=== PATIENT | female | born 2000 | race Caucasian/White ===

== ENCOUNTER 2019-11-17 12:13 | Emergency (ER) | payer OTHER, SELFPAY ==
[2019-11-17 12:31] VITALS: BP 118/80; PULSE 76; RESP 16; TEMP 37; O2SAT 100
--- NOTE | 2019-11-17 12:59 | ED.FEMALEGU ---
HPI - Female Genitourinary General Chief complaint: Urogenital-Female Stated complaint: Pos UTI Time Seen by Provider: 11/17/19 13:00 Source: patient and RN notes reviewed Mode of arrival: ambulatory Limitations: no limitations History of Present Illness HPI Narrative: 19 year old female presents with concern for UTI. She reports history of frequent UTIs, commonly gets them after her menstrual period which she had earlier this month. Reports 1/2-week history of dysuria, frequency, urgency and now is having bilateral flank pain. She denies fever. Reports she took Azo today. MD elicited complaint: UTI Related Data Home Medications Medication Instructions Recorded Confirmed lisdexamfetamine [Vyvanse] mg 11/17/19 Allergies Allergy/AdvReac Type Severity Reaction Status Date / Time sertraline Allergy Unknown hives Verified 03/26/19 16:42 Review of Systems Review of Systems: Narrative: CONSTITUTIONAL: Denies malaise, chills, sweats, or fever. CARDIOVASCULAR: Denies chest pain, palpitations, or edema. RESPIRATORY: Denies cough or dyspnea. GASTROINTESTINAL: Denies abdominal pain, nausea, vomiting, diarrhea GENITOURINARY: Reports dysuria, frequency, urgency, flank pain. Denies hematuria. SKIN: Denies rash or itching. MUSCULOSKELETAL: Denies myalgia. NEUROLOGIC: Denies headache. All systems reviewed & are unremarkable except as noted in HPI and below PMFSH Comments At time of signature, agree with nursing past medical, surgical, social and family history. There is no relevant family history pertinent to the presenting complaint Exam Narrative: Exam Narrative: GENERAL: Well-appearing, well-nourished, and in no acute distress. HEAD: Normocephalic. EYES: PERRLA, conjunctivae clear. NECK: Supple. No lymphadenopathy CHEST: Clear to auscultation. No respiratory distress. HEART: Regular rate and rhythm. No murmur heard. Normal peripheral pulses. ABDOMEN: Soft, mild suprapubic tenderness, otherwise nontender upon palpation, nondistended, normal active bowel sounds, no palpable or pulsatile masses, no guarding. Mild left CVA tenderness SKIN: Warm, dry, no rash. NEURO: Alert and oriented x3. PSYCH: Normal mood and affect Course Course Emergency Course: Patient is aware of diagnosis, understands and agrees to treatment plan. Anticipatory guidance given. Patient agrees to follow-up as directed and is aware of reasons to seek care at the emergency department. Portions of this record may have been created with voice recognition software Vital Signs Vital signs: Vital Signs Temperature 98.6 F 11/17/19 12:31 Pulse Rate 76 11/17/19 12:31 Respiratory Rate 16 11/17/19 12:31 Blood Pressure 118/80 11/17/19 12:31 Pulse Oximetry 100 11/17/19 12:31 Temperature 98.6 F 11/17/19 12:31 Pulse Rate 76 11/17/19 12:31 Respiratory Rate 16 11/17/19 12:31 Blood Pressure 118/80 11/17/19 12:31 Pulse Oximetry 100 11/17/19 12:31 Reviewed. MDM - Female Genitourinary MDM Narrative Medical decision making narrative: Exam findings show no acute concerns or changes; patient is non-toxic appearing and is in no distress. Patient is appropriate for outpatient treatment and follow-up. Differential Diagnosis Differential diagnosis: Likely urinary tract infection, bacterial vaginosis, vaginitis and cystitis Lab Data Labs: Urine Glucose 1+ Reference Range: Negative Urine Bilirubin 2+ Reference Range: Negative Urine Ketone 1+ Reference Range: Negative Urine Specific [place] 1.005 Reference Range:1.001-1.035 Urine Blood Negative Reference Range: Negative * * Urine pH 5.0 Reference Range: 5.0-9.0 Urine Protein 2+ Reference Range: Negative Urine Urobilinogen 8.0 Reference Range: 0.2-
== END 2019-11-17 13:13 | disposition home or self-care (01) ==
PROVIDERS: Emergency Provider Nurse Practitioner; PCP Student in an Organized Health Care Education/Training Program
DX: R30.0 Dysuria (principal); R35.0 Frequency of micturition; R39.15 Urgency of urination; R10.9 Unspecified abdominal pain
CPT/HCPCS: 81003; 87077; 87086; 87088; 87186; 99213; G0463

== ENCOUNTER 2022-04-03 12:55 | Outpatient (CLI) | payer OTHER, SELFPAY ==
--- NOTE | ~2022-04-03 | US_ITS ---
EXAMINATION: US pelvic complete DATE: 04/03/2022 13:28 INDICATION: Right lower quadrant pain TECHNIQUE: Multiple transabdominal and endovaginal sonographic images of the pelvis were obtained. COMPARISON: None. FINDINGS: The uterus measures 7.8 x 3.7 x 5.5 cm. The endometrial complex measures 4 mm. The right ov kalia measures 3.2 x 2.0 x 3.1 cm. The left ovary measures 3.1 x 1.9 x 3.3 cm. There is normal vascular flow in the ovaries. There is no free fluid in the pelvis. IMPRESSION: 1. No sonographic correlate for the patient's symptoms. Reviewed, dictated and finalized at location A.
== END 2022-04-03 12:56 ==
LOC: MICIMG 12:58
PROVIDERS: PCP Advanced Practice Midwife; Visit Provider Advanced Practice Midwife
DX: R10.31 Right lower quadrant pain (principal); N93.8 Other specified abnormal uterine and vaginal bleeding
CPT/HCPCS: 76856

== ENCOUNTER 2024-09-20 16:33 | Inpatient (IN) | payer OTHER, SELFPAY ==
[2024-09-20 17:12] VITALS: BMI 29.3
[2024-09-20] MEDS: DINOPROSTONE 10 MG VAG INSERT VAGINAL (17:16)
--- NOTE | 2024-09-20 17:18 | LDADM ---
This patient, Corinna Thacker, was admitted to Labor/Delivery/Recovery 108 on 09/20/24 at 16:33. Plans for labor, pain management and were discussed with patient. Patient/family oriented to hospital policies and general routines including ID bracelet, bed and alarms, visiting hours, pain management, procedures, bathroom and other care routines, personal items, smoking policy, room service/diet and guest tray routines, infant security routines, and visiting hours. Patient/Family are encouraged to report perceived risks to care and to ask questions if they do not understand what they are told or what they should do. See OBIX for further documentation.
[2024-09-20 17:20] LABS: Basophils Percent Auto 0.2 % (0.2-1.2); Eosinophils Absolute Auto 0.1 K/mm3 (0-0.3); Eosinophils Percent Auto 0.7 % (0-4.4); Hematocrit 28.6 % (37.0-47.0); Hemoglobin 8.8 g/dL (12.0-15.0); Immature Granulocyte Absolute 0.18 K/mm3 (0.00-0.031); Immature Granulocyte Percent A 1.4 % (0-0.5); Lymphocytes Percent Auto 16.7 % (18.3-44.2); Mean Corpuscular HGB Conc 30.8 g/dl (32-36); Mean Corpuscular Hemoglobin 23.1 pg (26-34); Mean Corpuscular Volume 75.1 fl (80-100); Mean Platelet Volume 9.5 fl (7.4-10.4); Monocytes Absolute Auto 0.9 K/mm3 (0.1-0.6); Monocytes Percent Auto 6.5 % (2.6-8.5); Neutrophils Absolute Auto 9.9 K/mm3 (1.3-6.7); Neutrophils Percent Auto 74.5 % (45.5-73.1); Nucleated Red Blood Cells Perc 0.2 % (0.0-0.2); Platelet Count Result 290 k/mm3 (150-375); Red Blood Count 3.81 M/mm3 (4.2-5.4); Red Cell Distribution Width 17.5 % (11.5-14.5); White Blood Count 13.2 K/mm3 (4.5-10.0)
[2024-09-20 17:31] VITALS: BP 98/76; PULSE 91
[2024-09-20 18:00] VITALS: TEMP 36.6
[2024-09-20 18:05] VITALS: BP 93/60; PULSE 97
[2024-09-20 18:09] LABS: HIV 1/2 Ab P24 Ag Result Negative (Negative)
[2024-09-20 18:22] LABS: Rapid Plasma Reagin Non-Reactive (NonReactive)
[2024-09-20 18:30] VITALS: BP 113/76; PULSE 97
[2024-09-20 19:00] VITALS: BP 96/69; PULSE 90
[2024-09-20 23:33] VITALS: BP 109/75; PULSE 105
[2024-09-21] VITALS (163 sets, daily range): BP systolic 87–126; BP diastolic 47–86; PULSE 70–126; RESP 18; TEMP 37.1–37.4; O2SAT 92–100
--- NOTE | 2024-09-21 01:00 | P.PNAN_ITS ---
Anes - Eval Pre Procedure Procedure: Labor Pain Management Date/Time: 09/21/24 01:00 Surgeon: Viry Siddiqui Preop Diagnosis: Pain during labor Pre Op Diagnosis: IOL Patient Data Age: 24 Gender: F Height: 1.7 m Weight: 85 kg Last Vital Signs Temp 98 F 09/20/24 18:00 Pulse 105 H 09/20/24 23:33 BP 109/75 09/20/24 23:33 O2 Del Method Room Air 09/20/24 18:11 Allergies Allergy/AdvReac Type Severity Reaction Status Date / Time sertraline Allergy Unknown hives Verified 09/08/24 14:27 Home Medications Medication Instructions Recorded Confirmed Type vits no.126-ferrous fum 1 tablet PO DAILY 09/08/24 09/08/24 History 28 mg iron-folic acid 800 mcg tablet (Classic ) Laboratory Tests 09/20/24 16:44 WBC 13.2 H K/mm3 (4.5-10.0) RBC 3.81 L M/mm3 (4.2-5.4) Hgb 8.8 L g/dL (12.0-15.0) Hct 28.6 L % (37.0-47.0) MCV 75.1 L fl (80-100) MCH 23.1 L pg (26-34) MCHC 30.8 L g/dl (32-36) RDW 17.5 H % (11.5-14.5) Plt Count 290 k/mm3 (150-375) MPV 9.5 fl (7.4-10.4) Immature Gran % (Auto) 1.4 H % (0-0.5) Neut % (Auto) 74.5 H % (45.5-73.1) Lymph % (Auto) 16.7 L % (18.3-44.2) [place] % (Auto) 6.5 % (2.6-8.5) Eos % (Auto) 0.7 % (0-4.4) Baso % (Auto) 0.2 % (0.2-1.2) Lymph # (Auto) 2.20 K/mm3 (0.9-3.2) [place] # (Auto) 0.9 H K/mm3 (0.1-0.6) Eos # (Auto) 0.1 K/mm3 (0-0.3) Baso # (Auto) 0.0 K/mm3 (0.0-0.1) Abs Immat Gran (auto) 0.18 H K/mm3 (0.00-0.031) Absolute Neuts (auto) 9.9 H K/mm3 (1.3-6.7) Absolute Nucleated RBC 0.020 H K/mm3 (0.0-0.012) Nucleated RBC % 0.2 % (0.0-0.2) RPR Non-reactive (NonReactive) HIV 1&2 Ab/P24 Ag 4thGn Negative (Negative) Blood Type A Positive Antibody Screen Negative Patient hx anesthesia problems: none Family hx anesthesia problems: none Results Review: All pre-operative results and documents have been reviewed as part of the pre- operative evaluation. [facility] Past Medical History Medical History Former smoker vape Marijuana use Family History Family History Grandparent Diabetes mellitus Pancreatic cancer Cervical cancer Social History Social History Smoking status: Former smoker Tobacco type: e-cigarettes/vaping Alcohol intake: current Substance use: former Substance use type: marijuana Do You Feel Safe in your Home?: Yes Lack of Transportation: No Lack of Food: Never True Current Housing: I Have Housing Concerned About Future Housing: No Difficulty Paying Gas/Electric Bills: No Difficulty Paying for Meds: No Currently Unemployed: No Education: High School Diploma/GED Difficulty w/ Childcare or Family Care: No Spiritual care concerns: No Exam Day of Procedure 09/21/24 01:00
[2024-09-21] MEDS: LACTATED RINGERS 1,000 ML 125 ML IV CONT ×3 (06:18→13:06)
[2024-09-21] MEDS: OXYTOCIN 30 UNITS/NS 500 ML 30 UNITS/500 ML BAG 6 UNITS IV CONT (06:19)
--- NOTE | 2024-09-21 06:25 | PM.IMHP ---
H&P: HPI History of Present Illness Date/Time: 09/21/24 06:25 Chief Complaint: term Narrative: 24-year-old female admitted for induction of labor 4 para 0030. Her last menstrual period was 11/25/2023, EDC is 09/14/2024, confirmed by early ultrasound presents at 41 weeks for induction of labor. She is negative for group B strep PMFSH Past Medical History Medical History Former smoker vape Marijuana use Family History Family History Grandparent Diabetes mellitus Pancreatic cancer Cervical cancer Social History Social History Smoking status: Former smoker Tobacco type: e-cigarettes/vaping Alcohol intake: current Substance use: former Substance use type: marijuana Do You Feel Safe in your Home?: Yes Lack of Transportation: No Lack of Food: Never True Current Housing: I Have Housing Concerned About Future Housing: No Difficulty Paying Gas/Electric Bills: No Difficulty Paying for Meds: No Currently Unemployed: No Education: High School Diploma/GED Difficulty w/ Childcare or Family Care: No Spiritual care concerns: No Comments At time of signature, agree with nursing past medical, surgical, social and family history. There is no relevant family history pertinent to the presenting complaint Meds Home Medications and Allergies Home Medications Medication Instructions Recorded Confirmed Type vits no.126-ferrous fum 1 tablet PO DAILY 09/08/24 09/08/24 History 28 mg iron-folic acid 800 mcg tablet (Classic ) Allergies Allergy/AdvReac Type Severity Reaction Status Date / Time sertraline Allergy Unknown hives Verified 09/08/24 14:27 Vital Signs Vital Signs - 24 hr 09/20/24 17:31 09/20/24 18:05 09/20/24 18:00 Temperature 98 F Pulse Rate 91 97 Blood Pressure 98/76 L 93/60 L Oxygen Delivery 09/20/24 18:30 09/20/24 19:00 09/20/24 23:33 Temperature Pulse Rate 97 90 105 H Blood Pressure 113/76 96/69 L 109/75 Oxygen Delivery 09/21/24 04:08 09/20/24 17:12 09/20/24 18:11 Temperature Pulse Rate 95 Blood Pressure 100/47 L Oxygen Delivery Room Air Room Air Exam Const: General: cooperative, healthy appearing, comfortable and well groomed Nutritional Appearance: average body habitus and well nourished Orientation/consciousness: oriented to person, oriented to place and oriented to time HENMT: Head: normal to inspection Resp: Effort & Inspection: normal respiratory effort Cardio: Rate: regular rate Rhythm: regular rhythm Heart sounds: S1 normal heart sound present and S2 normal heart sound present GI: Inspection: normal to inspection ( gravid soft uterus) : External Female Exam: normal external appearance Speculum Exam - Vagina: normal appearance of the vagina Speculum Exam - Cervix: normal appearance of the cervix ( cervix 2/75/2. AROM clear. FHTs reassuring) H&P: Results Labs Labs: Short CBC 09/20/24 Range/Units 16:44 WBC 13.2 H (4.5-10.0) K/mm3 Hgb 8.8 L (12.0-15.0) g/dL Hct 28.6 L (37.0-47.0) % Plt Count 290 (150-375) k/mm3 Assessment and Plan Assessment and plan (1) : Code(s): Z34.90 - Encounter for supervision of normal , unspecified, unspecified trimester Status: Acute (2) Anemia: Code(s): D64.9 - Anemia, unspecified Status: Acute Assessment and Plan: medical induction of labor. Spontaneous vaginal delivery expected. She is an epidural candidate.
[2024-09-21] MEDS: ONDANSETRON INJ 4 MG/2 ML VIAL IV PUSH (12:13)
--- NOTE | 2024-09-21 12:14 | PM.OBPNLAB ---
Pain Control Date/time seen: 09/21/24 12:14 Pain control: tolerating well and epidural Pelvic Exam Dilation (cm): 10 Effacement (%): 100 station: -1 Amniotic membrane status: Leaking
--- NOTE | 2024-09-21 16:08 | P.PCNOB_ITS ---
OB - Vaginal Delivery Note Procedure Delivery date: 09/21/24 Events: Elective Induction of Labor Induction method: AROM Delivery augmentation: Pitocin Delivery monitor: External FHT and External Uterine Episiotomy description: None Laceration Description: Perineal - 1st Degree Delivery repair: vicryl Specimen: No Quantitative Blood Loss (ml): 62 Anesthesia type: Epidural Disposition: PACU Narrative: Patient was admitted for induction of labor the evening of 09 20 24 she progressed unremarkable 1st stage of labor had artificial rupture membranes performed early epidural anesthesia was placed she got to complete pushed delivered head spontaneously in the RAJESH position. Anterior posterior shoulder delivered spontaneously. Cord clamped to cut infant passed of the table given Apgars of 8 [id number] 9 [id number]. Cord blood was drawn. Placenta delivered intact spontaneously 20 of Pitocin placed IV to help firm the uterus after speculum sidewalls 1st degree perineal laceration was noted and closed with figu re-of-eight 0 Vicryl blood loss 62cc. All sponge, needle counts, were intact. There were no complications mom and baby doing fine at the time dictation [place] Baby Date of : 09/21/24 Time of : 15:55 Gestational Age by Date: 39 gender: Female presentation: vertex position: Right Occiput Anterior Placenta delivery description: Spontaneous Cord Vessel Description: 3 Vessels score one minute: 8 score five minutes: 9
--- NOTE | 2024-09-21 16:10 | PM.DS ---
DS: Admitting Diagnosis Discharge Date 09/23/2024 Admitting Diagnosis term DS: Discharge Diagnosis Discharge Diagnosis (1) : Code(s): Z34.90 - Encounter for supervision of normal , unspecified, unspecified trimester Status: Acute (2) Anemia: Code(s): D64.9 - Anemia, unspecified Status: Acute DS: Summary Hospital Course Reason for hospitalization: patient was admitted for induction evening 09/20/2024 delivered at 3:55 p.m. on 09/21/2024 Hospital Course: patient's hospital course unremarkable. She remained afebrile. She was up, voiding without difficulty, eating regular diet, ambulating generally without Complains. Patient did receive 2units of blood secondary to her chronic anemia. Time Spent with Patient Time attestation: Total time spent providing and/or coordinating discharge services: Exam Const: General: cooperative, healthy appearing and comfortable Nutritional Appearance: average body habitus Orientation/consciousness: oriented to person, oriented to place and oriented to time HENMT: Head: normal to inspection Resp: Effort & Inspection: normal respiratory effort Cardio: Rate: regular rate Rhythm: regular rhythm Heart sounds: S1 normal heart sound present and S2 normal heart sound present GI: Inspection: normal to inspection ( fundus firm below umbilicus) DS: Data Data Completed and Pending Labs on day of discharge: Labs from last 24 hours 09/20/24 16:44 WBC 13.2 H RBC 3.81 L Hgb 8.8 L Hct 28.6 L MCV 75.1 L MCH 23.1 L MCHC 30.8 L RDW 17.5 H Plt Count 290 MPV 9.5 Immature Gran % (Auto) 1.4 H Neut % (Auto) 74.5 H Lymph % (Auto) 16.7 L [place] % (Auto) 6.5 Eos % (Auto) 0.7 Baso % (Auto) 0.2 Lymph # (Auto) 2.20 [place] # (Auto) 0.9 H Eos # (Auto) 0.1 Baso # (Auto) 0.0 Abs Immat Gran (auto) 0.18 H Absolute Neuts (auto) 9.9 H Absolute Nucleated RBC 0.020 H Nucleated RBC % 0.2 RPR Non-reactive HIV 1&2 Ab/P24 Ag 4thGn Negative Blood Type A Positive Antibody Screen Negative Discharge Plan Discharge Attending physician on discharge: Nakul Estrada Discharging Clinician: Nakul Estrada Patient Disposition: Home, Self-Care Activity: may shower and pelvic rest Diet: heart healthy Wound Care Instructions: follow printed instructions Patient Instructions: Antibiotic Form Patient Language: Spanish Stand Alone Forms: General Discharge Information Follow-up/Referrals: Nakul Estrada MD [Physician] - Discharge Medications: Continued Classic 28 mg iron- 800 mcg Tablet 1 tablet PO DAILY Date of admission: 09/20/24 16:33 Primary Care Provider: Davis,Arden Admitting Provider: Nakul Estrada Attending physician on admission: Nakul Estrada Condition: Stable
[2024-09-21] MEDS: OXYTOCIN 30 UNITS/NS 500 ML 30 UNITS/500 ML BAG 125 UNITS IV CONT (16:34)
[2024-09-21] MEDS: IBUPROFEN 600 MG TABLET PO (17:55)
[2024-09-21] MEDS: WITCH HAZEL 40 PADS 1 PAD TOPICAL (18:50)
[2024-09-21] MEDS: BENZOCAINE 20% AER SPR (*SP) 56 GM CAN 1 SPRAY TOPICAL (18:50)
--- NOTE | 2024-09-21 19:38 | OBPPTRN ---
Patient transferred to post room #282 via wheelchair. Support person- Prudencio present. Oriented to unit, room, information board, rooming in, admission packet and security measures. Patient verbalizes understanding.
[2024-09-22] VITALS (12 sets, daily range): BP systolic 107–121; BP diastolic 60–84; PULSE 88–110; RESP 16–18; TEMP 36.3–37.1; O2SAT 97–100
[2024-09-22] MEDS: IBUPROFEN 600 MG TABLET PO ×3 (01:45→19:55)
--- NOTE | 2024-09-22 07:01 | PM.OBPNVD ---
OB - PN: Subj Subjective Date/time seen: 09/22/24 07:01 Patient comments: no complaints, pain well controlled and tolerating diet [place] baby status: doing well and nursing well [place] feeding status: exclusively breast feeding OB - PN: Obj Data Labs 09/20/24 16:44 OB - PN A/P Assessment and Plan (1) Anemia: Code(s): D64.9 - Anemia, unspecified Status: Acute Plan transfuse 2 units Time Spent With Patient Time: Total time spent is greater than 50% in coordination of care (as documented) at patient's floor/unit and/or counseling patient: Review of Systems Review of Systems: All systems reviewed & are unremarkable except as noted in HPI and below Exam Const: General: cooperative, healthy appearing and comfortable Nutritional Appearance: average body habitus Orientation/consciousness: oriented to person, oriented to place and oriented to time Resp: Effort & Inspection: normal respiratory effort Cardio: Rate: regular rate Rhythm: regular rhythm Heart sounds: S1 normal heart sound present and S2 normal heart sound present GI: Inspection: normal to inspection
[2024-09-22] MEDS: SODIUM CHLORIDE 0.9% IV 250 ML 30 ML IV CONT (07:48)
--- NOTE | 2024-09-22 07:50 | PC.NURSE ---
Met with patient to assess and discuss needs related to feeding. Mother states it is her intention to [exclusively breastfeed]. Encouraged mother to breastfeed 8-12 times in 24 hours (approximately every 2-3 hours), watching for early feeding cues. If infant is sleepy, unwrap and place baby skin to skin. Discussed signs that infant is effectively , i.e. sufficient voids and stools, jaundice within normal limits, <10% weight loss from . Mother educated on milk production, supply and demand, and expectations for in the immediate period. Encouraged feeding on demand and feeding durations of 15 minutes or greater. [facility] form signed and placed on patient chart to be faxed at discharge. Mother states she has a breast pump at home. Mother instructed to call for assistance if infant will not feed every 3 hours, if there is discomfort with , or if mother has any other questions or concerns. resources provided including the Mom and Baby Guide, admission folder and name/number on communication board. Mother verbalized understanding. Updated patient?s primary RN with education provided.? [id number]- Primary RN had called for assistance with , but upon entering the room, mom already had baby latched and she was feeding consistently. The latch appeared to be shallow but mom declined pain and baby was able to pull more breast into her mouth as she suckled. Encouraged mom to let us know if the latch becomes painful or if she has any request for assistance. Primary RN notified.
[2024-09-22] MEDS: MULTIVIT/MIN/PREN/FOL AC/IRON TABLET 1 TAB PO (08:25)
[2024-09-22] MEDS: DOCUSATE SODIUM 100 MG CAPSULE PO ×2 (08:25→17:13)
[2024-09-22] MEDS: POLYSACCHARIDE IRON COMPLEX 150 MG CAPSULE PO ×2 (08:25→17:13)
[2024-09-22 08:54] LABS: Hematocrit 20.5 % (37.0-47.0); Hemoglobin 6.4 g/dL (12.0-15.0)
[2024-09-22 09:10] LABS: Basophils Percent Auto 0.1 % (0.2-1.2); Eosinophils Absolute Auto 0.1 K/mm3 (0-0.3); Eosinophils Percent Auto 0.6 % (0-4.4); Immature Granulocyte Absolute 0.16 K/mm3 (0.00-0.031); Immature Granulocyte Percent A 1.1 % (0-0.5); Lymphocytes Absolute Auto 2.31 K/mm3 (0.9-3.2); Lymphocytes Percent Auto 15.5 % (18.3-44.2); Mean Corpuscular HGB Conc 29.1 g/dl (32-36); Mean Corpuscular Hemoglobin 22.7 pg (26-34); Mean Platelet Volume 10.4 fl (7.4-10.4); Monocytes Absolute Auto 1.2 K/mm3 (0.1-0.6); Monocytes Percent Auto 7.9 % (2.6-8.5); Neutrophils Absolute Auto 11.1 K/mm3 (1.3-6.7); Neutrophils Percent Auto 74.8 % (45.5-73.1); Nucleated Red Blood Cells Perc 0.2 % (0.0-0.2); Platelet Count Result 212 k/mm3 (150-375); Red Blood Count 2.73 M/mm3 (4.2-5.4); Red Cell Distribution Width 18.1 % (11.5-14.5); White Blood Count 14.9 K/mm3 (4.5-10.0)
[2024-09-22 09:58] LABS: Platelet Estimate Adequate (Adequate)
[2024-09-22 09:59] LABS: Anisocytosis 2+; Schistocytes None Seen
--- NOTE | 2024-09-22 14:16 | WPDANLDPN2 ---
Anes-Prog Note L&D Date/Time: 09/22/24 14:16 Comfortable throughout: labor and delivery Neuraxial method: epidural Epidural/Spinal procedure site: clean & non-tender Neuro status: Neuro function grossly intact. Cardiovascular status: normal Respiratory status: normal Airway patency: baseline Mental status: baseline Post-Op hydration status: normal Vital Signs: Last Vital Signs Temp 97.7 F 09/22/24 13:11 Pulse 93 09/22/24 13:11 Resp 16 09/22/24 13:11 BP 107/68 09/22/24 13:11 Pulse Ox 98 09/22/24 13:11 O2 Del Method Room Air 09/20/24 18:11 Pain score (VAS): 0/10 I/O: Intake & Output 09/21/24 09/22/24 09/22/24 23:59 07:59 15:59 Intake Total 500 240 326 Output Total 112 Balance 388 240 326 Post-procedural complaints: none Patient feedback: Patient satisfied with anesthetic care.
[2024-09-22 18:33] LABS: Hematocrit 25.8 % (37.0-47.0)
[2024-09-23] MEDS: IBUPROFEN 600 MG TABLET PO (07:38)
[2024-09-23] MEDS: MULTIVIT/MIN/PREN/FOL AC/IRON TABLET 1 TAB PO (07:39)
[2024-09-23] MEDS: INFLUENZA TRIVALENT VACCINE 45 MCG/0.5 ML SYRINGE IM (07:39)
[2024-09-23] MEDS: POLYSACCHARIDE IRON COMPLEX 150 MG CAPSULE PO (07:39)
[2024-09-23] MEDS: DOCUSATE SODIUM 100 MG CAPSULE PO (07:39)
[2024-09-23 08:50] VITALS: BP 119/59; PULSE 85; RESP 16; TEMP 36.6; O2SAT 99
--- NOTE | 2024-09-23 09:36 | PC.NURSE ---
Breast pump provided due to missed feedings at the breast and extended time between feedings. Instructions given on cleaning, care, usage, that there should be no pain, pumping schedule for milk production, collection, and storage of human milk. Patient was assessed for correct placement, flange size (Nipple size bilaterally - 24mm) using size 28mm flange, to pump for comfort and nipple stretching/stimulation for adequate milk production every 3 hours (8 times in 24 hours) 1-2 times at night. Mother verbalizes she is able to independently latch infant with appropriate positioning and alignment. She denies any nipple discomfort and is responsively . Infant latched to the right breast in laid back position and was nursing great. Mother denies pain or discomfort. Mother declines any additional assistance or education at this time. Mother is encouraged to call for assistance if her infant doesn?t latch, pain with latching, questions or concerns. Mother voiced understanding of information shared along with the mom/baby guide for an additional resource. Reported to the Primary RN.
--- NOTE | 2024-09-23 10:08 | PC.NURSE ---
Patient viewed the discharge video Mother & Baby Care, The First Two Weeks . Patient was given the opportunity and encouraged to ask questions. Patient verbalized understanding of information shared and has been given the mother/baby guide for home reference.
[2024-09-24 07:58] VITALS: BP 113/68; PULSE 88; RESP 16; TEMP 36.7; O2SAT 100
== END 2024-09-23 14:20 | disposition home or self-care (01) | DRG 807 ==
LOC: ANHLDR 09-21 16:12 → ANHOB2 09-21 19:49
PROVIDERS: Obstetrics & Gynecology; Admitting Provider Obstetrics & Gynecology; PCP Student in an Organized Health Care Education/Training Program; Visit Provider Obstetrics & Gynecology
DX: O99.02 Anemia complicating childbirth (principal); Z37.0 Single live birth; Z3A.41 41 weeks gestation of pregnancy; D64.9 Anemia, unspecified; O70.0 First degree perineal laceration during delivery; Z23 Encounter for immunization
CPT/HCPCS: 36415; 36430; 85014; 85018; 85025; 86592; 86703; 86850; 86900; 86901; 86923; 90471; 90656; A9270; G0008; G0432; J2405; J2590; J2795; J7050; J7120; P9016

== ENCOUNTER 2024-09-26 11:26 | Emergency (ER) | payer OTHER, SELFPAY ==
--- NOTE | ~2024-09-26 | US_ITS ---
EXAMINATION: US venous doppler LE RT DATE: 09/26/2024 12:50 INDICATION: right lower limb swelling TECHNIQUE: Grayscale ultrasound images without and with compression and Doppler ultrasound images of the right lower extremity veins were obtained. COMPARISON: None. FINDINGS: The visualized portions of right common femoral vein, profunda (deep) femoral vein, femoral vein, pop liteal vein, peroneal trunk, posterior tibial veins, peroneal veins, gastrocnemius vein and greater s aphenous vein outflow are patent. IMPRESSION: 1. No deep venous thrombosis in the right lower limb. Reviewed, dictated and finalized at location [facility] [employer]
[2024-09-26 11:28] VITALS: BP 130/88; PULSE 75; RESP 16; TEMP 36.2; O2SAT 100
[2024-09-26 11:41] VITALS: BP 111/81; PULSE 82; RESP 16; TEMP 36.8; O2SAT 99
--- NOTE | 2024-09-26 12:28 | ED_ITS ---
HPI - Recheck/Abnormal Lab/Rx General Chief Complaint: Recheck/Abnormal Lab/Rx Stated Complaint: Right Lower Leg/Foot Swelling Time Seen by Provider: 09/26/24 11:56 History of Present Illness HPI narrative: 24-year-old female presenting with right leg swelling. States that she gave about a week ago and today her right leg became swollen. States that her left leg is a little bit swollen but the right 1 was twice the size of the left 1. Has some paresthesias and tingling but no numbness or weakness. Denies pain or redness. Related Data Home Medications ?Medication ?Instructions ?Recorded ?Confirmed ?Last Taken ?Type vits no.126-ferrous fum 1 tablet PO DAILY 09/08/24 09/08/24 09/20/24 08:00 History 28 mg iron-folic acid 800 mcg tablet (Classic ) Allergies Allergy/AdvReac Type Severity Reaction Status Date / Time sertraline Allergy Unknown hives Verified 09/08/24 14:27 Review of Systems Review of Systems: All systems reviewed & are unremarkable except as noted in HPI and below PMFSH Past Medical History Medical History Former smoker vape Marijuana use Family History Family History Grandparent Diabetes mellitus Pancreatic cancer Cervical cancer Social History Social History Smoking status: Former smoker Tobacco type: e-cigarettes/vaping Alcohol intake: current Substance use: former Substance use type: marijuana Do You Feel Safe in your Home?: Yes Lack of Transportation: No Lack of Food: Never True Current Housing: I Have Housing Concerned About Future Housing: No Difficulty Paying Gas/Electric Bills: No Difficulty Paying for Meds: No Currently Unemployed: No Education: High School Diploma/GED Difficulty w/ Childcare or Family Care: No Spiritual care concerns: No Exam Narrative: GENERAL: Well-appearing, well-nourished, and in no acute distress. HEAD: Normocephalic, atraumatic. EYES: PERRLA and EOMI. ENT: Grossly unremarkable NECK: Supple. CHEST: No respiratory distress. HEART: Regular rate and rhythm EXTREMITIES: Normal range of motion. bilateral LE edema, R>L; no erythema, neurovascularly intact SKIN: Warm, dry, no rash. NEURO: No focal deficits. Alert and oriented x3. PSYCH: Normal mood and affect. Course Vital Signs Vital signs: Vital Signs Temperature 97.1 F L 09/26/24 11:28 Pulse Rate 75 09/26/24 11:28 Respiratory Rate 16 09/26/24 11:28 Blood Pressure 130/88 09/26/24 11:28 Pulse Oximetry 100 09/26/24 11:28 Temperature 98.3 F 09/26/24 11:41 Pulse Rate 82 09/26/24 11:41 Respiratory Rate 16 09/26/24 11:41 Blood Pressure 111/81 09/26/24 11:41 Pulse Oximetry 99 09/26/24 11:41 MDM - Recheck/Abnormal Lab/Rx MDM Narrative Medical decision making narrative: 24-year-old female presenting with right leg swelling. Vitals are within normal limits. Not tachycardic or hypertensive. Ultrasound shows no blood clot in the right leg. Suspect her leg swelling is related to the recent and delivery. She does have some swelling on the left as well. Feel she is safe for outpatient management. Discussed appropriate supportive care and follow-up. Appropriate return precautions given. She is agreeable this plan. Discharged in stable condition. Imaging Data Radiologist's impression: ITS Impressions Venous Doppler Study 09/26/24 12:54 IMPRESSION: 1. No deep venous thrombosis in the right lower limb. Critical Care Time Critical Care Time Critical Care Time: No Discharge Plan Discharge Clinical Impression: Leg swelling Patient Disposition: Home, Self-Care Condition: Stable Instructions: Antibiotic Form, Leg Edema (ED) Additional Instructions: The ultrasound shows no blood clot in your leg. Please elevate your legs as much as possible and follow-up with your OB. If your symptoms worsen or other concerning symptoms arise, please return to the ER. Patient Language: Bangladeshi Prescriptions: No Action Classic 28 mg iron- 800 mcg Tablet 1 tablet PO DAILY Follow-up/Referrals: Nakul Estrada MD [Physician] - Davis,DO Arden [Primary Care Provider] -
--- OUTSIDE RECORDS SUMMARY | 2024-09-30 09:11 | XMS_ITS | Clinical Summary ---
Author Organization [facility] Address [address] [place] [address] Care Team Providers Care Wiring Technician Name Role Phone Unavailable Primary Care Provider Unavailabl e Source Comments [facility],non-owned Affiliates and Associated Physician Practices is amultiple site organization consisting of ambulatory clinics and hospital sitesin [place], [place], [place] and [place]. This disclosure is being madepursuant to the Care Everywhere program and may not contain all information available regarding this patient. Last updated 18.[facility] Allergies Active Allergy Reactions Criticality Noted Date Comments Sertraline Urticaria Medium 11/13/2018 Medications * Be aware that medications may not be up to date on this document. Alwaysverify current medications with the patient. 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): IMO Update 01/12/2017 Social History Tobacco Use Types Packs/Day Years Used Date Smoking Tobacco: Never Smokeless Tobacco: Never Alcohol Use Standard Drinks/Week Comments No 0 (1 standard drink = 0.6 oz pur e alcohol) Sex and Gender Information Value Date Recorded Sex Assigned at Not on file Gender Identity Not on file Sexual Orientation Not on file Last Filed Vital Signs Vital Sign Reading Time Taken Comments Blood Pressure 114/68 07/12/2019 11:22 AM CDT Pulse 74 07/12/2019 11:22 AM CDT Temperature 36.8 ??C (98.3 ??F) 07/12/2019 11:22 AM C DT Respiratory Rate 16 07/12/2019 11:22 AM CDT Oxygen Saturation 98% 07/12/2019 11:22 AM CDT Inhaled Oxygen Concentration - - Weight 61.2 kg (135 lb) 07/12/2019 11:22 AM CDT Height 170.2 cm (5' 7 ) 07/12/2019 11:22 AM CDT Body Mass Index 21.14 07/12/2019 11:22 AM CDT Plan of Treatment Health Maintenance Due Date Last Done Comments PAP SMEAR 1998 HIV SCREENING 2013 HPV VACCINE (1 - 3-dose series) 2013 HEPATITIS C SCREENING 01/27/2016 DTAP/TDAP/TD VACCINES (1 - Tdap) 2017 HEPATITIS B VACCINE (1 of 3 - 19+ 3-dose series) 2017 DEPRESSION SCREENING 10/14/2023 COVID-19 VACCINE (1 - 2023-2 5 season) 2024 INFLUENZA VACCINE (#1) 2024 ZOSTER VACCINE (1 of 2) 02/01/2048 HIB VACCINE Aged Out No longer eligi ble based on patient's age to complete this topic MENINGOCOCCAL VACCINE Aged Out No dileep cadence eligible based on patient's age to complete this topic PNEUMOCOCCAL VACCINE Aged Out No long er eligible based on patient's age to complete this topic
--- OUTSIDE RECORDS SUMMARY | 2024-09-30 09:11 | XMS_ITS | Encounter Summary ---
Author Organization [facility] Address [facility] [place] [address] Care Team Providers Care Program Medical Director Name Role Phone Jian Benitez MD Primary Care Provider [phone] Reason for Visit * Reason Onset Date Comments Follow-up 05/03/2019 Encounter Details Date Type Department Care Team (Late st Contact Info) Description 05/03/2019 Telephone [facility] AT [address] [phone] Provider, [facility] Follow-up Social History Tobacco Use Types Packs/Day Years Used Date Smoking Tobacco: Never Smokeless Tobacco: Never Alcohol Use Standard Drinks/Week Comments No 0 (1 standard drink = 0.6 oz pur e alcohol) Sex and Gender Information Value Date Recorded Sex Assigned at Not on file Gender Identity Not on file Sexual Orientation Not on file documented as of this encounter Miscellaneous Notes * Telephone Encounter - Steff Alcantar - 05/03/2019 10:37 AM CDT Courtesy follow-up phone call made to patient. Message left advising patient to call service [facility] [phone] if they have any questions or concerns. Steff Alcantar 05/03/2019 10:40 AM documented in this encounter Plan of Treatment Not on file documented as of this encounter Visit Diagnoses Not on filedocumented in this encounter Care Teams Program Medical Director Relationship Specialty Start Date End Date Jian Benitez MD [address] [place] [address] PCP - General Pediatrics 08/03/14 03/26/24 documented as of this encounter
--- OUTSIDE RECORDS SUMMARY | 2024-09-30 09:11 | XMS_ITS | Encounter Summary ---
Author Organization [facility] Address [address] [place] [address] [place] [address] Care Team Providers Care Grant Administrator Name Role Phone Jian Benitez MD Primary Care Provider Reason for Visit * Reason Onset Date Comments Follow-up 07/14/2019 Encounter Details Date Type Department Care Team (Late st Contact Info) Description 07/14/2019 Telephone [facility] AT [address] [phone] Christine Griggs, [facility] [address] [place] [address] Follow-up Social History Tobacco Use Types Packs/Day Years Used Date Smoking Tobacco: Never Smokeless Tobacco: Never Alcohol Use Standard Drinks/Week Comments No 0 (1 standard drink = 0.6 oz pur e alcohol) Sex and Gender Information Value Date Recorded Sex Assigned at Not on file Gender Identity Not on file Sexual Orientation Not on file documented as of this encounter Plan of Treatment Not on file documented as of this encounter Visit Diagnoses Not on filedocumented in this encounter Care Teams Grant Administrator Relationship Specialty Start Date End Date Jian Benitez MD [address] [place] [address] PCP - General Pediatrics 08/03/14 03/26/24 documented as of this encounter
--- OUTSIDE RECORDS SUMMARY | 2024-09-30 09:11 | XMS_ITS | Patient Health Summary ---
Author Organization [facility] Address [address] [place] [address] Care Team Providers Care Hole Digger Operator Name Role Phone Unavailable Primary Care Provider Unavailabl e Note from [facility],non-owned Affiliates and Associated Physician Practices is amultiple site organization consisting of ambulatory clinics and hospital sitesin [place], [place], [place] and [place]. This disclosure is being madepursuant to the Care Everywhere program and may not contain all information available regarding this patient. Last updated 18.[facility] Allergies * Sertraline(Urticaria) -Medium Criticality Medications * Be aware that medications may not be up to date on this document. Alwaysverify current medications with the patient. 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 Social History Tobacco Use Types Packs/Day Years [...] Mass Index 21.14 07/12/2019 11:22 AM CDT Procedures * INFLUENZA A+B - POINT OF CARE (AMB)(Performed 07/12/2019) Performed for Nasopharyngitis * STREP A SCREEN - POINT OF CARE (AMB) STL(Performed 07/12/2019) Performed for Nasopharyngitis * CULTURE RESPIRATORY UPPER(Performed 11/13/2018) Performed for Acute suppurative otitis media of left ear without spontaneous rupture of tympanic membrane, recurrence not specified * MONONUCLEOSIS SCREEN - POINT OF CARE (AMB) STL(Performed 11/13/2018) Performed for Acute suppurative otitis media of left ear without spontaneous rupture of tympanic membrane, recurrence not specified * INFLUENZA A+B - POINT OF CARE (AMB)(Performed 11/13/2018) Performed for Acute suppurative otitis media of left ear without spontaneous rupture of tympanic membrane, recurrence not specified * STREP A SCREEN - POINT OF CARE (AMB) STL(Performed 11/13/2018) Performed for Acute suppurative otitis media of left ear without spontaneous rupture of tympanic membrane, recurrence not specified * CARDIAC EKG ORDER(Performed 12/26/2015) * CARDIAC RHYTHM STRIP ORDER(Performed 12/26/2015) * ECHO CONSULT - PEDIATRIC(Performed 12/15/2015) Performed for Bradycardia * EKG 15-LEAD(Performed 12/15/2015) Performed for Bradycardia * MRI LOWER EXT ANY JOINT NON CONTRAST RIGHT(Performed 09/24/2014) Performed for Osteochondritis dessicans * COMPREHENSIVE METABOLIC PANEL(Performed 12/29/2010) * MONONUCLEOSIS SCREEN(Performed 12/29/2010) * CBC W AUTO DIFFERENTIAL(Performed 12/29/2010) * XR SCOLIOSIS 1VW(Performed 05/22/2010) Performed for Scoliosis (and Kyphoscoliosis), Idiopathic Results * INFLUENZA A+B - POINT OF CARE (AMB) (07/12/2019 11:54 AM CDT) Only the most recent of2 resultswithin the time period is included. Influenza A Antigen Rapid Negative Negative Influenza B Antigen Rapid Negative Negative Influenza Internal Control present NEGATIVE - POSITIVE Influenza Lot Number [id number] Influenza Expiration Date 08 25 2020 Other NASOPHARYNGEAL SWAB / Unknown 07/12/2019 11:54 AM CDT Christine Griggs BOOK OR SCRIPT EDITOR-CR[facility] SPECIALIST [facility] - POINT OF CARE ORDERABLES * STREP A SCREEN - POINT OF CARE (AMB) STL (07/12/2019) Only the most recent of2 resultswithin the time period is included. Strep A Rapid POCT Negative Negative Strep A Internal Control Present Lot # [id number] Expiration Date 10/13/2020 Throat ENTIRE THROAT (SURFACE REGION OF NECK) / Unknown 07/12/2019 Christine Griggs BOOK OR SCRIPT EDITOR-CR[facility] SPECIALIST LAB - POINT OF CARE ORDERABLES * CULTURE RESPIRATORY UPPER (11/13/2018 8:06 PM CIVIL DRAFTING TECHNICIAN) Upper Respiratory Culture Final report [facility] INSURANCE BILL Result 1 [facility] INSURANCE BILL Comment:Routine respiratory brooke Microbiology ENTIRE THROAT (SURFACE REGION OF NECK) / Unknown 11/13/2018 8:06 PM CIVIL DRAFTING TECHNICIAN 11/14/2018 Narrative Resulting Agency Comment [facility] [address] ??[facility] [id number] Xuan Bill BOOK OR SCRIPT EDITOR-CROP SPECIALIST LAB - MICROB IOLOGY ORDERABLES [facility] INSURANCE BILL [address] [place] [address] * MONONUCLEOSIS SCREEN - POINT OF CARE (AMB) STL (11/13/2018 8:05 PM CIVIL DRAFTING TECHNICIAN) Mononucleosis Screen POCT neg NEGATIVE [place] Test Internal Control positive [place] Test Lot# [id number] [place] Test Exp Date 04/12/2020 Blood BLOOD SPECIMEN / Unknown 11/13/2018 8:05 PM CIVIL DRAFTING TECHNICIAN Xuan Bill BOOK OR SCRIPT EDITOR-CR[facility] SPECIALIST LAB - POINT OF CARE ORDERABLES * CARDIAC EKG ORDER (12/26/2015 8:14 PM CDT) Narrative 12/26/2015 8:14 PM CDT Ordered by an unspecified provider. Scanned Document CARDIAC SERVICES ORD ERABLES * CARDIAC RHYTHM STRIP ORDER (12/26/2015 7:15 PM CDT) Narrative 12/26/2015 7:15 PM CDT Ordered by an unspecified provider. Scanned Document CARDIAC SERVICES ORD ERABLES * ECHO CONSULT - PEDIATRIC (12/15/2015 10:24 AM CIVIL DRAFTING TECHNICIAN) 12/15/2015 10:2 4 AM CIVIL DRAFTING TECHNICIAN Narrative Procedure Note Reading, No - 12/15/[address] [place] [id number] Fax Congenital Transthoracic Report Pat.Name: MARYOLU THACKER Sue Schumacher.ID: [id number] .Date: 12/15/2015 Exam Time: 10:24:00 AM Study Type:Congenital TTE Height: 171cm Weight: 62kg BSA: 1.73 m2 Age: 4 2000,15Y Sex: FEMALE BP: 104/80 Sonogrphr: Montrell Forte RDCS Pat. Stat.:Outpatient ICD - 9: 786.50 CPT - 4: 57536 Reason for Study:Chest pain History / Clinical:Chest pain Procedures:2D Non-congenital, Doppler Complete, Color Flow Visit ID: [id number] SUMMARY: Impression: 1. Normal coronary arteries. 2. Normal biventricular size and systolic function. 3. Occasional PVCs seen during the study. Findings: Anatomic Relationships: Abdominal situs solitus. There is levocardia. Atrial situs solitus. The AV alignment is concordant. The ventricular looping is D-looped. The VA connection is concordant. The arterial relationships are normal. Systemic Veins: Normal right SVC. Normal IVC. Pulmonary Veins: Pulmonary veins drain normally to LA. Right Atrium: The right atrial size is normal. Left Atrium: The left atrial size is normal. Atrial Septum: Intact atrial septum. Left to right atrial shunt, none. Tricuspid Valve: The tricuspid valve is structurally normal. There is no stenosis. There is physiologic regurgitation present. Mitral Valve: The mitral valve is structurally normal. There is no stenosis. There is no regurgitation present. Right Ventricle: The cavity size is normal. The wall thickness is normal. The systolic function is normal. RV Outflow Tract: The outflow tract is normal. Left Ventricle: The cavity size is normal. The wall thickness is normal. The systolic function is normal. LV Outflow Tract: The outflow tract is normal. Ventricular Septum: The septal motion is normal. There is no defect with no shunting. Pulmonary Valve: The pulmonic valve is structurally normal. There is no stenosis. There is physiologic regurgitation present. Aortic Valve: The aortic valve is structurally normal. There is no stenosis. There is no regurgitation present. Pulmonary Artery: The MPA is normal. The LPA is normal. The RPA is normal. Aorta: The aortic root is normal. The aortic arch is patent. The arch sidedness is left aortic arch. PDA: No PDA with no shunting. Coronary Arteries: Normal coronary artery origins, normal colorflow. Pericardium: No pericardial effusion. Signed 12/15/2015 05:10 PM Alex Rendon MD Alex Rendon MD ECHO ORDERABLES [facility] [address] [place] [address] * EKG 15-LEAD (12/15/2015 9:52 AM CIVIL DRAFTING TECHNICIAN) Ventricular Rate 73 BPM CG MUSE Atrial Rate 73 BPM CG MUSE P-R Interval 138 ms CG MUSE QRS Duration ms 70 ms CG MUSE Q-T Interval ms 412 ms CG MUSE QTC Calculation (Bezet) 453 ms CG MUSE Calculated P [place] 48 degrees CG MUSE Calculated R [place] 35 degrees CG MUSE Calculated T [place] 26 degrees CG MUSE Interpretation EKG Normal sinus rhythm with sinus arrhythmia No previous ECGs available Confirmed by MD Rendon Wilson ([id number]) on 12/15/2015 10:00:40 AM CG MUSE 12/15/2015 9:52 AM CIVIL DRAFTING TECHNICIAN 12/15/2015 10:00 AM CIVIL DRAFTING TECHNICIAN Alex Rendon MD ECG ORDERABLES CG MUSE * MRI LOWER EXT ANY JOINT NON CONTRAST RIGHT (09/24/2014 10:08 AM CIVIL DRAFTING TECHNICIAN) Anatomical Region Laterality Modality Lower Extremity Magnetic Resonan ce 09/24/2014 3:25 PM CIVIL DRAFTING TECHNICIAN Impressions 09/24/2014 3:57 PM CIVIL DRAFTING TECHNICIAN 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 Narrative 09/24/2014 3:57 PM CIVIL DRAFTING TECHNICIAN Exam: MRI ANKLE WITHOUT CONTRAST. Date: 09/24/2014 9:06 AM History: 14-year-old female who sustained a right ankle injury 2 months ago playing soccer. Comparison: None. Findings: The examination is interpreted with without radiographic correlation. There is an osteochondral lesion at the medial, central to posterior aspect of the talar dome measuring 13 x 5 x 7 mm (series 3 image 15, series 6 image 18, series 7 image 59). Based on the T1 images, the subchondral cortex is mildly irregular with small areas of discontinuity and mild fragmentation. ??On the STIR sequence, there is bone marrow edema surrounding the fragment. No complete fluid cleft is seen beneath the fragment to indicate complete detachment. ?? These findings are consistent with a stage 2a lesion (by the Hepple classification). A few small cysts are present within the calcaneus at the angle of Giss[place]. ??Otherwise, marrow signal intensity is normal. There is no ankle effusion. The subtalar joint is normal. The midfoot joints are grossly normal. The anterior talofibular ligament and posterior talofibular ligament are intact. There is mild increased signal within the deep fibers of the deltoid ligament consistent with a mild sprain. The Achilles tendon is normal. The posterior medial flexor tendons, anterior extensor tendons, and peroneal tendons are normal. The visualized portion of the plantar fascia is normal in thickness and signal. Muscle bulk is normal. There is no diffuse marrow space abnormality. Procedure Note Arsh Castillo MD - 09/24/2014 Exam: MRI ANKLE WITHOUT CONTRAST. Date: 09/24/2014 9:06 AM History: 14-year-old female who sustained a right ankle injury 2 months ago playing soccer. Comparison: None. Findings: The examination is interpreted with without radiographic correlation. There is an osteochondral lesion at the medial, central to posterior aspect of the talar dome measuring 13 x 5 x 7 mm (series 3 image 15, series 6 image 18, series 7 image 59). Based on the T1 images, the subchondral cortex is mildly irregular with small areas of discontinuity and mild fragmentation. On the STIR sequence, there is bone marrow edema surrounding the fragment. No complete fluid cleft is seen beneath the fragment to indicate complete detachment. These findings are consistent with a stage 2a lesion (by the Hepple classification). A few small cysts are present within the calcaneus at the angle of [place]. Otherwise, marrow signal intensity is normal. There is no ankle effusion. The subtalar joint is normal. The midfoot joints are grossly normal. The anterior talofibular ligament and posterior talofibular ligament are intact. There is mild increased signal within the deep fibers of the deltoid ligament consistent with a mild sprain. The Achilles tendon is normal. The posterior medial flexor tendons, anterior extensor tendons, and peroneal tendons are normal. The visualized portion of the plantar fascia is normal in thickness and signal. Muscle bulk is normal. There is no diffuse marrow space abnormality. 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 Annabel Rico MD MR ORDERABLES * MONONUCLEOSIS SCREEN (12/29/2010 1:00 PM CDT) Mononucleosis Screen Negative Negative [facility] BLOOD SPECIMEN / Unknown 12/29/2010 1:00 PM CDT 12/29/2010 1:19 PM CDT Uriah Chapman DO LAB - CHEMISTRY DUSTIN BOO [facility] [address] [place] [address] * CBC W AUTO DIFFERENTIAL (12/29/2010 1:00 PM CDT) WBC 7.81 4.5 - 14.5 K/cumm [facility] RBC 4.56 4.00 - 5.20 mill/cumm [facility] Hemoglobin 13.5 11.5 - 15.5 gm/dl [facility] Hematocrit 39.6 35.0 - 45.0 % [facility] MCV 86.8 77.0 - 95.0 cu microns [facility] MCH 29.6 25.0 - 33.0 uug [facility] MCHC 34.1 31.0 - 37.0 % [facility] RDW 12.5 % [facility] MPV 9.8 fl [facility] Platelet Count 295 100 - 400 K/cumm [facility] Granulocytes % 61.4 24 - 66 % [facility] Lymphocytes % 24.3 22 - 61 % [facility] Monocytes % 6.8 3 - 15 % [facility] Eosinophils % 7.0 0 - 10 % [facility] Basophils % 0.5 0 - 1 % [facility] Comment Manual Diff Automated Diff Performed [facility] BLOOD SPECIMEN / Unknown 12/29/2010 1:00 PM CDT 12/29/2010 1:19 PM CDT Uriah Chapman DO LAB - HEMATOLOGY ORD ERABLES Performing Organization Address City/State/[facility] Co de Phone Number [facility] [address] [place] [address] * (ABNORMAL) COMPREHENSIVE METABOLIC PANEL (12/29/2010 1:00 PM CDT) Pathologist [facility] Sodium 140 137 - 145 mmol/L [facility] Potassium 4.1 3.5 - 5.1 mmol/L [facility] Chloride 104 98 - 107 mmol/L [facility] CO2 28.0(H) 18 - 27 mmol/L [facility] Glucose 84 70 - 106 mg/dl [facility] BUN 11.1 7 - 18 mg/dl [facility] Calcium 9.1 8.8 - 10.6 mg/dl [facility] Bilirubin Total 0.6 0.6 - 1.4 mg/dl [facility] Protein Total 6.7 6.3 - 8.6 gm/dl [facility] Albumin 4.2 3.7 - 5.6 gm/dl [facility] ALT 12 10 - 30 Units/L [facility] AST 22 10 - 30 Units/L [facility] Alkaline Phosphatase 101(L) 105 - 420 Units/L [facility] Creatinine 0.56 0.31 - 0.88 mg/dl [facility] BLOOD SPECIMEN / Unknown 12/29/2010 1:00 PM CDT 12/29/2010 1:19 PM CDT Uriah Chapman DO LAB - CHEMISTRY DUSTIN BOO Performing Organization Address City/State/[facility] Co de Phone Number [facility] [address] [place] [address] * XR SCOLIOSIS ERECT (05/22/2010 3:28 PM CDT) Anatomical Region Laterality Modality Spine Radiographic Dianne ging 05/23/2010 8:22 AM CDT Impressions 05/23/2010 10:28 AM CDT Mild T7-L4 right curvature Fred Leon MD Narrative 05/23/2010 10:28 AM CDT EXAMINATION: Scoliosis series FINDINGS: A mild T7-L4 right curvature is identified which measures less than 10 degrees. There is reversal of the cervical lordosis. 12 thoracic ribs are identified. Procedure Note Ra Wills - 05/23/2010 EXAMINATION: Scoliosis series FINDINGS: A mild T7-L4 right curvature is identified which measures less than 10 degrees. There is reversal of the cervical lordosis. 12 thoracic ribs are identified. IMPRESSION Mild T7-L4 right curvature Fred Leon MD Darius Mercer MD DIAGNOSTIC IMAGING O RDERABLES
--- OUTSIDE RECORDS SUMMARY | 2024-09-30 09:11 | XMS_ITS | Referral Summary ---
Author Organization [facility] Address [address] [place] [address] Care Team Providers Care Pie Crimping Machine Operator Name Role Phone Unavailable Primary Care Provider Unavailabl e Source Comments [id number],non-owned Affiliates and Associated Physician Practices is amultiple site organization consisting of ambulatory clinics and hospital sitesin [place], [place], [place] and [place]. This disclosure is being madepursuant to the Care Everywhere program and may not contain all information available regarding this patient. Last updated 18.[facility] Allergies Active Allergy Reactions Criticality Noted Date [...] 07/12/2019 11:22 AM CDT Plan of Treatment Not on file
--- OUTSIDE RECORDS SUMMARY | 2024-09-30 09:11 | XMS_ITS | Encounter Summary ---
Author Organization [facility] Address [address] [place] [address] [place] [address] Care Team Providers Care Meteorology Teacher Name Role Phone Jian Benitez MD Primary Care Provider [phone] Reason for Visit * Reason Comments Congestion Sore Throat Nausea Headache Fatigue Cough Encounter Details Date Type Department Care Team (Late st Contact Info) Description 07/12/2019 11:20 AM CDT Office Visit [facility] AT [address] [address] Provider, [place] [facility] Nasopharyngitis (Primary Dx) Social History Tobacco Use Types Packs/Day Years Used Date Smoking Tobacco: Never Smokeless Tobacco: Never Alcohol Use Standard Drinks/Week Comments No 0 (1 standard drink = 0.6 oz pur e alcohol) Sex and Gender Information Value Date Recorded Sex Assigned at Not on file Gender Identity Not on file Sexual Orientation Not on file documented as of this encounter Last Filed Vital Signs Vital Sign Reading [...] Mass Index 21.14 07/12/2019 11:22 AM CDT documented in this encounter Patient Instructions * Patient Instructions* Wendie Griggsdi Gianfranco, APPELLATE CONFEREE-COMPUTER CUSTOMER SUPPORT SPECIALIST - 07/12/2019 11:46 AM CDT Images from the original note were not included. Patient Education Upper Respiratory Infection WHAT YOU NEED TO KNOW: What is an upper respiratory infection? An upper respiratory infection is also called a common cold. It can affect your nose, throat, ears, and sinuses. What causes a cold? The common cold is caused by a virus. There are many different cold viruses, and each is contagious. This means the virus can be easily spread to another person when the sick person coughs or sneezes. The virus can also be spread if you touch something that a person with a cold has touched. You are more likely to get a cold in the winter. Your risk of getting a cold may be increased if you smoke cigarettes or have allergies, such as hay fever. What are the signs and symptoms of a cold? Cold symptoms are usually worst for the first 3 to 5 days. You may have any of the following: ?? Runny or stuffy nose ?? Sneezing and coughing ?? Sore throat or hoarseness ?? Red, watery, and sore eyes ?? Fatigue ?? Chills and fever ?? Headache, body aches, or sore muscles How is a cold treated? There is no cure for the common cold. Colds are caused by viruses and do notget better with antibiotics. Most people get better in 7 to 14 days. You may continue to cough for 2 to 3 weeks. The following may help decrease your symptoms: ?? Decongestants help reduce nasal congestion and help you breathe more easily. If you take decongestant pills, they may make you feel restless or cause problems with your sleep. Do not use decongestant sprays for more than a few days. ?? Cough suppressants help reduce coughing. Ask your healthcare provider which type of cough medicine is best for you. ?? NSAIDs , such as ibuprofen, help decrease swelling, pain, and fever. NSAIDs can cause stomach bleeding or kidney problems in certain people. If you take blood thinner medicine, always ask your healthcare provider if NSAIDs are safe for you. Always read the medicine label and follow directions. ?? Acetaminophen decreases pain and fever. It is available without a doctor's order. Ask how much to take and how often to take it. Follow directions. Read the labels of all other medicines you are using to see if they also contain acetaminophen, or ask your doctor or pharmacist. Acetaminophen can cause liver damage if not taken correctly. Do not use more than 4 grams (4,000 milligrams) total of acetaminophen in one day. How can I manage my cold? ?? Rest as much as possible. Slowly start to do more each day. ?? Drink more liquids as directed. Liquids will help thin and loosen mucus so you can cough it up. Liquids will also help prevent dehydration. Liquids that help prevent dehydration include water, fruit juice, and broth. Do not drink liquids that contain caffeine. Caffeine can increase your risk fordehydration. Ask your healthcare provider how much liquid to drink each day. ?? Soothe a sore throat. Gargle with warm salt water. This helps your sore throat feel better. Makesalt water by dissolving ?? teaspoon salt in 1 cup warm water. You may also suck on hard candy or throat lozenges. You may use a sore throat spray. ?? Use a humidifier or vaporizer. Use a cool mist humidifier or a vaporizer to increase air moisture in your home. This may make it easier for you to breathe and help decrease your cough. ?? Use saline nasal drops as directed. These help relieve congestion. ?? Apply petroleum-based jelly around the outside of your nostrils. This can decrease irritation from blowing your nose. ?? Do not smoke. Nicotine and other chemicals in cigarettes and cigars can make your symptoms worse. They can also cause infections such as bronchitis or pneumonia. Ask your healthcare provider for information if you currently smoke and need help to quit. E-cigarettes or smokeless tobacco still contain nicotine. Talk to your healthcare provider before you use these products. What can I do to prevent the spread of the common cold? ?? Try to stay away from other people during the first 2 to 3 days of your cold when it is more easily spread. ?? Do not share food or drinks. ?? Do not share hand towels with household members. ?? Wash your hands often, especially after you blow your nose. Turn away from other people and cover your mouth and nose with a tissue when you sneeze or cough. When should I seek immediate care? ?? You have chest pain or trouble breathing. When should I contact my healthcare provider? ?? You have a fever over 102??F (39??C). ?? Your sore throat gets worse or you see white or yellow spots in your throat. ?? Your symptoms get worse after 3 to 5 days or your cold is not better in 14 days. ?? You have a rash anywhere on your skin. ?? You have large, tender lumps in your neck. ?? You have thick, green, or yellow drainage from your nose. ?? You cough up thick yellow, green, or bloody mucus. ?? You are vomiting for more than 24 hours and cannot keep fluids down. ?? You have a bad earache. ?? You have questions or concerns about your condition or care. CARE AGREEMENT: You have the right to help plan your care. Learn about your health condition and how it may be treated. Discuss treatment options with your healthcare providers to decide what care you want to receive. You always have the right to refuse treatment. The above information is an sld educational aide only. It is not intended as medical advice for individual conditions or treatments. Talk to your doctor, nurse or pharmacist before following any medical regimen to see if it is safe and effective for you. ?? Copyright [employer] 2019 Information is for End User's use only and may not be sold, redistributed or otherwise used for commercial purposes. All illustrations and images included in CareNotes?? are the copyrighted property of [employer]. or [employer] Patient Education Acute Cough WHAT YOU NEED TO KNOW: What is an acute cough? An acute cough can last up to 3 weeks. Common causes of an acute cough include a cold, allergies, or a lung infection. How is the cause of an acute cough diagnosed? Your healthcare provider will examine you and listen to your lungs. Tell your healthcare provider if you cough up any mucus, or have a fever or shortnessof breath. Also tell your provider what makes the cough better or worse. Depending on your symptoms, you may need a chest x-ray. A sample of mucus may be collected and tested for infection. How is an acute cough treated? An acute cough usually goes away on its own. Ask your healthcare provider about medicines you can take to decrease your cough. You may need medicine to stop the cough, decrease swelling in your airways, or help open your airways. Medicine may also be given to help youcough up mucus. If you have an infection caused by bacteria, you may need antibiotics. What can I do to manage my cough? ?? Do not smoke and stay away from others who smoke. Nicotine and other chemicals in cigarettes andcigars can cause lung damage and make your cough worse. Ask your healthcare provider for information if you currently smoke and need help to quit. E-cigarettes or smokeless tobacco still contain nicotine. Talk to your healthcare provider before you use these products. ?? Drink extra liquids as directed. Liquids will help thin and loosen mucus so you can cough it up.Liquids will also help prevent dehydration. Examples of good liquids to drink include water, fruit juice, and broth. Do not drink liquids that contain caffeine. Caffeine can increase your risk for dehydration. Ask your healthcare provider how much liquid to drink each day. ?? Rest as directed. Do not do activities that make your cough worse, such as exercise. ?? Use a humidifier or vaporizer. Use a cool mist humidifier or a vaporizer to increase air moisture in your home. This may make it easier for you to breathe and help decrease your cough. ?? Eat 2 to 5 mL of honey 2 times each day. Honey can help thin mucus and decrease your cough. ?? Use cough drops or lozenges. These can help decrease throat irritation and your cough. When should I seek immediate care? ?? You have trouble breathing or feel short of breath. ?? You cough up blood, or you see blood in your mucus. ?? You faint or feel weak or dizzy. ?? You have chest pain when you cough or take a deep breath. ?? You have new wheezing. When should I contact my healthcare provider? ?? You have a fever. ?? Your cough lasts longer than 4 weeks. ?? Your symptoms do not improve with treatment. ?? You have questions or concerns about your condition or care. CARE AGREEMENT: You have the right to help plan your care. Learn about your health condition and how it may be treated. Discuss treatment options with your healthcare providers to decide what care you want to receive. You always have the right to refuse treatment. The above information is an sld educational aide only. It is not intended as medical advice for individual conditions or treatments. Talk to your doctor, nurse or pharmacist before following any medical regimen to see if it is safe and effective for you. ?? Copyright [employer] 2019 Information is for End User's use only and may not be sold, redistributed or otherwise used for commercial purposes. All illustrations and images included in CareNotes?? are the copyrighted property of [employer]. or [employer] documented in this encounter Progress Notes * Christine Griggs APRN-CNP - 07/12/2019 11:31 AM CDT Subjective: Corinna Thacker is a 19 year old female who presents for evaluation: Chief Complaint Patient presents with ??? Congestion ??? Sore Throat ??? Nausea ??? Headache ??? Fatigue ??? Cough Primary Care Physician is Jian Benitez MD. Symptoms include started with allergy symptoms with sinus pressure. Also has sore throat, cough, sweats and chills and body aches. Highest temp is 102F on 07/08 and then 101F on 07/09. No fever since. Onset of symptoms was 2 weeks ago with allergy symptoms and then sore throat and body aches startedabout 5 days ago gradually worsening since that time. T max 102F, no known sick contacts She is drinking plenty of fluids. Evaluation to date: none. Treatment to date: ibuprofen with no relief Allergies Allergen Reactions ??? Zoloft [Sertraline] Urticaria Outpatient Medications Marked as Taking for the 07/12/19 encounter (Office Visit) with Provider, [place] [facility] Medication Sig ??? benzonatate (TESSALON) 200 MG capsule Take 1 capsule by mouth 3 times daily as needed for Cough Past Medical History: Diagnosis Date ??? ADHD ??? Anxiety ??? Asthma sports induced ??? Heart murmur transient, found on echo, normal EKG in 2016 Patient Active Problem List: Osteochondritis dissecans Past Surgical History: Procedure Laterality Date ??? Tonsillectomy and Adenoidectomy Social History Socioeconomic History ??? Marital status: Single Spouse name: Not on file ??? Number of children: Not on file ??? Years of education: Not on file ??? Highest education level: Not on file Occupational History ??? Not on file Social Needs ??? Financial resource strain: Not on file ??? Food insecurity: Worry: Not on file Inability: Not on file ??? Transportation needs: Medical: Not on file Non-medical: Not on file Tobacco Use ??? Smoking status: Never Smoker ??? Smokeless tobacco: Never Used Substance and Sexual Activity ??? Alcohol use: No ??? Drug use: No ??? Sexual activity: Not on file Lifestyle ??? Physical activity: Days per week: Not on file Minutes per session: Not on file ??? Stress: Not on file Relationships ??? Social connections: Talks on phone: Not on file Gets together: Not on file Attends jew service: Not on file Active member of club or organization: Not on file Attends meetings of clubs or organizations: Not on file Relationship status: Not on file ??? Intimate partner violence: Fear of current or ex partner: Not on file Emotionally abused: Not on file Physically abused: Not on file Forced sexual activity: Not on file Other Topics Concern ??? Not on file Social History Narrative ??? Not on file Medications reviewed. Review of Systems Pertinent items are noted in HPI Constitutional: Positive for fevers, chills, sweats Eyes: Negative Ears, nose, mouth, and throat: Positive for sire throat, sinus pressure, runny nose Respiratory: Positive for acute cough Cardiovascular: Positive for heart murmur that comes and goes. Gastrointestinal: Negative Musculoskeletal:Positive for body aches Neurological: Negative Objective: BP 114/68 (BP SITE: LEFT ARM, BP POSITION: SITTING, BP CUFF SIZE: 11) Pulse 74 Temp 98.3 ??F (36.8 ??C) (Oral) Resp 16 Ht 1.702 m (5' 7 ) Wt 61.2 kg (135 lb) SpO2 98% BMI 21.14 kg/m2 Skin: Physical Exam Exam General appearance: alert, cooperative, no distress, oriented to person, place, and time, wellappearing Head: normocephalic, without trauma Eyes: sclera and conjunctiva clear, EOMI and PERRLA, lids normal Ears: canals clear, tympanic membranes normal, hearing intact to voice Nose: nares open; no septal deviation is noted, nasal mucosa not inflamed, no maxillary tenderness,clear rhinorrhea Throat: no mucous membrane abnormalities, lips, mucosa, and tongue normal; teeth and gums normal, tonsils absent, no, exudates present, uvula midline Neck: range of motion is intact, no adenopathy Nodes: no cervical adenopathy Lungs: breath sounds normal and symmetric; no rales or wheezes Heart: regular rhythm, normal S1 and S2, without murmurs, gallops or rubs Neurologic: mental status normal; alert and oriented X 3 Recent Results (from the past 24 hour(s)) STREP A SCREEN - POINT OF CARE (AMB) STL Collection Time: 07/12/19 12:00 AM Result Value Ref Range Strep A Rapid POCT Negative Negative Strep A Internal Control Present Lot # [id number] Expiration Date 10/13/2020 INFLUENZA A+B - POINT OF CARE (AMB) Collection Time: 07/12/19 11:54 AM Result Value Ref Range Influenza A Antigen Rapid Negative Negative Influenza B Antigen Rapid Negative Negative Influenza Internal Control present NEGATIVE - POSITIVE Influenza Lot Number [id number] Influenza Expiration Date 08 25 2020 Assessment: . Encounter Diagnoses Name Primary? Nasopharyngitis Yes Plan: You have been diagnosed with a viral infection. -Viral infections do not improve with antibiotics. -Viral symptoms can linger from 7-14 days -The color of discharge does not always reflect the need for an antibiotic, even during a viral illness it is normal for drainage to change from yellow to green at times. -Please refer to the CDC Get Smart (cdc.gov/getsmart) campaign for more details. There are many OTC medications and supportive care measures you can try to treat your symptoms until your symptoms resolve. -Tylenol or Ibuprofen for aches, pains. Take per package directions -Antihistamines like Claritin or Benadryl as needed for drainage. Take per package directions -Delsym as needed for coughing. Follow package directions -Frequent cough drops and lozenges -Increase fluids, especially decaffeinated ones -Sleep with head of bed raised to promote drainage -Avoid spreading the virus by remaining at home and away from others until you are fever-free (temperature below 100) for 24 hours. Good handwashing and covering your mouth when coughing are also important. If you are not improving or worsening in the next 5-7 days you must RETURN to the clinic, go to your PCP, or Urgent Care/ER to be SEEN and reevaluated. No further prescriptions or refills will be given by phone without another evaluation. If you develop a high fever 103+, neck stiffness, trouble breathing, chest pain, or other life threatening symptoms GO TO THE ER IMMEDIATELY. Orders Placed This Encounter ??? STREP A SCREEN - POINT OF CARE (AMB) STL ??? INFLUENZA A+B - POINT OF CARE (AMB) ??? benzonatate (TESSALON) 200 MG capsule Sig: Take 1 capsule by mouth 3 times daily as needed for Cough Dispense: 30 capsule Refill: 0 Continue to follow up with Jian Benitez MD as directed. After Visit Summary reviewed with patient. The patient indicates understanding of these issues and agrees with the plan. Patient discharged to Home .GILBERTO Rivera 07/12/2019 11:55 AM documented in this encounter Plan of Treatment Not on file documented as of this encounter Procedures Procedure Name Priority Date/Time Associated Diagnosis Comments INFLUENZA A+B - POINT OF CARE (AMB) Routine 07/12/2019 11:54 AM CDT Nasopharyngitis STREP A SCREEN - POINT OF CARE (AMB) STL Routine 07/12/2019 Nasopharyngitis documented in this encounter Results * INFLUENZA A+B - POINT OF CARE (AMB) (07/12/2019 11:54 AM CDT) Influenza A Antigen Rapid Negative Negative Influenza B Antigen Rapid Negative Negative Influenza Internal Control present NEGATIVE - POSITIVE Influenza Lot Number [id number] Influenza Expiration Date 08 25 2020 Other NASOPHARYNGEAL SWAB / Unknown 07/12/2019 11:54 AM CDT [facility] - POINT OF CARE ORDERABLES * STREP A SCREEN - POINT OF CARE (AMB) STL (07/12/2019) Strep A Rapid POCT Negative Negative Strep A Internal Control Present Lot # [id number] Expiration Date 10/13/2020 Throat ENTIRE THROAT (SURFACE REGION OF NECK) / Unknown 07/12/2019 Christine Griggs APPELLATE CONFEREE-COMPUTER CUSTOMER SUPPORT SPECIALIST LAB - POINT OF CARE ORDERABLES documented in this encounter Visit Diagnoses Diagnosis Nasopharyngitis- Primary Acute nasopharyngitis (common cold) documented in this encounter Care Teams Meteorology Teacher Relationship Specialty Start Date End Date Jian Benitez MD [address] [place] [address] PCP - General Pediatrics 08/03/14 03/26/24 documented as of this encounter
--- OUTSIDE RECORDS SUMMARY | 2024-09-30 09:11 | XMS_ITS | Encounter Summary ---
Author Organization [facility] Address [address] [place] [address] [place] [address] Care Team Providers Care Merchandising Director Name Role Phone Jian Benitez MD Primary Care Provider [phone] Reason for Visit * Reason Comments Eye Problem Drainage Nose Sinusitis Encounter Details Date Type Department Care Team (Late st Contact Info) Description 05/01/2019 3:00 PM CDT Office Visit [facility] AT [address] [phone] Provider, [facility] Exp [place] Acute maxillary sinusitis, recurrence not specified (Primary Dx) Social History Tobacco Use Types [...] Sign Reading Time Taken Comments Blood Pressure 110/60 05/01/2019 3:12 PM CDT Pulse 92 05/01/2019 3:12 PM CDT Temperature 37.1 ??C (98.7 ??F) 05/01/2019 3:12 PM CD T Respiratory Rate - - Oxygen Saturation 98% 05/01/2019 3:12 PM CDT Inhaled Oxygen Concentration - - Weight 63.5 kg (140 lb) 05/01/2019 3:12 PM CDT Height 172.7 cm (5' 8 ) 05/01/2019 3:12 PM CDT Body Mass Index 21.29 05/01/2019 3:12 PM CDT documented in this encounter Patient Instructions * Patient Instructions* Nabil Bautista APRN-CNP - 05/01/2019 3:19 PM CDT -Take and finish your prescriptions as directed. -If not already using, please start nasal saline wash, either Neti Pot or Sinus Rinse DAILY or a saline nasal spray 3-4 times a day. -Use guaifenesin expectorants (Maximum Strength Mucinex, Robitussin, store brand) to loosen secretions. -For cough you can use dextromethorphan (Delsym syrup, Robitussin cough capsules or store brand). Dextromethorphan is considered safe for and breast feeding women. -Increase fluid intake: drink 2 liters (2 quarts) of non-caffeinated, non- alcoholic beverages daily, drinking alcohol causes nasal and sinus membranes to swell -Steam inhalation and warm compresses to face often help relieve pressure -Avoid allergens and excessively dry heat -Sleep with head of bed elevated to encourage drainage. -Use of a humidifier if environment is heated by dry forced - air system -Avoid smoking, second-hand smoke and air pollutants. -You may try decongestants such as Sudafed (purchase at pharmacy) or Sudafed PE for congestion relief. Decongestants can keep you awake at night. Do not use decongestants if you have high blood pressure or if you are Pseudoephedrine (Sudafed) and Phenylephrine (Sudafed PE) are generally con sidered safe for breast feeding mothers. -If you are not improving or worsening, or develop facial swelling,in the next 3-5 days you must RETURN to the clinic, go to your PCP, or Urgent Care/ER to be SEEN and reevaluated. No further prescriptions or refills will be given by phone without another evaluation. documented in this encounter Progress Notes * Nabil Bautista APRN-CNP - 05/01/2019 3:22 PM CDT Subjective: Corinna Thacker is a 19 year old female who presents for evaluation: Chief Complaint Patient presents with ??? Eye Problem ??? Drainage Nose ??? Sinusitis Primary Care Physician is Jian Benitez MD. Symptoms include congestion and drainage, headache and eye puffiness in the morning. Onset of symptoms was 2 weeks ago, gradually worsening since that time. congestion, sinus pressure, non productive cough, achiness. She is drinking plenty of fluids. Evaluation to date: none. Treatment to date: none Allergies Allergen Reactions ??? Zoloft [Sertraline] Urticaria Outpatient Prescriptions Marked as Taking for the 05/01/19 encounter (Office Visit) with Provider, [place] Medication Sig ??? amoxicillin-clavulanate (AUGMENTIN) 875-125 MG tablet Take 1 tablet by mouth 2 times daily withmorning and evening meal for 10 days ??? lisdexamfetamine (VYVANSE) 50 MG capsule Take 50 mg by mouth Past Medical History: Diagnosis Date ??? Anxiety Patient Active Problem List: Osteochondritis dissecans Past Surgical History: Procedure Laterality Date ??? Tonsillectomy and Adenoidectomy Social History Social History ??? Marital status: Single Spouse name: N/A ??? Number of children: N/A ??? Years of education: N/A Occupational History ??? Not on file. Social History Main Topics ??? Smoking status: Never Smoker ??? Smokeless tobacco: Never Used ??? Alcohol use No ??? Drug use: No ??? Sexual activity: Not on file Other Topics Concern ??? Not on file Social History Narrative Medications reviewed. Review of Systems Constitutional: Negative for fatigue, fevers, chills. Eyes: Negative, some minor eye puffiness in the morning Ears, nose, mouth, and throat: Positive for earaches bilaterally, sinus trouble, congestion, Negative for vertigo, persistent sore throat Respiratory: Positive for acute cough, Negative for shortness of breath, dyspnea on exertion, pleuritic chest pain, asthma, wheezing Cardiovascular: Negative Neurological: Positive for headaches Objective: BP 110/60 Pulse 92 Temp 98.7 ??F (37.1 ??C) (Oral) Ht 1.727 m (5' 8 ) Wt 63.5 kg (140 lb) SpO2 98% BMI 21.29 kg/m2 Skin: Physical Exam Exam General appearance: alert, cooperative, no distress Eyes: sclera and conjunctiva clear, EOMI and PERRLA, lids normal Ears: canals clear, tympanic membranes normal, hearing intact to voice Nose: nares open; no septal deviation is noted, mucosa erythematous and swollen, purulent rhinorrhea, maxillary tenderness bilaterally, frontal tenderness bilaterally Throat: no mucous membrane abnormalities Neck: range of motion is intact, no masses, thyroid not enlarged, no adenopathy Lungs: breath sounds normal and symmetric; no rales or wheezes Heart: regular rhythm, normal S1 and S2, without murmurs, gallops or rubs Neurologic: mental status normal; alert and oriented X 3; cranial nerves II - XII are grossly intact No results found for this or any previous visit (from the past 24 hour(s)). Assessment: . Encounter Diagnoses Name Primary? Acute maxillary sinusitis, recurrence not specified Yes Plan: Discussed the dx and tx of sinusitis. -Take and finish your prescriptions as directed. -If not already using, please start nasal saline wash, either Neti Pot or Sinus Rinse DAILY or a saline nasal spray 3-4 times a day. -Use guaifenesin expectorants (Maximum Strength Mucinex, Robitussin, store brand) to loosen secretions. -For cough you can use dextromethorphan (Delsym syrup, Robitussin cough capsules or store brand). Dextromethorphan is considered safe for and breast feeding women. -Increase fluid intake: drink 2 liters (2 quarts) of non-caffeinated, non- alcoholic beverages daily, drinking alcohol causes nasal and sinus membranes to swell -Steam inhalation and warm compresses to face often help relieve pressure -Avoid allergens and excessively dry heat -Sleep with head of bed elevated to encourage drainage. -Use of a humidifier if environment is heated by dry forced - air system -Avoid smoking, second-hand smoke and air pollutants. -You may try decongestants such as Sudafed (purchase at pharmacy) or Sudafed PE for congestion relief. Decongestants can keep you awake at night. Do not use decongestants if you have high blood pressure or if you are Pseudoephedrine (Sudafed) and Phenylephrine (Sudafed PE) are generally con sidered safe for breast feeding mothers. -If you are not improving or worsening, or develop facial swelling,in the next 3-5 days you must RETURN to the clinic, go to your PCP, or Urgent Care/ER to be SEEN and reevaluated. No further prescriptions or refills will be given by phone without another evaluation. Orders Placed This Encounter ??? amoxicillin-clavulanate (AUGMENTIN) 875-125 MG tablet Sig: Take 1 tablet by mouth 2 times daily with morning and evening meal for 10 days Dispense: 20 tablet Refill: 0 Continue to follow up with Jian Benitez MD as directed. After Visit Summary reviewed with patient. The patient indicates understanding of these issues and agrees with the plan. Patient discharged to Home .GILBERTO Del Cid 05/01/2019 3:22 PM documented in this encounter Plan of Treatment Not on file documented as of this encounter Visit Diagnoses Diagnosis Acute maxillary sinusitis, recurrence not specified- Primary documented in this encounter Care Teams Merchandising Director Relationship Specialty Start Date End Date Jian Benitez [place] [place] [id number] PCP - General Pediatrics 08/03/14 03/26/24 documented as of this encounter
--- OUTSIDE RECORDS SUMMARY | 2024-09-30 09:12 | XMS_ITS | Encounter Summary ---
Author Organization [facility] Address [address] [place] [address] Care Team Providers Care Certified Hand Therapist Name Role Phone Jian Benitez MD Primary Care Provider [phone] Reason for Referral * Radiology Services - Closed Specialty Diagnoses / Procedures Referred By Carrie t Referred To Contact Diagnoses Osteochondritis dessicans Procedures MRI LOWER EXT ANY JOINT NON CONTRAST RIGHT Annabel Rico MD [address] [place] [address] Referral ID Status Reason Start Date Expiration Date Visits Re quested Visits Authorized [id number] Closed 08/24/2014 02/20/2015 1 1 ITURE STAINER Reason for Visit * Reason Comments Pain Ankle right ankle Encounter Details Date Type Department Care Team (Latest Contact Info) Description 08/24/2014 1:29 PM FURNITURE STAINER - 08/24/2014 11:59 PM FURNITURE STAINER Hospital Encounter [facility] - Orthopedics [address] [facility] [place], [place] [id number] Annabel Rico MD Discharge Disposition: Home or Self Care Social History Tobacco Use Types Packs/Day Years Used Date Smoking Tobacco: Never Assessed Sex and Gender Information Value Date Recorded Sex Assigned at Not on file Gender Identity Not on file Sexual Orientation Not on file documented as of this encounter Discharge Instructions * Patient Instructions* Chantel Abdalla - 08/24/2014 2:08 PM FURNITURE STAINER Encounter Diagnoses Name Primary? Osteochondritis dessicans Yes Return appointment: Sports Medicine at [facility] after MRI Call [phone], option 1, for return if your child has new symptoms or problems, or if you have concerns. Call [phone] for questions. Physicians orders: MRI right ankle Medications prescribed: none Activity Restrictions: No sports and restricted physical education class of upper body activities and lifting until further notice School/Work Excuse: Patient had an appointment 08/24/2014 ITURE STAINER documented in this encounter Medications at Time of Discharge Medication Sig Dispensed Refills Start Date End Date ibuprofen (MOTRIN) 200 MG tablet Take 200 mg by mouth every 6 hours as needed. 05/01/2019 multivitamin daily (THERAGRAN) tablet Take 1 Tab by mouth daily with food. 09/24/2014 documented as of this encounter Progress Notes * Annabel Rico MD - 09/01/2014 8:49 AM CST PEDIATRIC ORTHOPAEDIC CLINIC NOTE NAME: Corinna Thacker DATE OF SERVICE: 08/24/2014 DATE: 2000 PCP: Jian Benitez Chief Complaint Patient presents with ??? Pain Ankle right ankle HISTORY: Corinna Thacker is a 14 y.o. 6 m.o. female who presents 3 to 4 week(s) status post a right ankle injury. Patient was kicked in the ankle by another palyer while playing soccer. She was seen at an OSH where x-rays were done. They were told that there was something abnormal on the films.The patient rates her pain as a 1 out of 10. The patient denies new onset of numbness in her lower extremities. PAST MEDICAL HISTORY: none PAST SURGICAL HISTORY: T&A MEDICATIONS: Current outpatient prescriptions:multivitamin daily (THERAGRAN) tablet, Take 1 Tab by mouth daily with food., Disp: , Rfl: , ; ibuprofen (MOTRIN) 200 MG tablet, Take 200 mg by mouth every 6 hours as needed., Disp: , Rfl: , ALLERGIES: Allergies as of 08/24/2014 ??? (No Known Allergies) IMMUNIZATIONS: Immunization status: stated as current, but no records available. SOCIAL HISTORY: Patient lives with her parents. she does attend school. FAMILY HISTORY: Negative for any genetic conditions affecting children. REVIEW OF SYSTEMS: History obtained from mother. A 10 point ROS was obtained and all others were negative except what is listed above. PHYSICAL EXAMINATION: There were no vitals taken for this visit. General appearance: alert, cooperative, no distress. She has good head control. No rashes or abnormal dyspigmentation Extremities: The uninjured left lower extremity was examined and demonstrated normal skin, normal range of motion and alignment of all joint, normal motor, sensory and vascular examination, and was without pain. It was used for comparison when examining the injured right lower extremity. General appearance: no acute distress The examination was performed out of splint/cast Skin: normal Swelling: none Tenderness: moderate, located medial aspect talus. Deformity: No, located at ankle ROM: normal Strength: normal Gait: normal Neurological Exam: normal Vascular Exam: normal RADIOGRAPHS: AP, lateral, and mortise X-rays of the right ankle were assessed today. -Radiographic Assessment: They show an OCD lesion along the medial aspect of the taalr dome ASSESSMENT: 1. 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 I advised them that if she were skeletally immature that the lesion would have a good chance of healing with non-operative treatment. However, since she is skeletally mature she may requiresurgery depending on the integrity of the articular cartilage. Follow up after the MRI with Sports Medicine. No sports or physical education class except for upper extremity conditioning until further notice. They will call in the interim with questions or concerns. ITURE STAINER * Chantel Abdalla - 08/24/2014 1:33 PM CST Pt here for right ankle injury. Pt was playing soccer and was kicked in the ankle by another player. Pt was seen at OSH and had xrays done. There was something abnormal on the xray that they were referred here for. This happened about 3-4 weeks ago. ITURE STAINER documented in this encounter Plan of Treatment Not on file documented as of this encounter Results * MRI LOWER EXT ANY JOINT NON CONTRAST RIGHT (09/24/2014 10:08 AM FURNITURE STAINER) Anatomical Region Laterality Modality Lower Extremity Magnetic Resonan ce 09/24/2014 3:25 PM FURNITURE STAINER Impressions 09/24/2014 3:57 PM FURNITURE STAINER 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 Narrative 09/24/2014 3:57 PM FURNITURE STAINER Exam: MRI ANKLE WITHOUT CONTRAST. Date: 09/24/2014 [...] Hepple classification). Annabel Rico MD MR ORDERABLES documented in this encounter Visit Diagnoses Diagnosis Osteochondritis dessicans- Primary Osteochondritis dissecans OCD of lateral talus, right Injury, other and unspecified, knee, leg, ankle, and foot- Primary Osteochondritis dessicans Osteochondritis dissecans documented in this encounter Care Teams Certified Hand Therapist Relationship Specialty Start Date End Date Jian Benitez MD [address] [place] [phone] PCP - General Pediatrics 08/03/14 03/26/24 documented as of this encounter
--- OUTSIDE RECORDS SUMMARY | 2024-09-30 09:12 | XMS_ITS | Encounter Summary ---
Author Organization [facility] Address [address] [facility] [place] [address] Care Team Providers Care Certified Medical Coding Specialist Name Role Phone Bee Sher MD Primary Care Provider [phone] Reason for Visit * Reason Comments Pain Abdominal Encounter Details Date Type Department Care Team (Late st Contact Info) Description 05/09/2014 10:45 PM CDT - 05/10/2014 1:52 PM CDT Emergency ER at [address] [address] Discharge Disposition: ED Dismiss - Never Arrived Social History Tobacco Use Types Packs/Day Years Used Date Smoking Tobacco: Never Assessed Sex and Gender Information Value Date Recorded Sex Assigned at Not on file Gender Identity Not on file Sexual Orientation Not on file documented as of this encounter Medications at Time of Discharge Medication Sig Dispensed Refills Start Date End Date AMOXICILLIN PO Take 10.5 mL by mouth 2 times daily. 12/29/2010 08/24/2014 ibuprofen (MOTRIN) 200 MG tablet Take 200 mg by mouth every 6 hours as needed. 05/01/2019 multivitamin daily (THERAGRAN) tablet Take 1 Tab by mouth daily with food. 09/24/2014 documented as of this encounter Plan of Treatment Not on file documented as of this encounter Visit Diagnoses Not on filedocumented in this encounter Care Teams Certified Medical Coding Specialist Relationship Specialty Start Date End Date Bee Sher [place] [phone] PCP - General 12/29/10 08/02/14 documented as of this encounter
--- OUTSIDE RECORDS SUMMARY | 2024-09-30 09:12 | XMS_ITS | Encounter Summary ---
Author Organization [facility] Address [address] [place] [address] Care Team Providers Care Firesetter Name Role Phone Jian Benitez MD Primary Care Provider [phone] Reason for Visit * Reason Onset Date Comments Stress Test 01/03/2016 Encounter Details Date Type Department Care Team (Late st Contact Info) Description 01/03/2016 Telephone [facility] [place] [id number] [place] [address] Karla Gay RN Stress Test Social History Tobacco Use Types Packs/Day Years Used Date Smoking Tobacco: Never Alcohol Use Standard Drinks/Week Comments Not Asked 0 (1 standard drink = 0.6 oz pur e alcohol) Sex and Gender Information Value Date Recorded Sex Assigned at Not on file Gender Identity Not on file Sexual Orientation Not on file documented as of this encounter Miscellaneous Notes * Telephone Encounter - Karla Gay RN - 01/03/2016 9:23 AM CDT Mom called regarding stress test scheduled today. Sick and concerned may have strep infection. Scheduled to go to PMD. Informed to call back next week to reschedule. Due to symptoms strep can also bemono should wait until illness cleared to do stress testing. Mom agrees to call later to arrange. documented in this encounter Plan of Treatment Not on file documented as of this encounter Visit Diagnoses Not on filedocumented in this encounter Care Teams Firesetter Relationship Specialty Start Date End Date Rana, Jian Z, MD [address] [place] [place] [phone] PCP - General Pediatrics 08/03/14 03/26/24 documented as of this encounter
--- OUTSIDE RECORDS SUMMARY | 2024-09-30 09:12 | XMS_ITS | Encounter Summary ---
Author Organization [facility] Address [address] [place] [address] [place] [address] Care Team Providers Care Percher Name Role Phone Jian Benitez MD Primary Care Provider [phone] Reason for Visit * Reason Comments Fatigue Sore Throat Cough GENERALIZED BODY ACHES Pain Neck Headache Encounter Details Date Type Department Care Team (Late st Contact Info) Description 11/13/2018 7:00 PM FOOD WRITER Office Visit [facility] [address] [address] Provider, [facility] Acute suppurative otitis media of left ear without spontaneous rupture of tympanic membrane, recurrence not specified (Primary Dx); Viral syndrome Social History Tobacco Use Types Packs/Day Years [...] Sign Reading Time Taken Comments Blood Pressure 100/60 11/13/2018 7:33 PM FOOD WRITER Pulse 61 11/13/2018 7:33 PM FOOD WRITER Temperature 36.9 ??C (98.5 ??F) 11/13/2018 7:33 PM CS T Respiratory Rate 16 11/13/2018 7:33 PM FOOD WRITER Oxygen Saturation - - Inhaled Oxygen Concentration - - Weight 63.5 kg (140 lb) 11/13/2018 7:33 PM FOOD WRITER Height 172.7 cm (5' 8 ) 11/13/2018 7:33 PM FOOD WRITER Body Mass Index 21.29 11/13/2018 7:33 PM FOOD WRITER documented in this encounter Patient Instructions * Patient Instructions* Xuan iBll, CHARGE COORDINATOR-CABIN EQUIPMENT SUPERVISOR - 11/13/2018 8:04 PM FOOD WRITER Images from the original note were not included. Ear Infection CONFERENCE CENTER COORDINATOR: An ear infection is also called otitis media. An ear infection may be caused by blocked or swollen eustachian tubes. Eustachian tubes connect the middle ear to the back of the nose and throat. They drain fluid from the middle ear. With an ear infection, fluid builds up and is infected by germs. Thegerms grow easily in fluid trapped behind the eardrum. Common symptoms include the following: ?? Ear pain ?? Fever or a headache ?? Trouble hearing ?? Ringing or buzzing in your ear ?? Plugged ear or an ear that feels full ?? Dizziness ?? Nausea or vomiting Call 911 or have someone call 911 for the following: ?? You have a seizure. Seek immediate care for the following symptoms: ?? You have a fever and a stiff neck. Contact your healthcare provider if: ?? Your ear pain gets worse or does not go away, even after treatment. ?? The outside of your ear is red or swollen. ?? You are vomiting or have diarrhea. ?? You have fluid coming from your ear. ?? You have questions or concerns about your condition or care. Medicines: You may need any of the following: ?? Acetaminophen decreases pain and fever. It [...] milligrams) total of acetaminophen in one day. ?? NSAIDs , such as ibuprofen, help decrease swelling, pain, and fever. This medicine is available with or without a doctor's order. NSAIDs can cause stomach bleeding or kidney problems in certain people. If you take blood thinner medicine, always ask your healthcare provider if NSAIDs are safe foryou. Always read the medicine label and follow directions. ?? Ear drops help treat your ear pain. ?? Antibiotics help treat a bacterial infection that caused your ear infection. ?? Take your medicine as directed. Contact your healthcare provider if you think your medicine is not helping or if you have side effects. Tell him or her if you are allergic to any medicine. Keep a list of the medicines, vitamins, and herbs you take. Include the amounts, and when and why you take them. Bring the list or the pill bottles to follow-up visits. Carry your medicine list with you in case of an emergency. Manage your symptoms: ?? Apply heat on your ear for 15 to 20 minutes, 3 to 4 times a day or as directed. Heat helps decrease pain. ?? Apply ice on your ear for 15 to 20 minutes, 3 to 4 times a day for 2 days or as directed. Use anice pack, or put crushed ice in a plastic bag. Cover it with a towel before you apply it to your ear. Ice decreases swelling and pain. Prevent an ear infection: ?? Wash your hands often. Use soap and water. Wash your hands after you use the bathroom, change a child's diapers, or sneeze. Wash your hands before you prepare or eat food. ?? Stay away from people who are ill. Some germs are easily and quickly spread through contact. Follow up with your healthcare provider as directed: Write down your questions so you remember to ask them during your visits. ?? Copyright [employer] 2018 Information is for End User's use only and may not be sold, redistributed or otherwise used for commercial purposes. All illustrations and images included in CareNotes?? are the copyrighted property of [employer] or [employer] The above information is an mental retardation aide only. It is not intended as medical advice for individual conditions or treatments. Talk to your doctor, nurse or pharmacist before following any medical regimen to see if it is safe and effective for you. Mononucleosis CONFERENCE CENTER COORDINATOR: Mononucleosis (mono) is an infection caused by a virus. [place] is spread through saliva. Common symptoms include the following: ?? Extreme tiredness or weakness ?? Fever ?? Headache and muscle aches ?? Sore throat or swollen tonsils ?? Tender, swollen lymph nodes on the sides and back of your neck ?? Night sweats ?? Loss of appetite Call 911 for any of the following: ?? You have shortness of breath. ?? You are confused or have a seizure. Seek care immediately if: ?? You have severe pain in your abdomen or shoulder. ?? You have trouble swallowing because of the pain. ?? You urinate very little or not at all. ?? Your arms or legs are weak. Contact your healthcare provider if: ?? Your symptoms get worse, even after treatment. ?? You have questions or concerns about your condition or care. Medicines: ?? Acetaminophen decreases pain and fever. It is available without a doctor's order. Ask how much to take and how often to take it. Follow directions. Acetaminophen can cause liver damage if not taken correctly. ?? NSAIDs , such as ibuprofen, help decrease swelling, pain, and fever. This medicine is available with or without a doctor's order. NSAIDs can cause stomach bleeding or kidney problems in certain people. If you take blood thinner medicine, always ask your healthcare provider if NSAIDs are safe foryou. Always read the medicine label and follow directions. ?? Steroids help decrease inflammation. ?? Antibiotics may be needed if you also have a bacterial infection. ?? Take your medicine as directed. Contact your healthcare provider if you think your medicine is not helping or if you have side effects. Tell him of her if you are allergic to any medicine. Keep a list of the medicines, vitamins, and herbs you take. Include the amounts, and when and why you take them. Bring the list or the pill bottles to follow-up visits. Carry your medicine list with you in case of an emergency. Self-care: ?? Rest as needed. Slowly start to do more each day as you feel better. ?? Drink liquids as directed. Liquids will help prevent dehydration. Ask how much liquid to drink each day and which liquids are best for you. ?? Do not play sports or exercise for 3 to 4 weeks or as directed. When you return for your follow-up visit, your healthcare provider will tell you if you are able to return to full activity. Prevent the spread of mono: Do not share food or drinks. Do not kiss anyone. The virus may be in your saliva for several months after you feel better. Wash your hands often. Use soap and water. Wash your hands after you use the bathroom, change a child's diapers, or sneeze. Wash your hands before you prepare or eat food. Follow up with your healthcare provider in 3 to 4 weeks: Write down your questions so you remember to ask them during your visits. ?? Copyright [employer] 2018 Information is for End User's use only and may not be sold, redistributed or otherwise used for commercial purposes. All illustrations and images included in CareNotes?? are the copyrighted property of [employer] or [employer] The above information is an mental retardation aide only. It is not intended as medical advice for individual conditions or treatments. Talk to your doctor, nurse or pharmacist before following any medical regimen to see if it is safe and effective for you. WRITER documented in this encounter Progress Notes * Xuan Bill APRN-CNP - 11/13/2018 7:37 PM CST Subjective: Corinna Thacker is a 18 y.o. female who presents to the clinic for Chief Complaint Patient presents with ??? Fatigue ??? Sore Throat ??? Cough ??? GENERALIZED BODY ACHES ??? Pain Neck ??? Headache . Her Primary Care Physician is Jian Benitez MD. She reports sore throat (rates pain 7/10) and fatigue which started 10 days ago and have gradually worsened. Pt also reports nasal congestion, slightnasal drainage, mild, intermittent headache, and slight cough which have improved. Pt has not checked her temperature but reports chills and body aches for the past few days. Pt also c/o bilateral ear pain (rates pain 4/10) and tenderness to anterior neck mainly with turning head. Pt states she hasbeen so tired she has been laying down at work. Denies difficulty urinating, diarrhea, abdominal pain. or nausea. Reports one episode of vomiting several days ago which she thinks was unrelated. She is drinking plenty of fluids.. She has been taking oscillococcinum with no relief and took Ibuprofen today. Pt did receive a flu shot this season. Past Medical History: Diagnosis Date ??? Anxiety No family history on file. Current Outpatient Prescriptions Medication Sig Dispense Refill ??? azithromycin (ZITHROMAX) 250 mg tablet Take by mouth as directed for 5 days 2 tablets day 1, then 1 tablet daily for 4 days 1 kit 0 ??? Escitalopram Oxalate (LEXAPRO PO) ??? ibuprofen (MOTRIN) 200 MG tablet Take 200 mg by mouth every 6 hours as needed. ? ? lidocaine visc 2%-diphenhydramine 2.5mg/ml-alum&mg hydroxide 400/400 oral susp 1:1:1 suspension Take 15 mL by mouth every 6 hours as needed Swish and Gargle Q 4-6 hours as needed for sore throat 120 mL 0 No current facility-administered medications for this visit. Allergies Allergen Reactions ??? Zoloft [Sertraline] Urticaria Social History Social History ??? Marital status: [...] ??? Not on file Social History Narrative Review of Systems Pertinent items are noted in HPI Constitutional: Positive for fatigue, chills, body aches Eyes: Negative Ears, nose, mouth, and throat: Positive for sore throat, slight nasal congestion/drainage, bilateral ear pain Respiratory: Positive for acute cough (improving) Cardiovascular: Negative Gastrointestinal: Positive for vomiting x 1 earlier this wee Skin: Negative Musculoskeletal:Positive for anterior neck pain, mainly when turning head Neurological: Positive for mild, intermittent headache Objective: BP 100/60 (BP SITE: LEFT ARM, BP POSITION: SITTING, BP CUFF SIZE: 11) Pulse 61 Temp 98.5 ??F (36.9 ??C) (Oral) Resp 16 Ht 1.727 m (5' 8 ) Wt 63.5 kg (140 lb) BMI 21.29 kg/m2 Exam General appearance: alert, cooperative, no distress, oriented to person, place, and time, ill-appearing, with chills noted Head: normocephalic, without trauma Eyes: sclera and conjunctiva clear, EOMI and PERRLA, lids normal Ears: canals clear, right tympanic membrane with clear fluid noted behind TM, left TM with slight erythema and cloudy fluid noted behind TM, hearing intact to voice Nose: nares open; no septal deviation is noted, nasal mucosa not inflamed, no maxillary or frontal tenderness Throat: no mucous membrane abnormalities, moderate oropharyngeal erythema, post nasal drainage noted, tonsils surgically absent, no exudates, uvula midline Neck: full range of motion is intact, no masses, no anterior or posterior cervical adenopathy Lungs: breath sounds normal and symmetric; no rales or wheezes Heart: regular rhythm, normal S1 and S2, without murmurs, gallops or rubs Skin: no rashes or other abnormalities are noted Neurologic: mental status normal; alert and oriented X 3 Assessment: Encounter Diagnoses Name Primary? Acute suppurative otitis media of left ear without spontaneous rupture of tympanic membrane, recurrence not specified Yes ??? Viral syndrome Plan: Discussed dx and tx of URIs Suggested symptomatic OTC remedies. Antibiotics per orders for left AOM. Advised to start checking temperature. RTC prn. Throat culture sent. Advised will call with results. You may take OTC Tylenol or Ibuprofen per package instructions. Warm salt water gargles. Drink plenty of fluids. Warm fluids may be soothing for your throat. Follow-up for any persistent or worsening symptoms. Go to ED for any drooling or significant swelling of throat. Discussed that patient has symptoms of mono although monospot was negative. Advised further tested could be done through blood work. PCP appointment scheduled with Dr. Cage next Friday 11/17 to establish care and follow up on symptoms. Pt advised to follow up with PCP if symptoms have not completely resolved. Go to , ED if symptoms not improving over the next 2-3 days or sooner for any new or worsening including severe headache, high persistent fever, or difficulty breathing. Orders Placed This Encounter ??? CULTURE RESPIRATORY UPPER ??? STREP A SCREEN - POINT OF CARE (AMB) STL ??? INFLUENZA A+B - POINT OF CARE (AMB) ??? MONONUCLEOSIS SCREEN - POINT OF CARE (AMB) STL ??? azithromycin (ZITHROMAX) 250 mg tablet Sig: Take by mouth as directed for 5 days 2 tablets day 1, then 1 tablet daily for 4 days Dispense: 1 kit Refill: 0 ? ? lidocaine visc 2%-diphenhydramine 2.5mg/ml-alum&mg hydroxide 400/400 oral susp 1:1:1 suspension Sig: Take 15 mL by mouth every 6 hours as needed Swish and Gargle Q 4-6 hours as needed for sore throat Dispense: 120 mL Refill: 0 Recent Results (from the past 24 hour(s)) STREP A SCREEN - POINT OF CARE (AMB) STL Collection Time: 11/13/18 8:05 PM Result Value Ref Range Strep A Rapid POCT Negative Negative Strep A Internal Control Present Lot # [id number] Expiration Date 02/11/2020 INFLUENZA A+B - POINT OF CARE (AMB) Collection Time: 11/13/18 8:05 PM Result Value Ref Range Influenza A Antigen Rapid Negative Negative Influenza B Antigen Rapid Negative Negative Influenza Internal Control positive NEGATIVE - POSITIVE Influenza Lot Number [id number] Influenza Expiration Date 06/27/2020 MONONUCLEOSIS SCREEN - POINT OF CARE (AMB) STL Collection Time: 11/13/18 8:05 PM Result Value Ref Range Mononucleosis Screen POCT neg NEGATIVE [place] Test Internal Control positive [place] Test Lot# [id number] [place] Test Exp Date 04/12/2020 WRITER documented in this encounter Plan of Treatment Not on file documented as of this encounter Procedures Procedure Name Priority Date/Time Associated Diagnosis Comments CULTURE RESPIRATORY UPPER Routine 11/13/2018 8:06 PM FOOD WRITER Acute suppurative otitis media of left ear without spontaneous rupture of tympanic membrane, recurrence not specified STREP A SCREEN - POINT OF CARE (AMB) STL Routine 11/13/2018 8:05 PM FOOD WRITER Acute suppurative otitis media of left ear without spontaneous rupture of tympanic membrane, recurrence not specified MONONUCLEOSIS SCREEN - POINT OF CARE (AMB) STL Routine 11/13/2018 8:05 PM FOOD WRITER Acute suppurative otitis media of left ear without spontaneous rupture of tympanic membrane, recurrence not specified INFLUENZA A+B - POINT OF CARE (AMB) Routine 11/13/2018 8:05 PM FOOD WRITER Acute suppurative otitis media of left ear without spontaneous rupture of tympanic membrane, recurrence not specified documented in this encounter Results * CULTURE RESPIRATORY UPPER (11/13/2018 8:06 PM FOOD WRITER) Upper Respiratory Culture Final report [facility] INSURANCE BILL Result 1 [facility] INSURANCE BILL Comment:Routine respiratory brooke Microbiology ENTIRE THROAT (SURFACE REGION OF NECK) / Unknown 11/13/2018 8:06 PM FOOD WRITER 11/14/2018 Narrative Resulting Agency Comment [facility] [place] [address] ??[place] [id number] Xuan Trevino Fly CHARGE COORDINATOR-CABIN EQUIPMENT SUPERVISOR LAB - MICROB IOLOGY ORDERABLES [facility] INSURANCE BILL [address] [place] [address] * MONONUCLEOSIS SCREEN - POINT OF CARE (AMB) STL (11/13/2018 8:05 PM FOOD WRITER) Mononucleosis Screen POCT neg NEGATIVE [place] Test Internal Control positive [place] Test Lot# [id number] [place] Test Exp Date 04/12/2020 Blood BLOOD SPECIMEN / Unknown 11/13/2018 8:05 PM FOOD WRITER Xuan Trevino Fly CHARGE COORDINATOR-CABIN EQUIPMENT SUPERVISOR LAB - POINT OF CARE ORDERABLES * INFLUENZA A+B - POINT OF CARE (AMB) (11/13/2018 8:05 PM FOOD WRITER) Influenza A Antigen Rapid Negative Negative Influenza B Antigen Rapid Negative Negative Influenza Internal Control positive NEGATIVE - POSITIVE Influenza Lot Number [id number] Influenza Expiration Date 06/27/2020 Other NASOPHARYNGEAL SWAB / Unknown 11/13/2018 8:05 PM FOOD WRITER Xaun Trevino Fly CHARGE COORDINATOR-CABIN EQUIPMENT SUPERVISOR LAB - POINT OF CARE ORDERABLES * STREP A SCREEN - POINT OF CARE (AMB) STL (11/13/2018 8:05 PM FOOD WRITER) Strep A Rapid POCT Negative Negative Strep A Internal Control Present Lot # [id number] Expiration Date 02/11/2020 Throat ENTIRE THROAT (SURFACE REGION OF NECK) / Unknown 11/13/2018 8:05 PM FOOD WRITER Xuan Belinda Fly CHARGE COORDINATOR-CABIN EQUIPMENT SUPERVISOR LAB - POINT OF CARE ORDERABLES documented in this encounter Visit Diagnoses Diagnosis Acute suppurative otitis media of left ear without spontaneous rupture of tympanic membrane, recurrence not specified- Primary Viral syndrome Unspecified viral infection, in conditions classified elsewhere and of unspecified site documented in this encounter Care Teams Percher Relationship Specialty Start Date End Date Jian Benitez MD [address] [place] [id number] PCP - General Pediatrics 08/03/14 03/26/24 documented as of this encounter
--- OUTSIDE RECORDS SUMMARY | 2024-09-30 09:12 | XMS_ITS | Encounter Summary ---
Author Organization [facility] Address [address] [place] [address] Care Team Providers Care Manager Recruiting Name Role Phone Jian Benitez MD Primary Care Provider Reason for Visit * Reason Onset Date Comments Scheduling 02/10/2016 Encounter Details Date Type Department Care Team (Late st Contact Info) Description 02/10/2016 Telephone [facility] [place] [id number] [place] [address] Annabel George RN Scheduling Social History Tobacco Use Types Packs/Day Years Used Date Smoking Tobacco: Never Alcohol Use Standard Drinks/Week Comments Not Asked 0 (1 standard drink = 0.6 oz pur e alcohol) Sex and Gender Information Value Date Recorded Sex Assigned at Not on file Gender Identity Not on file Sexual Orientation Not on file documented as of this encounter Miscellaneous Notes * Telephone Encounter - Annabel George RN - 02/10/2016 3:08 PM CDT Have attempted twice (01/13/16 and 01/27/16) to call family to reschedule stress test with Dr. Rendon without success. Message left on answering machine to call this office for reschedule test. documented in this encounter Plan of Treatment Not on file documented as of this encounter Visit Diagnoses Not on filedocumented in this encounter Care Teams Manager Recruiting Relationship Specialty Start Date End Date Jian Benitez MD [address] [phone] PCP - General Pediatrics 08/03/14 03/26/24 documented as of this encounter
--- OUTSIDE RECORDS SUMMARY | 2024-09-30 09:12 | XMS_ITS | Encounter Summary ---
Author Organization [facility] Address [address] [place] [address] [place] [address] Care Team Providers Care Criminal Justice Teacher Name Role Phone Jian Benitez MD Primary Care Provider [phone] Reason for Visit * Reason Onset Date Comments Follow-up 11/14/2018 Encounter Details Date Type Department Care Team (Late st Contact Info) Description 11/14/2018 Telephone [facility] [employer] [facility] [address] [place] [address] Xuan Bill, MULTI NEEDLE MACHINE OPERATOR-RECRUITMENT INTERN [address] [place] [address] Follow-up Social History Tobacco Use Types Packs/Day [...] on filedocumented in this encounter Care Teams Criminal Justice Teacher Relationship Specialty Start Date End Date Jian Benitez MD [address] [place] [address] PCP - General Pediatrics 08/03/14 03/26/24 documented as of this encounter
--- OUTSIDE RECORDS SUMMARY | 2024-09-30 09:12 | XMS_ITS | Encounter Summary ---
Author Organization [facility] Address [address] [place] [address] Care Team Providers Care Java Developer Name Role Phone Jian Benitez MD Primary Care Provider [phone] Reason for Visit * Reason Comments Injury Ankle right ankle pain Encounter Details Date Type Department Care Team (Late st Contact Info) Description 09/24/2014 12:49 PM HOSPITAL NURSE - 09/24/2014 11:59 PM HOSPITAL NURSE Hospital Encounter [facility] Pediatrics - Orthopedics [address] [place] [place] [address] Patel Graf MD [address] [facility] [place] [address] Discharge Disposition: Home or Self Care Social History Tobacco Use Types Packs/Day Years Used Date Smoking Tobacco: Never Assessed Sex and Gender Information Value Date Recorded Sex Assigned at Not on file Gender Identity Not on file Sexual Orientation Not on file documented as of this encounter Discharge Instructions * Patient Instructions* Patel Graf MD - 09/24/2014 1:51 PM HOSPITAL NURSE Images from the original note were not included. [facility] Department of Orthopaedic Surgery Adult and Pediatric Sports Medicine Orthopaedic Sports Medicine Clinic Discharge Form MD Corinna Hardin 09/24/2014 Thank you for coming in to see us today for your right ankle pain. This is a school excuse note for today. We recommend that you try the following to help you heal and feel better: icing 20 minutes at a time, 3 to 5 times daily, physical therapy exercises, anti-inflammatory medications and bracing Follow up in 2 months. Please call our clinic to make an appointment if your symptoms are not improving, or if something about your condition significantly changes. [facility] office contact information: [facility] [address] [place] [address]. [address] [facility] 2nd Floor, [address] [facility] [address], [place] [address] [facility] ([facility]) or [address] [place] [address] [facility] [address] [place] [address] [address], [place] [address] Please contact Edinson Funez (clinical nurse specialist) at or email: [email or web address] if you have any further questions or concerns. ITAL NURSE documented in this encounter Medications at Time of Discharge Medication Sig Dispensed Refills Start Date End Date ibuprofen (MOTRIN) 200 MG tablet Take 200 mg by mouth every 6 hours as needed. 05/01/2019 documented as of this encounter Progress Notes * Patel Graf MD - 09/24/2014 2:00 PM CST Images from the original note were not included. Patel Graf MD ORTHOPAEDIC SPORTS MEDICINE [address] [place] [id number] Dept: [phone] Jian Benitez ; Today we had the pleasure of seeing Corinna Thacker in [facility] Pediatric Orthopaedic Sports Medicine Clinic at [facility] for evaluation of her right ankle injury. Corinna Thacker is a 14 y.o. female who was kicked in the right ankle during a soccer game about 2 months ago. She was seen at [facility] where XRays were performed and eventually referredto Dr. Rico who then recommended an MRI and referred her to Sports Clinic. She has diffuse ankle pain that is worse when she has been active. She has stayed out of PE class but has been working withher physical fitness trainer on stretching exercises. The symptoms are activity-related and improved with rest. No fevers, chills, numbness, paresthesias or gross motor weakness. They have tried icing 20 minutes at atime, 3 to 5 times daily and anti- inflammatory medications for their symptoms. SANE Score (0-100): 65 Medications Current Outpatient Prescriptions on File Prior to Encounter Medication Sig Dispense Refill ??? ibuprofen (MOTRIN) 200 MG tablet Take 200 mg by mouth every 6 hours as needed. No current facility-administered medications on file prior to encounter. Allergies as of 09/24/2014 ??? (No Known Allergies) No past medical history on file. No past surgical history on file. 15 Point review of systems was otherwise negative as reviewed today. Social History Occupational History ??? Not on file. Social History Main Topics ??? Smoking status: Not on file ??? Smokeless tobacco: Not on file ??? Alcohol Use: Not on file ??? Drug Use: Not on file ??? Sexual Activity: Not on file Family History No family history on file. Physical Exam: The patient is awake, alert, oriented and they are pleasant to speak with. Gait is normal. Evaluation of the uninjured left ankle noted no skin lesions, neurovascularly intact. There was no tenderness/swelling/deformity. Ligamentously stable. Full range of motion. The right ankle is neurovascularly intact with no active skin lesions. There is swelling. There is tenderness along the Achilles Tendon, Deltoid Ligament and Posterior talofibular ligament. There is 0 degrees of extention and 20 degrees of flexion range of motion. Anterior drawer is negative. Talartilt is positive. There is not pain at the proximal syndesmosis with palpation. The longitudinal arch is normal. The calcaneus does invert on heel rise. Imaging: Right ankle MRI images reviewed by me are positive for a chronic osteochondral lesion with fragmentation located on the posteriomedial half of the talar dome. She had XRays that were performed at [facility] which were unavailable for review today. Impression: Right ankle sprain, posteriomedial OCD lesion, gastroc equinus Plan: We recommended that they try the following to treat their injury: icing 20 minutes at a time, 3 to 5 times daily, physical therapy exercises, anti- inflammatory medications and bracing. We will see her back in approximately 2 months for a repeat clinical evaluation. If she is not improving, we may discuss arthroscopy and microfracture of her OCD lesion. Please do not hesitate to contact me with questions regarding her or any other patient in the future. Our clinical nurse, Edinson Daniaoksana, can be reached at and by email at [email or web address]. My personal email is [email or web address]. Sincerely, Patel Graf MD ITAL NURSE documented in this encounter Plan of Treatment Not on file documented as of this encounter Visit Diagnoses Diagnosis Pain in joint, ankle and foot, right- Primary documented in this encounter Care Teams Java Developer Relationship Specialty Start Date End Date Jian Benitez MD [address] [place] [id number] PCP - General Pediatrics 08/03/14 03/26/24 documented as of this encounter
--- OUTSIDE RECORDS SUMMARY | 2024-09-30 09:12 | XMS_ITS | Encounter Summary ---
Author Organization [facility] Address [facility] [facility] [place] [address] Care Team Providers Care Medicare Insurance Specialist Name Role Phone Jian Benitez MD Primary Care Provider [phone] Reason for Referral * Radiology Services - Closed Specialty Diagnoses / Procedures Referred By Carrie robb Referred To Contact Diagnoses Osteochondritis dessicans Procedures MRI LOWER EXT ANY JOINT NON CONTRAST RIGHT Annabel Rico MD [address] [place] [address] Referral ID Status Reason Start Date Expiration Date Visits Re quested Visits Authorized [id number] Closed 08/24/2014 02/20/2015 1 1 ER PIT WORKER Reason for Visit * Radiology Services - Closed Specialty Diagnoses / Procedures Referred By Carrie robb Referred To Contact Diagnoses Osteochondritis dessicans Procedures MRI LOWER EXT ANY JOINT NON CONTRAST RIGHT Annabel Rico MD [address] [place] [address] Referral ID Status Reason Start Date Expiration Date Visits Re quested Visits Authorized [id number] Closed 08/24/2014 02/20/2015 1 1 Encounter Details Date Type Department Care Team (Latest Contact Info) Description 09/24/2014 9:00 AM CINDER PIT WORKER - 09/24/2014 12:48 PM CINDER PIT WORKER Hospital Encounter [facility] - [address] [address] Annabel Rico MD Discharge Disposition: Home or [...] needed. 05/01/2019 documented as of this encounter Plan of Treatment Not on file documented as of this encounter Procedures Procedure Name Priority Date/Time Associated Diagnosis Comments MRI LOWER EXT ANY JOINT NON CONTRAST RIGHT Routine 09/24/2014 10:08 AM CINDER PIT WORKER Osteochondritis dessicans documented in this encounter Results * MRI LOWER EXT ANY JOINT NON CONTRAST RIGHT (09/24/2014 10:08 AM CINDER PIT WORKER) Anatomical Region Laterality Modality Lower Extremity Magnetic Resonan ce 09/24/2014 3:25 PM CINDER PIT WORKER Impressions 09/24/2014 3:57 PM CINDER PIT WORKER 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 Narrative 09/24/2014 3:57 PM CINDER PIT WORKER Exam: MRI ANKLE WITHOUT CONTRAST. Date: 09/24/2014 [...] documented in this encounter Visit Diagnoses Diagnosis Injury, other and unspecified, knee, leg, ankle, and foot- Primary Osteochondritis dessicans Osteochondritis dissecans documented in this encounter Care Teams Medicare Insurance Specialist Relationship Specialty Start Date End Date Jian Benitez MD [address] [place] [address] [place] [address] PCP - General Pediatrics 10/21/14 6/13/24 documented as of this encounter
--- OUTSIDE RECORDS SUMMARY | 2024-09-30 09:12 | XMS_ITS | Encounter Summary ---
Author Organization [facility] Address [address] [facility] [place] [address] Care Team Providers Care Director Internal Audit Name Role Phone Jian Benitez MD Primary Care Provider [phone] Reason for Visit * Reason Comments Bradycardia irregular hr, recent chest pressure with running Encounter Details Date Type Department Care Team (Latest Contact Info) Description 12/15/2015 8:30 AM PRINCIPAL CYBER ENGINEER - 12/15/2015 11:59 PM PRINCIPAL CYBER ENGINEER Hospital Encounter [facility] Pediatrics - Cardiology [address] [place] [address] Alex Rendon MD [address] [place] [phone] Discharge Disposition: Home or Self Care Social [...] Sign Reading Time Taken Comments Blood Pressure 104/80 12/15/2015 9:06 AM PRINCIPAL CYBER ENGINEER Pulse 92 12/15/2015 9:06 AM PRINCIPAL CYBER ENGINEER Temperature - - Respiratory Rate 16 12/15/2015 9:06 AM PRINCIPAL CYBER ENGINEER Oxygen Saturation - - Inhaled Oxygen Concentration - - Weight 62 kg (136 lb 11 oz) 12/15/2015 9:[address] Height 170.5 cm (5' 7.13 ) 12/15/2015 9:06 AM CS T Body Mass Index 21.33 12/15/2015 9:06 AM PRINCIPAL CYBER ENGINEER Body Mass Index Percentile 51.42% 12/15/2015 9:0 6 AM PRINCIPAL CYBER ENGINEER Growth Chart: [facility] (Girls, 2- 20 Years) documented in this encounter Discharge Instructions * Patient Instructions* Annabel George RN - 12/15/2015 11:25 AM PRINCIPAL CYBER ENGINEER Follow up pending Stress test results. Nurse will call to schedule stress test. CIPAL CYBER ENGINEER documented in this encounter Medications at Time of Discharge Medication Sig Dispensed Refills Start Date End Date ibuprofen (MOTRIN) 200 MG tablet Take 200 mg by mouth every 6 hours as needed. 05/01/2019 documented as of this encounter Progress Notes * Annabel George RN - 12/16/2015 4:03 PM CST Stress test scheduled for January 02 at 1:30pm. Instructions given to mom for Marylou to have a light lunch prior to test, and to wear clothes comfortable for running on a treadmill and tennis shoes. Mom seemed to understand. Order in EPIC and scheduled with cardiology office staff. CIPAL CYBER ENGINEER documented in this encounter Consult Notes * Alex Rendon MD - 04/02/2016 3:24 PM CDT Images from the original note were not included. Pediatric Cardiology Clinic Note Date of Consultation:12/15/2015 Physician or Service requesting consult: Jian Benitez MD Dear Dr. Benitez, I had the pleasure of evaluating Marylou at the [facility] for bradycardia and chest pain As you know, Marylou is a 16 y.o. female who was noted to have an extra heart beat for a sports physical. An EKG was performed which showed premature ventricular contractions. Referral to cardiologywas then made. She has been complaining of chest pain when she runs. The chest pain is central in location, feels like pressure, is 7/10 in severity, and lasts for minutes. This has been going on for one month, andhas been occuring 5/7 days of the week. Sometimes she feels dizzy. She feels that this is differentthan her exercise- induced asthma which is more abdominal in location. Marylou has demonstrated normal growth and development and good activity level. She has not had fatigue, respiratory symptoms, palpitations, or fainting. Review of systems: All other review of systems were checked and were negative. Current Meds: Current Outpatient Prescriptions Medication Sig Dispense Refill ??? ibuprofen (MOTRIN) 200 MG tablet Take 200 mg by mouth every 6 hours as needed. No current facility-administered medications for this encounter. Allergies: No Known Allergies Maternal History Term with no complications during or delivery. Birthweight: 6 lbs 10 oz Past Medical History: Exercise-induced asthma Past Surgical History: Tonsils and adenoids removed on January 2012. Past Hospitalizations: None Family History: There is no family history of congenital heart disease or sudden unexplained , or pacemaker requirement. Social History: Patient lives with biological parents in [place], [place]. She is in the 12th grade. Physical Exam: BP 104/80 mmHg Pulse 92 Resp 16 Wt 62 kg (136 lb 11 oz) BMI 21.33 kg/m2 FiO2: General: Comfortable in no acute distress Heent: Normocephalic. Moist and pink mucous membranes. Neck: Flat neck veins. Cardiovascular: Pulses: 2+ radial and femoral pulses with no radial/femoral delay. Capillary refill less than 2 seconds. Precordium: normoactive. Heart sounds: Regular rate and rhythm with normal S1 and S2. No systolic or diastolic murmurs, rubs, gallops, clicks appreciated. Respiratory: Unlabored breathing with no retractions noted. Clear to auscultation bilaterally. Abdomen: Soft, nontender, nondistended with no hepatomegaly. Extremities: No clubbing, cyanosis, or edema noted. Neuro: No gross anomalies noted. Skin: Clear. DIAGNOSTIC TESTS EKG with rhythm strip 12/15/2015: Normal sinus rhythm with sinus arrhythmia. One PVC was noted [id number] seconds of acquisition. Echo 12/15/2015: ??1. Normal coronary arteries. ??2. Normal biventricular size and systolic function. ?3. Occasional PVCs seen during the study. IMPRESSION 1. Occasional premature atrial contractions. 2. Exertional chest pain. 3. Exercise-induced asthma Marylou is A pleasant 15-year-old girl who is noted to have occasional premature ventricular contractions on EKG rhythm strip. She has somewhat concerning chest pain during exertion which he describes as a tightness which has been associated with lightheadedness at least once. Her echocardiogram is unremarkable. Although it is possible that this may be secondary to exercise- induced asthma,I would like to evaluate this further with an exercise test. This would also allow us to evaluate how her PVCs respond to exercise. I would recommend that she minimize exercise until she undergoes further evaluation including participation in track. She should have a Holter monitor performed as well. PLAN 1. Resume routine pediatric care. 2. Holter monitor. 3. Exercise test. 2. Further followup in pediatric cardiology clinic will be dependent on results of testing. Thank you for allowing me to participate in Marylou's care. Please feel free to contact me if you have any questions or concerns. Alex Rendon MD Clinical Furniture Arranger Division of Pediatric Cardiology Department of Pediatrics [facility] 04/02/2016 Her EKG rhythm strip was reviewed. She is having premature atrial contractions, not premature ventricular contractions. Some of the beats were wide complex which were aberrantly conducted, but clearly were not premature ventricular contractions. I reassured the family that premature atrial contractions (PACs) can be detected as palpitations, but would not cause any adverse clinical sequelae. As such, EKG stress test would not be of benefit. Her Holter monitor shows occasional PACs (157) with no PVCs. Heart rate ranged from 46 to 187 bpm. I spoke with her mom, and she is feeling better. I would like to see Marylou back in three months,sooner if concerns arise to reassess her symptoms. -Alex Rendon MD * Alex Rendon MD - 12/15/2015 11:15 AM CST Images from the original note were not included. Pediatric Cardiology Clinic Note Date of Consultation:12/15/2015 Physician or Service requesting consult: Jian Benitez MD Dear Dr. Benitez, I had the pleasure of evaluating Marylou at the [facility] for bradycardia and chest pain As you know, Marylou is a 15 y.o. female who was noted to have an extra heart beat for a sports physical. An EKG was performed which showed premature ventricular contractions. Referral to cardiologywas then made. She has been complaining of chest pain when she runs. The chest pain is central in location, feels like pressure, is 7/10 in severity, and lasts for minutes. This has been going on for one month, andhas been occuring 5/7 days of the week. Sometimes she feels dizzy. She feels that this is differentthan her exercise- induced asthma which is more abdominal in location. Marylou has demonstrated normal growth and development and good activity level. She has not had fatigue, respiratory symptoms, palpitations, or fainting. Review of systems: All other review of systems were checked and were negative. Current Meds: Current Outpatient Prescriptions Medication Sig Dispense Refill ??? ibuprofen (MOTRIN) 200 MG tablet Take 200 mg by mouth every 6 hours as needed. No current facility-administered medications for this encounter. Allergies: No Known Allergies Maternal History Term with no complications during or delivery. Birthweight: 6 lbs 10 oz Past Medical History: Exercise-induced asthma Past Surgical History: Tonsils and adenoids removed on January 2012. Past Hospitalizations: None Family History: There is no family history of congenital heart disease or sudden unexplained , or pacemaker requirement. Social History: Patient lives with biological parents in [place], [place]. She is in the 12th grade. Physical Exam: BP 104/80 mmHg Pulse 92 Resp 16 Wt 62 kg (136 lb 11 oz) BMI 21.33 kg/m2 FiO2: General: Comfortable in no acute distress Heent: Normocephalic. Moist and pink mucous membranes. Neck: Flat neck veins. Cardiovascular: Pulses: 2+ radial and femoral pulses with no radial/femoral delay. Capillary refill less than 2 seconds. Precordium: normoactive. Heart sounds: Regular rate and rhythm with normal S1 and S2. No systolic or diastolic murmurs, rubs, gallops, clicks appreciated. Respiratory: Unlabored breathing with no retractions noted. Clear to auscultation bilaterally. Abdomen: Soft, nontender, nondistended with no hepatomegaly. Extremities: No clubbing, cyanosis, or edema noted. Neuro: No gross anomalies noted. Skin: Clear. DIAGNOSTIC TESTS EKG with rhythm strip 12/15/2015: Normal sinus rhythm with sinus arrhythmia. One PVC was noted seconds of acquisition. Echo 12/15/2015: ??1. Normal coronary arteries. ??2. Normal biventricular size and systolic function. ?3. Occasional PVCs seen during the study. IMPRESSION 1. Occasional premature ventricular contractions 2. Exertional chest pain. 3. Exercise-induced asthma Marylou is A pleasant 15-year-old girl who is noted to have occasional premature ventricular contractions on EKG rhythm strip. She has somewhat concerning chest pain during exertion which he describes as a tightness which has been associated with lightheadedness at least once. Her echocardiogram is unremarkable. Although it is possible that this may be secondary to exercise- induced asthma,I would like to evaluate this further with an exercise test. This would also allow us to evaluate how her PVCs respond to exercise. I would recommend that she minimize exercise until she undergoes further evaluation including participation in track. She should have a Holter monitor performed as well. PLAN 1. Resume routine pediatric care. 2. Holter monitor. 3. Exercise test. 2. Further [facility] will be dependent on results of testing. Thank you for allowing me to participate in Marylou's care. Please feel free to contact me if you have any questions or concerns. Alex Rendon MD Clinical Furniture Arranger Division of Pediatric Cardiology Department of Pediatrics [facility] CIPAL CYBER ENGINEER documented in this encounter Plan of Treatment Not on file documented as of this encounter Procedures Procedure Name Priority Date/Time Associated Diagnosis Comments CARDIAC EKG ORDER 12/26/2015 8:1 4 PM CDT CARDIAC RHYTHM STRIP ORDER 12/26/2015 7:15 PM CDT ECHO CONSULT - PEDIATRIC Routine 12/15/2015 10:24 AM PRINCIPAL CYBER ENGINEER Bradycardia EKG 15-LEAD Routine 12/15/2015 9:52 AM PRINCIPAL CYBER ENGINEER Bradycardia documented in this encounter Results * CARDIAC EKG ORDER (12/26/2015 8:14 PM CDT) Narrative 12/26/2015 8:14 PM CDT Ordered by an unspecified provider. Scanned Document CARDIAC SERVICES ORD ERABLES * CARDIAC RHYTHM STRIP ORDER (12/26/2015 7:15 PM CDT) Narrative 12/26/2015 7:15 PM CDT Ordered by an unspecified provider. Scanned Document CARDIAC SERVICES ORD ERABLES * ECHO CONSULT - PEDIATRIC (12/15/2015 10:24 AM PRINCIPAL CYBER ENGINEER) 12/15/2015 10:2 4 AM PRINCIPAL CYBER ENGINEER Narrative Procedure Note Reading, No - 12/15/2015 [place] [address] Fax Congenital Transthoracic Report Pat.Name: MARYLOU THACKER Sue Pat.ID: [id number] .Date: 12/15/2015 Exam Time: 10:24:00 AM Study Type:Congenital TTE Height: 171cm Weight: 62kg BSA: 1.73 m2 Age: 4 2000,15Y Sex: FEMALE BP: 104/80 Sonogrphr: Montrell Forte RDCS Pat. Stat.:Outpatient ICD - 9: 786.50 CPT - 4: 56574 Reason for Study:Chest pain History / Clinical:Chest pain Procedures:2D Non-congenital, Doppler Complete, Color Flow Visit ID: [id number] SUMMARY: Impression: 1. Normal coronary arteries. 2. [...] Rendon MD Alex Rendon MD ECHO ORDERABLES [facility] CARDIAC SERVICES [facility] [place] [address] * EKG 15-LEAD (12/15/2015 9:52 AM PRINCIPAL CYBER ENGINEER) Ventricular Rate 73 BPM CG MUSE Atrial Rate 73 BPM CG MUSE P-R Interval 138 ms CG MUSE QRS Duration ms 70 ms CG MUSE Q-T Interval ms 412 ms CG MUSE QTC Calculation (Bezet) 453 ms CG MUSE Calculated P [place] 48 degrees CG MUSE Calculated R [place] 35 degrees CG MUSE Calculated T [place] 26 degrees CG MUSE Interpretation EKG Normal sinus rhythm with sinus arrhythmia No previous ECGs available Confirmed by MD Justice, Alex ([id number]) on 12/15/2015 10:00:40 AM CG MUSE 12/15/2015 9:52 AM PRINCIPAL CYBER ENGINEER 12/15/2015 10:00 AM PRINCIPAL CYBER ENGINEER Alex Rendon MD ECG ORDERABLES CG MUSE documented in this encounter Visit Diagnoses Diagnosis Bradycardia- Primary Other specified cardiac dysrhythmias documented in this encounter Care Teams Director Internal Audit Relationship Specialty Start Date End Date Jian Benitez MD [address] [place] [address] PCP - General Pediatrics 08/03/14 03/26/24 documented as of this encounter
--- OUTSIDE RECORDS SUMMARY | 2024-09-30 09:13 | XMS_ITS | Encounter Summary ---
Author Organization [facility] Address [facility] [place] [address] Care Team Providers Care Corporate Secretary Name Role Phone Jian Benitez MD Primary Care Provider [phone] Reason for Visit * Reason Comments Scoliosis Encounter Details Date Type Department Care Team (Latest Contact Info) Description 05/22/2010 3:00 PM CDT - 05/22/2010 3:17 PM CDT Hospital Encounter [facility] Pediatrics - Orthopedics [address] [place] [id number] Darius Mercer MD [address] [place] [address] [address] [place] [address] Discharge Disposition: Home or Self Care Social History Tobacco Use Types Packs/Day Years Used Date Smoking Tobacco: Never Assessed Sex and Gender Information Value Date Recorded Sex Assigned at Not on file Gender Identity Not on file Sexual Orientation Not on file documented as of this encounter Last Filed Vital Signs Vital Sign Reading Time Taken Comments Blood Pressure - - Pulse - - Temperature - - Respiratory Rate - - Oxygen Saturation - - Inhaled Oxygen Concentration - - Weight 57.4 kg (126 lb 9.6 oz) 05/22/2010 3:11 P M CDT Height 166 cm (5' 5.35 ) 05/22/2010 3:11 PM CDT Body Mass Index 20.84 05/22/2010 3:11 PM CDT Body Mass Index Percentile 78.16% 05/22/2010 3:1 1 PM CDT Growth Chart: CDC (Girls, 2- 20 Years) documented in this encounter Discharge Instructions * Patient Instructions* Emigdio Lenz MD - 05/22/2010 4:12 PM CDT ORTHOPAEDIC CLINIC DISCHARGE INSTRUCTIONS SHEET Follow Up: On PRN basis, please call if would like to schedule an appointment School excuse: 05/22/2010 Tylenol (over the counter medication) may be used per instructions. If you have any questions or concerns in the interim, or if you need to schedule surgery for your child, you may contact our orthopedic office at . If you need to make a clinic appointment, please call . documented in this encounter Progress Notes * Darius Mercer MD - 05/22/2010 10:10 PM CDT HISTORY: Corinna Thacker is a 10 y.o. female who presents for evaluation of possible scoliosis.She is accompanied today by her mother who reports she is being followed by Dr. Rico and was referred to Dr. Mercer for further evaluation. Pt complains of some localized lower back pain that is worse with activity. Denies any numbness, tingling in the lower extremities and has no other subjective complaints. MEDS: No current outpatient prescriptions on file. ALLERGIES: Not on File IMMUNIZATIONS: Up to date ROS: Pertinent positives listed in HPI PHYSICAL EXAM: Corinna Thackeris a well developed, well nourished female in no acute distress who is alert and cooperative with my examination. She does have good head and trunk control. She doesambulate without difficulty. Upper/lower extremity exam shows no abnormalities, normal ROM, DNVI. Good spine alignment, no evidence of scoliosis. IMAGING:PA/LAT scoliosis films show thoracic and lumbar curves of less than 10 degrees. A/P:10yo female who was sent to this clinic for evaluation of scoliosis. There is no evidence of scoliosis. Pt is instructed to f/u with Dr. Rico on a prn basis from this point. No other intervention is needed from this clinic at this point. I have personally seen and evaluated the above patient with the resident. I have discussed the results of the physical exam and all studies with the patient and family. I developed the above plan of care and discussed it with the patient. I have revised the above note and agree with the resident's assessment and plan of care. * Sulema Rico, RN - 05/22/2010 3:12 PM CDT Initial scoliosis visit to Dr. Mercer's clinic . Referred by Dr. Rico. documented in this encounter Miscellaneous Notes * Miscellaneous Scans - Document, Scanned - 06/15/2010 7:12 PM CDT * Miscellaneous Scans - Document, Scanned - 06/15/2010 7:10 PM CDT * Miscellaneous Scans - Document, Scanned - 05/24/2010 6:53 AM CDT documented in this encounter Plan of Treatment Not on file documented as of this encounter Visit Diagnoses Not on filedocumented in this encounter Care Teams Corporate Secretary Relationship Specialty Start Date End Date Jian Benitez MD [address] [place] [phone] PCP - General 05/22/10 12/28/10 documented as of this encounter
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
--- OUTSIDE RECORDS SUMMARY | 2024-09-30 09:13 | XMS_ITS | Encounter Summary ---
Author Organization [facility] Address [address] [place] [address] Care Team Providers Care [employer] Name Role Phone Jian Benitez MD Primary Care Provider [phone] Encounter Details Date Type Department Care Team (Latest Contact Info) Description 05/22/2010 3:18 PM CDT - 05/22/2010 11:59 PM CDT Hospital Encounter [facility] Pediatrics - Radiology [address] [place] [phone] Discharge Disposition: Home or Self Care Social [...] Procedure Name Priority Date/Time Associated Diagnosis Comments XR SCOLIOSIS 1VW Routine 05/22/2010 3:28 PM CDT Scoliosis (and Kyphoscoliosis), Idiopathic documented in this encounter Results * XR SCOLIOSIS ERECT (05/22/2010 3:28 PM [...] Mild T7-L4 right curvature Fred Leon MD Authorizing Provider Result Lester Mercer MD DIAGNOSTIC IMAGING O RDERABLES documented in this encounter Visit Diagnoses Diagnosis Scoliosis (and kyphoscoliosis), idiopathic documented in this encounter Care Teams [employer] Relationship Specialty Start Date End Date Jian Benitez MD [address] [place] [phone] PCP - General 05/22/10 12/28/10 documented as of this encounter
--- OUTSIDE RECORDS SUMMARY | 2024-09-30 09:13 | XMS_ITS | Encounter Summary ---
Author Organization [facility] Address [facility] [facility]. [place], [place] [address] [place] [phone] Care Team Providers Care Gas Station Cashier Name Role Phone Dennise Goodson DO Primary Care Provider + Reason for Visit * Reason Onset Date Comments Refill Request 02/04/2024 Encounter Details Date Type Department Care Team (Late st Contact Info) Description 02/04/2024 MyChart Message Enc [facility] Family & Internal Medicine [facility] [address] [place] [address] Dennise Goodson DO [address] [place], [place] [phone] Vyvanse Question Social History Tobacco Use Types Packs/Day Years Used Date Smoking Tobacco: Never Passive Smoke Exposure: Never Smokeless Tobacco: Never Alcohol Use Standard Drinks/Week Comments Yes 1.7 [...] on file documented as of this encounter Progress Notes * Dennise Goodson DO - 02/07/2024 3:50 PM CDTAddended by: DENNISE GOODSON on: 02/07/2024 03:50 PM Modules accepted: Orders * Dennise Goodson DO - 02/07/2024 3:50 PM CDT Sent out 20 mg. * Jammie Sinclair RN - 02/07/2024 10:21 AM CDT Patient notified and verbalized understanding. Patient OB agreed she should wait until she is in her second trimester. Patient reported she is 2 weeks away from that. Patient said that her pharmacy takes awhile to fill that medication and she would like if the PCP would send out now so the RX is ready when she can take it. She is also wanting to know if she can take 20 instead of 50 MG while she is ? Opportunity given for all questions to be answered, no further needs voiced at this time. LL-02/07/24 * Jammie Sinclair RN - 02/05/2024 2:00 PM CDT Attempted to call the patient, was unable to reach them at this time. Left a message requesting a call back. LL-02/05/24 * Dennise Goodson DO - 02/04/2024 3:37 PM CDT My recommendation would be to try a drug holiday, at least through the first trimester to reduce risk. If pt still wishes to continue the medication, I'd like us to reach out to pt's OB to ensure they are okay with continuing the use of Vyvanse. * Hayley Vigil MA - 02/04/2024 3:26 PM CDT Refill request received from Patient Advise on medication dosage change. Last visit with DENNISE GOODSON in FAMILY PRACTICE was on: 03/05/[address] [facility] No future appointments. [id number] [address] [address] [facility] [id number] [address] Current Outpatient Medications: amoxicillin (AMOXIL) 500 MG tablet, ONE TABLET THREE TIMES A DAY UNTIL GONE, Disp: , Rfl: cyclobenzaprine (FLEXERIL) 5 MG tablet, Take 1-2 tablets (5-10 mg total) by mouth 3 (three) times daily as needed for Muscle Spasms. (Patient not taking: Reported on 12/13/2023), Disp: 30 tablet, Rfl: 0 VYVANSE 50 MG capsule, Take 1 capsule (50 mg total) by mouth every morning., Disp: 30 capsule, Rfl:0 * Hayley Vigil MA - 02/04/2024 3:26 PM CDTFrom: Corinna Thacker To: Dr. Dennise Goodson Sent: 02/04/2024 8:07 AM CDT Subject: Eric Question Poonam, I am needing to refill my prescription. However, I would like to request to lower my dosage to 20 mg if possible. With being , I have spoke with my OB and got the okay to have them refilled. Would just feel more comfortable on a lower dose. Please advise. Thanks J documented in this encounter Plan of Treatment Not on file documented as of this encounter Visit Diagnoses Diagnosis ADHD (attention deficit hyperactivity disorder), combined type- Primary Attention deficit disorder with hyperactivity documented in this encounter Additional Health Concerns Assessment Noted Time PHQ-9 Depression Total Score: 10 021 1:10 PM BLISTER PACKAGING MACHINE OPERATOR documented as of this encounter Care Teams Gas Station Cashier Relationship Specialty Start Date End Date Dennise Goodson DO [address] [place] [id number] PCP - General FAMILY PRACTICE 01/12/19 documented as of this encounter
--- OUTSIDE RECORDS SUMMARY | 2024-09-30 09:13 | XMS_ITS | Encounter Summary ---
Author Organization [facility] Address [address] [place] [address] Care Team Providers Care Commissioner Of Internal Revenue Name Role Phone Bee Sher MD Primary Care Provider [phone] Reason for Visit * Reason Comments Vision Disturbance Pt with c/o abd pain , back ache, blurred vision, nasal congestion, and dizziness. Dx with strep throat on Saturday. Back in to pmd today b/c of weakness, dizziness/lightheadedness. Pt describes vision as blurry/wiggly for approx 1 minute at a time and then it goes back to normal. Headache Encounter Details Date Type Department Care Team (Late st Contact Info) Description 12/29/2010 11:57 AM CDT - 12/29/2010 2:58 PM CDT Emergency ER at [address] [address] Shine Valero MD [address] [place] [address] [phone] Viral syndrome Discharge Disposition: Home or Self Care Social History Tobacco Use Types Packs/Day Years Used Date Smoking Tobacco: Never Assessed Sex and Gender Information Value Date Recorded Sex Assigned at Not on file Gender Identity Not on file Sexual Orientation Not on file documented as of this encounter Last Filed Vital Signs Vital Sign Reading Time Taken Comments Blood Pressure 90/52 12/29/2010 2:12 PM CDT Pulse 62 12/29/2010 2:12 PM CDT Temperature 36.7 ??C (98 ??F) 12/29/2010 2:12 PM CDT Respiratory Rate 16 12/29/2010 2:12 PM CDT Oxygen Saturation - - Inhaled Oxygen Concentration - - Weight 58.3 kg (128 lb 8.5 oz) 12/29/2010 12:03 PM CDT Height - - Body Mass Index - - documented in this encounter Discharge Instructions * Discharge Instructions* Uriah Chapman DO - 12/29/2010 2:51 PM CDT Viral Illness Your exam indicates you have a viral illness. SYMPTOMS ?? Fever. ?? Muscle aches. ?? Headache. ?? Fatigue. ?? Stomach upsets. ?? Sore throat. ?? Dry cough. Antibiotic drugs are not effective in viral illnesses. They are only given when there is a secondary bacterial infection. TREATMENT ?? Bed rest. ?? Increasing oral fluid intake of clear, non-caffeinated drinks like bandar hattie, fruit juices, water, or sports (electrolyte) drinks, and ?? Medicine to relieve specific symptoms such as cough, pain, or diarrhea. Only take [id number] or prescription medicines for pain, discomfort, or fever as directed by your caregiver. Please call your caregiver if you are not better after 2-3 days of symptom treatment. CALL OR RETURN HERE RIGHT AWAY IF YOUR ILLNESS GETS MORE SEVERE, OR YOU DEVELOP ANY OTHER NEW SYMPTOMS, SUCH ?? A fever above 103?? F (39.4?? C). ?? Vomiting for more than a day. ?? Severe headache or other pain. ?? Stiff neck. ?? Trouble breathing. ?? Visual problems. ?? Blackouts or fainting. Document Released: 11/07/2005 Document Re-Released: 03/18/2009 ExitCare?? Patient Information ??2009 [employer]. * Discharge Instructions* Document, Scanned - 01/05/2011 5:47 PM CDT documented in this encounter Medications at Time of Discharge Medication Sig Dispensed Refills Start Date End Date AMOXICILLIN PO Take 10.5 mL by mouth 2 times daily. 12/29/2010 08/24/2014 ibuprofen (MOTRIN) 200 MG tablet Take 200 mg by mouth every 6 hours as needed. 05/01/2019 multivitamin daily (THERAGRAN) tablet Take 1 Tab by mouth daily with food. 09/24/2014 documented as of this encounter ED Notes * Francisco Page RN - 12/29/2010 2:57 PM CDT Pt alert, nad, stated feeling better, saline lock d/c intact, site clear. D/c home with mother, inst given, mother and pt stated understanding, all questions answered * Francisco Page RN - 12/29/2010 2:19 PM CDT Box lunch to pt, Dr Chapman with pt * Francisco Page RN - 12/29/2010 12:[address] Valero with pt at this time * Shine Valero MD - 12/29/2010 12:35 PM CDT 12/29/2010 12:35 PM Corinna Thacker [id number] [facility] EMERGENCY DEPT History Chief Complaint Patient presents with ??? Vision Disturbance Pt with c/o abd pain, back ache, blurred vision, nasal congestion, and dizziness. Dx with strep throat on Saturday. Back in to pmd today b/c of weakness, dizziness/lightheadedness. Pt describes visionas blurry/wiggly for approx 1 minute at a time and then it goes back to normal. ??? Headache HPI Comments: Dx with strep ST 4 days ago - abx started Now with abd pain, back pain, GUTIÉRREZ, eye pain, neck pain No fever, V/D, dysuria, rash No past medical history on file. No past surgical history on file. History Social History ??? Marital Status: Single Spouse Name: N/A Number of Children: N/A ??? Years of Education: N/A Occupational History ??? Not on file. Social History Main Topics ??? Smoking status: Not on file ??? Smokeless tobacco: Not on file ??? Alcohol Use: Not on file ??? Drug Use: Not on file ??? Sexually Active: Not on file Other Topics Concern ??? Not on file Social History Narrative ??? No narrative on file Medications Current outpatient prescriptions Medication Sig Dispense Refill ??? AMOXICILLIN PO Take 10.5 mL by mouth 2 times daily. ??? ibuprofen (MOTRIN) 200 MG tablet Take 200 mg by mouth every 6 hours as needed. ??? multivitamin daily (THERAGRAN) tablet Take 1 Tab by mouth daily with food. Review of Systems BP 112/66 Pulse 68 Temp 97.5 ??F Resp 16 Wt 58.3 kg (128 lb 8.5 oz) Physical Exam Nursing note and vitals reviewed. Constitutional: She appears well-developed and well-nourished. She is active. No distress. Alert, interactive, nontoxic child HENT: Mouth/Throat: Mucous membranes are moist. Eyes: Pupils are equal, round, and reactive to light. Sharp disc Neck: No rigidity or adenopathy. Occipital discomfort with flexion Cardiovascular: Normal rate and regular rhythm. Pulses are palpable. Pulmonary/Chest: Effort normal. Abdominal: Soft. There is no hepatosplenomegaly. Neurological: She is alert. Neg Kernig and Bredzinski Skin: Skin is warm and dry. No rash noted. Procedures Procedures EKG Interpretation Lab/SPO2 Interpretation Medical Decision Making I have reviewed the: Nursing Notes and Vitals. I have personally seen and examined this patient. I have fully participated in the care of this patient. I have reviewed all pertinent clinical information, including history, physical exam and plan.I have reviewed the nurses notes. I have reviewed available labs and radiographic studies. No evidence of SBI, meningitis. Eval c/w viral illness. OK for discharge with supportive care inst. Progress Notes ED Plan/Course Clinical Impression Encounter Diagnosis Name Primary? Viral syndrome * Uriah Chapman DO - 12/29/2010 12:34 PM CDT 12/29/2010 12:34 PM Corinna Thacker [id number] [facility] EMERGENCY DEPT History Chief Complaint Patient presents with ??? Vision Disturbance Pt with c/o abd pain, back ache, blurred vision, nasal congestion, and dizziness. Dx with strep throat on Saturday. Back in to pmd today b/c of weakness, dizziness/lightheadedness. Pt describes visionas blurry/wiggly for approx 1 minute at a time and then it goes back to normal. ??? Headache HPI Comments: Pt here with mom. Congestion and ST started 5 days ago. Pt dx'd with strep by PCP andstarted Amox 3 days ago. Pt taking. Now states diffuse muscle aches, upper abd pain, backache, cough, SOB, frontal GUTIÉRREZ (since this am), neck pain, lightheaded and dizzy with standing, blurry vision (intermittent, last 1 minute), generalized weakness and tiredness. Denies any fevers, dysuria, vomiting, diarrhea, rash. General The history is provided by the patient and parent. Associated symptoms include abdominal pain, headaches and shortness of breath. Pertinent negatives include no chest pain. No past medical history on file. No past surgical history on file. History Social History ??? Marital Status: Single Spouse Name: N/A Number of Children: N/A ??? Years of Education: N/A Occupational History ??? Not on file. Social History Main Topics ??? Smoking status: Not on file ??? Smokeless tobacco: Not on file ??? Alcohol Use: Not on file ??? Drug Use: Not on file ??? Sexually Active: Not on file Other Topics Concern ??? Not on file Social History Narrative ??? No narrative on file Medications Current outpatient prescriptions Medication Sig Dispense Refill ??? AMOXICILLIN PO Take 10.5 mL by mouth 2 times daily. ??? ibuprofen (MOTRIN) 200 MG tablet Take 200 mg by mouth every 6 hours as needed. ??? multivitamin daily (THERAGRAN) tablet Take 1 Tab by mouth daily with food. Review of Systems Constitutional: Negative for fever. HENT: Positive for congestion, sore throat and neck pain. Eyes: Positive for photophobia and visual disturbance. Respiratory: Positive for cough and shortness of breath. Cardiovascular: Negative for chest pain. Gastrointestinal: Positive for abdominal pain. Negative for vomiting and diarrhea. Genitourinary: Negative for dysuria. Musculoskeletal: Positive for back pain. Skin: Negative for rash. Neurological: Positive for dizziness, weakness, light-headedness and headaches. Negative for numbness. BP 112/66 Pulse 68 Temp 97.5 ??F Resp 16 Wt 58.3 kg (128 lb 8.5 oz) Physical Exam Constitutional: She appears well-developed and well-nourished. No distress. HENT: Right Ear: Tympanic membrane normal. Left Ear: Tympanic membrane normal. Nose: No nasal discharge. Mouth/Throat: Mucous membranes are moist. Oropharynx is clear. Pharynx is normal. Eyes: Conjunctivae are normal. Pupils are equal, round, and reactive to light. Right eye exhibits no discharge. Left eye exhibits no discharge. Neck: Neck supple. No rigidity or adenopathy. Cardiovascular: Regular rhythm, S1 normal and S2 normal. No murmur heard. Pulmonary/Chest: Effort normal and breath sounds normal. There is normal air entry. No respiratory distress. She has no wheezes. She has no rhonchi. She has no rales. Abdominal: Soft. Bowel sounds are normal. She exhibits no distension and no mass. There is no hepatosplenomegaly. Tenderness is present. She has no rebound and no guarding. TTP RUQ and LUQ and periumbilical Musculoskeletal: Normal range of motion. Neurological: She is alert. She has normal reflexes. No cranial nerve deficit. Coordination normal. Gait steady, muscle strength with poor effort d/t pain, symmetric. Finger/nose and heel/gama normal. EOMI, visual chavira intact, no nystagmus. Skin: Skin is warm and dry. No rash noted. Procedures Procedures EKG Interpretation Lab/SPO2 Interpretation Medical Decision Making Progress Notes Pt states she is feeling a little better after IVF. CBC, liver enz normal, mono neg. Pt hungry, giving box lunch. Visual acuity normal. ED Plan/Course Pt is well-appearing, afebrile, able to extend neck fully, Kernig/Brud neg. PCP called and discussed plan. Will d/c to home. Return if sx worsen. Viral syndrome Clinical Impression No diagnosis found. * Pavithra Guy RN - 12/29/2010 12:09 PM CDT Pt awake and alert. Ambulates without difficulty. LSCTA bilat. abd soft/flat, BS+. C/o mid epigastric abd pain. Brisk cap refill. MMM. Lips dry. PERRLA 4-3. C/o photophobia. Vision slightly blurry atthis time. Slight decrease in ROM in neck. C/o bilat posterior neck pain, R>L. NAD> documented in this encounter Miscellaneous Notes * Miscellaneous Scans - Document, Scanned - 02/15/2011 9:47 AM CDT * Miscellaneous Scans - Document, Scanned - 02/15/2011 9:16 AM CDT documented in this encounter Plan of Treatment Not on file documented as of this encounter Procedures Procedure Name Priority Date/Time Associated Diagnosis Comments MONONUCLEOSIS SCREEN STAT 12/29/2010 1:00 PM CDT CBC W AUTO DIFFERENTIAL STAT 12/29/2010 1:00 PM CDT COMPREHENSIVE METABOLIC PANEL STAT 12/29/2010 1:00 PM CDT documented in this encounter Results * (ABNORMAL) COMPREHENSIVE METABOLIC PANEL (12/29/2010 1:00 PM CDT) Sodium 140 137 - 145 mmol/L [facility] Potassium 4.1 3.5 - 5.1 mmol/L [facility] Chloride 104 98 - 107 mmol/L [facility] CO2 28.0(H) 18 - 27 mmol/L [facility] Glucose 84 70 - 106 mg/dl [facility] BUN 11.1 7 - 18 mg/dl [facility] Calcium 9.1 8.8 - 10.6 mg/dl [facility] Bilirubin Total 0.6 0.6 - 1.4 mg/dl [facility] Protein Total 6.7 6.3 - 8.6 gm/dl [facility] Albumin 4.2 3.7 - 5.6 gm/dl [facility] ALT 12 10 - 30 Units/L [facility] AST 22 10 - 30 Units/L [facility] Alkaline Phosphatase 101(L) 105 - 420 Units/L [facility] Creatinine 0.56 0.31 - 0.88 mg/dl [facility] BLOOD SPECIMEN / Unknown 12/29/2010 1:00 PM CDT 12/29/2010 1:19 PM CDT Uriah Chapman DO LAB - CHEMISTRY DUSTIN BOO Performing Organization Address City/[facility] Co de Phone Number [facility] [address] [place] [id number] * MONONUCLEOSIS SCREEN (12/29/2010 1:00 PM CDT) Pathologist [facility] Mononucleosis Screen Negative Negative [facility] BLOOD SPECIMEN / Unknown 12/29/2010 1:00 PM CDT 12/29/2010 1:19 PM CDT Uriah Chapman DO LAB - CHEMISTRY DUSTIN BOO Performing Organization Address [facility] de Phone Number [facility] [address] [place] [phone] * CBC W AUTO DIFFERENTIAL (12/29/2010 1:00 PM CDT) [facility] WBC 7.81 4.5 - 14.5 K/cumm [facility] RBC 4.56 4.00 - 5.20 mill/cumm [facility] Hemoglobin 13.5 11.5 - 15.5 gm/dl [facility] Hematocrit 39.6 35.0 - 45.0 % [facility] MCV 86.8 77.0 - 95.0 cu microns [facility] MCH 29.6 25.0 - 33.0 uug [facility] MCHC 34.1 31.0 - 37.0 % [facility] RDW 12.5 % [facility] MPV 9.8 fl [facility] Platelet Count 295 100 - 400 K/cumm [facility] Granulocytes % 61.4 24 - 66 % [facility] Lymphocytes % 24.3 22 - 61 % [facility] Monocytes % 6.8 3 - 15 % [facility] Eosinophils % 7.0 0 - 10 % [facility] Basophils % 0.5 0 - 1 % [facility] Comment Manual Diff Automated Diff Performed [facility] BLOOD SPECIMEN / Unknown 12/29/2010 1:00 PM CDT 12/29/2010 1:19 PM CDT Uriah Chapman DO LAB - HEMATOLOGY ORD ERABLES [facility] Adamaris[address] Jairo Cavazos [facility] [place] [address] documented in this encounter Visit Diagnoses Diagnosis Viral syndrome Unspecified viral infection, in conditions classified elsewhere and of unspecified site documented in this encounter Administered Medications Inactive Administered Medications - up to 3 most recent administrations Medication Order MAR Action Action Date Dose Rate Site 0.9% NaCl infusion at 1,000 mL/hr, Intravenous, ONCE, 1 dose, On Sat12/29/10 at 1300 $ Given 12/29/2010 1:08 PM CDT 1,000 mL 1000 mL/hr acetaminophen (TYLENOL) tablet 650 mg 650 mg, Oral, ONCE, 1 dose, On Sat12/29/10 at 1400, Maximum allowable Acetaminophen amount = 4 Grams / 24 hours. $ Given 12/29/2010 2:01 PM CDT 650 mg acetaminophen (TYLENOL) tablet ADS Med 1 dose, Starting on Sat12/29/10 at 1402, Until Sat12/29/10 at 1401, FRANCISCO PAGE: Cabinet Override documented in this encounter Active and Recently Administered Medications Times are shown in CDT. Scheduled Medication Order 12/27/2010 12/28/2010 12/29/2010 0.9% NaCl infusion (COMPLETED) at 1,000 mL/hr, Intravenous, ONCE, 1 dose, On Sat12/29/10 at 1300 1308 ($ Given - Prov ider: Francisco Page RN) acetaminophen (TYLENOL) tablet 650 mg (COMPLETED) 650 mg, Oral, ONCE, 1 dose, On Sat12/29/10 at 1400, Maximum allowable Acetaminophen amount = 4 Grams / 24 hours. 1401 ($ Given - Prov ider: Francisco Page RN) documented in this encounter Care Teams Commissioner Of Internal Revenue Relationship Specialty Start Date End Date Bee Sher MD [address] [place] [phone] PCP - General 12/29/10 08/02/14 documented as of this encounter
--- OUTSIDE RECORDS SUMMARY | 2024-09-30 09:13 | XMS_ITS | Encounter Summary ---
Author Organization [facility] Address [facility] [facility] [place] [address] [place] [address] Care Team Providers Care Rn Flight Name Role Phone Arden Cannon Primary Care Provider + Encounter Details Date Type Department Care Team (Latest Contact Info) Description 09/21/2024 Scan HEALTH INFO SRVCS Scanned, Doc Med Group Social History Tobacco Use Types Packs/Day Years [...] Diagnoses Not on filedocumented in this encounter Additional Health Concerns Assessment Noted Time PHQ-9 Depression Total Score: 10 021 1:10 PM [employer] documented as of this encounter Care Teams Rn Flight Relationship Specialty Start Date End Date Arden Cannon DO [address] [place] [id number] PCP - General FAMILY PRACTICE 01/12/19 documented as of this encounter
--- OUTSIDE RECORDS SUMMARY | 2024-09-30 09:14 | XMS_ITS | Encounter Summary ---
Author Organization [facility] Address [facility]. [place], [place] [address] [place] [address] Care Team Providers Care Hearing Instrument Specialist Name Role Phone Arden Cannon DO Primary Care Provider + Reason for Referral * Consultation (Routine) - Closed Specialty Diagnoses / Procedures Referred By Carrie robb Referred To Contact CARDIOLOGY / Cardiology Diagnoses Palpitations Arden Cannon DO [address] [place] [address] Phone: tel: fax: [facility] [address] [address] Phone: tel: fax: Referral ID Status Reason Start Date Expiration Date V isits Requested Visits Authorized [id number] Closed Specialty Services 01/18/2022 02/19/2023 100 100 Reason for Visit * Reason Comments Attention Deficit Hyperactivity Disorder follow up Encounter Details Date Type Department Care Team (Latest Contact Info) Description 01/18/2022 11:20 AM CDT Office Visit [facility] Family & Internal Medicine [address] [phone] Arden Cannon DO [address] [place] [phone] Attention Deficit Hyperactivity Disorder (follow up ) Social History Tobacco Use Types Packs/Day Years Used Date Smoking Tobacco: Never Smokeless Tobacco: Never Alcohol Use Standard Drinks/Week Comments Yes 1.7 (1 standard drink = 0.6 oz p ure alcohol) occ AUDIT-C Answer Date Recorded Frequency of Alcohol Consumption Never 08/14/2018 Average Number of Drinks Not on file 018 Frequency of Binge Drinking Not on file 10/2017 PHQ-2 Answer Date Recorded PHQ-2 Score - If the patient scores above 3, please move on to questions 3-9 1 11/07/2020 Comments No Sex and Gender Information Value Date Recorded Sex Assigned at Not on file Legal Sex Female 2:50 AM CDT Gender Identity Not on file Sexual Orientation Not on file COVID-19 Exposure Response Date Recorded In the last 10 days, have yo u been in contact with someone who was confirmed or suspected to have Coronavirus/COVID-19? No / Unsure 01/18/2022 11:27 AM CDT documented as of this encounter Last Filed Vital Signs Vital Sign Reading Time Taken Comments Blood Pressure 125/77 01/18/2022 11:33 AM CDT Pulse 70 01/18/2022 11:33 AM CDT Temperature 37 ??C (98.6 ??F) 01/18/2022 11:33 AM CDT Respiratory Rate 16 01/18/2022 11:33 AM CDT Oxygen Saturation 100% 01/18/2022 11:33 AM CDT Inhaled Oxygen Concentration - - Weight 56.5 kg (124 lb 9.6 oz) 01/18/2022 11:33 AM CDT Height 170.2 cm (5' 7 ) 01/18/2022 11:33 AM CDT Body Mass Index 19.52 01/18/2022 11:33 AM CDT documented in this encounter Progress Notes * Arden Cannon DO - 01/18/2022 11:20 AM CDT Images from the original note were not included. GENERAL OFFICE VISIT Encounter Date: 01/18/2022 Chief Complaint: 21-year-old female presents for Attention Deficit Hyperactivity Disorder (follow up ) HPI: Pt is here for follow-up on his ADHD medications. Pt has a diagnosis of ADHD, Combined Type. Concurrent psychiatric conditions include none. Pt is currently on Vyvanse. Pt's symptoms are well controlled. Current ADHD symptoms include none. Pt notes the following side effects: may have had a palpitation that occurs intermittently. However, she had it yesterday without taking the medication. She may have had some unusual activity when she was younger. Pt is still needing to obtain labs ordered at last OV. Pt also will need a UDS/CSA. Pt has noted missed menstrual cycle for the past 2 months. Pt notes her face will have redness as well as Raynaud's in her hands and feet. She will obtain already ordered rheumatological labs. Review of Systems Constitutional: Negative for fever. Respiratory: Negative for shortness of breath. Cardiovascular: Positive for palpitations. Negative for chest pain. Genitourinary: See HPI Skin: See HPI Psychiatric/Behavioral: See HPI Patient Active Problem List Diagnosis ??? Osteochondritis dissecans ??? Seasonal allergies ??? ADHD (attention deficit hyperactivity disorder), combined type ??? Generalized anxiety disorder Past Medical History: Diagnosis Date ??? ADHD (attention deficit hyperactivity disorder) ??? Anxiety ??? Depression Past Surgical History: Procedure Laterality Date ??? ADENOIDECTOMY ??? TONSILLECTOMY Family History Problem Relation Name Age of Onset ??? Asthma Maternal Grandmother ??? Cancer Maternal Grandmother Cervical ??? Asthma Maternal Grandfather ??? Asthma Paternal Grandmother ??? Cancer Paternal Grandmother Pancres ??? Asthma Paternal Grandfather ??? Diabetes Paternal Grandfather ??? Hypertension Paternal Grandfather Social History Socioeconomic History ??? Marital status: Single Spouse name: Not on file ??? Number of children: Not on file ??? Years of education: Not on file ??? Highest education level: Not on file Occupational History ??? Not on file Tobacco Use ??? Smoking status: Never Smoker ??? Smokeless tobacco: Never Used Vaping Use ??? Vaping Use: Former Substance and Sexual Activity ??? Alcohol use: Yes Alcohol/week: 1.7 standard drinks Types: 1 Glasses of wine per week Comment: occ ??? Drug use: Yes Types: Marijuana ??? Sexual activity: Yes Partners: Male control/protection: Condom Other Topics Concern ??? Not on file Social History Narrative ??? Not on file Social Determinants of Health Financial Resource Strain: Not on file Food Insecurity: Not on file Transportation Needs: Not on file Physical Activity: Not on file Stress: Not on file Social Connections: Not on file Intimate Partner Violence: Not on file Immunization History Administered Date(s) Administered ??? Dtap 1998, 1998, 1998, 05/09/1999, 06/15/2003 ??? Fluzone 6 Months+ Quad (0.5 mL Prefilled Syringe) 09/19/2020 ??? HPV4 (Gardasil) 06/20/2011, 08/20/2011, 07/22/2012 ??? Hepatitis A (Generic) 07/22/2012, 07/22/2013 ??? Hepatitis B 02/15/1999 ??? Hepatitis B Pediatric 1998, 1998 ??? Hib (PedvaxHIB)3 Dose 1998, 1998, 1998, 05/09/1999 ??? Influenza 08/09/2009, 08/17/2010 ??? Influenza Adult (Generic) 07/22/2013 ??? MCV40 (Menveo) 07/22/2012 ??? MMR 05/09/1999, 06/01/2003 ??? Menactra 07/08/2015 ??? Polio IPV (Ipol) 1998, 1998, 05/09/1999, 06/15/2003 ??? Tdap (Generic) 06/17/2009 ??? Tdap (Historical Only-select from magnify glass) 09/19/2020 ??? Varicella Vaccine 02/15/1999, 06/17/2009 Current Outpatient Medications Medication Sig Dispense Refill ??? lisdexamfetamine 50 MG capsule Take 1 capsule (50 mg total) by mouth every morning. No further refills until seen in office. 30 capsule 0 No current facility-administered medications for this visit. Current Outpatient Medications on File Prior to Visit Medication Sig ??? lisdexamfetamine 50 MG capsule Take 1 capsule (50 mg total) by mouth every morning. No further refills until seen in office. No current facility-administered medications on file prior to visit. Allergies Allergen Reactions ??? Sertraline Hives Objective: Filed Vitals: 01/18/22 1133 BP: 125/77 Pulse: 70 Resp: 16 Temp: 98.6 ??F (37 ??C) TempSrc: Skin SpO2: 100% Weight: 56.5 kg (124 lb 9.6 oz) Height: 5' 7 (1.702 m) Physical Exam Vitals and nursing note reviewed. HENT: Head: Normocephalic and atraumatic. Right Ear: External ear normal. Left Ear: External ear normal. Nose: Nose normal. Eyes: General: No scleral icterus. Conjunctiva/sclera: Conjunctivae normal. Pulmonary: Effort: Pulmonary effort is normal. Skin: General: Skin is dry. Findings: No rash. Neurological: Mental Status: She is alert and oriented to person, place, and time. Psychiatric: Mood and Affect: Mood and affect normal. Office Visit on 01/18/2022 Component Date Value Ref Range Status ??? URINE HCG TEST 01/18/2022 NEGATIVE NEGATIVE Final ??? Internal Control: 01/18/2022 VALID VALID Final Assessment & Plan: Corinna was seen today for attention deficit hyperactivity disorder. Diagnoses and all orders for this visit: ADHD (attention deficit hyperactivity disorder), combined type Palpitations - Ambulatory referral to Cardiology, Adult ([facility]) Drug therapy - DRUG MONITORING, PANEL 7, WITH CONFIRMATION, (U) - TEST URINE Encounter for monitoring oral hormonal therapy for heavy menses Menses, irregular - TEST URINE Discussion/Summary: Continue medicine as prescribed. Obtain labs as ordered previously. Will obtain UDS/CSA. Will referto cardiology to ensure these are benign. Pt will need to f/u with gynecology for menstrual irregularity. test is negative today. Will have pt f/u in 3 months. Pt v/u. Arden Cannon DO * Arden Cannon DO - 01/18/2022 11:20 AM CDT See encounter from 01/18/22. documented in this encounter Plan of Treatment Scheduled Referrals Name Type Priority Associated Diagnoses Orde r Schedule Ambulatory referral to Cardiology, Adult ([facility]) Referral Routine Palpitations Ordered: 01/18/2022 documented as of this encounter Procedures Procedure Name Priority Date/Time Associated Diagnosis Comments DRUG MONITORING, PANEL 7, WITH CONFIRMATION, (U) Routine 01/18/2022 11:42 AM CDT Drug therapy TEST URINE Routine 01/18/2022 Drug therapy Menses, irregular documented in this encounter Results * (ABNORMAL) DRUG MONITORING, PANEL 7, WITH CONFIRMATION, (U) (01/18/2022 11:42 AM CDT) ALCOHOL METABOLITES (U) NEGATIVE <500 ng/mL [facility] AMPHETAMINES PM NEGATIVE <500 ng/mL [facility] BARBITURATES PM (U) NEGATIVE <300 ng/mL [facility] BENZODIAZEPINES PM (U) NEGATIVE <100 ng/mL [facility] COCAINE METABOLITE PM (U) NEGATIVE <150 ng/mL [facility] MORPHINE (U) NEGATIVE <10 ng/mL [facility] MARIJUANA METABOLITE PM (U) POSITIVE(A) <20 ng/mL [facility] MARIJUANA METABOLITE PM CONF (U) 97(H) <5 ng/mL [facility] MARIJUANA COMMENTS [facility] Comment:See Marijuana Notes, LDT Notes METHADONE PM (U) NEGATIVE <100 ng/mL [facility] OPIATES PM (U) NEGATIVE <100 ng/mL [facility] OXYCODONE PM (U) NEGATIVE <100 ng/mL [facility] CREATININE RANDOM URINE 18.1(L) > or = 20.0 mg/dL [facility] SPECIFIC GRAVITY PM (U) 1.008 > or = 1.003 [facility] pH PM (U) 7.0 4.5 - 9.0 [facility] OXIDANT NEGATIVE <200 mcg/mL [facility] Note [facility] Comment: This drug testing is for medical treatment only. Analysis was performed as non-forensic testing and these results should be used only by healthcare providers to render diagnosis or treatment, or to monitor progress of medical conditions. Marijuana Notes: Marijuana Metabolite detected is consistent with exposure to Marijuana (THC) and/or hemp derived products. ?? Some jurisdictions do not include hemp within the definition of Marijuana. LDT Notes: Confirmation tests were developed and their analytical performance characteristics have been determined by [email or web address]. It has not been cleared or approved by the FDA. This assay has been validated pursuant to the CLIA regulations and is used for clinical purposes. Healthcare Providers needing Interpretation assistance, please contact us at [phone] ( ) M-F, 8am to 10pm EST 01/18/2022 11:4 2 AM CDT 01/22/2022 10:38 PM CDT Arden Cannon DO LABORATORY Final Re sult [email or web address] [address] [place] [address] [facility] [address] [place] [address] * TEST URINE (01/18/2022) URINE HCG TEST NEGATIVE NEGATIVE [facility] Internal Control: VALID VALID [facility] URINE SPECIMEN FROM URETHRA / Unknown 01/18/2022 Arden Cannon DO URINE ORDERABLES Final R esult Performing Organization Address City/[facility]/ZIP Co de Phone Number [facility] [address] [place] [address], [place] documented in this encounter Visit Diagnoses Diagnosis ADHD (attention deficit hyperactivity disorder), combined type- Primary Attention deficit disorder with hyperactivity Palpitations Drug therapy Encounter for long-term (current) use of other medications Encounter for monitoring oral hormonal therapy for heavy menses Encounter for therapeutic drug monitoring Menses, irregular Irregular menstrual cycle documented in this encounter Additional Health Concerns Assessment Noted Time PHQ-9 Depression Total Score: 10 021 1:10 PM SCIENCE EDITOR documented as of this encounter Care Teams Hearing Instrument Specialist Relationship Specialty Start Date End Date Arden Cannon DO [address] [place] [address] PCP - General FAMILY PRACTICE 01/12/19 documented as of this encounter
--- OUTSIDE RECORDS SUMMARY | 2024-09-30 09:14 | XMS_ITS | Encounter Summary ---
Author Organization [facility] Address [facility]6 [place] [address] [place] [address] Care Team Providers Care Finding Fastener Name Role Phone Arden Cannon DO Primary Care Provider + Encounter Details Date Type Department Care Team (Latest Contact Info) Description 07/19/2023 Travel Social History Tobacco Use Types Packs/Day Years [...] Depression Total Score: 10 021 1:10 PM COMMERCIAL REAL ESTATE PARALEGAL documented as of this encounter Care Teams Finding Fastener Relationship Specialty Start Date End Date Arden Cannon DO [address] [place] [phone] PCP - General FAMILY PRACTICE 01/12/19 documented as of this encounter
--- OUTSIDE RECORDS SUMMARY | 2024-09-30 09:14 | XMS_ITS | Encounter Summary ---
Author Organization [facility] Address [facility]6 [facility] [place] [address] [place] [address] Care Team Providers Care Vehicle Calibration Engineer Name Role Phone Arden Cannon DO Primary Care Provider + Reason for Visit * Reason Comments Ultrasound (SCAN) Encounter Details Date Type Department Care Team (Late Contact Info) Description 03/22/2023 Scan HEALTH INFO [facility] Scanned, Doc Med Group Ultrasound (SCAN) Social History Tobacco Use Types Packs/Day Years [...] suspected to have Coronavirus/COVID-19? No / Unsure 03/05/2023 10:27 AM CDT documented as of this encounter Plan of Treatment Not on file documented as of this encounter Procedures Procedure Name Priority Date/Time Associated Diagnosis Comments ULTRASOUND GENERIC (SCAN ORDER) 03/22/2023 documented in this encounter Results * ULTRASOUND GENERIC (03/22/2023) Anatomical Region Laterality Modality Other 03/22/2023 us Doc [facility] Scanned SCANNING Final Resu lt documented in this encounter Visit Diagnoses Not on filedocumented in this encounter Additional Health Concerns Assessment Noted Time PHQ-9 Depression Total Score: 10 021 1:10 PM SOURCE INSPECTOR documented as of this encounter Care Teams Vehicle Calibration Engineer Relationship Specialty Start Date End Date Aredn Cannon DO [address] [place] [phone] PCP - General FAMILY PRACTICE 01/12/19 documented as of this encounter
--- OUTSIDE RECORDS SUMMARY | 2024-09-30 09:14 | XMS_ITS | Encounter Summary ---
Author Organization [facility] Address [facility] [place] [address] [place] [address] Care Team Providers Care Upper Leather Cutter Name Role Phone Dennise Goodson DO Primary Care Provider + Reason for Visit * Reason Onset Date Comments Refill Request 07/11/2023 Encounter Details Date Type Department Care Team (Late st Contact Info) Description 07/11/2023 Telephone [facility] Family & Internal Medicine [facility] [address] [place] [phone] Dennise Goodson DO [address] [place], [place] [phone] Refill Request Social History Tobacco Use Types Packs/Day Years [...] as of this encounter Progress Notes * Gayle Avila MA - 07/11/2023 9:06 AM CDT Duplicate request, patient needs appt * Magdalena Wang - 07/11/2023 8:09 AM CDT Images from the original note were not included. Refill request: Corinna Thacker a patient of Dennise Goodson DO requests a refill of lisdexamfetamine (VYVANSE) 50 MG capsule The patient would like this sent to the following pharmacy: [facility]/pharmacy #[id number] [place] [phone] The next office visit: Next visit with DENNISE GOODSON in FAMILY PRACTICE is on: No match found The last office visit: Last visit with DENNISE GOODSON in FAMILY PRACTICE was on: 03/05/2023 in [facility] Additional Information: documented in this encounter Plan of Treatment Not on file documented as of this encounter Visit Diagnoses Not on filedocumented in this encounter Additional Health Concerns Assessment Noted Time PHQ-9 Depression Total Score: 10 021 1:10 PM OCEAN RESCUE LIEUTENANT documented as of this encounter Care Teams Upper Leather Cutter Relationship Specialty Start Date End Date Dennise Goodson DO [address] [place] [address] PCP - General FAMILY PRACTICE 01/12/19 documented as of this encounter
--- OUTSIDE RECORDS SUMMARY | 2024-09-30 09:14 | XMS_ITS | Encounter Summary ---
Author Organization [facility] Address [facility]6 [place] [address] [place] [address] Care Team Providers Care Fsr Name Role Phone Arden Cannon DO Primary Care Provider + Reason for Visit * Reason Onset Date Comments Record Request 12/25/2022 Encounter Details Date Type Department Care Team (Late st Contact Info) Description 12/25/2022 Telephone [facility] Family & Internal Medicine [address] [phone] Arden Cannon DO [address] [place] [address] [phone] Record Request Social History Tobacco Use Types Packs/Day [...] suspected to have Coronavirus/COVID-19? No / Unsure 12/06/2022 9:59 AM DRILLER MACHINE documented as of this encounter Progress Notes * Cece Benson MA - 12/25/2022 4:14 PM CDT I have called [facility] for lab results They were unable to find pt in their system documented in this encounter Plan of Treatment Not on file documented as of this encounter Visit Diagnoses Not on filedocumented in this encounter Additional Health Concerns Assessment Noted Time PHQ-9 Depression Total Score: 10 021 1:10 PM DRILLER MACHINE documented as of this encounter Care Teams Fsr Relationship Specialty Start Date End Date Arden Cannon DO [address] [place] [address] PCP - General FAMILY PRACTICE 01/12/19 documented as of this encounter
--- OUTSIDE RECORDS SUMMARY | 2024-09-30 09:14 | XMS_ITS | Encounter Summary ---
Author Organization [facility] Address [facility]6 [facility] [place] [address] [place] [address] Care Team Providers Care Regional Facilities Manager Name Role Phone Dennise Goodson DO Primary Care Provider + Reason for Visit * Reason Onset Date Comments Medication Request 06/07/2023 Encounter Details Date Type Department Care Team (Late st Contact Info) Description 06/07/2023 Telephone [facility] Family & Internal Medicine [address] [phone] Dennise Goodson DO [address] [place] [address] [phone] Medication Request Social History Tobacco Use Types Packs/Day [...] as of this encounter Progress Notes * Hayley Vigil MA - 07/16/2023 7:08 AM CDT Patient is scheduled for VV on 07/19/2023 * Gayle Avila MA - 07/11/2023 9:05 AM CDT Left detailed message asking patient to call to schedule appt. 07/10/23 * Jammie Sinclair RN - 06/26/2023 10:21 AM CDT Attempted to call the patient, was unable to reach them at this time. Not able to leave a message because the voicemail box is full. Will attempt again at a later time. LL-06/26/23 * Cecilia Payne - 06/07/2023 7:43 AM CDT Refill request received from Patient Medication: lisdexamfetamine (VYVANSE) 50 MG capsule Pharmacy: [address] Last visit with DENNISE GOODSON in FAMILY PRACTICE was on: 03/05/2023 in [facility] No future appointments. documented in this encounter Plan of Treatment Not on file documented as of this encounter Visit Diagnoses Not on filedocumented in this encounter Additional Health Concerns Assessment Noted Time PHQ-9 Depression Total Score: 10 021 1:10 PM COMMERCIAL TIRE SERVICE TECHNICIAN documented as of this encounter Care Teams Regional Facilities Manager Relationship Specialty Start Date End Date Dennise Goodson DO [address] [place] [phone] PCP - General FAMILY PRACTICE 01/12/19 documented as of this encounter
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
--- OUTSIDE RECORDS SUMMARY | 2024-09-30 09:14 | XMS_ITS | Encounter Summary ---
Author Organization [facility] Address [facility] [place] [address] [place] [address] Care Team Providers Care Obstetrical Anesthesiologist Name Role Phone Dennise Goodson DO Primary Care Provider + Reason for Visit * Reason Onset Date Comments Refill Request 09/27/2022 Encounter Details Date Type Department Care Team (Late st Contact Info) Description 09/27/2022 Telephone [facility] Family & Internal Medicine [address] [phone] Dennise Goodson DO [address] [place], [place] [phone] Refill Request Social History Tobacco Use Types [...] Progress Notes * Dennise Goodson DO - 09/27/2022 1:08 PM CST Needs in person OV in October sometime, November at the latest. SPOOLER * Gayle Avila MA - 09/27/2022 8:49 AM CST Refill request received from Pharmacy Last visit with DENNISE GOODSON in FAMILY PRACTICE was on: 01/18/2022 in [facility] No future appointments. [facility]/pharmacy #[address] [place] [phone] Current Outpatient Medications: ??? azithromycin (ZITHROMAX) 250 MG tablet, Take 2 tablets by mouth on day one then 1 daily for four days., Disp: 6 tablet, Rfl: 0 ??? cefdinir (OMNICEF) 300 MG Cap capsule, Take 1 capsule (300 mg total) by mouth 2 (two) times daily., Disp: 20 capsule, Rfl: 0 ??? lisdexamfetamine (VYVANSE) 50 MG capsule, Take 1 capsule (50 mg total) by mouth every morning.,Disp: 30 capsule, Rfl: 0 ??? ondansetron (ZOFRAN-ODT) 4 MG disintegrating tablet, Take 1 tablet (4 mg total) by mouth every 8 (eight) hours as needed for Nausea., Disp: 20 tablet, Rfl: 0 ??? 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
--- OUTSIDE RECORDS SUMMARY | 2024-09-30 09:14 | XMS_ITS | Encounter Summary ---
Author Organization [facility] Address [facility] [facility] [place] [address] [place] [address] Care Team Providers Care Overhead Crane Technician Name Role Phone Dennise Goodson DO Primary Care Provider + Reason for Visit * Reason Onset Date Comments Refill Request 04/20/2022 Encounter Details Date Type Department Care Team (Late st Contact Info) Description 04/20/2022 Telephone [facility] Family & Internal Medicine [address] [phone] Dennise Goodson DO [address] [place], [place] [phone] Refill Request Social History Tobacco Use Types [...] Progress Notes * Gayle Avila MA - 04/20/2022 8:32 AM CDT Refill request received from Pharmacy Last visit with DENNISE GOODSON in FAMILY PRACTICE was on: 01/18/2022 in [facility] Future Appointments Date Time Provider Department Center 05/04/2022 8:40 AM Dennise Goodson DO [facility][id number] - [place], [place] - [address] [facility] [address] [facility] [address] [place] [address] Current Outpatient Medications: ??? 

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
--- OUTSIDE RECORDS SUMMARY | 2024-09-30 09:14 | XMS_ITS | Encounter Summary ---
Author Organization [facility] Address [facility] [facility] 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
--- OUTSIDE RECORDS SUMMARY | 2024-09-30 09:14 | XMS_ITS | Encounter Summary ---
Author Organization [facility] Address [facility] [facility] [address] [place] [address] Care Team Providers Care Associate Broker Name Role Phone Arden Cannon DO Primary Care Provider + Encounter Details Date Type Department Care Team (Latest Contact Info) Description 12/06/2022 - 12/06/2022 11:59 PM TEACHER CITIZENSHIP Hospital Encounter [facility] [address] [facility] [place] [address] Arden Cannon DO [address] [place] [address] Discharge Disposition: Home or Self Care (Routine [...] Coronavirus/COVID-19? No / Unsure 12/06/2022 9:59 AM TEACHER CITIZENSHIP documented as of this encounter Medications at Time of Discharge amoxicillin-clavulan ate (AUGMENTIN) 875-125 MG tabletIndications:Ph aryngitis, unspecified etiology Take 1 tablet (875 mg total) by mouth 2 (two) times daily for 10 days. 20 tablet 12/06/2022 3 lisdexamfetamine (VYVANSE) 50 MG capsuleIndications:A DHD (attention deficit hyperactivity disorder), combined type Take 1 capsule (50 mg total) by mouth every morning. 30 capsule 12/06/2022 3 ondansetron (ZOFRAN-ODT) 4 MG disintegrating tabletIndications:Ac shanta non-recurrent sinusitis, unspecified location Take 1 tablet (4 mg total) by mouth every 8 (eight) hours as needed for Nausea. 20 tablet 05/21/2022 3 documented as of this encounter Plan of Treatment Not on file documented as of this encounter Visit Diagnoses Not on filedocumented in this encounter Additional Health Concerns Infection Onset Date Last Indicated Resolved Time COVID-19 Rule Out 12/06/2022 12/06/2022 12/06/2022 10:47 AM TE[employer]ER CIT[employer]EN[employer] Assessment Noted Time PHQ-9 Depression Total Score: 10 021 1:10 PM TEACHER CITIZENSHIP documented as of this encounter Care Teams Associate Broker Relationship Specialty Start Date End Date Arden Cannon DO [address] [place] [id number] PCP - General FAMILY PRACTICE 01/12/19 documented as of this encounter
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
--- OUTSIDE RECORDS SUMMARY | 2024-09-30 09:14 | XMS_ITS | Encounter Summary ---
Author Organization [facility] Address [address] [facility] [place] [address] [place] [address] Care Team Providers Care Light Rail Signal Technician Name Role Phone Arden Cannon DO Primary Care Provider + Reason for Visit * Reason Comments Attention Deficit Hyperactivity Disorder Encounter Details Date Type Department Care Team (Latest Contact Info) Description 07/19/2023 12:00 PM CDT Telemedicine [facility] Medical Group Family & Internal Medicine - [address] [phone] Arden Cannon DO [address] [place] [id number] Attention Deficit Hyperactivity Disorder Social History Tobacco Use Types Packs/Day Years [...] of this encounter Progress Notes * Arden Stanton Brandonblasmary, - 07/19/2023 12:00 PM CDT GENERAL OFFICE VISIT Encounter Date: 07/19/2023 I introduced and identified myself, received verbal consent from the patient to proceed with this video visit and made the patient aware that the same confidentiality and vp information technology practices apply. The patient joined the video visit from Vehicle. I completed the virtual visit from Office. The following clinical staff helped with this visit MA: Hayley Vigil . Total Time Spent in Minutes: 8.75 Chief Complaint: 23-year-old female presents for Attention Deficit Hyperactivity Disorder HPI: Pt is here for follow-up on his ADHD medications. Pt has a diagnosis of ADHD, Combined Type. Concurrent psychiatric conditions include none. Pt is currently on Vyvanse. Pt's symptoms are well controlled. Current ADHD symptoms include none. Pt notes the following side effects: nothing significantly. Pt will be seeing us next month for a lesion on her back. There is no drainage or erythema. Review of Systems Psychiatric/Behavioral: See HPI Patient Active Problem List [...] on file Tobacco Use Smoking status: Never Passive exposure: [...] Influenza 08/09/2009, 08/17/2010 Influenza Adult (Generic) 07/22/2013 MENINGOCOCCAL A C [id number]&W-135 oligosaccharide (MENVEO) 07/22/2012 MMR 05/09/1999, 06/01/2003 Menactra 07/08/2015 Polio IPV (Ipol) 1998, 1998, 05/09/1999, 06/15/2003 Tdap (Generic) 06/17/2009 Tdap (Historical Only-select from magnify glass) 09/19/2020 Varicella Vaccine 02/15/1999, 06/17/2009 Current Outpatient Medications Medication Sig Dispense Refill lisdexamfetamine (VYVANSE) 50 MG capsule Take 1 capsule (50 mg total) by mouth every morning. 30 capsule 0 tranexamic acid (LYSTEDA) 650 MG tablet Take 2 tablets (1,300 mg total) by mouth 3 (three) times daily as needed. cyclobenzaprine (FLEXERIL) 5 MG tablet Take 1-2 tablets (5-10 mg total) by mouth 3 (three) times daily as needed for Muscle Spasms. 30 tablet 0 No current facility-administered medications for this visit. Current Outpatient Medications on File Prior to Visit Medication Sig tranexamic acid (LYSTEDA) 650 MG tablet Take 2 tablets (1,300 mg total) by mouth 3 (three) times daily as needed. cyclobenzaprine (FLEXERIL) 5 MG tablet Take 1-2 tablets (5-10 mg total) by mouth 3 (three) times daily as needed for Muscle Spasms. No current facility-administered medications on file prior to visit. Review of patient's allergies indicates: Allergen Reactions Sertraline Hives Objective: As this is a virtual visit, no formal vitals are able to be obtained. No home vitals or testing device readings are relevant to this visit. Physical Exam Vitals and nursing note reviewed. [...] Mood and Affect: Mood and affect normal. Assessment & Plan: Corinna was seen today for attention deficit hyperactivity disorder. Diagnoses and all orders for this visit: ADHD (attention deficit hyperactivity disorder), combined type - lisdexamfetamine (VYVANSE) 50 MG capsule; Take 1 capsule (50 mg total) by mouth every morning. Back skin lesion Discussion/Summary: Will continue Vyvanse; stable. No red flag symptoms regarding lesion on back; will see in 1 month. Pt v/u. 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
--- OUTSIDE RECORDS SUMMARY | 2024-09-30 09:14 | XMS_ITS | Encounter Summary ---
Author Organization [facility] Address [facility] [place] [address] [place] [address] Care Team Providers Care Family Law Attorney Name Role Phone Dennise Goodson DO Primary Care Provider + Reason for Visit * Reason Onset Date Comments Refill Request 04/02/2023 Encounter Details Date Type Department Care Team (Late st Contact Info) Description 04/02/2023 Telephone [facility] Medical Group Family & Internal Medicine [facility] [address] [place] [phone] Dennise Goodson DO [address] [place], [place] [phone] Refill Request Social History Tobacco Use Types [...] AM CDT documented as of this encounter Progress Notes * Hayley Vigil MA - 04/03/2023 3:27 PM CDT Refill request received from Pharmacy Last visit with DENNISE GOODSON in FAMILY PRACTICE was on: 03/05/2023 in [facility] No future appointments. [facility]/pharmacy #[id number] [place], [place] - [address] [place] [id number] Current Outpatient Medications: cyclobenzaprine (FLEXERIL) 5 MG tablet, Take 1-2 tablets (5-10 mg total) by mouth 3 (three) times daily as needed for Muscle Spasms., Disp: 30 tablet, Rfl: 0 lisdexamfetamine (VYVANSE) 50 MG capsule, Take 1 capsule (50 mg total) by mouth every morning., Disp: 30 capsule, Rfl: 0 naproxen (NAPROSYN) 500 MG tablet, Take 1 tablet (500 mg total) by mouth 2 (two) times daily as needed., Disp: 60 tablet, Rfl: 0 ondansetron (ZOFRAN-ODT) 4 MG disintegrating tablet, Take 1 tablet (4 mg total) by mouth every 8 (eight) hours as needed for Nausea., Disp: 20 tablet, Rfl: 0 * Elinor Page - 04/02/2023 8:20 AM CDT Refill request for Vyvanse [facility] documented in this encounter Plan of Treatment Not on file documented as of this encounter Visit Diagnoses Diagnosis ADHD (attention deficit hyperactivity disorder), combined type Attention deficit disorder with hyperactivity documented in this encounter Additional Health Concerns Assessment Noted Time PHQ-9 Depression Total Score: 10 021 1:10 PM ADMIRALTY LAWYER documented as of this encounter Care Teams Family Law Attorney Relationship Specialty Start Date End Date Dennise Goodson DO [address] [place] [phone] PCP - General FAMILY PRACTICE 01/12/19 documented as of this encounter
--- OUTSIDE RECORDS SUMMARY | 2024-09-30 09:14 | XMS_ITS | Encounter Summary ---
Author Organization [facility] Address [facility] [place] [address] [place] [address] Care Team Providers Care Employment Representative Name Role Phone Arden Cannon DO Primary Care Provider + Reason for Visit * Reason Onset Date Comments Refill Request 08/26/2023 Encounter Details Date Type Department Care Team (Late st Contact Info) Description 08/26/2023 Telephone [facility] Medical Group Family & Internal Medicine [facility] [address] [place] [phone] Arden Cannon DO [address] [place], [place] [phone] Refill Request Social History Tobacco Use Types [...] Progress Notes * Gayle Avila MA - 08/26/2023 8:01 AM CST Patient needs vyvanse rx sent to [facility] in [place] . Pended for approval RAL MANAGER FOOD documented in this encounter Plan of Treatment Not on file documented as of this encounter Visit Diagnoses Diagnosis ADHD (attention deficit hyperactivity disorder), combined type Attention deficit disorder with hyperactivity documented in this encounter Additional Health Concerns Assessment Noted Time PHQ-9 Depression Total Score: 10 021 1:10 PM GENERAL MANAGER FOOD documented as of this encounter Care Teams Employment Representative Relationship Specialty Start Date End Date Arden Cannon DO [address] [place] [phone] PCP - General FAMILY PRACTICE 01/12/19 documented as of this encounter
--- OUTSIDE RECORDS SUMMARY | 2024-09-30 09:14 | XMS_ITS | Encounter Summary ---
Author Organization [facility] Address [facility] [address] [place] [address] Care Team Providers Care Clinical Systems Educator Name Role Phone Dennise Goodson DO Primary Care Provider + Reason for Visit * Reason Onset Date Comments Refill Request 06/29/2022 Encounter Details Date Type Department Care Team (Late st Contact Info) Description 06/29/2022 Telephone [facility] Medical Group Family & Internal Medicine [address] [phone] Dennise Goodson DO [address] [place], [place] [phone] Refill Request Social History Tobacco Use Types [...] Progress Notes * Gayle Avila MA - 06/29/2022 10:36 AM CDT Refill request received from Pharmacy Last visit with DENNISE GOODSON in FAMILY PRACTICE was on: 01/18/[address] [facility] No future appointments. [facility]/pharmacy #[id number] - [place], [place] - [address] [facility] [address] [place] [id number] Current Outpatient Medications: ??? azithromycin (ZITHROMAX) 250 [...] three days, Disp: 18 tablet, Rfl: 0 documented in this encounter Plan of Treatment Not on file documented as of this encounter Visit Diagnoses Diagnosis ADHD (attention deficit hyperactivity disorder), combined type Attention deficit disorder with hyperactivity documented in this encounter Additional Health Concerns Assessment Noted Time PHQ-9 Depression Total Score: 10 021 1:10 PM TIRE BAGGER documented as of this encounter Care Teams Clinical Systems Educator Relationship Specialty Start Date End Date Dennise Goodson DO [address] [place] [id number] PCP - General FAMILY PRACTICE 01/12/19 documented as of this encounter
--- OUTSIDE RECORDS SUMMARY | 2024-09-30 09:14 | XMS_ITS | Encounter Summary ---
Author Organization [facility] Address [facility] [place] [address] [place] [address] Care Team Providers Care Paver Installer Name Role Phone Arden Cannon Primary Care Provider + Encounter Details Date Type Department Care Team (Latest Contact Info) Description 06/10/2023 Scan HEALTH INFO SRVCS Scanned, Doc Med [...] Depression Total Score: 10 021 1:10 PM MANUFACTURING MANAGEMENT ASSOCIATE documented as of this encounter Care Teams Paver Installer Relationship Specialty Start Date End Date Arden Cannon DO [address] [place] [address] PCP - General FAMILY PRACTICE 01/12/19 documented as of this encounter
--- OUTSIDE RECORDS SUMMARY | 2024-09-30 09:14 | XMS_ITS | Encounter Summary ---
Author Organization [facility] Address [facility] [place] [address] [place] [address] Care Team Providers Care Finish Production Manager Name Role Phone Arden Cannon Primary Care Provider + Encounter Details Date Type Department Care Team (Latest Contact Info) Description 03/23/2023 Scan HEALTH INFO SRVCS Scanned, Doc Med [...] Depression Total Score: 10 021 1:10 PM DRIVER SALES documented as of this encounter Care Teams Finish Production Manager Relationship Specialty Start Date End Date Arden Cannon DO [address] [place] [phone] PCP - General FAMILY PRACTICE 01/12/19 documented as of this encounter
--- OUTSIDE RECORDS SUMMARY | 2024-09-30 09:14 | XMS_ITS | Encounter Summary ---
Author Organization [facility] Address [facility]6 [facility] [place] [address] [place] [address] Care Team Providers Care Criminal Investigator Name Role Phone Arden Cannon DO Primary Care Provider + Reason for Visit * Reason Onset Date Comments Lab Order 12/13/2023 Encounter Details Date Type Department Care Team (Late st Contact Info) Description 12/13/[address] [facility] Medical Group Family & Internal Medicine [address] [phone] Arden Cannon DO [address] [place] [address] [phone] Lab Order Social History Tobacco Use Types Packs/Day Years [...] as of this encounter Progress Notes * Bee Mon MA - 12/13/2023 2:55 PM CST Pt requesting lab orders-repeat what was ordered in 2020, as this office never received the results. Okayed per Elvira. All labs (routine + rheumatological labs) reordered for [facility], per pt preference. Pt advised to follow-up if more than a week has gone by after getting drawn and she has not yet heard from this office regarding results. Pt understands she needs to schedule an annual px with Dr. Cannon soon, preferably soon after having these labs drawn so results can be addressed with PCP. ERY MENDER documented in this encounter Plan of Treatment Scheduled Orders Name Type Priority Associated Diagnoses Orde r Schedule C-REACTIVE PROTEIN Lab Routine Joint pain Unexplained weight loss Fatigue Rash of unknown etiology Expected: 12/13/2023, Expires: 12/12/2024 SED RATE, ERYTHROCYTE (ESR) Lab Routine Joint pain Unexplained weight loss Fatigue Rash of unknown etiology Expected: 12/13/2023, Expires: 12/12/2024 RHEUMATOID FACTOR, QUANT Lab Routine Joint pain Unexplained weight loss Fatigue Rash of unknown etiology Expected: 12/13/2023, Expires: 12/12/2024 CYCLIC CITRULLINATED PEPTIDE (CCP)ANTIBODY(IGG) Lab Routine Joint pain Unexplained weight loss Fatigue Rash of unknown etiology Expected: 12/13/2023, Expires: 12/12/2024 ROBBIE IFA SCREEN WI RFX TO TITER/CASCADE ([facility] ONLY) Lab Routine Joint pain Unexplained weight loss Fatigue Rash of unknown etiology Expected: 12/13/2023, Expires: 12/12/2024 TSH W/REFLEX Lab Routine Joint pain Unexplained weight loss Fatigue Rash of unknown etiology Expected: 12/13/2023, Expires: 12/12/2024 COMPREHENSIVE METABOLIC PANEL Lab Routine Joint pain Unexplained weight loss Fatigue Rash of unknown etiology Expected: 12/13/2023, Expires: 12/12/2024 LIPID PANEL Lab Routine Joint pain Unexplained weight loss Fatigue Rash of unknown etiology Expected: 12/13/2023, Expires: 12/12/2024 CBC W/DIFF AUTOMATED Lab Routine Joint pain Unexplained weight loss Fatigue Rash of unknown etiology Expected: 12/13/2023, Expires: 12/12/2024 documented as of this encounter Visit Diagnoses Diagnosis Joint pain- Primary Pain in joint, site unspecified Unexplained weight loss Loss of weight Fatigue Other malaise and fatigue Rash of unknown etiology documented in this encounter Additional Health Concerns Assessment Noted Time PHQ-9 Depression Total Score: 10 021 1:10 PM HOSIERY MENDER documented as of this encounter Care Teams Criminal Investigator Relationship Specialty Start Date End Date Arden Cannon DO [address] [place] [phone] PCP - General FAMILY PRACTICE 01/12/19 documented as of this encounter
--- OUTSIDE RECORDS SUMMARY | 2024-09-30 09:14 | XMS_ITS | Encounter Summary ---
Author Organization [facility] Address [facility] [place] [address] [place] [address] Care Team Providers Care Utility Tender Carding Name Role Phone Dennise Goodson DO Primary Care Provider + Reason for Visit * Reason Onset Date Comments Refill Request 08/21/2023 Encounter Details Date Type Department Care Team (Late st Contact Info) Description 08/21/2023 Telephone [facility] Medical Group Family & Internal Medicine [facility] [address] [place] [phone] Dennise Goodson DO [address] [place], [place] [phone] Refill Request Social History Tobacco Use Types [...] Progress Notes * Gayle Avila MA - 08/21/2023 8:50 AM CST Refill request received from Pharmacy Last visit with DENNISE GOODSON in FAMILY PRACTICE was on: 03/05/2023 in [facility] No future appointments. Will call back to r/s , had to cancel appt due to work obligation [facility] [address] [facility] [place] Current Outpatient Medications: cyclobenzaprine (FLEXERIL) 5 MG tablet, Take 1-2 tablets (5-10 mg total) by mouth 3 (three) times daily as needed for Muscle Spasms., Disp: 30 tablet, Rfl: 0 lisdexamfetamine (VYVANSE) 50 MG capsule, Take 1 capsule (50 mg total) by mouth every morning., Disp: 30 capsule, Rfl: 0 tranexamic acid (LYSTEDA) 650 MG tablet, Take 2 tablets (1,300 mg total) by mouth 3 (three) times daily as needed., Disp: , Rfl: RTISING SALES MANAGER documented in this encounter Plan of Treatment Not on file documented as of this encounter Visit Diagnoses Diagnosis ADHD (attention deficit hyperactivity disorder), combined type Attention deficit disorder with hyperactivity documented in this encounter Additional Health Concerns Assessment Noted Time PHQ-9 Depression Total Score: 10 021 1:10 PM ADVERTISING SALES MANAGER documented as of this encounter Care Teams Utility Tender Carding Relationship Specialty Start Date End Date Dennise Goodson DO [address] [place] [address] PCP - General FAMILY PRACTICE 01/12/19 documented as of this encounter
--- OUTSIDE RECORDS SUMMARY | 2024-09-30 09:14 | XMS_ITS | Encounter Summary ---
Author Organization [facility] Address [facility], [id number] [facility] [place] [address] [place] [address] Care Team Providers Care Transfer Controller Name Role Phone Arden Cannon Primary Care Provider + Encounter Details Date Type Department Care Team (Latest Contact Info) Description 03/05/2023 Travel Social History Tobacco Use Types Packs/Day [...] Depression Total Score: 10 021 1:10 PM ALL SOURCE INTELLIGENCE TECHNICIAN documented as of this encounter Care Teams Transfer Controller Relationship Specialty Start Date End Date Arden Cannon DO [address] [place] [address] PCP - General FAMILY PRACTICE 01/12/19 documented as of this encounter
--- OUTSIDE RECORDS SUMMARY | 2024-09-30 09:14 | XMS_ITS | Encounter Summary ---
Author Organization [facility] Address Count includes the [facility] [place] [address] [place] [address] Care Team Providers Care Roll Form Operator Name Role Phone Aredn Cannon Primary Care Provider + Encounter Details Date Type Department Care Team (Latest Contact Info) Description 12/06/2022 Travel Social History Tobacco Use Types Packs/Day [...] Coronavirus/COVID-19? No / Unsure 12/06/2022 9:59 AM REFERENCE AND INSTRUCTION LIBRARIAN documented as of this encounter Plan of Treatment Not on file documented as of this encounter Visit Diagnoses Not on filedocumented in this encounter Additional Health Concerns Infection Onset Date Last Indicated Resolved Time COVID-19 Rule Out 12/06/2022 12/06/2022 12/06/2022 10:47 AM REFERENCE AND INSTRUCTION LIBRARIAN Assessment Noted Time PHQ-9 Depression Total Score: 10 021 1:10 PM REFERENCE AND INSTRUCTION LIBRARIAN documented as of this encounter Care Teams Roll Form Operator Relationship Specialty Start Date End Date Arden Cannon DO [address] [place] [id number] PCP - General FAMILY PRACTICE 01/12/19 documented as of this encounter
--- OUTSIDE RECORDS SUMMARY | 2024-09-30 09:14 | XMS_ITS | Encounter Summary ---
Author Organization [facility] Address [facility] [place] [address] [place] [address] Care Team Providers Care Office Machine Embossograph Operator Name Role Phone Arden Cannon DO Primary Care Provider + Reason for Visit * Reason Onset Date Comments Refill Request 11/02/2022 Encounter Details Date Type Department Care Team (Late st Contact Info) Description 11/02/2022 Telephone [facility] Medical Group Family & Internal Medicine [facility] [address] [place] [phone] Arden Cannon DO [address] [place], [place] [phone] Refill Request Social History Tobacco Use Types [...] as of this encounter Progress Notes * Jammie Sinclair RN - 11/02/2022 9:47 AM CST JEN- 05/21/22, Next OV is 11/29/22. Okay to fill? LL-11/02/22 RESTORATION SERVICE SUPERVISOR * Elinor Page - 11/02/2022 8:42 AM CST Refill request for [facility] [place] She scheduled an appt for 11/29. RESTORATION SERVICE SUPERVISOR documented in this encounter Plan of Treatment Not on file documented as of this encounter Visit Diagnoses Diagnosis ADHD (attention deficit hyperactivity disorder), combined type Attention deficit disorder with hyperactivity documented in this encounter Additional Health Concerns Assessment Noted Time PHQ-9 Depression Total Score: 10 021 1:10 PM HOME RESTORATION SERVICE SUPERVISOR documented as of this encounter Care Teams Office Machine Embossograph Operator Relationship Specialty Start Date End Date Arden Cannon DO [address] [place] [phone] PCP - General FAMILY PRACTICE 01/12/19 documented as of this encounter
--- OUTSIDE RECORDS SUMMARY | 2024-09-30 09:14 | XMS_ITS | Encounter Summary ---
Author Organization [facility] Address [facility] [place] [address] [place] [address] Care Team Providers Care Shirt Operator Name Role Phone Arden Cannon DO Primary Care Provider + Reason for Visit * Reason Comments Attention Deficit Hyperactivity Disorder Patient presents for follow up. URI Sx for 2 weeks. No f ever, postnasal drip, sore throat, bilateral ear pain, productive cough (green) Encounter Details Date Type Department Care Team (Latest Contact Info) Description 12/06/2022 10:00 AM ONCOLOGY NURSE NAVIGATOR Office Visit [facility] Family & Internal Medicine - [place] [address] [place] [address] Arden Cannon DO [address] [place] [address] Attention Deficit Hyperactivity Disorder (Patient presents for follow up. ); URI (Sx for 2 weeks. No fever, postnasal drip, sore throat, bilateral ear pain, productive cough (green) ) Social History Tobacco Use Types Packs/Day [...] Coronavirus/COVID-19? No / Unsure 12/06/2022 9:59 AM ONCOLOGY NURSE NAVIGATOR documented as of this encounter Last Filed Vital Signs Vital Sign Reading Time Taken Comments Blood Pressure 100/64 12/06/2022 10:15 AM ONCOLOGY NURSE NAVIGATOR Pulse 91 12/06/2022 10:15 AM ONCOLOGY NURSE NAVIGATOR Temperature 37 ??C (98.6 ??F) 12/06/2022 10:15 AM ONCOLOGY NURSE NAVIGATOR Respiratory Rate 16 12/06/2022 10:15 AM ONCOLOGY NURSE NAVIGATOR Oxygen Saturation 98% 12/06/2022 10:15 AM ONCOLOGY NURSE NAVIGATOR Inhaled Oxygen Concentration - - Weight 53.6 kg (118 lb 3.2 oz) 12/06/2022 10:15 AM ONCOLOGY NURSE NAVIGATOR Height 170.2 cm (5' 7 ) 12/06/2022 10:15 AM ONCOLOGY NURSE NAVIGATOR Body Mass Index 18.51 12/06/2022 10:15 AM ONCOLOGY NURSE NAVIGATOR documented in this encounter Progress Notes * Arden Cannon, - 12/06/2022 10:00 AM CST Images from the original note were not included. GENERAL OFFICE VISIT Encounter Date: 12/06/2022 Chief Complaint: 22-year-old female presents for Attention Deficit Hyperactivity Disorder (Patient presents for follow up. ) and URI (Sx for 2 weeks. No fever, postnasal drip, sore throat, bilateral ear pain, productive cough (green) ) HPI: Patient states symptoms have been present for 14 days. Symptoms include productive cough, postnasaldrip, sore throat, and bilateral ear pain. Pertinent negatives include Fevers, SOB and Myalgias. Patient has no sick contacts. OTC medications tried include Mucinex. Pt is here for follow-up on his ADHD medications. Pt has a diagnosis of ADHD, Combined Type. Concurrent psychiatric conditions include none. Pt is currently on Vyvanse. Pt's symptoms are well controlled. Current ADHD symptoms include none. Pt notes the following side effects: nothing significantly.She has not taken it for about the past week as she was sick. Pt has had a miscarriage since our last OV. She is stable today and has followed with IMPROVEMENT DIRECTOR for this. Review of Systems Constitutional: Negative for fever. HENT: See HPI Respiratory: See HPI Musculoskeletal: Negative for myalgias. Patient Active Problem List Diagnosis ??? Osteochondritis [...] file Tobacco Use ??? Smoking status: Never ??? Smokeless tobacco: Never Vaping Use ??? Vaping Use: Some days ??? Substances: Nicotine Substance and Sexual Activity ??? Alcohol use: [...] Outpatient Medications Medication Sig Dispense Refill ??? amoxicillin-clavulanate (AUGMENTIN) 875-125 MG tablet Take 1 tablet (875 mg total) by mouth 2 (two) times daily for 10 days. 20 tablet 0 ??? lisdexamfetamine (VYVANSE) 50 MG capsule Take 1 capsule (50 mg total) by mouth every morning. 30 capsule 0 ??? ondansetron (ZOFRAN-ODT) 4 MG disintegrating tablet Take 1 tablet (4 mg total) by mouth every 8(eight) hours as needed for Nausea. 20 tablet 0 No current facility-administered medications for this visit. Current Outpatient Medications on File Prior to Visit Medication Sig ??? ondansetron (ZOFRAN-ODT) 4 MG disintegrating tablet Take 1 tablet (4 mg total) by mouth every 8(eight) hours as needed for Nausea. No current facility-administered medications on file prior to visit. Allergies Allergen Reactions ??? Sertraline Hives Objective: Filed Vitals: 12/06/22 1015 BP: 100/64 Pulse: 91 Resp: 16 Temp: 98.6 ??F (37 ??C) TempSrc: Skin SpO2: 98% Weight: 53.6 kg (118 lb 3.2 oz) Height: 5' 7 (1.702 m) Physical Exam Vitals and nursing note reviewed. HENT: Head: Normocephalic and atraumatic. Right Ear: Tympanic membrane, ear canal and external ear normal. Left Ear: Tympanic membrane, ear canal and external ear normal. Nose: Nose normal. Mouth/Throat: Pharynx: No oropharyngeal exudate. Eyes: General: No scleral icterus. Conjunctiva/sclera: Conjunctivae normal. Cardiovascular: Rate and Rhythm: Normal rate and regular rhythm. Heart sounds: Normal heart sounds. No murmur heard. No friction rub. No gallop. Pulmonary: Effort: Pulmonary effort is normal. No respiratory distress. Breath sounds: Normal breath sounds. No wheezing or rales. Abdominal: Palpations: Abdomen is soft. Tenderness: There is no abdominal tenderness. Musculoskeletal: Cervical back: Neck supple. Lymphadenopathy: Cervical: No cervical adenopathy. Skin: General: Skin is warm and dry. Findings: No rash. Neurological: Mental Status: She is alert and oriented to person, place, and time. Psychiatric: Mood and Affect: Affect normal. Office Visit on 12/06/2022 Component Date Value Ref Range Status ??? CORONAVIRUS ANTIGEN IA 12/06/2022 NEGATIVE NEGATIVE Final ??? INFLUENZA A 12/06/2022 NEGATIVE NEGATIVE Final ??? INFLUENZA B 12/06/2022 NEGATIVE NEGATIVE Final ??? Internal Control: 12/06/2022 VALID VALID Final ??? RAPID STREP TEST 12/06/2022 NEGATIVE NEGATIVE Final ??? Internal Control: 12/06/2022 VALID VALID Final Assessment & Plan: Corinna was seen today for attention deficit hyperactivity disorder and uri. Diagnoses and all orders for this visit: ADHD (attention deficit hyperactivity disorder), combined type - lisdexamfetamine (VYVANSE) 50 MG capsule; Take 1 capsule (50 mg total) by mouth every morning. Pharyngitis, unspecified etiology - amoxicillin-clavulanate (AUGMENTIN) 875-125 MG tablet; Take 1 tablet (875 mg total) by mouth 2 (two) times daily for 10 days. Encounter for long-term (current) use of medications - MG/PCCL UDS W CONF; Future - MG/PCCL UDS W CONF Sore throat - CORONAVIRUS (COVID-19) INFLUENZA A & B ANTIGEN IA PANEL - CORONAVIRUS (COVID 19) PCR; Future - CULTURE STREP A (MG/SJS/SMD Only); Future - RAPID STREP A Acute cough - CORONAVIRUS (COVID-19) INFLUENZA A & B ANTIGEN IA PANEL - CORONAVIRUS (COVID 19) PCR; Future - CULTURE STREP A (MG/SJS/SMD Only); Future - RAPID STREP A Discussion/Summary: Continue Vyvanse as prescribed; stable. Will obtain UDS/CSA today. Will send out Augmentin for above acute issues. F/u if not improving. F/u in 3 months or sooner if needed. Pt v/u. Arden Cannon DO LOGY NURSE NAVIGATOR documented in this encounter Plan of Treatment Not on file documented as of this encounter Procedures Procedure Name Priority Date/Time Associated Diagnosis Comments CULTURE STREP A Routine 12/06/2022 10:44 AM ONCOLOGY NURSE NAVIGATOR Sore throat Acute cough CORONAVIRUS (COVID 19) PCR Routine 12/06/2022 10:44 AM ONCOLOGY NURSE NAVIGATOR Sore throat Acute cough MG/PCCL UDS W CONF Routine 12/06/2022 10 :09 AM ONCOLOGY NURSE NAVIGATOR Encounter for long-term (current) use of medications CORONAVIRUS (COVID-19) INFLUENZA A & B ANTIGEN IA PANEL Routine 12/06/2022 Sore throat Acute cough RAPID STREP A Routine 12/06/2022 Sore throat Acute cough documented in this encounter Results * CULTURE STREP A (MG/SJS/SMD Only) (12/06/2022 10:44 AM ONCOLOGY NURSE NAVIGATOR) THROAT CULTURE STREP A ONLY Negative for Group A Streptococci Negative for Group A Streptococci 12/07/2022 5:17 PM ONCOLOGY NURSE NAVIGATOR -SWAPNA SIDHU STRUCTURE OF ANTERIOR PORTION OF NECK / Unknown 12/06/2022 10:44 AM ONCOLOGY NURSE NAVIGATOR Arden Cannon DO MICROBIOLOGY - GENERAL O RDERABLES Final Result [facility] [address] [facility] [place] [address], * CORONAVIRUS (COVID 19) PCR (12/06/2022 10:44 AM ONCOLOGY NURSE NAVIGATOR) SPEC DESCRIPTION NASAL 12/06/19 10:44 AM [facility] CORONAVIRUS SARS COV 2 PCR (RESP) NEGATIVE NEGATIVE 12/07/2022 2:18 PM [facility] Comment: THE SARS-CoV-2 TEST HAS BEEN AUTHORIZED BY THE FDA UNDER AN EUA FOR USE BY AUTHORIZED LABORATORIES. PERFORMED BY NUCLEIC ACID AMPLIFICATION PCR FIRST TEST NO 12/06/2022 10:44 AM [facility] EMPLOYED IN HEALTHCARE NO 12/06/2022 10:44 AM [facility] SYMPTOMATIC DEFINED BY CDC YES 12/06/2022 10:44 AM [facility] DATE OF SYMPTOM ONSET [id number] 12/06/2022 10:44 AM [facility] HOSPITALIZATION STATUS NO 12/06/2022 10:44 AM [facility] PATIENT IN ICU NO 12/06/2022 10:44 AM [facility] RESIDENT OF [facility] NO 12/06/2022 10:44 AM [facility] NOT 12/06/2022 10:44 AM ONCOLOGY NURSE NAVIGATOR [facility] NASOPHARYNGEAL SWAB / Unknown 12/06/2022 10:44 AM ONCOLOGY NURSE NAVIGATOR Arden Cannon DO MICROBIOLOGY - GENERAL O RDERABLES Final Result [facility] [address] [place] [address], * (ABNORMAL) MG/PCCL UDS W CONF (12/06/2022 10:09 AM ONCOLOGY NURSE NAVIGATOR) RESULT SUMMARY [facility] Comment: ?Prescribed ?Prescribed ?Not Prescribed ?Consistent ?Inconsistent ?Inconsistent ?Vyvanse(TM) ? Marijuana Metabolite PRESCRIBED DRUG 1 (U) Vyvanse(TM) [facility] FENTANYL SCREEN (U) NEGATIVE <0.5 ng/mL [facility] [place] MORPHINE (U) NEGATIVE <10 ng/mL [facility] [place] DESMETHYLTRAMADOL (U) NEGATIVE <100 ng/mL [facility] [place] TRAMADOL (U) NEGATIVE <100 ng/mL [facility] [place] TRAMADOL COMMENTS [facility] [place] Comment:See LDT Notes AMPHETAMINES PM POSITIVE(A) <500 ng/mL [facility] [place] AMPHETAMINES PM CONFIRMATION (U) 2,663(H) <250 ng/mL [facility] [place] AMPHETAMINES PM MEDMATCH CONF (U) CONSISTENT [facility] [place] METHAMPHETAMINE PM (U) NEGATIVE <250 ng/mL [facility] [place] AMPHETAMINES COMMENT [facility] [place] Comment:See Amphetamines Not es, LDT Notes BARBITURATES PM (U) NEGATIVE <300 ng/mL [facility] [place] BENZODIAZEPINES PM (U) NEGATIVE <100 ng/mL [facility] [place] COCAINE METABOLITE PM (U) NEGATIVE <150 ng/mL [facility] [place] MARIJUANA METABOLITE PM (U) POSITIVE(A) <20 ng/mL [facility] [place] MARIJUANA METABOLITE PM CONF (U) 385(H) <5 ng/mL [facility] [place] MARIJUANA METAB PM MM CONF (U) INCONSISTENT( A) [facility] [place] MARIJUANA COMMENTS Q [facility] [place] Comment:See Marijuana Notes, LDT Notes METHADONE PM (U) NEGATIVE <100 ng/mL [facility] [place] OPIATES PM (U) NEGATIVE <100 ng/mL [facility] [place] OXYCODONE PM (U) NEGATIVE <100 ng/mL [facility] [place] CREATININE RANDOM URINE 118.0 > or = 20.0 mg/dL [facility] Neotropix [place] pH PM (U) 6.2 4.5 - 9.0 [facility] [place] OXIDANT NEGATIVE <200 mcg/mL [facility] [place] Note [facility] Comment: This drug testing is for medical treatment only. Analysis was performed as non-forensic testing and these results should be used only by healthcare providers to render diagnosis or treatment, or to monitor progress of medical conditions. Amphetamines Notes: Amphetamine detected is consistent with the use of the drug Amphetamine. Amphetamine can be a prescribed drug and is also a metabolite of methamphetamine. Marijuana Notes: Marijuana Metabolite detected is consistent with exposure to Marijuana (THC) and/or hemp derived products. ?? Some jurisdictions do not include hemp within the definition of Marijuana. LDT Notes: Confirmation tests were developed and their analytical performance characteristics have been determined by [employer]. It has not been cleared or approved by the FDA. This assay has been validated pursuant to the CLIA regulations and is used for clinical purposes. medMATCH(R) enables providers to identify if drug use is consistent or inconsistent with a corresponding prescribed medication(s) list. Healthcare Providers needing Interpretation assistance, please contact us at [phone] ( ) M-F, 8am to 10pm EST URINE SPECIMEN / Unknown 12/06/2022 10:09 AM ONCOLOGY NURSE NAVIGATOR 12/07/2022 3:54 AM ONCOLOGY NURSE NAVIGATOR Narrative Resulting Agency Comment Performing Organization Information: ?Site ID: [id number] ?Name: [facility] ?Address: [address] [place] [address] ?Director: Serafin Hays ?Site ID: [id number] ?Name: [facility] ?Address: [address] [facility] [place] [address] ?Director: Radha Raya MD us Arden Cannon DO URINE ORDERABLES Final R esult [facility] [address] [address] [place] [place] [address], [facility] [place] [address] [place] [address] * RAPID STREP A (12/06/2022) RAPID STREP TEST NEGATIVE NEGATIVE [facility] Internal Control: VALID VALID [facility] STRUCTURE OF ANTERIOR PORTION OF NECK / Unknown 12/06/2022 us Arden Cannon DO MICROBIOLOGY - GENERAL O RDERABLES Final Result Performing Organization Address City/[facility]/ZIP Co de Phone Number [facility] [address] [place] [address], * CORONAVIRUS (COVID-19) INFLUENZA A & B ANTIGEN IA PANEL (12/06/2022) CORONAVIRUS ANTIGEN IA NEGATIVE NEGATIVE [facility] INFLUENZA A NEGATIVE NEGATIVE [facility] INFLUENZA B NEGATIVE NEGATIVE [facility] Internal Control: VALID VALID [facility] NASAL STRUCTURE / Unknown 12/06/2022 us Arden Cannon DO MICROBIOLOGY - GENERAL O RDERABLES Final Result -[facility] [address] [place] [address], documented in this encounter Visit Diagnoses Diagnosis ADHD (attention deficit hyperactivity disorder), combined type- Primary Attention deficit disorder with hyperactivity Pharyngitis, unspecified etiology Encounter for long-term (current) use of medications Encounter for long-term (current) use of other medications Sore throat Acute pharyngitis Acute cough documented in this encounter Additional Health Concerns Infection Onset Date Last Indicated Resolved Time COVID-19 Rule Out 12/06/2022 12/06/2022 12/06/2022 10:47 AM ONCOLOGY NURSE NAVIGATOR Assessment Noted Time PHQ-9 Depression Total Score: 10 021 1:10 PM ONCOLOGY NURSE NAVIGATOR documented as of this encounter Care Teams Shirt Operator Relationship Specialty Start Date End Date Arden Cannon DO [address] [place] [address] PCP - General FAMILY PRACTICE 01/12/19 documented as of this encounter
--- OUTSIDE RECORDS SUMMARY | 2024-09-30 09:14 | XMS_ITS | Encounter Summary ---
Author Organization [facility] Address [facility] [facility] [place] [address] [place] [address] Care Team Providers Care Deposit Refund Clerk Name Role Phone Arden Cannon Romy ROBERTSON Primary Care Provider + Reason for Visit * Reason Comments Attention Deficit Hyperactivity Disorder Encounter Details Date Type Department Care Team (Latest Contact Info) Description 12/13/2023 2:20 PM LOOP SEWER Office Visit [facility] Family & Internal Medicine - [place] [address] [place] [address] Elvira Reynaga APNP [address] [place], [place] [id number] Attention Deficit Hyperactivity Disorder Social History Tobacco [...] Comments Blood Pressure 116/72 12/13/2023 2:37 PM LOOP SEWER Pulse 84 12/13/2023 2:37 PM LOOP SEWER Temperature 37.1 ??C (98.8 ??F) 12/13/2023 2:37 PM CS T Respiratory Rate 16 12/13/2023 2:37 PM LOOP SEWER Oxygen Saturation 99% 12/13/2023 2:37 PM LOOP SEWER Inhaled Oxygen Concentration - - Weight 50.5 kg (111 lb 6.4 oz) 12/13/2023 2:37 P M LOOP SEWER Height 170.2 cm (5' 7 ) 12/13/2023 2:37 PM LOOP SEWER Body Mass Index 17.45 12/13/2023 2:37 PM LOOP SEWER documented in this encounter Progress Notes * SIGIFREDO Rueda - 12/13/2023 2:20 PM CST Images from the original note were not included. [facility] FAMILY AND INTERNAL MEDICINE OFFICE VISIT Reason for Visit: Attention Deficit Hyperactivity Disorder History of Present Illness: Pt is here for follow-up on his ADHD medications. Pt has a diagnosis of ADHD, Combined Type. Concurrent psychiatric conditions include none. Pt is currently on Vyvanse 50 mg. Pt's symptoms are well controlled. Current ADHD symptoms include none. Pt notes the following side effects: nothing significantly. She has had some weight loss over the last 9 months, but weight has been stable for last 6 months. Her dose was lowered from 70 mg over a year ago. She does take the Vyvanse most days of the week, but does take some drug holidays. She notes she has stopped lifting weights and is not a marathon runner. It's been a while since she has had her labs checked and these can be ordered and sent with pt today to have her labs checked. LMP was 12/02/2023. ROS: Review of Systems Constitutional: Negative for chills and fever. Respiratory: Negative for cough and shortness of breath. Cardiovascular: Negative for chest pain and palpitations. Gastrointestinal: Negative for abdominal pain, diarrhea, nausea and vomiting. Neurological: Negative for dizziness and headaches. Medications: Current Outpatient Medications: amoxicillin (AMOXIL) 500 MG tablet, ONE TABLET THREE TIMES A DAY UNTIL GONE, Disp: , Rfl: VYVANSE 50 MG capsule, Take 1 capsule (50 mg total) by mouth every morning., Disp: 30 capsule, Rfl:0 cyclobenzaprine (FLEXERIL) 5 MG tablet, Take 1-2 tablets (5-10 mg total) by mouth 3 (three) times daily as needed for Muscle Spasms. (Patient not taking: Reported on 12/13/2023), Disp: 30 tablet, Rfl: 0 Allergies: Review of patient's allergies indicates: Allergen Reactions Sertraline Hives Medical History: Past Medical History: Diagnosis Date ADHD (attention deficit hyperactivity disorder) Anxiety Depression Surgical History: Past Surgical History: Procedure Laterality Date ADENOIDECTOMY ORAL SURGERY PROCEDURE 12/11/2023 [place] teeth extracted TONSILLECTOMY Social History: Social History Socioeconomic History Marital status: Single Tobacco Use Smoking status: Never Passive exposure: Never Smokeless tobacco: Never Vaping Use Vaping Use: Some days Substances: Nicotine Substance and Sexual Activity Alcohol use: Yes Alcohol/week: 1.7 standard drinks of alcohol Types: 1 Glasses of wine per week Comment: socially Drug use: Yes Types: Marijuana Comment: socially Sexual activity: Yes Partners: Male control/protection: Condom Family History: Family History Problem Relation Name Age of Onset No Known Problems Mother No Known Problems Father Asthma Maternal Grandmother Cancer Maternal Grandmother Cervical Asthma Maternal Grandfather Asthma Paternal Grandmother Cancer Paternal Grandmother Pancres Asthma Paternal Grandfather Diabetes Paternal Grandfather Hypertension Paternal Grandfather PE: Physical Exam Vitals and nursing note reviewed. HENT: Head: Normocephalic and atraumatic. Eyes: General: No scleral icterus. Conjunctiva/sclera: Conjunctivae normal. Neck: Trachea: No tracheal deviation. Cardiovascular: Rate and Rhythm: Normal rate and regular rhythm. Heart sounds: Normal heart sounds. Pulmonary: Effort: Pulmonary effort is normal. No respiratory distress. Breath sounds: Normal breath sounds. No stridor. No wheezing. Musculoskeletal: General: No deformity. Normal range of motion. Cervical back: Normal range of motion and neck supple. Skin: General: Skin is warm and dry. Findings: No erythema. Neurological: Mental Status: She is alert and oriented to person, place, and time. Gait: Gait is intact. Psychiatric: Mood and Affect: Mood and affect normal. Filed Vitals: 12/13/23 1437 BP: 116/72 Pulse: 84 Resp: 16 Temp: 98.8 ??F (37.1 ??C) TempSrc: Skin SpO2: 99% Weight: 50.5 kg (111 lb 6.4 oz) Height: 1.702 m (5' 7 ) Labs: Labs Reviewed Diagnoses/Impression: 1. ADHD (attention deficit hyperactivity disorder), combined type VYVANSE 50 MG capsule Recommendations and Plan: 1. ADHD (attention deficit hyperactivity disorder), combined type - VYVANSE 50 MG capsule; Take 1 capsule (50 mg total) by mouth every morning. Dispense: 30 capsule;Refill: 0 Condition stable. Will continue meds as ordered. Routine labs sent with pt today and encouraged her to follow up for routine physical and labs. Orders Placed This Encounter amoxicillin (AMOXIL) 500 MG tablet VYVANSE 50 MG capsule Cannot display discharge medications since this is not an admission. PCP: SIGIFREDO Rueda 12/13/2023 SEWER documented in this encounter Plan of Treatment Not on file documented as of this encounter Visit Diagnoses Diagnosis ADHD (attention deficit hyperactivity disorder), combined type Attention deficit disorder with hyperactivity documented in this encounter Additional Health Concerns Assessment Noted Time PHQ-9 Depression Total Score: 10 021 1:10 PM LOOP SEWER documented as of this encounter Care Teams Deposit Refund Clerk Relationship Specialty Start Date End Date Arden Cannon DO [address] [place] [id number] PCP - General FAMILY PRACTICE 01/12/19 documented as of this encounter
--- OUTSIDE RECORDS SUMMARY | 2024-09-30 09:14 | XMS_ITS | Encounter Summary ---
Author Organization [facility] Address [facility] [place] [address] [place] [address] Care Team Providers Care Supervisor Advertising Dispatch Clerks Name Role Phone Arden Cannon Primary Care Provider + Encounter Details Date Type Department Care Team (Latest Contact Info) Description 05/21/2022 Travel Social History Tobacco Use Types Packs/Day [...] was confirmed or suspected to have Coronavirus/COVID-19? Unable to assess 05/21/2022 7:31 AM CDT documented as of this encounter Plan of Treatment Not on file documented as of this encounter Visit Diagnoses Not on filedocumented in this encounter Additional Health Concerns Assessment Noted Time PHQ-9 Depression Total Score: 10 021 1:10 PM STUDENT DEVELOPMENT COORDINATOR documented as of this encounter Care Teams Supervisor Advertising Dispatch Clerks Relationship Specialty Start Date End Date Arden Cannon DO [address] [place] [id number] PCP - General FAMILY PRACTICE 01/12/19 documented as of this encounter
--- OUTSIDE RECORDS SUMMARY | 2024-09-30 09:14 | XMS_ITS | Encounter Summary ---
Author Organization [facility] Address [facility] [place] [address] [place] [address] Care Team Providers Care Rock Crusher Operator Name Role Phone Arden Cannon DO Primary Care Provider + Encounter Details Date Type Department Care Team (Latest Contact Info) Description 04/15/2023 Travel Social History Tobacco Use Types Packs/Day [...] Depression Total Score: 10 021 1:10 PM LEATHER HEEL BREASTER documented as of this encounter Care Teams Rock Crusher Operator Relationship Specialty Start Date End Date Arden Cannon DO [address] [place] [id number] PCP - General FAMILY PRACTICE 01/12/19 documented as of this encounter
--- OUTSIDE RECORDS SUMMARY | 2024-09-30 09:14 | XMS_ITS | Encounter Summary ---
Author Organization [facility] Address [facility] [place] [address] [place] [address] Care Team Providers Care Quality Compliance Coordinator Name Role Phone Arden Cannon DO Primary Care Provider + Reason for Visit * Reason Onset Date Comments Record Request 12/06/2022 Encounter Details Date Type Department Care Team (Late st Contact Info) Description 12/06/2022 Telephone [facility] Medical Group Family & Internal Medicine [address] [phone] Arden Cannon DO [address] [place] [address] [phone] Record Request Social History Tobacco Use Types [...] Coronavirus/COVID-19? No / Unsure 12/06/2022 9:59 AM MAINTENANCE OPERATOR documented as of this encounter Progress Notes * Cece Benson MA - 12/06/2022 2:24 PM CST I have called [employer] for lab results. I have been informed there are no records available and the archive records were checked TENANCE OPERATOR documented in this encounter Plan of Treatment Not on file documented as of this encounter Visit Diagnoses Not on filedocumented in this encounter Additional Health Concerns Infection Onset Date Last Indicated Resolved Time COVID-19 Rule Out 12/06/2022 12/06/2022 12/06/2022 10:47 AM MAINTENANCE OPERATOR Assessment Noted Time PHQ-9 Depression Total Score: 10 021 1:10 PM MAINTENANCE OPERATOR documented as of this encounter Care Teams Quality Compliance Coordinator Relationship Specialty Start Date End Date Arden Cannon DO [address] [place] [phone] PCP - General FAMILY PRACTICE 01/12/19 documented as of this encounter
--- OUTSIDE RECORDS SUMMARY | 2024-09-30 09:14 | XMS_ITS | Encounter Summary ---
Author Organization [facility] Address [facility]6 [facility] [place] [address] [place] [address] Care Team Providers Care Resident Care Assistant Name Role Phone Arden Cannon DO Primary Care Provider + Reason for Visit * Reason Onset Date Comments Refill Request 08/01/2022 Encounter Details Date Type Department Care Team (Late st Contact Info) Description 08/01/[address] [facility] Family & Internal Medicine [facility] [address] [place] [phone] Arden Cannon DO [address] [place], [place] [phone] Refill Request Social History Tobacco Use Types [...] as of this encounter Progress Notes * Natalia Wilkinson MA - 08/01/2022 3:52 PM CDT Last visit 05/21/22 * Tosha Garduno - 08/01/2022 12:40 PM CDT Patient is wanting to make sure that her Vyvanse is sent to [facility] in [facility]. 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
--- OUTSIDE RECORDS SUMMARY | 2024-09-30 09:14 | XMS_ITS | Encounter Summary ---
Author Organization [facility] Address [address] [place] [place] [address] [place] [address] Care Team Providers Care Bevel Gear Generator Operator Name Role Phone Arden Cannon DO Primary Care Provider + Reason for Visit * Reason Comments Cough Symptoms started 2 w eeks ago. Patient states she has taken multiple covid tests which were all negative. Sore Throat Sinus Pain Sinus pressure, johana estion, runny nose Encounter Details Date Type Department Care Team (Late st Contact Info) Description 05/21/2022 12:00 PM CDT Telemedicine [facility] Family & Internal Medicine - [place] [address] [place] [phone] Arden Cannon DO [address] [place] [address] Cough (Symptoms started 2 weeks ago. Patient states she has taken multiple covid tests which were all negative. ); Sore Throat; Sinus Pain (Sinus pressure, congestion, runny nose) Social History Tobacco Use Types Packs/Day Years [...] of this encounter Progress Notes * Arden Cannon, DO - 05/21/2022 12:00 PM CDT Images from the original note were not included. GENERAL OFFICE VISIT Encounter Date: 05/21/2022 I introduced and identified myself, received verbal consent from the patient to proceed with this video visit and made the patient aware that the same confidentiality and information security manager practices apply. The patient joined the video visit from Home. I completed the virtual visit from Office. The following clinical staff helped with this visit MA: Karey Orozco. Total Time Spent in Minutes: 11 Chief Complaint: 22-year-old female presents for Cough (Symptoms started 2 weeks ago. Patient states she has taken multiple covid tests which were all negative. ), Sore Throat, and Sinus Pain (Sinus pressure, congestion, runny nose) HPI: Patient states symptoms have been present for 13 days. Symptoms include sore throat, sinus pressure, congestion, runny nose, nausea and vomiting (mostly mucus), headache, myalgias, wheezing with deepbreath, chills, and cough. Pertinent negatives include Fevers. Had hives initially, but these improved. Patient has no sick contacts. OTC medications tried include Excederin & Sudafed. Pt has done five COVID tests that have all been negative. Review of Systems Constitutional: Positive for chills. Negative for fever. HENT: See HPI Respiratory: Positive for cough. Gastrointestinal: See HPI Neurological: Positive for headaches. Patient Active Problem List Diagnosis ??? Osteochondritis [...] (Generic) 06/17/2009 ??? Tdap (Historical Only-select from [employer]ob[employer] glass) 09/19/2020 ??? Varicella Vaccine 02/15/1999, 06/17/2009 Current Outpatient Medications Medication Sig Dispense Refill ??? azithromycin (ZITHROMAX) 250 MG tablet Take 2 tablets by mouth on day one then 1 daily for fourdays. 6 tablet 0 ??? cefdinir (OMNICEF) 300 MG Cap capsule Take 1 capsule (300 mg total) by mouth 2 (two) times daily. 20 capsule 0 ??? lisdexamfetamine 50 MG capsule Take 1 capsule (50 mg total) by mouth every morning. 30 capsule 0 ??? ondansetron (ZOFRAN-ODT) 4 MG disintegrating tablet Take 1 tablet (4 mg total) by mouth every 8(eight) hours as needed for Nausea. 20 tablet 0 ??? predniSONE (DELTASONE) 20 MG tablet Take 3 tablets for three days, then take 2 tablets for three days, then take 1 tablet for three days 18 tablet 0 No current facility-administered medications for this visit. Current Outpatient Medications on File Prior to Visit Medication Sig ??? lisdexamfetamine 50 MG capsule Take 1 capsule (50 mg total) by mouth every morning. No current facility-administered medications on file prior to visit. Allergies Allergen Reactions ??? Sertraline Hives Objective: As this is a [...] & Plan: Corinna was seen today for cough, sore throat and sinus pain. Diagnoses and all orders for this visit: Acute non-recurrent sinusitis, unspecified location - cefdinir (OMNICEF) 300 MG Cap capsule; Take 1 capsule (300 mg total) by mouth 2 (two) times daily. - azithromycin (ZITHROMAX) 250 MG tablet; Take 2 tablets by mouth on day one then 1 daily for four days. - predniSONE (DELTASONE) 20 MG tablet; Take 3 tablets for three days, then take 2 tablets for threedays, then take 1 tablet for three days - ondansetron (ZOFRAN-ODT) 4 MG disintegrating tablet; Take 1 tablet (4 mg total) by mouth every 8 (eight) hours as needed for Nausea. Discussion/Summary: Will treat as per above. Discussed side effects. If not improving, pt will let us know. Consider CXR if not improving. Pt v/u. 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
--- OUTSIDE RECORDS SUMMARY | 2024-09-30 09:14 | XMS_ITS | Encounter Summary ---
Author Organization [facility] Address [facility] [facility] [place] [address] [place] [address] Care Team Providers Care Marble Polisher Hand Name Role Phone Arden Cannon DO Primary Care Provider + Reason for Visit * Reason Onset Date Comments Results 03/08/2023 Encounter Details Date Type Department Care Team (Late st Contact Info) Description 03/08/2023 Telephone [facility] Medical Group Family & Internal Medicine - [address] [phone] Arden Cannon DO [address] [place] [address] [phone] Results Social History Tobacco Use Types Packs/Day Years [...] as of this encounter Progress Notes * Elinor Page - 03/12/2023 11:26 AM CDT Corinna returned your call, I informed her of negative results. * Hayley Vigil MA - 03/08/2023 11:06 AM CDT LMOM for pt to return call * Hayley Vigil MA - 03/08/2023 11:05 AM CDT ----- Message from Arden Cannon DO sent at 03/06/2023 5:37 PM CDT ----- No fracture on XR's; repeat as needed. documented in this encounter Plan of Treatment Not on file documented as of this encounter Visit Diagnoses Not on filedocumented in this encounter Additional Health Concerns Assessment Noted Time PHQ-9 Depression Total Score: 10 021 1:10 PM VALET PARKING ATTENDANT documented as of this encounter Care Teams Marble Polisher Hand Relationship Specialty Start Date End Date Arden Cannon DO [address] [place] [address] PCP - General FAMILY PRACTICE 01/12/19 documented as of this encounter
--- OUTSIDE RECORDS SUMMARY | 2024-09-30 09:14 | XMS_ITS | Encounter Summary ---
Author Organization [facility] Address [facility] [facility] 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
--- OUTSIDE RECORDS SUMMARY | 2024-09-30 09:14 | XMS_ITS | Encounter Summary ---
Author Organization [facility] Address [facility] [place] [address] [place] [address] Care Team Providers Care Cone Chocolate Dipper Name Role Phone Arden Cannon DO Primary Care Provider + Reason for Visit * Reason Onset Date Comments Information 01/27/2024 Encounter Details Date Type Department Care Team (Late st Contact Info) Description 01/27/2024 Telephone [facility] Medical Group Family & Internal Medicine - [address] [phone] Arden Cannon DO [address] [place] [address] [phone] Information Social History Tobacco Use Types Packs/Day Years [...] Progress Notes * Arden Cannon DO - 01/27/2024 2:05 PM CDT Letter printed. * Daniella Pina MA - 01/27/2024 1:22 PM CDT Pt has been in pain and crying for 3+ days. She is scheduled to have a root canal with crown. She states they will only be using a local numbing medication. She just found out she is and believes she is under 6 weeks. She has not established care with an OB yet. She states once she turns 24 in a few months her insurance will change and that's what she's waiting for to establish care. Please fax letter to [facility] fax * Arden Cannon DO - 01/27/2024 12:49 PM CDT What kind of surgery? How far along is the ? Does pt have an OB? What kind of anesthesia, if any, is needed? * Cecilia Payne - 01/27/2024 11:05 AM CDT PT is needing emergency dental work but recently found out she is . Pt uses [facility]: [phone] Pt needing clearance for dental surgery due to being . Pt has apt 7Am 01/28/24 Ptstates can picker packer anything she needs. 

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
--- OUTSIDE RECORDS SUMMARY | 2024-09-30 09:14 | XMS_ITS | Encounter Summary ---
Author Organization [facility] Address [facility] [place] [address] [place] [address] Care Team Providers Care Retail Sales Manager Name Role Phone Arden Goodson DO Primary Care Provider + Reason for Visit * Reason Onset Date Comments Medication Request 09/23/2023 Encounter Details Date Type Department Care Team (Late st Contact Info) Description 09/23/2023 Telephone [facility] Medical Group Family & Internal Medicine [address] [phone] Arden Goodson DO [address] [place] [address] [phone] Medication Request Social History Tobacco Use Types [...] of this encounter Progress Notes * Arden Goodson DO - 09/23/2023 12:39 PM CST Sent MARILYN. ORATE WELLNESS COORDINATOR * Cecilia Payne - 09/23/2023 8:29 AM CST Refill request received from Patient Medication: lisdexamfetamine (VYVANSE) 50 MG capsule Pt states Pharmacy only receives 1 shipment of medication a month was wondering if she could go back to name brand. Pharmacy: [address] Last visit with ARDEN GOODSON in FAMILY PRACTICE was on: 03/05/2023 in [facility] No future appointments. ORATE WELLNESS COORDINATOR documented in this encounter Plan of Treatment Not on file documented as of this encounter Visit Diagnoses Diagnosis ADHD (attention deficit hyperactivity disorder), combined type Attention deficit disorder with hyperactivity documented in this encounter Additional Health Concerns Assessment Noted Time PHQ-9 Depression Total Score: 10 021 1:10 PM CORPORATE WELLNESS COORDINATOR documented as of this encounter Care Teams Retail Sales Manager Relationship Specialty Start Date End Date Arden Goodson DO [address] [place] [address] PCP - General FAMILY PRACTICE 01/12/19 documented as of this encounter
--- OUTSIDE RECORDS SUMMARY | 2024-09-30 09:15 | XMS_ITS | Encounter Summary ---
Author Organization [facility] Address [facility] [facility] [place] [address] [place] [address] Care Team Providers Care Corporate Licensed Broker Name Role Phone Dennise Goodson DO Primary Care Provider + Reason for Visit * Reason Onset Date Comments Refill Request 09/30/2019 Encounter Details Date Type Department Care Team (Late st Contact Info) Description 09/30/2019 Telephone [facility] Medical Group Family & Internal Medicine [address] [phone] Dennise Goodson DO [address] [place] [address] [phone] Refill Request Social History Tobacco Use Types Packs/Day Years Used Date Smoking Tobacco: Never Smokeless Tobacco: Never Alcohol Use Standard Drinks/Week Comments No 0 (1 standard drink = 0.6 oz pur e alcohol) AUDIT-C Answer Date Recorded Frequency of Alcohol Consumption Never 08/14/2018 Average Number of Drinks Not on file 018 Frequency of Binge Drinking Not on file 10/2017 PHQ-2 Answer Date Recorded PHQ-2 Score 1 01/12/2019 Comments No Sex and Gender Information Value Date Recorded Sex Assigned at Not on file Legal Sex Female 2:50 AM CDT Gender Identity Not on file Sexual Orientation Not on file documented as of this encounter Progress Notes * Gayle Avila MA - 09/30/2019 10:26 AM CST Refill request received from Patient Last visit with DENNISE GOODSON in FAMILY PRACTICE was on: 09/16/2019 in [facility] No future appointments. [facility]/pharmacy #[id number] [place], [place] - [address] [facility] [address] [facility] [id number] No current outpatient medications on file. TECHNICIAN documented in this encounter Plan of Treatment Not on file documented as of this encounter Visit Diagnoses Diagnosis ADHD (attention deficit hyperactivity disorder), combined type- Primary Attention deficit disorder with hyperactivity documented in this encounter Care Teams Corporate Licensed Broker Relationship Specialty Start Date End Date Dennise Goodson DO [address] [place] [address] PCP - General FAMILY PRACTICE 01/12/19 documented as of this encounter
--- OUTSIDE RECORDS SUMMARY | 2024-09-30 09:15 | XMS_ITS | Encounter Summary ---
Author Organization [facility] Address [facility] [place] [address] [place] [address] Care Team Providers Care Spray Gunner Name Role Phone Arden Cannon Primary Care Provider + Encounter Details Date Type Department Care Team (Latest Contact Info) Description 11/07/2020 Travel Social History Tobacco Use Types Packs/Day [...] Exposure Response Date Recorded In the last month, have you been in contact with someone who was confirmed or suspected to have Coronavirus / COVID-19? No / Unsure 11/07/2020 12:59 PM FURNITURE SPRAYER documented as of this encounter Plan of Treatment Not on file documented as of this encounter Visit Diagnoses Not on filedocumented in this encounter Additional Health Concerns Assessment Noted Time PHQ-9 Depression Total Score: 10 021 1:10 PM FURNITURE SPRAYER documented as of this encounter Care Teams Spray Gunner Relationship Specialty Start Date End Date Arden Cannon DO [address] [place] [phone] PCP - General FAMILY PRACTICE 01/12/19 documented as of this encounter
--- OUTSIDE RECORDS SUMMARY | 2024-09-30 09:15 | XMS_ITS | Encounter Summary ---
Author Organization [facility] Address [facility] [place] [address] [place] [address] Care Team Providers Care Customer Sales Consultant Name Role Phone Arden Cannon DO Primary Care Provider + Reason for Visit * Reason Comments Anxiety follow up . Encounter Details Date Type Department Care Team (Late st Contact Info) Description 09/19/2020 8:40 AM SUSTAINABILITY EXECUTIVE DIRECTOR Office Visit [facility] Family & Internal Medicine - [address] [phone] Arden Cannon DO [address] [place] [phone] Anxiety (follow up . ) Social History Tobacco Use Types Packs/Day [...] PHQ-2 Answer Date Recorded PHQ-2 Score 1 06/03/2020 Comments No Sex and Gender Information Value Date Recorded Sex Assigned at Not on file Legal Sex Female 2:50 AM CDT Gender Identity Not on file Sexual Orientation Not on file COVID-19 Exposure Response Date Recorded In the last month, have you been in contact with someone who was confirmed or suspected to have Coronavirus / COVID-19? No / Unsure 09/19/2020 8:44 AM SUSTAINABILITY EXECUTIVE DIRECTOR documented as of this encounter Last Filed Vital Signs Vital Sign Reading Time Taken Comments Blood Pressure 98/60 09/19/2020 8:52 AM SUSTAINABILITY EXECUTIVE DIRECTOR Pulse 80 09/19/2020 8:52 AM SUSTAINABILITY EXECUTIVE DIRECTOR Temperature 36.6 ??C (97.9 ??F) 09/19/2020 8:52 AM CS T Respiratory Rate 16 09/19/2020 8:52 AM SUSTAINABILITY EXECUTIVE DIRECTOR Oxygen Saturation 98% 09/19/2020 8:52 AM SUSTAINABILITY EXECUTIVE DIRECTOR Inhaled Oxygen Concentration - - Weight 64.8 kg (142 lb 14.4 oz) 09/19/2020 8:52 AM SUSTAINABILITY EXECUTIVE DIRECTOR Height 170.2 cm (5' 7 ) 09/19/2020 8:52 AM SUSTAINABILITY EXECUTIVE DIRECTOR Body Mass Index 22.38 09/19/2020 8:52 AM SUSTAINABILITY EXECUTIVE DIRECTOR documented in this encounter Progress Notes * Arden Cannon, - 09/19/2020 8:40 AM CST Images from the original note were not included. GENERAL OFFICE VISIT Encounter Date: 09/19/2020 Chief Complaint: 20-year-old female presents for Anxiety (follow up . ) HPI: Pt presents for follow-up. At last visit, Pt is here for follow-up on his ADHD and anxiety medications. Pt has a diagnosis of ADHD, CombinedType. Concurrent psychiatric conditions include anxiety, which we started pt on Wellbutrin for. Pt felt more paranoid and antsy on the medication. Pt is currently on Vyvanse. Pt's ADHD symptoms are well controlled. Current ADHD symptoms include none. Pt notes the following side effects: none. No other acute symptoms. Pt has taken Lexapro, Zoloft, now Wellbutrin, and Xanax and had adverse reactions or didn't like the way she felt on these. We stopped pt's Wellbutrin and started pt on Cymbalta. We kept her on Vyvanse. Pt stated she stopped taking it as it made her feel funny. Pt states she would like to try the Wellbutrin despite previous side effects as she has been more active and feeling better in general. Pt is still doing well onVyvanse. Review of Systems Constitutional: Negative for fever. See HPI Respiratory: Negative for shortness of breath. Psychiatric/Behavioral: See HPI Patient Active Problem List Diagnosis ??? Osteochondritis dissecans ??? Seasonal allergies ??? ADHD (attention deficit hyperactivity disorder), combined type Past Medical History: Diagnosis Date ??? ADHD [...] resource strain: Not on file ??? Food insecurity Worry: Not on file Inability: Not on file ??? Transportation needs Medical: Not on file Non-medical: Not on file Tobacco Use ??? Smoking status: Never Smoker ??? Smokeless tobacco: Never Used Substance and Sexual Activity ??? Alcohol use: Yes Alcohol/week: 1.7 standard drinks Types: 1 Glasses of wine per week Frequency: Never Comment: occ ??? Drug use: Yes Types: Marijuana ??? Sexual activity: Yes Partners: Male control/protection: Condom Lifestyle ??? Physical activity Days per week: Not on file Minutes per session: Not on file ??? Stress: Not on file Relationships ??? Social connections Talks on phone: Not on file Gets together: Not on file Attends restoration service: Not on file Active member of club or organization: Not on file Attends meetings of clubs or organizations: Not on file Relationship status: Not on file ??? Intimate partner violence Fear of current or ex partner: Not on file Emotionally abused: Not on file Physically abused: Not on file Forced sexual activity: Not on file Other Topics Concern ??? Not on file Social History Narrative ??? Not on file Immunization History Administered Date(s) Administered ??? Dtap 1998, 1998, 1998, 05/09/1999, 06/15/2003 ??? HPV4 (Gardasil) 06/20/2011, 08/20/2011, 07/22/2012 ??? Hepatitis A (Generic) 07/22/2012, 07/22/2013 ??? Hepatitis B 02/15/1999 ??? Hepatitis B Pediatric 1998, 1998 ??? Hib (PedvaxHIB)3 Dose 1998, 1998, 1998, 05/09/1999 ??? Influenza 08/09/2009, 08/17/2010 ??? Influenza Adult (Generic) 07/22/2013 ??? MCV40 (Menveo) 07/22/2012 ??? MMR 05/09/1999, 06/01/2003 ??? Menactra 07/08/2015 ??? Polio IPV (Ipol) 1998, 1998, 05/09/1999, 06/15/2003 ??? Tdap (Generic) 06/17/2009 ??? Varicella Vaccine 02/15/1999, 06/17/2009 Current Outpatient Medications Medication Sig Dispense Refill ??? buPROPion XL (WELLBUTRIN XL) 150 MG 24 hr tablet Take 1 tablet (150 mg total) by mouth daily. 30 tablet 2 ??? cranberry 500 MG Cap Take 1 capsule by mouth 3 (three) times daily. ??? lisdexamfetamine 50 MG capsule Take 1 capsule (50 mg total) by mouth every morning. 30 capsule 0 No current facility-administered medications for this visit. Current Outpatient Medications on File Prior to Visit Medication Sig ??? cranberry 500 MG Cap Take 1 capsule by mouth 3 (three) times daily. ??? lisdexamfetamine 50 MG capsule Take 1 capsule (50 mg total) by mouth every morning. No current facility-administered medications on file prior to visit. Allergies Allergen Reactions ??? Sertraline Hives Objective: Vitals: 09/19/20 0852 BP: 98/60 Pulse: 80 Resp: 16 Temp: 97.9 ??F (36.6 ??C) SpO2: 98% Physical Exam Constitutional: She is oriented to person, place, and time and well-developed, well-nourished, and in no distress. HENT: Head: Normocephalic and atraumatic. Right Ear: External ear normal. Left Ear: External ear normal. Eyes: Conjunctivae are normal. Cardiovascular: Normal rate and regular rhythm. Exam reveals no gallop and no friction rub. No murmur heard. Pulmonary/Chest: Effort normal and breath sounds normal. Neurological: She is alert and oriented to person, place, and time. Skin: Skin is warm and dry. No rash noted. Psychiatric: Similar to previous Assessment & Plan: Corinna was seen today for anxiety. Diagnoses and all orders for this visit: Generalized anxiety disorder - buPROPion XL (WELLBUTRIN XL) 150 MG 24 hr tablet; Take 1 tablet (150 mg total) by mouth daily. ADHD (attention deficit hyperactivity disorder), combined type Need for immunization against influenza - [30336] FLU VACC QUAD 6 MONTHS+ 0.5 ML (SINGLE DOSE SYRINGE FLUZONE, FLUARIX, FLULAVAL OR SINGLE DOSE VIAL FLUZONE) Need for coqmnplwhs-kqbjvnq-ljntrajwm (Tdap) vaccine - [12844] Adacel (Tdap) Discussion/Summary: Start Wellbutrin and stop Cymbalta; noted to pt that side effect could occur again. She would like to try it though. Consider alternative medication if not improving or side effects recur. Continue Vyvanse as prescribed. Will have patient follow-up in 1.5-3 months for reassessment. Will give immunizations as per above. Patient verbalized understanding. Arden Cannon DO AINABILITY EXECUTIVE DIRECTOR documented in this encounter Plan of Treatment Not on file documented as of this encounter Visit Diagnoses Diagnosis Generalized anxiety disorder- Primary ADHD (attention deficit hyperactivity disorder), combined type Attention deficit disorder with hyperactivity Need for immunization against influenza Need for prophylactic vaccination and inoculation against influenza Need for dtgbkrwrbx-nfwrxix-mairhkssq (Tdap) vaccine Need for prophylactic vaccination with combined qmzdznfnmq-hfgwhkm-xwwwnxriw (DTP) vaccine documented in this encounter Additional Health Concerns Assessment Noted Time PHQ-9 Depression Total Score: 3 06/03/20 20 9:40 AM CDT documented as of this encounter Care Teams Customer Sales Consultant Relationship Specialty Start Date End Date Arden Cannon DO [address] [place] [phone] PCP - General FAMILY PRACTICE 01/12/19 documented as of this encounter
--- OUTSIDE RECORDS SUMMARY | 2024-09-30 09:15 | XMS_ITS | Encounter Summary ---
Author Organization [facility] Address [address] [place] [address] [place] [address] Care Team Providers Care Collection Systems Consultant Name Role Phone Arden Cannon DO Primary Care Provider + Reason for Visit * Reason Comments Attention Deficit Hyperactivity Disorder follow up Encounter Details Date Type Department Care Team (Latest Contact Info) Description 06/03/2020 9:20 AM CDT Office Visit [facility] Family & Internal Medicine - [place] [address] [place] [phone] Arden Cannon DO [facility] [place] [address] Attention Deficit Hyperactivity Disorder (follow up ) [...] have Coronavirus / COVID-19? No / Unsure 06/03/2020 9:25 AM CDT documented as of this encounter Last Filed Vital Signs Vital Sign Reading Time Taken Comments Blood Pressure 112/72 06/03/2020 9:35 AM CDT Pulse 99 06/03/2020 9:35 AM CDT Temperature 36.7 ??C (98 ??F) 06/03/2020 9:35 AM CDT Respiratory Rate 16 06/03/2020 9:35 AM CDT Oxygen Saturation 99% 06/03/2020 9:35 AM CDT Inhaled Oxygen Concentration - - Weight 63.5 kg (139 lb 14.4 oz) 06/03/2020 9:35 AM CDT Height 170.2 cm (5' 7 ) 06/03/2020 9:35 AM CDT Body Mass Index 21.91 06/03/2020 9:35 AM CDT documented in this encounter Progress Notes * Arden Cannon, - 06/03/2020 9:20 AM CDT Images from the original note were not included. GENERAL OFFICE VISIT Encounter Date: 06/03/2020 Chief Complaint: 20-year-old female presents for Attention Deficit Hyperactivity Disorder (follow up ) HPI: Pt is here for follow-up on his ADHD and anxiety medications. Pt has a diagnosis of ADHD, Combined Type. Concurrent psychiatric conditions include anxiety, which we [...] like the way she felt on these. Review of Systems Constitutional: Negative for fever. Respiratory: Negative for shortness of breath. Psychiatric/Behavioral: [...] Partners: Male control/protection: Condom Lifestyle ??? Physical activity: Days per week: Not on file Minutes per session: Not on file ??? Stress: Not on file Relationships ??? Social connections: Talks on phone: Not on file Gets together: Not on file Attends mandaen service: Not on file Active member of [...] Outpatient Medications Medication Sig Dispense Refill ??? cranberry 500 MG Cap Take 1 capsule by mouth 3 (three) times daily. ??? DULoxetine 30 MG capsule Take 1 capsule (30 mg total) by mouth daily. 30 capsule 2 ??? lisdexamfetamine 50 MG capsule Take 1 [...] Allergen Reactions ??? Sertraline Hives Objective: Vitals: 06/03/20 0935 BP: 112/72 Pulse: 99 Resp: 16 Temp: 98 ??F (36.7 ??C) SpO2: 99% Physical Exam Constitutional: She is oriented to [...] for this visit: Generalized anxiety disorder - DULoxetine 30 MG capsule; Take 1 capsule (30 mg total) by mouth daily. ADHD (attention deficit hyperactivity disorder), combined type Encounter for long-term (current) use of other medications - PAIN MANAGEMENT 7 PROFILE Discussion/Summary: Stop Wellbutrin and start Cymbalta. Continue Vyvanse as prescribed. Will have patient follow-up in 1.5 months for reassessment. CSA and UDS obtained today. Patient verbalized understanding. Arden Cannon DO documented in this encounter Plan of Treatment Not on file documented as of this encounter Procedures Procedure Name Priority Date/Time Associated Diagnosis Comments DRUG MONITORING, PANEL 7, WITH CONFIRMATION, (U) Routine 06/03/2020 9:28 AM CDT Encounter for long-term (current) use of other medications documented in this encounter Results * (ABNORMAL) PAIN MANAGEMENT 7 PROFILE (06/03/2020 9:28 AM CDT) CREATININE RANDOM URINE 125.9 > or = 20.0 mg/dL [facility] pH PM (U) 8.1 4.5 - 9.0 [facility] OXIDANT NEGATIVE <200 mcg/mL [facility] AMPHETAMINES PM NEGATIVE <500 ng/mL [facility] AMPHETAMINES PM MEDMATCH (U) CONSISTENT [facility] BARBITURATES PM (U) NEGATIVE <300 ng/mL [facility] BARBITURATES PM MM (U) CONSISTENT [facility] BENZODIAZEPINES PM (U) NEGATIVE <100 ng/mL [facility] BENZODIAZEPINES PM MEDMATCH (U) CONSISTENT [facility] MARIJUANA METABOLITE PM (U) POSITIVE(A) <20 ng/mL [facility] MARIJUANA METABOLITE PM CONF (U) 689(H) <5 ng/mL [facility] Comment:See Note 1 MARIJUANA METAB PM MM CONF (U) INCONSISTENT( A) [facility] COCAINE METABOLITE PM (U) NEGATIVE <150 ng/mL [facility] COCAINE METABOLITE PM MEDMATCH (U) CONSISTENT [facility] METHADONE PM (U) NEGATIVE <100 ng/mL [facility] METHADONE PM MEDMATCH CONSISTENT [facility] OPIATES PM (U) NEGATIVE <100 ng/mL [facility] OPIATES PM MEDMATCH (U) CONSISTENT [facility] OXYCODONE PM (U) NEGATIVE <100 ng/mL [facility] OXYCODONE PM MEDMATCH CONSISTENT [facility] Comment: [facility] Comment:See Note 2 ALCOHOL METABOLITES (U) POSITIVE(A) <500 ng/mL [facility] Comment:See Note 1 ETHYL GLUCURONIDE (U) 3,636(H) <500 ng/mL [facility] Comment:See Note 1 ETHYL GLUCURONIDE MEDMATCH (U) INCONSISTENT( A) [facility] ETHYL SULFATE (U) 608(H) <100 ng/mL [facility] Comment:See Note 1 ETHYL SULFATE MEDMATCH (U) INCONSISTENT( A) [facility] Comment: [facility] Comment:See Note 2 MORPHINE (U) NEGATIVE <10 ng/mL [facility] MORPHINE PM [facility] CONSISTENT [facility] Comment: [facility] Comment: See Note 2 Note 1 This test was developed and its analytical performance characteristics have been determined by [facility]. It has not been cleared or approved by the FDA. This assay has been validated pursuant to the CLIA regulations and is used for clinical purposes. Note 2 This drug testing is for medical treatment only. ?? Analysis was performed as non-forensic testing and these results should be used only by healthcare providers to render diagnosis or treatment, or to monitor progress of medical conditions. medMATCH comments are: - present when drug test results may be the result of ?? metabolism of one or more drugs or when results are ?? inconsistent with prescribed medication(s) listed. - may be blank when drug results are consistent with ?? prescribed medication(s) listed. For assistance with interpreting these drug results, please contact a [facility] Toxicology Specialist: [phone] ( ), M-F, 8am-6pm EST. 06/03/2020 9:28 AM CDT 06/04/2020 3:08 AM CDT Narrative Resulting Agency Comment Performing Organization Information: ?Site ID: ?Name: [facility] ?Address: [address] [place] [id number] ?Director: Serafin Hays M.D. us Arden Cannon DO LABORATORY Final Re sult [facility] [employer] [facility] [address] [place] [address] documented in this encounter Visit Diagnoses Diagnosis Generalized anxiety disorder- Primary ADHD (attention deficit hyperactivity disorder), combined type Attention deficit disorder with hyperactivity Encounter for long-term (current) use of other medications documented in this encounter Additional Health Concerns Assessment Noted Time PHQ-9 Depression Total Score: 3 06/03/20 20 9:40 AM CDT documented as of this encounter Care Teams Collection Systems Consultant Relationship Specialty Start Date End Date Arden Cannon DO [address] [place] [phone] PCP - General FAMILY PRACTICE 01/12/19 documented as of this encounter
--- OUTSIDE RECORDS SUMMARY | 2024-09-30 09:15 | XMS_ITS | Encounter Summary ---
Author Organization [facility] Address [facility] [facility] [place] [address] [place] [address] Care Team Providers Care Utility Repairer Name Role Phone Arden Cannon Primary Care Provider + Encounter Details Date Type Department Care Team (Latest Contact Info) Description 09/19/2020 Travel Social History Tobacco Use Types Packs/Day [...] COVID-19? No / Unsure 09/19/2020 8:44 AM JOB ESTIMATOR documented as of this encounter Plan of Treatment Not on file documented as of this encounter Visit Diagnoses Not on filedocumented in this encounter Additional Health Concerns Infection Onset Date Last Indicated Resolved Time COVID-19 Rule Out 07/21/2020 07/21/2020 09/19/2020 12:35 AM JOB ESTIMATOR Assessment Noted Time PHQ-9 Depression Total Score: 3 06/03/20 20 9:40 AM CDT documented as of this encounter Care Teams Utility Repairer Relationship Specialty Start Date End Date Arden Cannon DO [address] [place] [phone] PCP - General FAMILY PRACTICE 01/12/19 documented as of this encounter
--- OUTSIDE RECORDS SUMMARY | 2024-09-30 09:15 | XMS_ITS | Encounter Summary ---
Author Organization [facility] Address [facility] [place] [address] [place] [address] Care Team Providers Care Motorcycle Racer Name Role Phone Arden Cannon Primary Care Provider + Encounter Details Date Type Department Care Team (Latest Contact Info) Description 06/03/2020 Travel Social History Tobacco Use Types Packs/Day [...] documented as of this encounter Care Teams Motorcycle Racer Relationship Specialty Start Date End Date Arden Cannon DO [address] [place] [phone] PCP - General FAMILY PRACTICE 01/12/19 documented as of this encounter
--- OUTSIDE RECORDS SUMMARY | 2024-09-30 09:15 | XMS_ITS | Encounter Summary ---
Author Organization [facility] Address [facility] [place] [address] [place] [address] Care Team Providers Care Aurist Name Role Phone Arden Cannon DO Primary Care Provider + Reason for Visit * Reason Onset Date Comments Refill Request 12/29/2019 UTI 12/29/2019 Encounter Details Date Type Department Care Team (Late st Contact Info) Description 12/29/2019 Telephone [facility] Family & Internal Medicine [facility] [address] [place] [phone] Arden Cannon DO [address] [place] [address] Refill Request; UTI Social History Tobacco Use Types Packs/Day Years [...] as of this encounter Progress Notes * Alexa Munoz RN - 12/30/2019 10:56 AM CDT LMTC 12/30/19 * Arden Cannon DO - 12/29/2019 9:18 AM CDT Is pt able to come in just for a UA? Will fill script. * Janine Wasserman MA - 12/29/2019 8:56 AM CDT JEN 09/16/20 no upcoming appt Last fill 11/12/19 Patient having UTI sx, frequency, urgency and dysuria. 1 week. documented in this encounter Plan of Treatment Not on file documented as of this encounter Visit Diagnoses Diagnosis ADHD (attention deficit hyperactivity disorder), combined type Attention deficit disorder with hyperactivity documented in this encounter Care Teams Aurist Relationship Specialty Start Date End Date Arden Cannon DO [address] [place] [id number] PCP - General FAMILY PRACTICE 01/12/19 documented as of this encounter
--- OUTSIDE RECORDS SUMMARY | 2024-09-30 09:15 | XMS_ITS | Encounter Summary ---
Author Organization [facility] Address [facility]6 [facility] [address] [place] [address] Care Team Providers Care Retail Analytics Manager Name Role Phone Arden Cannon DO Primary Care Provider + Reason for Visit * Reason Comments Fatigue for a couple of year s after infection or stress Encounter Details Date Type Department Care Team (Late st Contact Info) Description 11/07/2020 1:00 PM ENGINEERING WRITER Office Visit [facility] Family & Internal Medicine - [place] [address] [place] [phone] Arden Cannon DO [address] [place] [address] Fatigue (for a couple of years after infection or stress) Social History Tobacco Use Types Packs/Day Years [...] COVID-19? No / Unsure 11/07/2020 12:59 PM ENGINEERING WRITER documented as of this encounter Last Filed Vital Signs Vital Sign Reading Time Taken Comments Blood Pressure 102/68 11/07/2020 1:09 PM ENGINEERING WRITER Pulse 70 11/07/2020 1:09 PM ENGINEERING WRITER Temperature 36.7 ??C (98 ??F) 11/07/2020 1:09 PM ENGINEERING WRITER Respiratory Rate 16 11/07/2020 1:09 PM ENGINEERING WRITER Oxygen Saturation 98% 11/07/2020 1:09 PM ENGINEERING WRITER Inhaled Oxygen Concentration - - Weight 61.7 kg (136 lb 1.6 oz) 11/07/2020 1:09 P M ENGINEERING WRITER Height 170.2 cm (5' 7 ) 11/07/2020 1:09 PM ENGINEERING WRITER Body Mass Index 21.32 11/07/2020 1:09 PM ENGINEERING WRITER documented in this encounter Progress Notes * Arden Cannon, - 11/07/2020 1:00 PM CST Images from the original note were not included. GENERAL OFFICE VISIT Encounter Date: 11/07/2020 Chief Complaint: 20-year-old female presents for Fatigue (for a couple of years after infection or stress) HPI: Pt states she has a history of fatigue. Pt states she first noticed it when she had kidney infections. She states she will have episodes where her face becomes red, she will feel off, feel her legswouldn't move, her lips started turning yun, and her eyes turned yun. She states she also passed out at one point. She then noted her neck muscles would hurt. She states she will bruise easily. She shows pictures which are similar to a butterfly rash. Pt has hx of supraventricular premature complexes and PACs. Pt presents for follow-up. At last visit, We stopped pt's Wellbutrin and started pt on Cymbalta. We kept her on Vyvanse. Pt stated she stopped taking it as it made her feel funny. Pt states she would like to try the Wellbutrin despite previous side effects as she has been more active and feeling better in general. Pt is still doing well on Vyvanse. Since then, pt has been doing well on her medications with no complaints. Review of Systems Constitutional: Negative for fever. [...] file Gets together: Not on file Attends druze service: Not on file Active member of [...] 1998, 05/09/1999, 06/15/2003 ??? Fluzone 6 Months+ (0.5 mL Prefilled Syringe IIV4) 09/19/2020 ??? HPV4 (Gardasil) 06/20/2011, 08/20/2011, 07/22/2012 [...] File Prior to Visit Medication Sig ??? buPROPion XL (WELLBUTRIN XL) 150 MG 24 hr tablet Take 1 tablet (150 mg total) by mouth daily. ??? cranberry 500 MG Cap Take 1 capsule by mouth 3 (three) times daily. ??? lisdexamfetamine 50 MG capsule Take 1 capsule (50 mg total) by mouth every morning. No current facility-administered medications on file prior to visit. Allergies Allergen Reactions ??? Sertraline Hives Objective: Vitals: 11/07/20 1309 BP: 102/68 Pulse: 70 Resp: 16 Temp: 98 ??F (36.7 ??C) SpO2: 98% Physical Exam Constitutional: She is oriented to person, place, and time and well-developed, well-nourished, and in no distress. Thin HENT: Head: Normocephalic and atraumatic. Right Ear: External ear normal. Left Ear: External ear normal. Eyes: Conjunctivae are normal. Neck: Neck supple. No thyromegaly present. Cardiovascular: Normal rate and regular rhythm. Exam reveals no gallop and no friction rub. No murmur heard. Pulmonary/Chest: Effort normal and breath sounds normal. Abdominal: Soft. There is no abdominal tenderness. Lymphadenopathy: She has no cervical adenopathy. Neurological: She is alert and oriented to person, place, and time. Skin: Skin is warm and dry. No rash noted. Psychiatric: Mood normal. Assessment & Plan: Corinna was seen today for fatigue. Diagnoses and all orders for this visit: Butterfly rash - ROBBIE IFA SCREEN WI RFX TO TITER/CASCADE; Future - CYCLIC CITRULLINATED PEPTIDE (CCP)ANTIBODY(IGG); Future - RHEUMATOID FACTOR, QUANT; Future - SED RATE, ERYTHROCYTE (ESR); Future - C-REACTIVE PROTEIN; Future - ROBBIE IFA SCREEN WI RFX TO TITER/CASCADE - CYCLIC CITRULLINATED PEPTIDE (CCP)ANTIBODY(IGG) - RHEUMATOID FACTOR, QUANT - SED RATE, ERYTHROCYTE (ESR) - C-REACTIVE PROTEIN Syncope, unspecified syncope type Generalized anxiety disorder Screening for lipid disorders - COMPREHENSIVE METABOLIC PANEL; Future - COMPREHENSIVE METABOLIC PANEL Screening for endocrine, metabolic and immunity disorder - CBC W/DIFF AUTOMATED; Future - LIPID PANEL; Future - TSH W/REFLEX; Future - CBC W/DIFF AUTOMATED - LIPID PANEL - TSH W/REFLEX Annual physical exam - CBC W/DIFF AUTOMATED; Future - LIPID PANEL; Future - TSH W/REFLEX; Future - COMPREHENSIVE METABOLIC PANEL; Future - CBC W/DIFF AUTOMATED - LIPID PANEL - TSH W/REFLEX - COMPREHENSIVE METABOLIC PANEL Discussion/Summary: Symptoms are somewhat atypical based on presentation today, but rash the patient noted on picture she had taken is consistent with butterfly rash. Will order lab work as per above, including rheumatological studies. Given described symptoms, consider cardiac work-up if rheumatological evaluation is unremarkable. Can use Tylenol or ibuprofen for muscle pains at this time. Will dictate follow-up based upon results of above testing. Patient verbalized understanding. Arden Cannon DO NEERING WRITER documented in this encounter Plan of Treatment Scheduled Orders Name Type Priority Associated Diagnoses Orde r Schedule CBC W/DIFF AUTOMATED Lab Routine Screening for endocrine, metabolic and immunity disorder Annual physical exam Expected: 11/07/2020, Expires: 11/07/2021 LIPID PANEL Lab Routine Screening for endocrine, metabolic and immunity disorder Annual physical exam Expected: 11/07/2020, Expires: 11/07/2021 TSH W/REFLEX Lab Routine Screening for endocrine, metabolic and immunity disorder Annual physical exam Expected: 11/07/2020, Expires: 11/07/2021 COMPREHENSIVE METABOLIC PANEL Lab Routine Screening for lipid disorders Annual physical exam Expected: 11/07/2020, Expires: 11/07/2021 ROBBIE IFA SCREEN WI RFX TO TITER/CASCADE Lab Routine Butterfly rash Expected: 11/07/2020, Expires: 11/07/2021 CYCLIC CITRULLINATED PEPTIDE (CCP)ANTIBODY(IGG) Lab Routine Butterfly rash Expected: 11/07/2020, Expires: 11/07/2021 RHEUMATOID FACTOR, QUANT Lab Routine Butterfly rash Expected: 11/07/2020, Expires: 11/07/2021 SED RATE, ERYTHROCYTE (ESR) Lab Routine Butterfly rash Expected: 11/07/2020, Expires: 11/07/2021 C-REACTIVE PROTEIN Lab Routine Butterfly rash Expected: 11/07/2020, Expires: 11/07/2021 documented as of this encounter Visit Diagnoses Diagnosis Butterfly rash- Primary Rash and other nonspecific skin eruption Syncope, unspecified syncope type Generalized anxiety disorder Screening for lipid disorders Screening for endocrine, metabolic and immunity disorder Annual physical exam Routine general medical examination at a health care facility documented in this encounter Additional Health Concerns Assessment Noted Time PHQ-9 Depression Total Score: 10 021 1:10 PM ENGINEERING WRITER documented as of this encounter Care Teams Retail Analytics Manager Relationship Specialty Start Date End Date Arden Cannon DO [address] [place] [id number] PCP - General FAMILY PRACTICE 01/12/19 documented as of this encounter
--- OUTSIDE RECORDS SUMMARY | 2024-09-30 09:15 | XMS_ITS | Encounter Summary ---
Author Organization [facility] Address [facility] [place] [address] [place] [address] Care Team Providers Care Soil Sampler Name Role Phone Arden Cannon DO Primary Care Provider + Encounter Details Date Type Department Care Team (Latest Contact Info) Description 11/17/2019 Scan HEALTH INFO SRVCS Scanned, Documents Social History Tobacco Use Types Packs/Day Years [...] on filedocumented in this encounter Care Teams Soil Sampler Relationship Specialty Start Date End Date Arden Cannon DO [address] [place] [id number] PCP - General FAMILY PRACTICE 01/12/19 documented as of this encounter
--- OUTSIDE RECORDS SUMMARY | 2024-09-30 09:15 | XMS_ITS | Encounter Summary ---
Author Organization [facility] Address [facility]6 [facility] [place] [address] [place] [address] Care Team Providers Care Slackman Name Role Phone Arden Cannon Romy ROBERTSON Primary Care Provider + Encounter Details Date Type Department Care Team (Latest Contact Info) Description 01/15/2020 Travel Social History Tobacco Use Types Packs/Day [...] have Coronavirus / COVID-19? No / Unsure 01/15/2020 6:23 PM CDT documented as of this encounter Plan of Treatment Not on file documented as of this encounter Visit Diagnoses Not on filedocumented in this encounter Care Teams Slackman Relationship Specialty Start Date End Date Arden Cannon DO [address] [place] [id number] PCP - General FAMILY PRACTICE 01/12/19 documented as of this encounter
--- OUTSIDE RECORDS SUMMARY | 2024-09-30 09:15 | XMS_ITS | Encounter Summary ---
Author Organization [facility] Address [facility] [place] [address] [place] [address] Care Team Providers Care Pump Assembler Name Role Phone Arden Cannon Primary Care Provider + Encounter Details Date Type Department Care Team (Latest Contact Info) Description 02/24/2020 Travel Social History Tobacco Use Types Packs/Day [...] have Coronavirus / COVID-19? No / Unsure 02/24/2020 12:51 PM CDT documented as of this encounter Plan of Treatment Not on file documented as of this encounter Visit Diagnoses Not on filedocumented in this encounter Care Teams Pump Assembler Relationship Specialty Start Date End Date Arden Cannon DO [address] [place] [phone] PCP - General FAMILY PRACTICE 01/12/19 documented as of this encounter
--- OUTSIDE RECORDS SUMMARY | 2024-09-30 09:15 | XMS_ITS | Encounter Summary ---
Author Organization [facility] Address [address] [facility] [place] [address] [place] [address] Care Team Providers Care Professor Of Family Medicine Name Role Phone Arden Cannon DO Primary Care Provider + Reason for Visit * Reason Comments Attention Deficit Hyperactivity Disorder Anxiety Encounter Details Date Type Department Care Team (Latest Contact Info) Description 02/24/2020 1:00 PM CDT Telemedicine [facility] Medical Group Family & Internal Medicine - [address] [phone] Arden Cannon DO [address] [place] [id number] Attention Deficit Hyperactivity Disorder; Anxiety Social History Tobacco Use Types Packs/Day Years [...] PM CDT documented as of this encounter Progress Notes * Arden P Davis, - 02/24/2020 1:00 PM CDT Images from the original note were not included. GENERAL OFFICE VISIT Encounter Date: 02/24/2020 I introduced and identified myself, received verbal consent from the patient to proceed with this video visit and made the patient aware that the same confidentiality and information technology coordinator practices apply. The patient joined the video visit from Home. I completed the virtual visit from Office. The following clinical staff helped with this visit MA: Janine Wasserman. Total Time Spent in Minutes: 10 Chief Complaint: 20-year-old female presents for Attention Deficit Hyperactivity Disorder and Anxiety HPI: Pt is here for follow-up on his ADHD medications. Pt has a diagnosis of ADHD, Combined Type. Concurrent psychiatric conditions include anxiety, which is worse right now because of COVID pandemic. Pt is currently on Vyvanse. Pt's symptoms are well controlled. Current ADHD symptoms include none. Pt notes the following side effects: none. No other acute symptoms. No history of seizures. Pt has takenLexapro, Zoloft, and Xanax and had adverse reactions or didn't like the way she felt on these. Review of Systems Constitutional: Negative for fever. Respiratory: Negative for cough and shortness of breath. Neurological: Negative for seizures. Psychiatric/Behavioral: See HPI Patient Active Problem List [...] file Gets together: Not on file Attends temple service: Not on file Active member of [...] Social History Narrative ??? Not on file There is no immunization history on file for this patient. Current Outpatient Medications Medication Sig Dispense Refill ??? buPROPion XL 150 MG 24 hr tablet Take 1 [...] are relevant to this visit. Physical Exam Constitutional: She is oriented to person, place, and time and well-developed, well-nourished, and in no distress. HENT: Head: Normocephalic and atraumatic. Right Ear: External ear normal. Left Ear: External ear normal. Eyes: Conjunctivae are normal. No scleral icterus. Pulmonary/Chest: Effort normal. Neurological: She is alert and oriented to person, place, and time. Skin: Skin is warm and dry. No rash noted. Psychiatric: Mood and affect normal. Assessment & Plan: Corinna was seen today for attention deficit hyperactivity disorder and anxiety. Diagnoses and all orders for this visit: ADHD (attention deficit hyperactivity disorder), combined type Generalized anxiety disorder - buPROPion XL 150 MG 24 hr tablet; Take 1 tablet (150 mg total) by mouth daily. Discussion/Summary: Discussed possible treatment modalities for her anxiety. Based upon her past history of medication use and current symptoms, we will start patient on Wellbutrin at this time. Discussed side effect profile. Can continue Vyvanse as previously prescribed. Would like to have her follow-up in 3 months regardless of her improvement, but will need to be seen sooner if she is not improving as expected with Wellbutrin. Patient verbalized understanding. Arden Cannon DO documented in this encounter Plan of Treatment Not on file documented as of this encounter Visit Diagnoses Diagnosis ADHD (attention deficit hyperactivity disorder), combined type- Primary Attention deficit disorder with hyperactivity Generalized anxiety disorder documented in this encounter Care Teams Professor Of Family Medicine Relationship Specialty Start Date End Date Arden Cannon DO [address] [place] [phone] PCP - General FAMILY PRACTICE 01/12/19 documented as of this encounter
--- OUTSIDE RECORDS SUMMARY | 2024-09-30 09:15 | XMS_ITS | Encounter Summary ---
Author Organization [facility] Address [facility]6 [facility] [place] [address] [place] [address] Care Team Providers Care Mri Supervisor Name Role Phone Arden Cannon Romy ROBERTSON Primary Care Provider + Encounter Details Date Type Department Care Team (Late st Contact Info) Description 09/09/2019 Orders Only [facility] Family & Internal Medicine - [address] [phone] Ann Monterroso MA Social History Tobacco Use Types Packs/Day Years [...] on filedocumented in this encounter Care Teams Mri Supervisor Relationship Specialty Start Date End Date Arden Cannon DO [address] [place] [address] PCP - General FAMILY PRACTICE 01/12/19 documented as of this encounter
--- OUTSIDE RECORDS SUMMARY | 2024-09-30 09:15 | XMS_ITS | Encounter Summary ---
Author Organization [facility] Address [facility]6 [facility] [place] [address] [place] [address] Care Team Providers Care Occupational Therapist Rehab Manager Name Role Phone Arden Cannon DO Primary Care Provider + Reason for Visit * Reason Onset Date Comments UTI 07/16/2019 Encounter Details Date Type Department Care Team (Late st Contact Info) Description 07/16/2019 Telephone [facility] Medical Group Family & Internal Medicine - [address] [phone] Arden Cannon DO [address] [place] [address] UTI Social History Tobacco Use Types Packs/Day [...] as of this encounter Progress Notes * Alka Villanueva MA - 07/20/2019 5:03 PM CDTAddended by: ALKA VILLANUEVA on: 07/20/2019 05:03 PM Modules accepted: Orders * Alka Villanueva MA - 07/20/2019 5:02 PM CDT rx sent. Mailbox was full 07/20/19 * Arden Cannon DO - 07/20/2019 4:53 PM CDT Can do Bactrim DS BID for 5 days. Must be seen if not improving. * Gayle Avila MA - 07/20/2019 3:06 PM CDT Patient can not drop u/a off until morning and her symptoms are getting worse. Please advise * Alexa Munoz RN - 07/17/2019 8:47 AM CDT LMTC 07/17/19 * Arden Cannon DO - 07/16/2019 2:37 PM CDT Can she at least drop off a urine sample? * Gayle Avila MA - 07/16/2019 2:11 PM CDT Patient is requesting a medication for UTI, c/o urinary pressure, frequency and burning for 4-5 days . Started azo for discomfort but is working a lot of double shifts and cant come in for appt at this time. Please advise Allergic to zoloft marcela cv Cb#[phone] documented in this encounter Plan of Treatment Not on file documented as of this encounter Visit Diagnoses Diagnosis UTI (urinary tract infection)- Primary Urinary tract infection, site not specified documented in this encounter Care Teams Occupational Therapist Rehab Manager Relationship Specialty Start Date End Date Arden Cannon DO [address] [place] [phone] PCP - General FAMILY PRACTICE 01/12/19 documented as of this encounter
--- OUTSIDE RECORDS SUMMARY | 2024-09-30 09:15 | XMS_ITS | Encounter Summary ---
Author Organization [facility] Address [facility] [place] [address] [place] [address] Care Team Providers Care Asset Protection Assistant Name Role Phone Dennise Goodson DO Primary Care Provider + Reason for Visit * Reason Onset Date Comments Refill Request 02/22/2020 Encounter Details Date Type Department Care Team (Late st Contact Info) Description 02/22/2020 Telephone [facility] Medical Group Family & Internal Medicine - [address] [phone] Dennise Goodson DO [address] [place] [id number] Refill Request Social History Tobacco Use Types [...] as of this encounter Progress Notes * Bernarda Archuleta - 02/23/2020 3:44 PM CDT Patient called in scheduled a virtual visit for tomorrow. * Alexa Munoz RN - 02/23/2020 11:30 AM CDT LMTC 02/23/20 * Dennise Goodson DO - 02/22/2020 10:25 AM CDT Pt is due for visit for ADHD refill visit. This would be a good video visit opportunity; is pt ableto schedule this for this week? * Gayle Avila MA - 02/22/2020 10:22 AM CDT Refill request received from Pharmacy Last visit with DENNISE GOODSON in FAMILY PRACTICE was on: 09/16/2019 in [facility] No future appointments. [facility]/pharmacy [address] [place] [id number] Current Outpatient Medications: ??? lisdexamfetamine 50 MG capsule, Take 1 capsule (50 mg total) by mouth every morning., Disp: 30 capsule, Rfl: 0 documented in this encounter Plan of Treatment Not on file documented as of this encounter Visit Diagnoses Diagnosis ADHD (attention deficit hyperactivity disorder), combined type Attention deficit disorder with hyperactivity documented in this encounter Care Teams Asset Protection Assistant Relationship Specialty Start Date End Date Dennise Goodson DO [address] [place] [phone] PCP - General FAMILY PRACTICE 01/12/19 documented as of this encounter
--- OUTSIDE RECORDS SUMMARY | 2024-09-30 09:15 | XMS_ITS | Encounter Summary ---
Author Organization [facility] Address [facility] [facility] [place] [address] [place] [address] Care Team Providers Care Cold Storage Supervisor Name Role Phone Arden Cannon DO Primary Care Provider + Reason for Visit * Reason Comments Follow Up ADHD Congestion Sore Throat x2 weeks Encounter Details Date Type Department Care Team (Late st Contact Info) Description 09/16/2019 1:00 PM CIRCUIT BREAKER SUPERVISOR Office Visit [facility] Family & Internal Medicine - [place] [address] [place] [phone] Arden Cannon DO [address] [place], [place] [id number] Follow Up (ADHD); Congestion; Sore Throat (x2 weeks ) Social History Tobacco Use Types Packs/Day [...] Sign Reading Time Taken Comments Blood Pressure 122/70 09/16/2019 1:07 PM CIRCUIT BREAKER SUPERVISOR Pulse 103 09/16/2019 1:07 PM CIRCUIT BREAKER SUPERVISOR Temperature 36.6 ??C (97.8 ??F) 09/16/2019 1:07 PM CS T Respiratory Rate 16 09/16/2019 1:07 PM CIRCUIT BREAKER SUPERVISOR Oxygen Saturation 98% 09/16/2019 1:07 PM CIRCUIT BREAKER SUPERVISOR Inhaled Oxygen Concentration - - Weight 56.9 kg (125 lb 6 oz) 09/16/2019 1:07 PM CIRCUIT BREAKER SUPERVISOR Height 170.2 cm (5' 7 ) 09/16/2019 1:07 PM CIRCUIT BREAKER SUPERVISOR Body Mass Index 19.64 09/16/2019 1:07 PM CIRCUIT BREAKER SUPERVISOR documented in this encounter Progress Notes * Arden Cannon, - 09/16/2019 1:00 PM CST Images from the original note were not included. GENERAL OFFICE VISIT Encounter Date: 09/16/2019 Chief Complaint: 19-year-old female presents for Follow Up (ADHD); Congestion; and Sore Throat (x2 weeks ) . Pt is here for follow-up on his ADHD medications. Pt has a diagnosis of ADHD, Combined Type. Concurrent psychiatric conditions include none. Pt is currently on Vyvanse. Pt's symptoms are well controlled. Current ADHD symptoms include none. Pt notes the following side effects: none. Hasn't eaten much as being sick, so weight is down. Patient states symptoms have been present for 14 days. Pt states she will get flush and have bumps. She will get body aches severe. She will then get cold symptoms with drainage. She will then get an infection of some variety. She is having a sore throat & congestion for this episode. Review of Systems Constitutional: Negative for fever and weight loss. Respiratory: See HPI Cardiovascular: Negative for chest pain. Psychiatric/Behavioral: See HPI Patient Active Problem List Diagnosis ??? Osteochondritis dissecans ??? Seasonal allergies ??? ADHD (attention deficit hyperactivity disorder), combined type Past Medical History: Diagnosis Date ??? Anxiety ??? Depression Past Surgical History: [...] and Sexual Activity ??? Alcohol use: No Frequency: Never ??? Drug use: No ??? Sexual activity: Not on file Lifestyle ??? Physical activity: Days per week: Not on file Minutes per session: Not on file ??? Stress: Not on file Relationships ??? Social connections: Talks on phone: Not on file Gets together: Not on file Attends religion service: Not on file Active member of [...] Outpatient Medications Medication Sig Dispense Refill ??? doxycycline hyclate 100 MG capsule Take 1 capsule (100 mg total) by mouth 2 (two) times daily for 10 days. 20 capsule 0 ??? lisdexamfetamine (VYVANSE) 50 MG capsule Take 1 capsule (50 mg total) by mouth every morning for 30 days. 30 capsule 0 No current facility-administered medications for this visit. Current Outpatient Medications on File Prior to Visit Medication Sig ??? lisdexamfetamine (VYVANSE) 50 MG capsule Take 1 capsule (50 mg total) by mouth every morning for 30 days. No current facility-administered medications on file prior to visit. Allergies Allergen Reactions ??? Sertraline Hives Objective: Filed Vitals: 09/16/19 1307 BP: 122/70 Pulse: 103 Resp: 16 Temp: 97.8 ??F (36.6 ??C) SpO2: 98% Weight: 56.9 kg (125 lb 6 oz) Height: 5' 7 (1.702 m) Physical Exam Constitutional: She is oriented to person, place, and time and well-developed, well-nourished, and in no distress. HENT: Head: Normocephalic and atraumatic. Right Ear: Tympanic membrane, external ear and ear canal normal. Left Ear: Tympanic membrane, external ear and ear canal normal. Nose: Nose normal. Mouth/Throat: Oropharynx is clear and moist. No oropharyngeal exudate. Eyes: Conjunctivae are normal. Neck: Neck supple. Cardiovascular: Normal rate, regular rhythm and normal heart sounds. Exam reveals no gallop and no friction rub. No murmur heard. Pulmonary/Chest: Effort normal and breath sounds normal. No respiratory distress. She has no wheezes. She has no rales. Abdominal: Soft. Bowel sounds are normal. There is no tenderness. Musculoskeletal: She exhibits no edema. Lymphadenopathy: She has no cervical adenopathy. Neurological: She is alert and oriented to person, place, and time. Skin: Skin is warm and dry. No rash noted. Psychiatric: Affect normal. Nursing note and vitals reviewed. Assessment & Plan: Corinna was seen today for follow up, congestion and sore throat. Diagnoses and all orders for this visit: Acute non-recurrent maxillary sinusitis - doxycycline hyclate 100 MG capsule; Take 1 capsule (100 mg total) by mouth 2 (two) times daily for 10 days. ADHD (attention deficit hyperactivity disorder), combined type Discussion/Summary: Continue Vyvanse at this time. Will treat sinusitis with doxycycline. F/u in 3 months or sooner if needed. Pt v/u. Arden Cannon DO UIT BREAKER SUPERVISOR documented in this encounter Plan of Treatment Not on file documented as of this encounter Visit Diagnoses Diagnosis Acute non-recurrent maxillary sinusitis- Primary ADHD (attention deficit hyperactivity disorder), combined type Attention deficit disorder with hyperactivity documented in this encounter Care Teams Cold Storage Supervisor Relationship Specialty Start Date End Date Arden Cannon DO [address] [place] [id number] PCP - General FAMILY PRACTICE 01/12/19 documented as of this encounter
--- OUTSIDE RECORDS SUMMARY | 2024-09-30 09:15 | XMS_ITS | Encounter Summary ---
Author Organization [facility] Address [facility] [facility] [place] [address] [place] [address] Care Team Providers Care Culture Room Worker Name Role Phone Arden Cannon DO Primary Care Provider + Reason for Visit * Reason Onset Date Comments Letter 08/08/2020 Encounter Details Date Type Department Care Team (Late st Contact Info) Description 08/08/2020 Telephone [facility] Family & Internal Medicine - [address] [phone] Arden Cannon DO [address] [place] [id number] Letter Social History Tobacco Use Types Packs/Day Years Used Date Smoking Tobacco: Never Smokeless Tobacco: Never Alcohol Use Standard Drinks/Week Comments Yes 1.7 (1 standard drink = 0.6 oz p ure alcohol) occ AUDIT-C Answer Date Recorded Frequency of Alcohol Consumption Never 08/14/2018 Average Number of Drinks Not on file 018 Frequency of Binge Drinking Not on file 1110/2017 PHQ-2 Answer Date Recorded PHQ-2 Score 1 06/03/2020 Comments No Sex and Gender Information Value Date Recorded Sex Assigned at Not on file Legal Sex Female 2:50 AM CDT Gender Identity Not on file Sexual Orientation Not on file documented as of this encounter Progress Notes * Arden Cannon DO - 08/08/2020 3:01 PM CDT Very odd they didn't call her, but if she's doing better at this point she can be cleared to RTW. * Bernarda Archuleta - 08/08/2020 2:41 PM CDT Patient called asking for a return to work letter. She stated that Dwaine never set up a time forher to get tested but she self quarantined for 2 weeks and is feeling better. She does not have symptoms anymore, so she would like to go back to work. 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 documented in this encounter Plan of Treatment Not on file documented as of this encounter Visit Diagnoses Not on filedocumented in this encounter Additional Health Concerns Infection Onset Date Last Indicated Resolved Time COVID-19 Rule Out 07/21/2020 07/21/2020 09/19/2020 12:35 AM CASINO BEVERAGE SERVER Assessment Noted Time PHQ-9 Depression Total Score: 3 06/03/20 20 9:40 AM CDT documented as of this encounter Care Teams Culture Room Worker Relationship Specialty Start Date End Date Arden Cannon DO [address] [place] [phone] PCP - General FAMILY PRACTICE 01/12/19 documented as of this encounter
--- OUTSIDE RECORDS SUMMARY | 2024-09-30 09:15 | XMS_ITS | Encounter Summary ---
Author Organization [facility] Address [facility] [place] [address] [place] [address] Care Team Providers Care District Service Manager Name Role Phone Arden Cannon Primary Care Provider + Encounter Details Date Type Department Care Team (Latest Contact Info) Description 05/25/2021 Travel Social History Tobacco Use Types Packs/Day [...] or suspected to have Coronavirus / COVID-19? Unable to assess 05/25/2021 6:54 AM CDT documented as of this encounter Plan of Treatment Not on file documented as of this encounter Visit Diagnoses Not on filedocumented in this encounter Additional Health Concerns Assessment Noted Time PHQ-9 Depression Total Score: 10 021 1:10 PM MANAGER PAYER documented as of this encounter Care Teams District Service Manager Relationship Specialty Start Date End Date Arden Cannon DO [address] [place] [id number] PCP - General FAMILY PRACTICE 01/12/19 documented as of this encounter
--- OUTSIDE RECORDS SUMMARY | 2024-09-30 09:15 | XMS_ITS | Encounter Summary ---
Author Organization [facility] Address [facility] [place] [address] [place] [address] Care Team Providers Care Personal Trainer Name Role Phone Arden Cannon DO Primary Care Provider + Reason for Visit * Reason Comments Medication Follow up Encounter Details Date Type Department Care Team (Late st Contact Info) Description 05/25/2021 2:00 PM CDT Telemedicine [facility] Family & Internal Medicine - [address] [phone] Arden Cannon DO [address] [place] [phone] Medication (Follow up ) Social History Tobacco Use Types [...] encounter Progress Notes * Arden Cannon, - 05/25/2021 2:00 PM CDT Images from the original note were not included. GENERAL OFFICE VISIT Encounter Date: 05/25/2021 I introduced and identified myself, received verbal consent from the patient to proceed with this video visit and made the patient aware that the same confidentiality and information technology teacher practices apply. The patient joined the video visit from Vehicle. I completed the virtual visit from Office. The following clinical staff helped with this visit MA: Gayle Avila. Total Time Spent in Minutes: 6 Chief Complaint: 21-year-old female presents for Medication (Follow up ) HPI: Pt is here for follow-up on his ADHD medications. Pt has a diagnosis of ADHD, Combined Type. Concurrent psychiatric conditions include none. Pt is currently on Vyvanse. Pt's symptoms are well controlled. Current ADHD symptoms include none. Pt notes the following side effects: none. No other acute symptoms. She is unsure how she will do once she goes back to school, but she is doing well at this time. Pt is still needing to obtain labs ordered at last OV. Review of Systems Constitutional: Negative for fever. [...] Social Determinants of Health Financial Resource Strain: ??? Difficulty of Paying Living Expenses: Food Insecurity: ??? Worried About Running Out of Food in the Last Year: ??? Ran Out of Food in the Last Year: Transportation Needs: ??? Lack of Transportation (Medical): ??? Lack of Transportation (Non-Medical): Physical Activity: ??? Days of Exercise per Week: ??? Minutes of Exercise per Session: Stress: ??? Feeling of Stress : Social Connections: ??? Frequency of Communication with Friends and Family: ??? Frequency of Social Gatherings with Friends and Family: ??? Attends Sikhism Services: ??? Active Member of Clubs or Organizations: ??? Attends Club or Organization Meetings: ??? Marital Status: Intimate Partner Violence: ??? Fear of Current or Ex-Partner: ??? Emotionally Abused: ??? Physically Abused: ??? Sexually Abused: Immunization History Administered Date(s) Administered ??? Dtap [...] Ear: External ear normal. Nose: Nose normal. Mouth/Throat: Oropharynx is clear and moist. Eyes: Conjunctivae are normal. No scleral icterus. Pulmonary/Chest: Effort normal. No audible abnormalities noted today Neurological: She is alert and oriented to person, place, and time. Skin: Skin is dry. No rash noted. Psychiatric: Mood and affect normal. Nursing note and vitals reviewed. Assessment & Plan: Corinna was seen today for medication. Diagnoses and all orders for this visit: ADHD (attention deficit hyperactivity disorder), combined type Butterfly rash - ROBBIE IFA SCREEN WI RFX TO TITER/CASCADE; Future - CYCLIC CITRULLINATED PEPTIDE (CCP)ANTIBODY(IGG); Future - RHEUMATOID FACTOR, QUANT; Future - SED RATE, ERYTHROCYTE (ESR); Future - C-REACTIVE PROTEIN; Future Screening for endocrine, metabolic and immunity disorder - CBC W/DIFF AUTOMATED; Future - COMPREHENSIVE METABOLIC PANEL; Future - TSH W/REFLEX; Future Screening for lipid disorders - LIPID PANEL; Future Annual physical exam - CBC W/DIFF AUTOMATED; Future - COMPREHENSIVE METABOLIC PANEL; Future - TSH W/REFLEX; Future - LIPID PANEL; Future Discussion/Summary: Continue medicine as prescribed. Will change labs to be done here in our office. Will do UDS when labs are drawn. Will have pt f/u likely in 3 months for reassessment. Pt v/u. Arden Cannon DO documented in this encounter Plan of Treatment Scheduled Orders Name Type Priority Associated Diagnoses Orde r Schedule DRUG MONITORING, PANEL 7, WITH CONFIRMATION, (U) Lab Routine ADHD (attention deficit hyperactivity disorder), combined type Drug therapy Ordered: 05/25/2021 documented as of this encounter Visit Diagnoses Diagnosis ADHD (attention deficit hyperactivity disorder), combined type- Primary Attention deficit disorder with hyperactivity Butterfly rash Rash and other nonspecific skin eruption Screening for endocrine, metabolic and immunity disorder Screening for lipid disorders Annual physical exam Routine general medical examination at a health care facility Drug therapy Encounter for long-term (current) use of other medications documented in this encounter Additional Health Concerns Assessment Noted Time PHQ-9 Depression Total Score: 10 021 1:10 PM ICE 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
--- OUTSIDE RECORDS SUMMARY | 2024-09-30 09:15 | XMS_ITS | Encounter Summary ---
Author Organization [facility] Address [address] [facility] [place] [address] [place] [address] Care Team Providers Care Food Clerk Name Role Phone Arden Cannon DO Primary Care Provider + Reason for Referral * (Routine) - Closed Specialty Diagnoses / Procedures Referred By Carrie robb Referred To Contact Procedures LACERATION REPAIR Prasanna Chris PA-C [address] [place] [address] Phone: tel: fax: Referral ID Status Reason Start Date Expiration Date Visits Re quested Visits Authorized [id number] Closed 01/15/2020 02/13/2021 1 1 Reason for Visit * Reason Comments Laceration Encounter Details Date Type Department Care Team (Late st Contact Info) Description 01/15/2020 5:57 PM CDT - 01/15/2020 7:30 PM CDT Emergency [facility] [place] [address] Prasanna Chris PA-C [address] [place] [address] Laceration Discharge Disposition: Home or Self Care (Routine [...] PM CDT documented as of this encounter Last Filed Vital Signs Vital Sign Reading Time Taken Comments Blood Pressure 112/68 01/15/2020 5:47 PM CDT Pulse 89 01/15/2020 5:47 PM CDT Temperature 36.8 ??C (98.3 ??F) 01/15/2020 5:47 PM CD T Respiratory Rate 18 01/15/2020 5:47 PM CDT Oxygen Saturation 100% 01/15/2020 5:47 PM CDT Inhaled Oxygen Concentration - - Weight 59.7 kg (131 lb 9.6 oz) 01/15/2020 5:47 P M CDT Height 170.2 cm (5' 7 ) 01/15/2020 5:47 PM CDT Body Mass Index 20.61 01/15/2020 5:47 PM CDT documented in this encounter Discharge Instructions * Discharge Instructions* Prasanna Chris PA-C - 01/15/2020 7:03 PM CDT Laceration/Wound Repair Discharge Information: 1. All lacerations will heal with a scar 2. All laceration repairs have a risk of infection 3. Wounds take many months to heal fully and they will never return to their full tensile strength. 4. After the dressing has been removed, your wound can get wet now that it is repaired 5. Wounds can be gently cleansed with warm water and soap in the shower, but avoid soaking the wound or swimming generally until after the sutures have been removed When to follow up for suture removal: 7 days Return Precautions: 1. Increasing pain, redness, heat/warmth, swelling, fever, discharge - these are signs of infectionand you should return to the Emergency Department or follow up immediately for recheck 2. Wound checks may be necessary in the next 48 hours, please contact your primary care for arrangements if needed. Please do not hesitate to contact me if you have any additional questions. ([phone]; Prasanna Chris PA-C) Our practice is committed to providing you with the very best in healthcare. We want to hear from you! Please fill out the survey you get from us. Your feedback is anonymous & helps us improve the patient experience for you and others in the community we serve. Follow-up with your primary care provider as directed for recheck. If you are unable to follow-up you may return to the emergency department if you experience persistent or worsening symptoms. If youfail to follow-up you may risk worsening symptoms that could result in organ damage, organ failure,permanent injury/disability and possibly . If you were prescribed pain medication, use cautionwith this as it may induce drowsiness. Do not operate machinery or drive while using pain medications. Take all your medications as directed or as prescribed. [facility] cares very much for your health and safety, and follow up is very important, even if you are feeling well. If you are having difficulty making a follow up appointment or getting access to your follow up appointment, you may return at any time to the emergency department for further assistance and recheck. * Attachments The following attachments cannot be sent through Care Everywhere. * Laceration Repair With Stitches Discharge Instructions (Greenlandic) documented in this encounter Medications at Time of Discharge lisdexamfetamine 50 MG capsuleIndications: ADHD (attention deficit hyperactivity disorder), combined type Take 1 capsule (50 mg total) by mouth every morning. 30 capsule 12/29/2019 0 documented as of this encounter ED Notes * Prasanna Chris PA-C - 01/15/2020 6:58 PM CDTAssociated Order(s): Lac Repair [facility] EMERGENCY DEPT - [place], [place] HISTORICAL INFORMATION Primary Care Doctor: Arden Cannon, DO Patient information was obtained primarily from the patient, nursing notes. History/Exam limitations: None Provider at Bedside Date/Time Event User Comments 01/15/20 063 Provider at Bedside Assessing Patient PRASANNA CHRIS CHIEF COMPLAINT Laceration Chief Complaint Patient presents with ??? Laceration HPI Corinna Thacker is a 19-year-old female, right hand dominant, presents for laceration to left 4thdigit from opening food can. TDAP up to date. Bleeding controlled SPEEDER HAND. Denies sensory chagnes. Current medications: reviewed PAST MEDICAL HISTORY \ Past Medical History: Diagnosis Date ??? Anxiety ??? Depression SURGICAL HISTORY Past Surgical History: Procedure Laterality Date ??? ADENOIDECTOMY ??? TONSILLECTOMY CURRENT MEDICATIONS Current Facility-Administered Medications: ??? rgakeenx-gxqnluutnd-cxcnhlkpj (NEOSPORIN) ointment, , Topical, 4x Daily, Prasanna Chris PA-C Current Outpatient Medications: ??? lisdexamfetamine 50 MG capsule, Take 1 capsule (50 mg total) by mouth every morning., Disp: 30 capsule, Rfl: 0 ALLERGIES Allergies Allergen Reactions ??? Sertraline Hives FAMILY HISTORY Family History Problem Relation Name Age of Onset ??? Asthma Maternal Grandmother ??? Cancer Maternal Grandmother Cervical ??? Asthma Maternal Grandfather ??? Asthma Paternal Grandmother ??? Cancer Paternal Grandmother Pancres ??? Asthma Paternal Grandfather ??? Diabetes Paternal Grandfather ??? Hypertension Paternal Grandfather SOCIAL HISTORY Social History Socioeconomic History ??? Marital status: [...] use: No Frequency: Never ??? Drug use: Yes Types: Marijuana ??? Sexual activity: Not on file Lifestyle ??? Physical activity: Days per week: Not on file Minutes per session: Not on file ??? Stress: Not on file Relationships ??? Social connections: Talks on phone: Not on file Gets together: Not on file Attends jewish service: Not on file Active member of [...] Social History Narrative ??? Not on file REVIEW OF SYSTEMS Constitutional: Denies fever, chills, weight loss or weakness. Skin: +laceration to left 4th digit distal pad See HPI for further details. All systems negative except as marked. Physical Exam Nursing notes reviewed VITAL SIGNS: Filed Vitals: 01/15/20 1747 BP: 112/68 Pulse: 89 Resp: 18 Temp: 98.3 ??F (36.8 ??C) TempSrc: Oral SpO2: 100% Weight: 59.7 kg (131 lb 9.6 oz) Height: 5' 7 (1.702 m) Vital signs interpretation: normal Constitutional: Well developed, No acute distress, Non-toxic appearance. Integument: Warm, Dry, No erythema, No rash. U shped laceration to left 4th distal pad of finger. Cap refill normal HEENT: Normocephalic, Atraumatic, Conjunctiva normal Neck- Normal range of motion, Supple Respiratory: No respiratory distress Cardiovascular: Normal heart rate GI: Bowel sounds normal, Soft, No tenderness Musculoskeletal: Good ROM, no deformities noted,. Full ROM noted. Neurologic: Alert & oriented x 3, No focal deficits noted. Psychiatric: Affect normal, Mood normal. EKG (interpreted by ED provider) No results found for this visit on 01/15/20. LABORATORY Labs Reviewed - No data to display RADIOLOGY XR HAND LT 3V Final Result by User, [id number] (01/15 1836) Examination: Left hand 3 views Exam date/time: 01/15/2020 6:21 PM Reason For Exam: 4th digit lac Comparison: No previous studies. Technique: PA, oblique, and lateral views of the left hand were obtained. Findings: There is soft tissue deformity near the interphalangeal joint of the fourth finger. No underlying acute bony abnormalities. The other osseous structures appear intact. No opaque foreign bodies are seen. In the mid hand no acute findings. Please correlate and follow-up clinically. If the patient remain still symptomatic and further indicated follow-up studies recommended in 7-10 days. =====IMPRESSION:===== Soft tissue swelling near the distal interphalangeal joint of the fourth finger. No acute bony abnormalities. EDURES Lac Repair Date/Time: 01/15/2020 7:03 PM Performed by: Prasanna Chris PA-C Authorized by: Prasanna Chris PA-C Consent: Consent obtained: Verbal Consent given by: Patient Risks discussed: Infection, pain, retained foreign body, poor cosmetic result, need for additional repair, nerve damage, poor wound healing, vascular damage and tendon damage Alternatives discussed: No treatment and delayed treatment Anesthesia (see MAR for exact dosages): Anesthesia method: Nerve block Block needle gauge: 27 G Block anesthetic: Bupivacaine 0.25% w/o epi Block technique: Digital Block injection procedure: Anatomic landmarks identified Block outcome: Anesthesia achieved Laceration details: Location: Finger Finger location: L ring finger Length (cm): 2.5 Depth (mm): 1 Repair type: Repair type: Simple Pre-procedure details: Preparation: Patient was prepped and draped in usual sterile fashion and imaging obtained to evaluate for foreign bodies Exploration: Hemostasis achieved with: Direct pressure Wound exploration: wound explored through full range of motion and entire depth of wound probed andvisualized Wound extent: no areolar tissue violation noted, no fascia violation noted, no foreign bodies/material noted, no muscle damage noted, no nerve damage noted, no tendon damage noted, no underlying fracture noted and no vascular damage noted Contaminated: no Treatment: Area cleansed with: Betadine Amount of cleaning: Extensive Irrigation solution: Tap water Irrigation volume: Large volume Irrigation method: Tap Visualized foreign bodies/material removed: no Skin repair: Repair method: Sutures Suture size: 5-0 Suture material: Nylon Suture technique: Simple interrupted Number of sutures: 7 Approximation: Approximation: Close Post-procedure details: Dressing: Antibiotic ointment and splint for protection Patient tolerance of procedure: Tolerated well, no immediate complications Splint Application Progress Note: Prior to splint application: pulses 3+, capillary refill <2 seconds, sensation fully intact After splint application: pulses 3+, capillary refill <2 seconds, sensation remains fully intact. ROM limited to splint application, all movable joints with full ROM and no area of pressure from splint application. No suspicion for pressure necrosis with continued splint use. FOLLOW UP PLANNED WITH PCP/ORTHOPEDICS/ER IN THE NEXT 48HR. MDM Xray w/o FB. See lac note. I have discussed today's findings with the [...] and has verbalized understanding of these instructions. ED Course SNOMED CT(R) 1. Finger laceration LACERATION OF FINGER New Prescriptions No medications on file Disposition: Discharge Follow up planning: [facility] Emergency Room [address] [facility] [id number] Go in 1 week For suture removal JANICE MARITNEZ PA-C 01/15/201904 Prasanna Chris PA-C 01/15/201904 Cosigned by Enoch Molina MD at 01/16/2020 7:07 AM CDT * Armando Doran RN - 01/15/2020 5:52 PM CDT PT came into the ED with a c/o laceration to her Left ring finger. PT reports she was opening a canand sliced the tip of her finger. Bleeding generally controlled with some continuous oozing. PT thinks she had a tetanus shot approximately 2 years ago. PT vitals stable. documented in this encounter Plan of Treatment Not on file documented as of this encounter Procedures Procedure Name Priority Date/Time Associated Diagnosis Comments LACERATION REPAIR Routine 01/15/2020 6:5 8 PM CDT XR HAND LT 3V STAT 01/15/2020 6:33 PM CDT documented in this encounter Results * Lac Repair (01/15/2020 6:58 PM CDT) Narrative Enoch Molina MD - 01/15/2020 6:58 PM CDT Prasanna Chris PA-C ? 01/15/2020 ??7:05 PM Lac Repair Date/Time: 01/15/2020 7:03 PM Performed by: Prasanna Chris PA-C Authorized by: Prasanna Chris PA-C Consent: ??Consent obtained: ??Verbal ??Consent given by: ??Patient ??Risks discussed: ??Infection, pain, retained foreign body, poor cosmetic result, need for additional repair, nerve damage, poor wound healing, vascular damage and tendon damage ??Alternatives discussed: ??No treatment and delayed treatment Anesthesia (see MAR for exact dosages): ??Anesthesia method: ??Nerve block ??Block needle gauge: ??27 G ??Block anesthetic: ??Bupivacaine 0.25% w/o epi ??Block technique: ??Digital ??Block injection procedure: ??Anatomic landmarks identified ??Block outcome: ??Anesthesia achieved Laceration details: ??Location: ??Finger ??Finger location: ??L ring finger ??Length (cm): ??2.5 ??Depth (mm): ??1 Repair type: ??Repair type: ??Simple Pre-procedure details: ??Preparation: ??Patient was prepped and draped in usual sterile fashion and imaging obtained to evaluate for foreign bodies Exploration: ??Hemostasis achieved with: ??Direct pressure ??Wound exploration: wound explored through full range of motion and entire depth of wound probed and visualized ?Wound extent: no areolar tissue violation noted, no fascia violation noted, no foreign bodies/material noted, no muscle damage noted, no nerve damage noted, no tendon damage noted, no underlying fracture noted and no vascular damage noted ?Contaminated: no ?? Treatment: ??Area cleansed with: ??Betadine ??Amount of cleaning: ??Extensive ??Irrigation solution: ??Tap water ??Irrigation volume: ??Large volume ??Irrigation method: ??Tap ??Visualized foreign bodies/material removed: no ?? Skin repair: ??Repair method: ??Sutures ??Suture size: ??5-0 ??Suture material: ??Nylon ??Suture technique: ??Simple interrupted ??Number of sutures: ??7 Approximation: ??Approximation: ??Close Post-procedure details: ??Dressing: ??Antibiotic ointment and splint for protection ??Patient tolerance of procedure: ??Tolerated well, no immediate complications Prasanna Chris PA-C PROCEDURE/MINOR SURGICAL ORDE EMA Final Result * XR HAND LT 3V (01/15/2020 6:33 PM CDT) Anatomical Region Laterality Modality Hand Radiographic Dianne ging 01/15/2020 6:34 PM CDT Impressions 01/15/2020 6:35 PM CDT =====IMPRESSION:===== Soft tissue swelling near the distal interphalangeal joint of the fourth finger. No acute bony abnormalities. Narrative 01/15/2020 6:35 PM CDT Examination: Left hand 3 views Exam date/time: 01/15/2020 6:21 PM Reason For Exam: ??4th digit lac ? Comparison: No previous studies. Technique: PA, oblique, and lateral views of the left hand were obtained. Findings: There is soft tissue deformity near the interphalangeal joint of the fourth finger. No underlying acute bony abnormalities. The other osseous structures appear intact. No opaque foreign bodies are seen. In the mid hand no acute findings. Please correlate and follow-up clinically. If the patient remain still symptomatic and further indicated follow-up studies recommended in 7-10 days. Procedure Note Amador Prabhakar MD - 01/15/2020 Examination: Left hand 3 views Exam date/time: 01/15/2020 6:21 PM Reason For Exam: 4th digit lac Comparison: No previous studies. Technique: PA, oblique, and lateral views of the left hand wereobtained. Findings: There is soft tissue deformity near the interphalangeal jointof the fourth finger. No underlying acute bony abnormalities. The other osseous structures appear intact. No opaque foreign bodies are seen. Inthe mid hand no acute findings. Please correlate and follow-up clinically. If the patient remain still symptomatic and further indicated follow-up studies recommended in 7-10 days. =====IMPRESSION:===== Soft tissue swelling near the distal interphalangeal joint of thefourth finger. No acute bony abnormalities. Prasanna Chris PA-C GENERAL IMAGING Final Result documented in this encounter Visit Diagnoses Diagnosis Finger laceration- Primary Open wound of finger(s) , without mention of complication documented in this encounter Administered Medications Inactive Administered Medications - up to 3 most recent administrations Medication Order MAR Action Action Date Dose Rate Site BUpivacaine (MARCAINE) 0.25 % injection 1 dose, Starting on Sat01/15/20 at 1805, Until Sat01/15/20 at 1823, Created by cabinet override Given 01/15/2020 6:23 PM CDT kkyzxtws-vuncgqjnnu-mmsyriise (NEOSPORIN) ointment Topical, 4 times daily, First dose on Sat01/15/20 at 2100, Until Discontinued Given 01/15/2020 7:10 PM CDT documented in this encounter Active and Recently Administered Medications Times are shown in CDT. Scheduled Medication Order 01/13/2020 01/14/2020 01/15/2020 azjfxkpz-quexmequhf-kvkerjzwv (NEOSPORIN) ointment Topical, 4 times daily, First dose on Sat01/15/20 at 2100, Until Discontinued 1910 (Given - Provid er: Cristobal Apodaca RN) No Frequency Medication Order 01/13/2020 01/14/2020 01/15/2020 BUpivacaine (MARCAINE) 0.25 % injection (COMPLETED) 1 dose, Starting on Sat01/15/20 at 1805, Until Sat01/15/20 at 1823, Created by cabinet override 1823 (Given - Provid er: Cecilia Massey RN) documented in this encounter Care Teams Food Clerk Relationship Specialty Start Date End Date Arden Cannon DO [address] [place] [address] PCP - General FAMILY PRACTICE 01/12/19 documented as of this encounter
--- OUTSIDE RECORDS SUMMARY | 2024-09-30 09:15 | XMS_ITS | Encounter Summary ---
Author Organization [facility] Address [facility] [facility] [place] [address] [place] [address] Care Team Providers Care Hospital Chaplain Name Role Phone Arden Cannon DO Primary Care Provider + Reason for Visit * Reason Onset Date Comments COVID-19 07/21/2020 Encounter Details Date Type Department Care Team (Late st Contact Info) Description 07/21/2020 Telephone [facility] Medical [facility] Family & Internal Medicine [address] [phone] [place] [address] [place] [address] [id number] COVID-19 Social History Tobacco Use Types Packs/Day Years [...] as of this encounter Progress Notes * Janine Wasserman MA - 07/21/2020 4:58 PM CDTAddended by: JANINE WASSERMAN on: 07/21/2020 04:58 PM Modules accepted: Orders * Janine Wasserman MA - 07/21/2020 4:58 PM CDT Lm 07/21/20. Order done and faxed tn * Arden Cannon DO - 07/21/2020 3:44 PM CDT If pt has a symptom, then yes, go ahead and do the testing. Can go through [facility]. * Janine Wasserman MA - 07/21/2020 1:48 PM CDT Patients actual roommate tested positive today. She was having headaches. Patient has sore throat only, no other symptoms. * Janine Wasserman MA - 07/21/2020 1:43 PM CDT Lm 07/21/20 tn * Arden Cannon DO - 07/21/2020 1:31 PM CDT When was pt exposed to pt's boyfriend, if at all? And when was pt's roommates' boyfriend diagnosed?Did he have any symptoms? * Shruthi Mcmillan - 07/21/2020 1:24 PM CDT Patients roommate's boyfriend who spends a lot of time in their apartment tested positive today. beatrice is wondering if we will order her a test to see if she is positive. documented in this encounter Plan of Treatment Scheduled Orders Name Type Priority Associated Diagnoses Orde r Schedule DWAINE ONLY CORONAVIRUS (COVID 19) Microbiology Routine Sore throat Exposure To Covid-19 Virus Expected: 07/21/2020, Expires: 07/21/2021 documented as of this encounter Visit Diagnoses Diagnosis Sore throat- Primary Acute pharyngitis Exposure to COVID-19 virus documented in this encounter Additional Health Concerns Infection Onset Date Last Indicated Resolved Time COVID-19 Rule Out 07/21/2020 07/21/2020 09/19/2020 12:35 AM TOP CAGER Assessment Noted Time PHQ-9 Depression Total Score: 3 06/03/20 20 9:40 AM CDT documented as of this encounter Care Teams Hospital Chaplain Relationship Specialty Start Date End Date Arden Cannon DO [address] [place] [id number] PCP - General FAMILY PRACTICE 01/12/19 documented as of this encounter
--- OUTSIDE RECORDS SUMMARY | 2024-09-30 09:16 | XMS_ITS | Encounter Summary ---
Author Organization [facility] Address [facility] [facility] [place] [address] [place] [address] Care Team Providers Care Film Inspector Name Role Phone Arden Cannon DO Primary Care Provider + Reason for Visit * Reason Onset Date Comments Lab Results 01/14/2019 Encounter Details Date Type Department Care Team (Late st Contact Info) Description 01/14/2019 Telephone [facility] Medical [facility] Family & Internal Medicine - [address] [phone] Arden Cannon DO [address] [place] [id number] Lab Results Social History Tobacco Use Types Packs/Day [...] Progress Notes * Alexa Munoz RN - 01/14/2019 3:03 PM CDT Spoke to patient and she said she has not smoked recently but does admit to back in November. Told her that she needs to stop and she agreed and said that she has not smoked since that time. * Janine Wasserman MA - 01/14/2019 2:45 PM CDT Lm 01/14/19 tn * Janine Wasserman MA - 01/14/2019 2:44 PM CDT ----- Message from Arden Cannon DO sent at 01/14/2019 2:32 PM CDT ----- Please contact patient only and do not leave a detailed message. Pt was positive for THC, suggesting that she has used marijuana in recent history. While this will not disqualify her for treatment with vyvanse, she needs to not use it anymore and if it comes back positive on a repeat UDS in the future, I reserve the right to stop all controlled substances. documented in this encounter Plan of Treatment Not on file documented as of this encounter Visit Diagnoses Not on filedocumented in this encounter Care Teams Film Inspector Relationship Specialty Start Date End Date Arden Cannon DO [address] [place] [id number] PCP - General FAMILY PRACTICE 01/12/19 documented as of this encounter
--- OUTSIDE RECORDS SUMMARY | 2024-09-30 09:16 | XMS_ITS | Encounter Summary ---
Author Organization [facility] Address [facility] [place] [address] [place] [address] Care Team Providers Care Business Reporter Name Role Phone Arden Cannon DO Primary Care Provider + Reason for Visit * Reason Onset Date Comments Refill Request 03/25/2019 Encounter Details Date Type Department Care Team (Late st Contact Info) Description 03/25/2019 Telephone [facility] Medical Group Family & Internal Medicine [address] [phone] Arden Cannon DO [address] [place] [address] Refill Request Social History Tobacco Use Types [...] Progress Notes * Arden Cannon DO - 03/25/2019 3:11 PM CDT OK to fill, needs to be seen in April. * Gayle Avila MA - 03/25/2019 2:32 PM CDT Ok to refill? documented in this encounter Plan of Treatment Not on file documented as of this encounter Visit Diagnoses Diagnosis ADHD (attention deficit hyperactivity disorder), combined type Attention deficit disorder with hyperactivity documented in this encounter Care Teams Business Reporter Relationship Specialty Start Date End Date Arden Cannon DO [address] [place] [id number] PCP - General FAMILY PRACTICE 01/12/19 documented as of this encounter
--- OUTSIDE RECORDS SUMMARY | 2024-09-30 09:16 | XMS_ITS | Encounter Summary ---
Author Organization [facility] Address [facility] [place] [address] [place] [address] Care Team Providers Care Media Assistant Name Role Phone Arden Cannon Primary Care Provider + Reason for Visit * Reason Comments Consent Doc (SCAN)* [facility] - CONTROLLED SUBSTANCE AGREEMENT (CSA) Report (SCAN) ADULT SELF-REPORT [place] Encounter Details Date Type Department Care Team (Late st Contact Info) Description 01/12/2019 Scan HEALTH INFO SRVCS Scanned, Documents Consent Doc (SCAN)* ([facility] - CONTROLLED SUBSTANCE AGREEMENT (CSA)); Report (SCAN) (ADULT SELF-REPORT SCALE) Social History Tobacco Use Types Packs/Day Years [...] on filedocumented in this encounter Care Teams Media Assistant Relationship Specialty Start Date End Date Arden Cannon DO [address] [place] [phone] PCP - General FAMILY PRACTICE 01/12/19 documented as of this encounter
--- OUTSIDE RECORDS SUMMARY | 2024-09-30 09:16 | XMS_ITS | Encounter Summary ---
Author Organization [facility] Address [facility]6 [facility] [place] [address] [place] [address] Care Team Providers Care Product Applications Engineer Name Role Phone Arden Cannon DO Primary Care Provider + Reason for Visit * Reason Comments Follow Up medication Encounter Details Date Type Department Care Team (Late st Contact Info) Description 02/23/2019 8:20 AM CDT Office Visit [facility] Family & Internal Medicine - [address] [phone] Arden Cannon DO [address] [place] [phone] Follow Up (medication ) Social History Tobacco Use Types Packs/Day [...] Sign Reading Time Taken Comments Blood Pressure 116/64 02/23/2019 8:20 AM CDT Pulse 80 02/23/2019 8:20 AM CDT Temperature 36.8 ??C (98.2 ??F) 02/23/2019 8:20 AM CD T Respiratory Rate 16 02/23/2019 8:20 AM CDT Oxygen Saturation 100% 02/23/2019 8:20 AM CDT Inhaled Oxygen Concentration - - Weight 64 kg (141 lb) 02/23/2019 8:20 AM CDT Height 171.5 cm (5' 7.5 ) 02/23/2019 8:20 AM CDT Body Mass Index 21.76 02/23/2019 8:20 AM CDT documented in this encounter Progress Notes * Arden Cannon, DO - 02/23/2019 8:20 AM CDT Images from the original note were not included. GENERAL OFFICE VISIT Encounter Date: 02/23/2019 Chief Complaint: 19-year-old female presents for Follow Up (medication ) . Pt is here for follow-up on his ADHD medications. Pt has a diagnosis of ADHD, Combined Type. Concurrent psychiatric conditions include none. Pt is currently on Vyvanse. Pt's symptoms are still difficult to control. Current ADHD symptoms include speaking out of turn, sitting still, towards one direction. Pt notes the following side effects: none. No other acute symptoms. Review of Systems Constitutional: Negative for fever and weight loss. Respiratory: Negative for shortness of breath. Cardiovascular: Negative for chest pain. Neurological: Negative for dizziness. Patient Active Problem List Diagnosis ??? Osteochondritis dissecans ??? ADD (attention deficit disorder) ??? Seasonal allergies ??? ADHD (attention deficit [...] file Gets together: Not on file Attends uatsdin service: Not on file Active member of [...] Medications Medication Sig Dispense Refill ??? lisdexamfetamine (VYVANSE) 50 MG capsule Take 1 capsule (50 mg total) by mouth every morning for 30 days. 30 capsule 0 No current facility-administered medications for this visit. No current outpatient medications on file prior to visit. No current facility-administered medications on file prior to visit. Allergies Allergen Reactions ??? Sertraline Hives Objective: Filed Vitals: 02/23/19 0820 BP: 116/64 Pulse: 80 Resp: 16 Temp: 98.2 ??F (36.8 ??C) TempSrc: Oral SpO2: 100% Weight: 64 kg (141 lb) Height: 5' 7.5 (1.715 m) Physical Exam Constitutional: She is well-developed, well-nourished, and in no distress. No distress. HENT: Head: Normocephalic and atraumatic. Right Ear: Tympanic membrane, external ear and ear canal normal. Left Ear: Tympanic membrane, external ear and ear canal normal. Mouth/Throat: No oropharyngeal exudate. Cardiovascular: Normal rate, regular rhythm and normal heart sounds. Exam reveals no gallop and no friction rub. No murmur heard. Pulmonary/Chest: Effort normal and breath sounds normal. No respiratory distress. She has no wheezes. She has no rales. Abdominal: Soft. Musculoskeletal: She exhibits no edema. Neurological: Gait normal. Skin: Skin is warm and dry. No rash noted. Nursing note and vitals reviewed. Assessment & Plan: Corinna was seen today for follow up. Diagnoses and all orders for this visit: ADHD (attention deficit hyperactivity disorder), combined type - lisdexamfetamine (VYVANSE) 50 MG capsule; Take 1 capsule (50 mg total) by mouth every morning for30 days. Discussion/Summary: Will increase vyvanse dose. Consider adding SSRI if still dealing significantly with anxiety. Will be gone in [place] until later March; can give temporary refill if needed. Otherwise, f/u in approximately 1 month. Pt v/u. Arden Cannon DO documented in this encounter Plan of Treatment Not on file documented as of this encounter Visit Diagnoses Diagnosis ADHD (attention deficit hyperactivity disorder), combined type- Primary Attention deficit disorder with hyperactivity documented in this encounter Care Teams Product Applications Engineer Relationship Specialty Start Date End Date Arden Cannon DO [address] [place] [id number] PCP - General FAMILY PRACTICE 01/12/19 documented as of this encounter
--- OUTSIDE RECORDS SUMMARY | 2024-09-30 09:16 | XMS_ITS | Encounter Summary ---
Author Organization [facility] Address [facility] [place] [address] [place] [address] Care Team Providers Care Dtp Operator Name Role Phone Dennise Goodson DO Primary Care Provider + Reason for Visit * Reason Onset Date Comments Refill Request 07/09/2019 Encounter Details Date Type Department Care Team (Late st Contact Info) Description 07/09/2019 Telephone [facility] Family & Internal Medicine [address] [phone] Dennise Goodson DO [address] [place] [phone] Refill Request Social History Tobacco Use Types [...] Progress Notes * Gayle Avila MA - 07/09/2019 11:42 AM CDT The patient is calling for a refill on:Vyvanse last filled 05/27/2019 Last visit with DENNISE GOODSON in FAMILY PRACTICE was on: 04/13/2019 in [facility] No future appointments. [facility]/pharmacy #[id number] [place], [place] [address] [facility] [address] [facility] [id number] No current outpatient medications on file. documented in this encounter Plan of Treatment Not on file documented as of this encounter Visit Diagnoses Diagnosis ADHD (attention deficit hyperactivity disorder), combined type- Primary Attention deficit disorder with hyperactivity documented in this encounter Care Teams Dtp Operator Relationship Specialty Start Date End Date Dennise Goodson DO [address] [place] [phone] PCP - General FAMILY PRACTICE 01/12/19 documented as of this encounter
--- OUTSIDE RECORDS SUMMARY | 2024-09-30 09:16 | XMS_ITS | Encounter Summary ---
Author Organization [facility] Address [facility]6 [facility] [place] [address] [place] [address] Care Team Providers Care Master [employer] Name Role Phone Arden Cannon DO Primary Care Provider + Reason for Visit * Reason Comments Establish Care Difficulty with cons itration Allergies Encounter Details Date Type Department Care Team (Late st Contact Info) Description 01/12/2019 1:20 PM CDT Office Visit [facility] Family & Internal Medicine - [place] [address] [place] [phone] Arden Cannon DO [address] [place] [phone] Establish Care (Difficulty with consitration ); Allergies Social History Tobacco Use Types Packs/Day Years [...] Sign Reading Time Taken Comments Blood Pressure 118/70 01/12/2019 1:04 PM CDT Pulse 75 01/12/2019 1:04 PM CDT Temperature 37.3 ??C (99.2 ??F) 01/12/2019 1:04 PM CD T Respiratory Rate 16 01/12/2019 1:04 PM CDT Oxygen Saturation 98% 01/12/2019 1:04 PM CDT Inhaled Oxygen Concentration - - Weight 64.2 kg (141 lb 8 oz) 01/12/2019 1:04 PM CDT Height 171.5 cm (5' 7.5 ) 01/12/2019 1:04 PM CDT Body Mass Index 21.83 01/12/2019 1:04 PM CDT documented in this encounter Progress Notes * Arden Cannon, - 01/12/2019 1:20 PM CDT Images from the original note were not included. GENERAL OFFICE VISIT Encounter Date: 01/12/2019 Chief Complaint: 18-year-old female presents for Establish Care (Difficulty with consitration ) and Allergies HPI: Pt wants to discuss potential anxiety and allergies. Pt noted that she had a break-up about 6-7 months ago. Pt was brought to ED for concern for overdose, although per patient did not and medical records can corrobate that. She was labeled with anxiety. She does note some anxiety issues, but the xanax she made her feel like everyone was watching her. She noted mood instability with the SSRIs. She notes her mind buzzes and she will go a while without needing meds. She did seem to have issues with this as a kid as well. Her ADHD self-assessment is positive in almost all areas. PHQ-9 is also elevated. No FH of any psychiatric conditions. Notes some shaking of hands as well. Pt wanted to note that she appears to be having some allergic conjunctivitis, with her eyelids being puffy. Symptoms are mild. Review of Systems Constitutional: Negative for fever. HENT: See HPI Eyes: See HPI Respiratory: Negative for shortness of breath. Cardiovascular: Negative for chest pain. Gastrointestinal: Negative for abdominal pain. Genitourinary: Negative for urgency. Skin: Negative for rash. Neurological: See HPI Psychiatric/Behavioral: See HPI Patient Active Problem List Diagnosis ??? Osteochondritis dissecans ??? ADD (attention deficit disorder) ??? Seasonal allergies Past Medical History: Diagnosis Date ??? Anxiety [...] file Gets together: Not on file Attends episcopal service: Not on file Active member of [...] Medication Sig Dispense Refill ??? lisdexamfetamine (VYVANSE) 30 MG capsule Take 1 capsule (30 mg total) by mouth every morning for 30 days. 30 capsule 0 No current facility-administered medications for this visit. No current outpatient medications on file prior to visit. No current facility-administered medications on file prior to visit. Allergies Allergen Reactions ??? Sertraline Hives Objective: Filed Vitals: 01/12/19 1304 BP: 118/70 Pulse: 75 Resp: 16 Temp: 99.2 ??F (37.3 ??C) TempSrc: Oral SpO2: 98% Weight: 64.2 kg (141 lb 8 oz) Height: 5' 7.5 (1.715 m) Physical Exam Constitutional: She is oriented to person, place, and time and well-developed, well-nourished, and in no distress. No distress. HENT: Head: Normocephalic and atraumatic. Right Ear: Tympanic membrane, external ear and ear canal normal. Left Ear: Tympanic membrane, external ear and ear canal normal. Mouth/Throat: No oropharyngeal exudate. Eyes: Conjunctivae are normal. [...] and oriented to person, place, and time. Gait normal. Skin: Skin is warm and dry. No rash noted. Psychiatric: Affect normal. Nursing note and vitals reviewed. Assessment & Plan: Corinna was seen today for establish care and allergies. Diagnoses and all orders for this visit: ADHD (attention deficit hyperactivity disorder), combined type - lisdexamfetamine (VYVANSE) 30 MG capsule; Take 1 capsule (30 mg total) by mouth every morning for30 days. Seasonal allergies Discussion/Summary: We will do trial of Vyvanse for potential ADHD diagnosis. Consider bipolar as well going forward, especially if symptoms are not improving as expected. Discussed side effect profile. Patient is agreeable to this plan. UDS ordered and CSA signed. We will have her follow-up in 1 month. Can treat seasonal allergies with Zyrtec [id number]. Follow-up as needed for this as well. rAden Cannon DO documented in this encounter Plan of Treatment Not on file documented as of this encounter Visit Diagnoses Diagnosis ADHD (attention deficit hyperactivity disorder), combined type- Primary Attention deficit disorder with hyperactivity Seasonal allergies Allergic rhinitis, cause unspecified documented in this encounter Care Teams Master [employer] Relationship Specialty Start Date End Date Arden Cannon DO [address] [place] [id number] PCP - General FAMILY PRACTICE 01/12/19 documented as of this encounter
--- OUTSIDE RECORDS SUMMARY | 2024-09-30 09:16 | XMS_ITS | Encounter Summary ---
Author Organization [facility] Address [facility] [place] [address] [place] [address] Care Team Providers Care Wind Development Director Name Role Phone None, Provider Primary Care Provider Unavaila ble Reason for Visit * Reason Comments Toxidrome ACCIDENTAL Encounter Details Date Type Department Care Team (Late st Contact Info) Description 08/14/2018 2:50 AM CDT - 08/14/2018 4:01 AM CDT Emergency [facility] [place] [address] Wyatt Fonseca MD Toxidrome (ACCIDENTAL) Discharge Disposition: Home or Self Care (Routine [...] of Binge Drinking Not on file 10/2017 Comments No Sex and Gender Information Value Date Recorded Sex Assigned at Not on file Legal Sex Female 2:50 AM CDT Gender Identity Not on file Sexual Orientation Not on file documented as of this encounter Last Filed Vital Signs Vital Sign Reading Time Taken Comments Blood Pressure 116/87 08/14/2018 3:30 AM CDT Pulse 75 08/14/2018 3:30 AM CDT Temperature 37.3 ??C (99.2 ??F) 08/14/2018 2:53 AM CD T Respiratory Rate 16 08/14/2018 3:30 AM CDT Oxygen Saturation 99% 08/14/2018 3:30 AM CDT Inhaled Oxygen Concentration - - Weight 69.5 kg (153 lb 3.5 oz) 08/14/2018 2:53 A M CDT Height 170.2 cm (5' 7 ) 08/14/2018 2:53 AM CDT Body Mass Index 24 08/14/2018 2:53 AM CDT documented in this encounter Discharge Instructions * Discharge Instructions* Wyatt Fonseca MD - 08/14/2018 3:51 AM CDT As discussed your potassium was a little low today. This can be supplemented by your diet as many of the foods that you already eat contain potassium. The foods and juices listed below are high in potassium: Bananas, oranges, cantaloupe, honeydew, apricots, grapefruit Cooked spinach and broccoli Potatoes, sweet potatoes Mushrooms, peas, cucumbers, zucchini, egplant, pumpkin Leafy greens Dewitt, tomato, prune, apicot, grapefruit juice Certain dairy products, such as milk and yogurt, are high in potassium (low-fat or fat-free is best). As discussed you should take Naproxen (also called Aleve) 500 mg every 12 hours for your pain. Do not take more than this amount as it can cause kidney problems or bleeding in your stomach. If you have a history of coronary artery disease you should not take these medications as it can increase your risk for heart attack or stroke. If your pain is not controlled you can also take Acetaminophen (also called Tylenol) 1 gram every 6hours. Do not take more than 4 grams over the course of a day from all medications you take. If youhave a history of liver disease you should not take Acetaminophen as it can worsen your liver function. As previously advised, please follow up with your primary care doctor for further management of your pain. Please go to medlineplus.gov for further information on this medication and its potential side effects. * Attachments The following attachments cannot be sent through Care Everywhere. * HIGH POTASSIUM DIET (THAI) documented in this encounter ED Notes * Lorraine Lozano RN - 08/14/2018 3:10 AM CDT Provider contacting poison control LORRAINE LOZANO RN * Wyatt Fonseca MD - 08/14/2018 3:05 AM CDTAssociated Order(s): EKG Reading Chief Complaint Chief Complaint Patient presents with ??? Toxidrome ACCIDENTAL History of Present Illness The patient is a 18-year-old female who has no past medical history on file. The patient presents today with accidental overdose of acetaminophen and aspirin. Patient says that she is on her period and had a significant amount of cramping today. Took 2 Pamprin (250mg Acetaminophen, 250mg Aspirin, 65mg Caffeine) at approximately 9 in the morning. Patient continued to have a significant amount of cramping pain. Between 5 in the evening and 7 in the evening the patient took approximately 9. Patient began having a significant amount of vomiting between 9 and 10 in the evening. The patient's [facility] dorm noticed that the patient was not feeling well so called 911 shortly prior to the patient's presentation. Says that she continues to have some burning in her stomach and crampy abdominal pain. Endorses some stuffiness and has some ringing in her ears however says that is because sheis crying so much and feels very embarrassed. Says that this was not intentional, says that she wasjust trying to alleviate her cramping pain from her menses. Does not want to hurt her self, no thoughts of suicidal ideation, no thoughts of homicidal ideation, no auditory or visual hallucinations. Medical History ALLERGIES: No Known Allergies MEDICATIONS: Prior to Admission medications Not on File PAST MEDICAL HISTORY: History reviewed. No pertinent past medical history. PAST SURGICAL HISTORY: Past Surgical History: Procedure Laterality Date ??? TONSILLECTOMY FAMILY HISTORY: No family history on file. SOCIAL HISTORY: Social History Tobacco Use ??? Smoking status: Never Smoker ??? Smokeless tobacco: Never Used Substance Use Topics ??? Alcohol use: No Frequency: Never ??? Drug use: No Review of Systems Review of Systems Constitutional: Negative for fever. HENT: Negative for sore throat. Eyes: Negative for pain. Respiratory: Negative for shortness of breath. Cardiovascular: Negative for chest pain. Gastrointestinal: Positive for abdominal pain and vomiting. Genitourinary: Negative for dysuria. Musculoskeletal: Negative for back pain. Neurological: Negative for headaches. Psychiatric/Behavioral: Negative for confusion. Physical Exam Filed Vitals: 08/14/18 0253 08/14/18 0319 BP: 108/78 111/76 Pulse: 75 64 Resp: 20 18 Temp: 99.2 ??F (37.3 ??C) TempSrc: Temporal SpO2: 98% 97% Weight: 69.5 kg (153 lb 3.5 oz) Height: 5' 7 (1.702 m) Physical Exam Constitutional: She is oriented to person, place, and time. She appears well- developed and well-nourished. No distress. HENT: Head: Normocephalic and atraumatic. Eyes: EOM are normal. Neck: Normal range of motion. Neck supple. No tracheal deviation present. Cardiovascular: Normal rate, regular rhythm, normal heart sounds and intact distal pulses. Exam reveals no gallop and no friction rub. No murmur heard. Pulmonary/Chest: Effort normal and breath sounds normal. No stridor. No respiratory distress. She has no wheezes. She has no rales. She exhibits no tenderness. Abdominal: Soft. She exhibits no distension. There is no tenderness. There is no rebound and no guarding. Musculoskeletal: Normal range of motion. She exhibits no edema. Neurological: She is alert and oriented to person, place, and time. Skin: Skin is warm and dry. She is not diaphoretic. Psychiatric: She has a normal mood and affect. Her behavior is normal. Judgment normal. Nursing note and vitals reviewed. Diagnostic Studies / Procedures ELECTROCARDIOGRAMS: Results for orders placed or performed during the hospital encounter of 08/14/18 [address] [facility] Test Date: 2018-08-14 Pat Name: MARYLOU THACKER Department: 41 Room: [address] Gender: Female Recruitment Manager: [facility] : 2000 Requested By: WYATT FONSECA Order Number: [id number] Reading MD: Measurements Intervals [place] Rate: 72 P: 44 CT: 128 QRS: 8 QRSD: 78 T: -1 QT: 390 QTc: 429 Interpretive Statements SINUS RHYTHM WITH OCCASIONAL SUPRAVENTRICULAR PREMATURE COMPLEXES No previous ECG available for comparison LABORATORY STUDIES: Results for orders placed or performed during the hospital encounter of 08/14/18 CBC W/DIFF AUTOMATED Result Value Ref Range WBC 10.5 4.5 - 13.0 x10'3/uL RBC 4.62 4.20 - 5.40 x10'6/uL HGB 13.7 12.0 - 16.0 G/DL HCT 40.7 38.0 - 48.0 % MCV 88.1 80.0 - 94.0 FL MCH 29.7 27.0 - 31.0 PG MCHC 33.7 32.0 - 36.0 G/DL RDW 12.3 11.5 - 14.5 % PLT 367 130 - 400 x10'3/uL MPV 10.0 9.3 - 12.2 FL DIFFERENTIAL TYPE AUTOMATED DIFFERENTIAL NEUTROPHILS 65.5 % LYMPHOCYTES 26.0 % MONOCYTES 7.4 % EOSINOPHILS 0.4 % BASOPHILS 0.3 % IMMATURE GRANS 0.4 (H) 0 % ABS. NEUTROPHILS TOTAL 6.86 1.80 - 8.00 x10'3/uL ABS. LYMPHOCYTES 2.72 1.20 - 5.20 x10'3/uL ABS. MONOCYTES 0.77 0.24 - 0.86 x10'3/uL ABS. EOSINOPHILS 0.04 0.04 - 0.36 x10'3/uL ABS. BASOPHILS 0.03 0.01 - 0.08 x10'3/uL ABS. IMMATURE GRANULOCYTES 0.04 (H) 0.00 - 0.03 x10'3/uL COMPREHENSIVE METABOLIC PANEL Result Value Ref Range GLUCOSE 96 70 - 99 MG/DL BUN 7 7 - 18 MG/DL CREATININE 0.76 0.55 - 1.02 MG/DL SODIUM 141 136 - 145 MMOL/L POTASSIUM 3.4 (L) 3.5 - 5.1 MMOL/L CHLORIDE 109 (H) 100 - 108 MMOL/L CO2 22.5 21 - 32 MMOL/L CALCIUM 8.9 8.5 - 10.1 MG/DL TOTAL BILIRUBIN 0.7 0.2 - 1.2 MG/DL TOTAL PROTEIN 7.4 6.4 - 8.2 G/DL ALBUMIN 4.3 3.4 - 5.0 G/DL AST 16 15 - 37 U/L ALT 19 14 - 55 U/L ALK PHOS 41 (L) 50 - 136 U/L ANION GAP 12.9 8 - 20 MMOL/L BUN CREATININE RATIO 9.3 6 - 26 A/G RATIO 1.4 1.0 - 2.0 RATIO eGFR Non-Afr. Amer. >90 >90 ML/MIN/1.73 M2 eGFR Afr. Amer. >90 >90 ML/MIN/1.73 M2 ACETAMINOPHEN Result Value Ref Range Acetaminophen <2.0 (L) 10.0 - 30.0 MCG/ML SALICYLATE Result Value Ref Range Salicylates 3.5 2.8 - 20.0 MG/DL POCT urine Result Value Ref Range URINE HCG TEST NEGATIVE NEGATIVE INT CTRL PERFORMED EXPECTED? VAILD IMAGING STUDIES No orders to display EKG Reading Date/Time: 08/14/2018 3:10 AM Performed by: Wyatt Fonseca MD Authorized by: Wyatt Fonseca MD Comments: EKG shows normal sinus rhythm at 72 bpm with normal axis and normal intervals no signs ofQTC prolongation or QRS prolongation ED Course / Medical Decision Making The patient is a 18-year-old female who has no past medical history on file. The patient presents today with accidental aspirin and acetaminophen overdose. No concern for intentional overdose, no concern for suicidal ideation. Will obtain aspirin and salicylate levels we will also check a CBC and aCMP. Also obtain an EKG. Per the patient ingestion occurred between 8 and 10 hours prior to presenta tion. Patient consumed approximately 2250 mg of acetaminophen and aspirin. Patient weighs 69.5 kg. This is approximately 32.3 mg/kg, well below the toxic dose per the [place] poison center. Will check of the patient's levels and if they are not on the nomogram and patient does not require any further treatment will discharge home and will follow up with primary care provider. Patient's levels were undetectable for acetaminophen and within therapeutic range for the aspirin. Patient was advised to follow labeling on her medications. Patient's potassium was mildly low so wasgiven potassium supplementation here and was discharged home with instructions to follow-up with primary care provider if she continued nausea and vomiting. Clinical Impression Accidental ingestion of substance (Primary) Hypokalemia Disposition: Discharge Wyatt Fonseca MD 08/14/18 0352 * Lorraine Lozano RN - 08/14/2018 2:53 AM CDT PT TO ER FROM [facility] VIA EMS WITH BUFFER CHROME ACCIDENTAL OVERDOSE FROM PAMPRIN. PT IS ON HER PERIOD, THIS MORNING PT TOOK 2 PILLS AROUND [phone] YESTERDAY MORNING AND THEN LATER PT'S CRAMPS WERE SEVERE AND PT TOOK A WHOLE BUNCH UNSURE WHAT TIME (POTENTIALLY BETWEEN 1700 -1900. EMS REPORTS BOTTLE WAS NEW AND WOULD HAVE HAD 24 IN IT, 13 REMAINING IN BOTTLE. PT REPORTS SHE DID THROW UP AT ONE POINT BUT DID NOT LOOK THROUGH VOMIT SO UNSURE IF PT VOMITED ANY PILLS. PT DENIES SI LORRAINE LOZANO RN * Steff Joya RN - 08/14/2018 2:50 AM CDT Bed: TR3A Expected date: Expected time: Means of arrival: Comments: [id number] documented in this encounter Plan of Treatment Not on file documented as of this encounter Procedures Procedure Name Priority Date/Time Associated Diagnosis Comments POCT URINE (BACK OFFICE) STAT 08/14/2018 3:15 AM CDT ECG 12-LEAD STAT 08/14/2018 3:06 AM CDT ELECTROCARDIOGRAM REPORT Routine 018 3:05 AM CDT COMPREHENSIVE METABOLIC PANEL STAT 08/14/2018 3:05 AM CDT CBC W/DIFF AUTOMATED STAT 08/14/2018 3:05 AM CDT SALICYLATE STAT 08/14/2018 3:05 AM CDT ACETAMINOPHEN STAT 08/14/2018 3:05 AM CDT documented in this encounter Results * POCT urine (08/14/2018 3:15 AM CDT) URINE HCG TEST NEGATIVE NEGATIVE Internal Control performed as Expected? SHANTEILD Comment:[id number] EXP 07/13 us Wyatt Fonseca MD POINT OF CARE TEST ORDERABLES Fi nal Result * ECG 12 lead (08/14/2018 3:06 AM CDT) 08/14/2018 3:06 AM CDT Narrative [facility] - 08/14/2018 3:48 PM CDT ?[facility] ? [address] [place] ? Test Date: ?2018-08-14 Pat Name: ? MARYLOU THACKER ?Department: ?? 41 ? Room: ? [id number] Gender: ? F ?Recruitment Manager: ?? [facility] : ?2000 ? Requested By: WYATT MARIAN Order Number: [id number] ? Reading MD: ?? Aleksandar Bailey ? Measurements Intervals ?[place] ? Rate: ? 72 ? P: ?44 CT: ? 128 ?QRS: ?8 QRSD: ? 78 ? T: ?-1 QT: ? 390 ? QTc: ?429 ? Interpretive Statements SINUS RHYTHM WITH OCCASIONAL SUPRAVENTRICULAR PREMATURE COMPLEXES No previous ECG available for comparison Preliminary EKG interpretation by ED Physician No ischemic changes Wyatt Fonseca M.D. CRITICAL ALERT ISSUED ON 08-14-2018 3:09:00 Procedure Note Aleksandar Bailey MD - 08/14/2018 [facility] [place] Test Date: 2018-08-14 Pat Name: MARYLOU THACKER Department: 41 Room: [address] Gender: F Recruitment Manager: [facility] : 2000 Requested By: WYATT FONSECA Order Number: [id number] Reading MD: Aleksandar Bailey Measurements Intervals [place] Rate: 72 P: 44 CT: 128 QRS: 8 QRSD: 78 T: -1 QT: 390 QTc: 429 Interpretive Statements SINUS RHYTHM WITH OCCASIONAL SUPRAVENTRICULAR PREMATURE COMPLEXES No previous ECG available for comparison Preliminary EKG interpretation by ED Physician No ischemic changes Wyatt Fonseca M.D. CRITICAL ALERT ISSUED ON 08-14-2018 3:09:00 us Wyatt Fonseca MD ECG ORDERABLES Final Result Performing Organization Address City/[facility]/ZIP Co de Phone Number [facility] * EKG Reading (08/14/2018 3:05 AM CDT) Narrative Wyatt Fonseca MD - 08/14/2018 3:05 AM CDT Wyatt Fonseca MD ? 08/14/2018 ??3:52 AM EKG Reading Date/Time: 08/14/2018 3:10 AM Performed by: Wyatt Fonseca MD Authorized by: Wyatt Fonseca MD Comments: EKG shows normal sinus rhythm at 72 bpm with normal axis and normal intervals no signs of QTC prolongation or QRS prolongation us Wyatt Fonseca MD CT [facility] S Final Result * SALICYLATE (08/14/2018 3:05 AM CDT) SALICYLATES 3.5 2.8 - 20.0 MG/DL 08/14/2018 3:41 AM CDT [facility] Comment: THERAPEUTIC: ?2.8-20.0 Toxic Level: ?>=30 08/14/2018 3:05 AM CDT us Wyatt Fonseca MD LABORATORY Final Result Performing Organization Address [facility] Co de Phone Number [facility] [address] [place] [address], * (ABNORMAL) ACETAMINOPHEN (08/14/2018 3:05 AM CDT) [facility] ACETAMINOPHEN S/P/B <2.0(L) 10.0 - 30.0 MCG/ML 08/14/2018 3:46 AM CDT [facility] Comment: ?THERAPEUTIC: 10-30 ?TOXIC: >200 08/14/2018 3:05 AM CDT Wyatt Fonseca MD LABORATORY Final Result Performing Organization Address City/State/[facility] Co de Phone Number [facility] [address] [place] [address], * (ABNORMAL) COMPREHENSIVE METABOLIC PANEL (08/14/2018 3:05 AM CDT) [facility] GLUCOSE 96 70 - 99 MG/DL 08/14/2018 3:46 AM CDT [facility] BUN 7 7 - 18 MG/DL 08/14/2018 3:46 AM CDT [facility] CREATININE S/P/B 0.76 0.55 - 1.02 MG/DL 08/14/2018 3:46 AM CDT [facility] SODIUM S/P/B 141 136 - 145 MMOL/L 08/14/2018 3:46 AM CDT [facility] POTASSIUM S/P/B 3.4(L) 3.5 - 5.1 MMOL/L 08/14/2018 3:46 AM CDT [facility] CHLORIDE S/P/B 109(H) 100 - 108 MMOL/L 08/14/2018 3:46 AM CDT [facility] CO2 22.5 21 - 32 MMOL/L 08/14/2018 3:46 AM T [facility] CALCIUM S/P/B 8.9 8.5 - 10.1 MG/DL 08/14/2018 3:46 AM [facility] BILIRUBIN TOTAL S/P/B 0.7 0.2 - 1.2 MG/DL 08/14/2018 3:46 AM T [facility] TOTAL PROTEIN S/P/B 7.4 6.4 - 8.2 G/DL 08/14/2018 3:46 AM [facility] ALBUMIN S/P/B 4.3 3.4 - 5.0 G/DL 08/14/2018 3:46 AM [facility] AST 16 15 - 37 U/L 08/14/2018 3:46 AM [facility] ALT 19 14 - 55 U/L 08/14/2018 3:46 AM [facility] ALKALINE PHOSPHATASE S/P/B 41(L) 50 - 136 U/L 08/14/2018 3:46 AM T [facility] ANION GAP 12.9 8 - 20 MMOL/L 08/14/2018 3:46 AM [facility] BUN CREATININE RATIO 9.3 6 - 26 08/14/2018 3:46 AM [facility] A/G RATIO 1.4 1.0 - 2.0 RATIO 08/14/2018 3:46 AM [facility] EGFR NON-AFR. AMER. >90 >90 ML/MIN/1.7 3 M2 08/14/2018 3:46 AM [facility] EGFR AFR. AMER. >90 >90 ML/MIN/1.7 3 M2 08/14/2018 3:46 AM [facility] Comment: NOTE: eGFR is not calculated for patients <18 years of age. This is an estimated GFR (CKD EPI) and should not be used for calculating drug doses. 08/14/2018 3:05 AM CDT Wyatt Fonseca MD LABORATORY Final Result [facility] [address] [place] [address], * (ABNORMAL) CBC W/DIFF AUTOMATED (08/14/2018 3:05 AM CDT) WBC 10.5 4.5 - 13.0 x10'3/uL 08/14/2018 3:23 AM CDT [facility] RBC 4.62 4.20 - 5.40 x10'6/uL 08/14/2018 3:23 AM CDT [facility] HGB 13.7 12.0 - 16.0 G/DL 08/14/2018 3:23 AM CDT [facility] HCT 40.7 38.0 - 48.0 % 08/14/2018 3:23 AM CDT [facility] MCV 88.1 80.0 - 94.0 FL 08/14/2018 3:23 AM CDT [facility] MCH 29.7 27.0 - 31.0 PG 08/14/2018 3:23 AM CDT [facility] MCHC 33.7 32.0 - 36.0 G/DL 08/14/2018 3:23 AM CDT [facility] RDW 12.3 11.5 - 14.5 % 08/14/2018 3:23 AM CDT [facility] PLT 367 130 - 400 x10'3/uL 08/14/2018 3:23 AM CDT [facility] MPV 10.0 9.3 - 12.2 FL 08/14/2018 3:23 AM T [facility] DIFFERENTIAL TYPE AUTOMATED DIFFERENTIAL 08/14/2018 3:23 AM CDT [facility] NEUTROPHILS % 65.5 % 08/14/2018 3:23 AM T [facility] LYMPHOCYTES % 26.0 % 08/14/2018 3:23 AM T [facility] MONOCYTES % 7.4 % 08/14/2018 3:23 AM T [facility] EOSINOPHILS 0.4 % 08/14/2018 3:23 AM T [facility] BASOPHILS 0.3 % 08/14/2018 3:23 AM T [facility] IMMATURE GRANS % 0.4(H) 0 % 08/14/20 18 3:23 AM T [facility] ABS. NEUTROPHILS TOTAL 6.86 1.80 - 8.00 x10'3/uL 08/14/2018 3:23 AM T [facility] ABS. LYMPHOCYTES 2.72 1.20 - 5.20 x10'3/uL 08/14/2018 3:23 AM [facility] ABS. MONOCYTES 0.77 0.24 - 0.86 x10'3/uL 08/14/2018 3:23 AM T [facility] ABS. EOSINOPHILS 0.04 0.04 - 0.36 x10'3/uL 08/14/2018 3:23 AM T [facility] ABS. BASOPHILS 0.03 0.01 - 0.08 x10'3/uL 08/14/2018 3:23 AM [facility] ABS. IMMATURE GRANULOCYTES 0.04(H) 0.00 - 0.03 x10'3/uL 08/14/2018 3:23 AM [facility] 08/14/2018 3:05 AM CDT Wyatt Fonseca MD LABORATORY Final Result [facility] [address] [place] [address], [place] [phone] documented in this encounter Visit Diagnoses Diagnosis Accidental ingestion of substance- Primary Toxic effect of unspecified substance, chiefly nonmedicinal as to source Hypokalemia Hypopotassemia documented in this encounter Administered Medications Inactive Administered Medications - up to 3 most recent administrations Medication Order MAR Action Action Date Dose Rate Site ondansetron (ZOFRAN-ODT) disintegrating tablet 4 mg 4 mg, Oral, Once, 1 dose, On Meme 08/14/18 at 0330 Given 08/14/2018 3:22 AM CDT 4 mg potassium chloride (K-TAB) tablet 40 mEq 40 mEq, Oral, Daily, First dose on Meme 08/14/18 at 0400, Until Discontinued Given 08/14/2018 3:54 AM CDT 40 mEq documented in this encounter Active and Recently Administered Medications Times are shown in CDT. Scheduled Medication Order 08/12/2018 08/13/2018 08/14/2018 ondansetron (ZOFRAN-ODT) disintegrating tablet 4 mg (COMPLETED) 4 mg, Oral, Once, 1 dose, On Meme 08/14/18 at 0330 0322 (Given - Provid er: Lorraine Lozano RN) potassium chloride (K-TAB) tablet 40 mEq 40 mEq, Oral, Daily, First dose on Meme 08/14/18 at 0400, Until Discontinued 0354 (Given - Provid er: Lorraine Lozano RN) documented in this encounter Care Teams Wind Development Director Relationship Specialty Start Date End Date None, Provider, PCP - General 08/14/18 01/11/19 documented as of this encounter
--- OUTSIDE RECORDS SUMMARY | 2024-09-30 09:16 | XMS_ITS | Encounter Summary ---
Author Organization [facility] Address [facility] [place] [address] [place] [address] Care Team Providers Care Window Display Designer Name Role Phone Arden Cannon Romy ROBERTSON Primary Care Provider + Reason for Visit * Reason Comments Outside Record (SCAN) [facility] REPORT Encounter Details Date Type Department Care Team ([facility] Contact Info) Description 01/14/2019 Scan HEALTH INFO [facility] Scanned, Documents Outside Record (SCAN) ([facility] REPORT) Social History Tobacco Use Types Packs/Day Years [...] on filedocumented in this encounter Care Teams Window Display Designer Relationship Specialty Start Date End Date Arden Cannon DO [address] [place] [id number] PCP - General FAMILY PRACTICE 01/12/19 documented as of this encounter
--- OUTSIDE RECORDS SUMMARY | 2024-09-30 09:16 | XMS_ITS | Encounter Summary ---
Author Organization [facility] Address [facility] [place] [address] [place] [address] Care Team Providers Care Nurse Transitional Name Role Phone Arden Cannon DO Primary Care Provider + Reason for Visit * Reason Onset Date Comments Refill Request 05/27/2019 Encounter Details Date Type Department Care Team (Late st Contact Info) Description 05/27/2019 Telephone [facility] Family & Internal Medicine [address] [phone] Arden Cannon DO [address] [place] [address] [phone] Refill Request Social History Tobacco Use Types [...] Progress Notes * Arden Cannon DO - 05/27/2019 10:28 AM CDT Filled. * Gayle Avila MA - 05/27/2019 10:18 AM CDT mario 02-23-19 Last fill 04-28-19 documented in this encounter Plan of Treatment Not on file documented as of this encounter Visit Diagnoses Diagnosis ADHD (attention deficit hyperactivity disorder), combined type Attention deficit disorder with hyperactivity documented in this encounter Care Teams Nurse Transitional Relationship Specialty Start Date End Date Arden Cannon DO [address] [place] [id number] PCP - General FAMILY PRACTICE 01/12/19 documented as of this encounter
--- OUTSIDE RECORDS SUMMARY | 2024-09-30 09:16 | XMS_ITS | Encounter Summary ---
Author Organization [facility] Address [facility] [place] [address] [place] [address] Care Team Providers Care Flight Mechanic Name Role Phone Arden Cannon Primary Care Provider + Reason for Visit * Reason Comments Image (SCAN) Encounter Details Date Type Department Care Team (Latest Contact Info) Description 03/26/2019 Scan HEALTH INFO [facility] Scanned, Documents Image (SCAN) Social History Tobacco Use Types Packs/Day [...] Procedure Name Priority Date/Time Associated Diagnosis Comments IMAGE GENERIC Routine 03/26/2019 documented in this encounter Results * IMAGE STUDY (03/26/2019) Anatomical Region Laterality Modality Other us Documents Scanned SCANNING Edited Result - Final documented in this encounter Visit Diagnoses Not on filedocumented in this encounter Care Teams Flight Mechanic Relationship Specialty Start Date End Date Arden Cannon DO [address] [place] [phone] PCP - General FAMILY PRACTICE 01/12/19 documented as of this encounter
--- OUTSIDE RECORDS SUMMARY | 2024-09-30 09:16 | XMS_ITS | Encounter Summary ---
Author Organization [facility] Address [facility] [place] [address] [place] [address] Care Team Providers Care Pit And Auxiliaries Supervisor Name Role Phone Arden Cannon DO Primary Care Provider + Reason for Visit * Reason Comments Follow Up Encounter Details Date Type Department Care Team (Late st Contact Info) Description 04/13/2019 8:00 AM CDT Office Visit [facility] Family & Internal Medicine - [address] [phone] Arden Cannon DO [address] [place] [id number] Follow Up Social History Tobacco Use Types Packs/Day Years [...] Sign Reading Time Taken Comments Blood Pressure 97/47 04/13/2019 8:17 AM CDT Pulse 63 04/13/2019 8:17 AM CDT Temperature - - Respiratory Rate 18 04/13/2019 8:17 AM CDT Oxygen Saturation 100% 04/13/2019 8:17 AM CDT Inhaled Oxygen Concentration - - Weight 61.5 kg (135 lb 8 oz) 04/13/2019 8:17 AM CDT Height 170.2 cm (5' 7 ) 04/13/2019 8:17 AM CDT Body Mass Index 21.22 04/13/2019 8:17 AM CDT documented in this encounter Progress Notes * Arden Cannon, - 04/13/2019 8:00 AM CDT Images from the original note were not included. GENERAL OFFICE VISIT Encounter Date: 04/13/2019 Chief Complaint: 19-year-old female presents for Follow Up . Pt is here for follow-up on his ADHD medications. Pt has a diagnosis of ADHD, Combined Type. Concurrent psychiatric conditions include none. Pt is currently on Vyvanse. Pt's symptoms are well controlled. Current ADHD symptoms include none. Pt notes the following side effects: occasional anxiety, not a problem at this time. No other acute symptoms. Review of Systems Constitutional: Negative for fever and weight loss. Respiratory: Negative for shortness of breath. Cardiovascular: Negative for chest pain. Psychiatric/Behavioral: See [...] file Gets together: Not on file Attends yarsanism service: Not on file Active member of [...] Reactions ??? Sertraline Hives Objective: Filed Vitals: 04/13/19 0817 BP: 97/47 Pulse: 63 Resp: 18 SpO2: 100% Weight: 61.5 kg (135 lb 8 oz) Height: 5' 7 (1.702 m) Physical Exam Constitutional: She is well-developed, well-nourished, and in no distress. HENT: Head: Normocephalic and atraumatic. Right Ear: External ear normal. Left Ear: External ear normal. Eyes: Conjunctivae are normal. Cardiovascular: Normal rate, regular rhythm and normal heart sounds. Exam reveals no gallop and no friction rub. No murmur heard. Pulmonary/Chest: Effort normal and breath sounds normal. No respiratory distress. She has no wheezes. She has no rales. Abdominal: Soft. Bowel sounds are normal. There is no tenderness. Nursing note and vitals reviewed. Assessment & Plan: Corinna was seen today for follow up. Diagnoses and all orders for this visit: ADHD (attention deficit hyperactivity disorder), combined type Discussion/Summary: Continue medications at current dose. Watch for problems with anxiety. Will have pt f/u in 3-4 months or sooner if needed. Pt v/u. Arden Cannon DO documented in this encounter Plan of Treatment Not on file documented as of this encounter Visit Diagnoses Diagnosis ADHD (attention deficit hyperactivity disorder), combined type- Primary Attention deficit disorder with hyperactivity documented in this encounter Care Teams Pit And Auxiliaries Supervisor Relationship Specialty Start Date End Date Arden Cannon DO [address] [place] [phone] PCP - General FAMILY PRACTICE 01/12/19 documented as of this encounter
--- OUTSIDE RECORDS SUMMARY | 2024-09-30 09:16 | XMS_ITS | Encounter Summary ---
Author Organization [facility] Address [address] [place] [address] [place] [address] Care Team Providers Care Supervisor Hot Dip Plating Name Role Phone Arden Cannon DO Primary Care Provider + Encounter Details Date Type Department Care Team (Late st Contact Info) Description 01/12/2019 Orders Only [facility] Family & Internal Medicine - [place] [address] [place] [phone] Arden Cannon DO [address], [place] [phone] Social History Tobacco Use Types Packs/Day Years [...] MONITORING, PANEL 7, WITH CONFIRMATION, (U) Routine 01/12/2019 2:01 PM CDT documented in this encounter Results * (ABNORMAL) PAIN MANAGEMENT 7 PROFILE (01/12/2019 2:01 PM CDT) PRESCRIBED DRUG 1 (U) Vyvanse(TM) [facility] CREATININE RANDOM URINE 114.7 > or = 20.0 mg/dL [facility] pH PM (U) 7.59 4.5 - 9.0 [facility] OXIDANT NEGATIVE <200 mcg/mL [facility] AMPHETAMINES PM NEGATIVE <500 ng/mL [facility] AMPHETAMINES PM MEDMATCH (U) INCONSISTENT [facility] BARBITURATES PM (U) NEGATIVE <300 ng/mL [facility] BARBITURATES PM MM (U) CONSISTENT [facility] BENZODIAZEPINES PM (U) NEGATIVE <100 ng/mL [facility] BENZODIAZEPINES PM MEDMATCH (U) CONSISTENT [facility] MARIJUANA METABOLITE PM (U) POSITIVE(A) <20 ng/mL [facility] MARIJUANA METABOLITE PM CONF (U) 153(H) <5 ng/mL [facility] Comment:See Note 1 MARIJUANA METAB PM MM CONF (U) INCONSISTENT [facility] COCAINE METABOLITE PM (U) NEGATIVE <150 ng/mL [facility] COCAINE METABOLITE PM MEDMATCH (U) CONSISTENT [facility] METHADONE PM (U) NEGATIVE <100 ng/mL [facility] METHADONE PM MEDMATCH CONSISTENT [facility] OPIATES PM (U) NEGATIVE <100 ng/mL [facility] OPIATES PM MEDMATCH (U) CONSISTENT [facility] OXYCODONE PM (U) NEGATIVE <100 ng/mL [facility] OXYCODONE PM MEDMATCH CONSISTENT [facility] Comment: [facility] Comment:See Note 2 PRESCRIBED DRUG 1 (U) Vyvanse(TM) [facility] ALCOHOL METABOLITES (U) NEGATIVE <500 ng/mL [facility] ALCOHOL METABOLITES (U) CONSISTENT [facility] Comment: [facility] Comment:See Note 2 PRESCRIBED DRUG 1 (U) Vyvanse(TM) [facility] MORPHINE (U) NEGATIVE <10 ng/mL [facility] MORPHINE PM MEDMATCH CONSISTENT [facility] Comment: [facility] Comment: See Note 2 Note 1 This test was developed and its analytical performance characteristics have been determined by [employer]. It has not been cleared or approved [...] interpreting these drug results, please contact a [employer] Toxicology Specialist: [phone] ( ), M-F, 8am-6pm EST. 01/12/2019 2:01 PM CDT 01/13/2019 2:54 AM CDT Narrative [facility] - 01/14/2019 8:38 AM CDT FASTING: NO Resulting Agency Comment Performing Organization Information: ?Site ID: [id number] ?Name: [facility] ?Address: [address] [place] [address], [address] [place] [address] ?Director: Tello Forbes Ph.D. us Arden Cannon DO LABORATORY Final Re sult [facility] [phone], documented in this encounter Visit Diagnoses Not on filedocumented in this encounter Care Teams Supervisor Hot Dip Plating Relationship Specialty Start Date End Date Arden Cannon DO [address] [place] [address] PCP - General FAMILY PRACTICE 01/12/19 documented as of this encounter
--- OUTSIDE RECORDS SUMMARY | 2024-09-30 09:22 | XMS_ITS | Referral Summary ---
Author Organization [facility] Address [address] [place] [address] Care Team Providers Care Informatics Manager Name Role Phone Unknown, Raman Primary Care Provider Unavail able Allergies Active Allergy Reactions Criticality Noted Date Comments Sertraline Hives Medium 01/25/2023 Social History Tobacco Use Types Packs/Day Years Used Date Smoking Tobacco: Never Assessed Personal Safety Answer Date Recorded Have you ever been in or are you currently in a harmful physical or emotional relationship or is someone making you feel afraid or unsafe? Denies 01/25/2023 Comments Unknown Sex and Gender Information Value Date Recorded Sex Assigned at Not on file Legal Sex Female 5:59 PM CDT Gender Identity Not on file Sexual Orientation Not on file Last Filed Vital Signs Vital Sign Reading Time Taken Comments Blood Pressure 110/72 01/26/2023 1:42 AM CDT Pulse 74 01/26/2023 1:42 AM CDT Temperature 36.9 ??C (98.5 ??F) 01/26/2023 1:42 AM CD T Respiratory Rate 18 01/26/2023 1:42 AM CDT Oxygen Saturation 100% 01/26/2023 1:42 AM CDT Inhaled Oxygen Concentration - - Weight 52 kg (114 lb 10.2 oz) 01/25/2023 6:02 PM CDT Height 170.2 cm (5' 7 ) 01/25/2023 6:02 PM CDT Body Mass Index 17.96 01/25/2023 6:02 PM CDT Plan of Treatment Not on file Care Teams Informatics Manager Relationship Specialty Start Date End Date UnknownRaman PCP - General 01/25/23
--- OUTSIDE RECORDS SUMMARY | 2024-09-30 09:22 | XMS_ITS | Clinical Summary ---
Author Organization [facility] Address [address] [place] [address] Care Team Providers Care Stepdown Nurse Name Role Phone Unknown, Notinfile Primary Care Provider Unavail able Allergies Active Allergy Reactions Criticality Noted Date Comments Sertraline Hives Medium 01/25/2023 Medical History Medical History Date Comments Adhd Social History Tobacco Use Types Packs/Day Years [...] on file Sexual Orientation Not on file Obstetrics History Last Filed Vital Signs Vital Sign Reading [...] 01/25/2023 6:02 PM CDT Plan of Treatment Health Maintenance Due Date Last Done Comments Cervical Cancer Screening 1998 Depression Screening 1998 Hepatitis C Screening 1998 Regular Well Visit/Exam 18-64 02/01/2016 Influenza Vaccine (#1) 2024 0, 07/22/2013, 07/22/2013, Additional history exists DTaP/Tdap/Td Vaccine (8 - Td or Tdap) 09/19/2030 09/19/2020, 06/17/2009, 06/15/2003, Additional history exists Varicella Vaccines Completed 06/17/2009, 02/15/1999 HPV Vaccines Completed 07/22/2012, 11/0 04/2011, 06/20/2011 Pneumococcal vaccine <65 Aged Out No longer eligible based on patient's age to complete this topic Care Teams Stepdown Nurse Relationship Specialty Start Date End Date Unknown, Notinfile PCP - General 01/25/23
--- OUTSIDE RECORDS SUMMARY | 2024-09-30 09:22 | XMS_ITS | Encounter Summary ---
Author Organization [facility] Healthcare Address [address] [place] [address] Care Team Providers Care [employer] Glazer Name Role Phone Unknown, Notinfile Primary Care Provider Unavail able Reason for Visit * Reason Comments Abdominal Pain Encounter Details Date Type Department Care Team (Late st Contact Info) Description 01/25/2023 10:27 PM CDT - 01/26/2023 1:46 AM CDT Emergency [address] [address] Right lower quadrant abdominal pain (Primary Dx); Threatened miscarriage Discharge Disposition: Discharge to home or self care Social History Tobacco Use Types Packs/Day Years [...] Mass Index 17.96 01/25/2023 6:02 PM CDT documented in this encounter Discharge Instructions * Discharge Instructions* Alice Quesada PA - 01/26/2023 1:29 AM CDT Return to the ER for any new or worsening symptoms including worsening abdominal pain, heavy bleeding, or fever. Follow-up with OB on Saturday or Saturday. You need to have follow-up blood test. Just present to the outpatient lab with a yellow order sheet given to you in the ED. Follow-up as recommended is mandatory. You have received emergency care only at your visit today. This is not a substitute for ongoing care, further evaluation and treatment and therefore follow-up as directed is not optional but mandatory You MUST follow up for further evaluation of all incidental abnormal radiographic and laboratory findings, Have your physician obtain records from this visit and address all the incidental abnormal findings. This may include final results of lab testing, cultures, final x-ray reports which may not have been available during the time of the visit. Return immediately for any new symptoms, worsening of symptoms, or persistent symptoms * Attachments The following attachments cannot be sent through Care Everywhere. * Threatened Miscarriage (AfterCare(R) Instructions(ER/ED)) (Serbian) * Acute Abdominal Pain (Stator Tester) (Serbian) documented in this encounter Discharge Disposition Disposition Code Departure Means Destination Comment s Discharge to home or self care documented in this encounter ED Notes * Alice Quesada PA - 01/25/2023 10:55 PM CDT CHIEF COMPLAINT: Chief Complaint Patient presents with Abdominal Pain HPI 5:12 AM Corinna Thacker is a 22 y.o. female presenting to the ED c/o abdominal pain. Patient had a positive home test and states her last menstrual period was 12/19/2022. For the past 2 and half weeks she is had right lower quadrant pain with radiation around to her back at times. Patient reports sharp stabbing right lower quadrant pain that has been constant. She denies any fever. She does report some nausea and vomiting. Patient had vaginal bleeding started 2 days ago. Akila had red blood with wiping and then noticed brown discharge yesterday and this morning. The bleeding has currently resolved. History provided by patient PCP: Unknown, Notinfile PAST MEDICAL HISTORY Past Medical History: Diagnosis Date ADHD PAST SURGICAL HISTORY History reviewed. No pertinent surgical history. FAMILY HISTORY History reviewed. No pertinent family history. MEDICATIONS GIVEN IN THE ED Medications sodium chloride 0.9% bolus 1,000 mL (0 mL intravenous Stopped 01/25/231915) CURRENT HOME MEDICATIONS No current facility-administered medications for this encounter. No current outpatient medications on file. ALLERGIES Allergies Allergen Reactions Zoloft [Sertraline] Hives SOCIAL HISTORY Social History Tobacco Use Smoking status: None Smokeless tobacco: None Substance and Sexual Activity Drug use: None Sexual activity: None Alcohol Use: Not on file PHYSICAL EXAM TRIAGE VITAL SIGNS: ED Triage Vitals Temp Pulse Resp BP SpO2 01/25/23 1802 01/25/23 1802 01/25/23 1802 01/25/23 18001/25/23 1802 36.7 ??C (98.1 ??F) 98 18 119/82 100 % Temp src Heart Rate Source Patient Position BP Location FiO2 (%) 01/25/23 1802 01/25/23203101/25/23 18001/25/23 180 -- Oral Pulse Oximetry Sitting Right arm Height Height Method Weight Weight Method 01/25/23 18001/25/23 1802 01/25/23 1802 01/25/23 1802 1.702 m (5' 7 ) Stated 52 kg (114 lb 10.2 oz) Standing scale Physical Exam Vitals and nursing note reviewed. Constitutional: General: She is not in acute distress. Appearance: She is well-developed. HENT: Head: Normocephalic and atraumatic. Right Ear: External ear normal. Left Ear: External ear normal. Nose: Nose normal. Mouth/Throat: Mouth: Mucous membranes are moist. Eyes: Conjunctiva/sclera: Conjunctivae normal. Cardiovascular: Rate and Rhythm: Normal rate and regular rhythm. Pulmonary: Effort: Pulmonary effort is normal. No respiratory distress. Breath sounds: Normal breath sounds. Abdominal: General: Bowel sounds are normal. There is no distension. Palpations: Abdomen is soft. Tenderness: There is abdominal tenderness in the right lower quadrant. There is no guarding or rebound. Musculoskeletal: General: Normal range of motion. Cervical back: Neck supple. Skin: General: Skin is warm and dry. Neurological: General: No focal deficit present. Mental Status: She is alert. Psychiatric: Mood and Affect: Mood normal. Behavior: Behavior normal. LABS Labs Reviewed URINALYSIS AND REFLEX TO MICROSCOPIC AND CULTURE - Abnormal Result Value Color, ur Yellow Clarity, ur Cloudy (*) Specific gravity, ur 1.020 pH, urine 5.0 Protein, ur ql Negative Glucose, ur ql Negative Ketones, ur Negative Bilirubin, ur Negative Blood, ur 1+ (*) Urobilinogen, ur <2.0 Nitrite, ur Negative Leukocyte esterase, ur Negative UA reflex comment Reflex to microscopic UA will be performed. Narrative: Urine pH is affected by diet, medications, systemic acid-base disturbances, and renal tubular function. pH may affect urinary stone formation. For example, urine pH below 6.0 may help reduce the tendency for calcium phosphate stones and pH greater than 6.0 may reduce the tendency for uric acid stone formation. Source: [place] [employer].Last revised 10-24-2017 COMPREHENSIVE METABOLIC PANEL - Abnormal Sodium 135 Potassium, pl 3.5 Chloride 101 CO2 26 Anion gap 8 BUN 5 (*) Creatinine 0.60 Glucose 96 Calcium 9.1 Bilirubin, total 0.6 Protein, pl 6.8 Albumin 4.6 Alk phos 32 (*) ALT 7 AST 14 HCG, BLOOD, QUANTITATIVE - Abnormal hCG, quant 8,088.0 (*) URINALYSIS, MICROSCOPIC ONLY - Abnormal WBC, ur 0-5 RBC, ur 0-2 Epithelial cells, squamous, ur 1-5 Bacteria, ur Trace (*) Mucous, ur Present (*) Culture Reflex Comment Value: Reflex conditions for urine culture (WBC >10) not met. POCT HCG, URINE - Normal HCG, ur, POC Positive Lot Number [id number] QC Backgroud Clear Acceptable QC Control Line Acceptable CBC WITH AUTO DIFFERENTIAL WBC 7.7 Hgb 13.2 Hct 38.0 Plt 297 MPV 9.6 RBC 4.29 MCV 88.6 MCH 30.8 MCHC 34.7 RDW CV 12.6 RDW SD 40.9 NRBC abs 0.00 DIFFERENTIAL AUTO Neutrophil abs 4.7 Imm gran abs 0.0 Lymphocyte abs 2.5 Monocyte abs 0.4 Eosinophil abs 0.1 Basophil abs 0.0 Neutrophil pct 60.4 Imm gran pct 0.3 Lymphocyte pct 31.9 Monocyte pct 5.7 Eosinophil pct 1.3 Basophil pct 0.4 EGFR eGFR 128 TYPE AND SCREEN ABO/RH ABO/Rh A Positive Narrative: Has the patient had Daratumumab or Isatuximab in the past 6 months?->Unknown ANTIBODY SCREEN Bautista, indirect, Gel Interpretation Negative ABSC Narrative: Has the patient had Daratumumab or Isatuximab in the past 6 months?->Unknown B ABO / RH CONFIRMATION TESTING RADIOLOGY US Ob Transvaginal Result Date: 01/25/2023 Narrative: EXAM DESCRIPTION: US OB TRANSVAGINAL REASON FOR STUDY: early , right lower quadrant pain, vaginal bleeding, hcg pending Beta-hC TECHNIQUE: Transabdominal and transvaginal images acquired of the pelvis. 42 images were provided for retrospective review. COMPARISON: None. FINDINGS: Estimated clinical age is 6 weeks 1 day with an EUGENE of 09/19/2023. The uterus is anteverted.There is an intrauterine gestational sac confirmed by the presence of a yolk sac. The mean gestational sac diameter is 0.83 cm, this corresponds to an estimated age approximately 5 weeks 6 days. No pole is yet seen. No evidence of subchorionic hemorrhage. Right ovary is 3.2 x 3.2 x 1.4 cm. Pre served color flow and waveforms. No extraovarian adnexal mass. The technologist notes some degree of limitation of assessing the right ovary and adnexa due to the peristalsing bowel. Left ovary is 2.8 x 2.1 x 1.4 cm. Preserved color flow and waveforms left ovary. No free fluid seen in the pelvis. IMPRESSION: 1. Intrauterine gestational sac with yolk sac estimated to be 5 weeks 6 days. 2. A pole is not yet seen. Short-term follow-up beta hCG and short-term follow- up ultrasound recommended.3. No evidence of subchorionic hemorrhage or other evidence of complication. THIS IS AN ELECTRONICALLY VERIFIED FINAL REPORT 01/25/2023 10:03 PM - Electronically signed by Deonte Lawler M.D. T: Report ID: [id number] Reading Location: [id number] ED COURSE/MEDICAL DECISION MAKING Differential diagnosis included but not limited to ectopic , miscarriage, ovarian torsion,appendicitis, uti Patient has an early confirmed intrauterine . Patient's blood type is A positive. Patient's appendix was unable to be visualized on ultrasound. She does not want to wait for further evaluation with an MRI. It was unlikely patient has appendicitis due to length of symptoms, normal white count, and no fever. Symptoms are likely related. Will have patient follow-up on Saturday or Saturday with OBGYN with an order to get a repeat serum HCG in 48 hours. I discussed strict return precautions including worsening pain, fever, or heavy vaginal bleeding. I discussed all diagnostic test results, indications for return to the ER, the importance of follow-up. All questions answered. Patient's medical records were reviewed. FINAL IMPRESSION Right lower quadrant abdominal pain Threatened miscarriage DISPOSITION: Home All findings were discussed with patient. Pt agreeable with plan. Non toxic appearing, vitals stable. Patient stable for discharge home. Given return to ER precautions Close outpatient follow-up with a low threshold to return has been mandated , concerning symptoms have been emphasized in detail, and this patient expresses understanding PATIENT INSTRUCTED TO FOLLOW UP Elvira Davies MD [address] [place] [id number] In 2 days for re-evaluation and further treatment DISCHARGE MEDICATIONS Your medication list as of January 26, 2023 1:30 AM You have not been prescribed any medications. This examination was transcribed using the [employer] voice recognition system without human half section ironer. In an effort to expedite patient care, this report has not been adjusted for typographical, grammatical, and syntax by a trained medical billing assistant. Alice Quesada PA 01/26/23 0512 Cosigned by Dee King MD at 01/26/2023 5:56 AM CDT * Gayle Thompson RN - 01/25/2023 6:19 PM CDT Reports taking an at home test on Saturday d/t being only a couple of days late on period to which several were positive. Reports that today began having right hip pain/lower right abd pain that started today that began intermittently and is now constant that takes the wind out of me pt also reports spotting/bleeding today as well. Of note pt had last August and was not ableto follow up after the . No other 's noted documented in this encounter Plan of Treatment Not on file documented as of this encounter Procedures Procedure Name Priority Date/Time Associated Diagnosis Comments US APPENDIX ED 01/26/2023 12:18 AM CDT ABO/RH Timed 01/25/2023 9:11 PM CDT ANTIBODY SCREEN Timed 01/25/2023 9:11 PM CDT HC ANTIBODY SCREEN RBC Timed 9:11 PM CDT US OB TRANSVAGINAL ED 01/25/2023 8: 27 PM CDT EGFR STAT 01/25/2023 6:40 PM CDT DIFFERENTIAL AUTO STAT 01/25/2023 6:4 0 PM CDT CBC WITH AUTO DIFFERENTIAL STAT 01/25/2023 6:40 PM CDT HCG, BLOOD, QUANTITATIVE STAT 01/25/2023 6:40 PM CDT COMPREHENSIVE METABOLIC PANEL STAT 01/25/2023 6:40 PM CDT POCT HCG, URINE STAT 01/25/2023 6:37 PM CDT URINALYSIS AND REFLEX TO MICROSCOPIC AND CULTURE STAT 01/25/2023 6:35 PM CDT URINALYSIS, MICROSCOPIC ONLY STAT 01/25/2023 6:35 PM CDT documented in this encounter Results * US Appendix (01/26/2023 12:18 AM CDT) Anatomical Region Laterality Modality Abdomen N/A Ultrasound 01/26/2023 12:3 4 AM CDT Narrative 01/26/2023 12:36 AM CDT EXAM DESCRIPTION: ?US APPENDIX REASON FOR STUDY: ?? rlq pain today, positive TECHNIQUE: Grayscale imaging performed of the right lower quadrant. COMPARISON: ?? None FINDINGS: Directed transabdominal ultrasound reveals multiple air-filled loops of bowel. IMPRESSION: ?? Appendix not visualized. ??No ??fluid collection visualized. ??The right lower quadrant is largely obscured by bowel gas. THIS IS AN ELECTRONICALLY VERIFIED FINAL REPORT 01/26/2023 12:36 AM - Electronically signed by ??Gilberto Donovan M.D. RW D: ??01/26/2023 12:36 AM T: Report ID: [id number] Reading Location: ??[id number] Procedure Note Gilberto Donovan MD - 01/26/2023 EXAM DESCRIPTION: US APPENDIX REASON FOR STUDY: rlq pain today, positive TECHNIQUE: Grayscale imaging performed of the right lower quadrant. COMPARISON: None FINDINGS: Directed transabdominal ultrasound reveals multiple air-filledloops of bowel. IMPRESSION: Appendix not visualized. No fluid collection visualized.The right lower quadrant is largely obscured by bowel gas. THIS IS AN ELECTRONICALLY VERIFIED FINAL REPORT 01/26/2023 12:36 AM - Electronically signed by Gilberto Donovan M.D. RW T: Report ID: [id number] Reading Location: [id number] us Alice CHAVES IMG US PROCEDURES Final R esult * Antibody screen (01/25/2023 9:11 PM CDT) Bautista, indirect, Gel Interpretation Negative ABSC CERNER Blood 01/25/2023 9:11 PM CDT 01/25/2023 9:16 PM CDT Narrative CERNER MH - 01/25/2023 10:28 PM CDT Has the patient had Daratumumab or Isatuximab in the past 6 months?->Unknown Alice CHAVES LAB BLOOD BANK TEST ORDER RENETTA Final Result Performing Organization Address [facility] Co de Phone Number [address] [address] * ABO/Rh (01/25/2023 9:11 PM CDT) ABO/Rh A Positive [facility] Blood 01/25/2023 9:11 PM CDT 01/25/2023 9:16 PM CDT Narrative [facility] - 01/25/2023 10:28 PM CDT Has the patient had Daratumumab or Isatuximab in the past 6 months?->Unknown Alice CHAVES LAB BLOOD BANK TEST ORDER RENETTA Final Result Performing Organization Address [facility] de Phone Number [address] [address] * US Ob Transvaginal (01/25/2023 8:27 PM CDT) Anatomical Region Laterality Modality Abdomen N/A Ultrasound 01/25/2023 9:56 PM CDT Narrative 01/25/2023 10:03 PM CDT EXAM DESCRIPTION: ?? US OB TRANSVAGINAL REASON FOR STUDY: ?? early , right lower quadrant pain, vaginal bleeding, hcg pending ?? Beta-hCG: ?8088 TECHNIQUE: ?? Transabdominal and transvaginal ??images acquired of the pelvis. ?? 42 images were provided for retrospective review. COMPARISON: ?? None. FINDINGS: Estimated clinical age is 6 weeks 1 day with an EUGENE of 09/19/2023. The uterus is anteverted. There is an intrauterine gestational sac confirmed by the presence of a yolk sac. ??The mean gestational sac diameter is 0.83 cm, this corresponds to an estimated age approximately 5 weeks 6 days. No pole is yet seen. No evidence of subchorionic hemorrhage. Right ovary is 3.2 x 3.2 x 1.4 cm. ??Preserved color flow and waveforms. ??No extraovarian adnexal mass. ??The technologist notes some degree of limitation of assessing the right ovary and adnexa due to the peristalsing bowel. Left ovary is 2.8 x 2.1 x 1.4 cm. ??Preserved color flow and waveforms left ovary. No free fluid seen in the pelvis. IMPRESSION: ?? 1. ?? Intrauterine gestational sac with yolk sac estimated to be 5 weeks 6 days. ?? 2. ?? A pole is not yet seen. ??Short-term follow-up beta hCG and short-term follow-up ultrasound recommended. 3. ?? No evidence of subchorionic hemorrhage or other evidence of complication. THIS IS AN ELECTRONICALLY VERIFIED FINAL REPORT 01/25/2023 10:03 PM - Electronically signed by ??Deonte Lawler M.D. D: ??01/25/2023 10:03 PM T: Report ID: [id number] Reading Location: ??[id number] Procedure Note Deonte Lawler Jr., MD - 01/25/2023 EXAM DESCRIPTION: US OB TRANSVAGINAL REASON FOR STUDY: early , right lower quadrant pain, vaginal bleeding, hcg pending Beta-hC TECHNIQUE: Transabdominal and transvaginal images acquired of thepelvis. 42 images were provided for retrospective review. COMPARISON: None. FINDINGS: Estimated clinical age is 6 weeks 1 day with an EUGENE of09/19/2023. The uterus is anteverted. There is an intrauterine gestational sac confirmed by the presence of ayolk sac. The mean gestational sac diameter is 0.83 cm, this corresponds to an estimated age approximately 5 weeks 6 days. No pole is yet seen. No evidence of subchorionic hemorrhage. Right ovary is 3.2 x 3.2 x 1.4 cm. Preserved color flow and waveforms.No extraovarian adnexal mass. The technologist notes some degree oflimitation of assessing the right ovary and adnexa due to the peristalsing bowel. Left ovary is 2.8 x 2.1 x 1.4 cm. Preserved color flow and waveforms left ovary. No free fluid seen in the pelvis. IMPRESSION: 1. Intrauterine gestational sac with yolk sac estimated to be 5 weeks 6 days. 2. A pole is not yet seen. Short-term follow-up beta hCG and short-term follow-up ultrasound recommended. 3. No evidence of subchorionic hemorrhage or other evidence ofcomplication. THIS IS AN ELECTRONICALLY VERIFIED FINAL REPORT 01/25/2023 10:03 PM - Electronically signed by Deonte Lawler M.D. T: Report ID: [id number] Reading Location: [place] [id number] us Alice CHAVES IMG OB US PROCEDURES Carlee l Result * eGFR (01/25/2023 6:40 PM CDT) eGFR 128 mL/min/1. 73 m2 [facility] Comment: Interpretive Data Reference Interval Normal ?>/= 90 mL/min/1.73m2 Mildly decreased* ? 60 - 89 mL/min/1.73m2 Mildly to moderately decreased ?45 - 59 mL/min/1.73m2 Moderately to severely decreased ??30 - 44 mL/min/1.73m2 Severely decreased ?15 - 29 mL/min/1.73m2 Kidney Failure ?< 15 ??mL/min/1.73m2 *Relative to young adult level Estimated glomerular filtration rate is determined by the 2020 CKD-EPI equation recommended by the National Kidney Foundation (A Unifying Approach to GFR Estimation: Recommendations of the NKF-ASK Task Force on Reassessing the Inclusion of Race in Diagnosing Kidney Disease, JASN 2020). The CKD-EPI equation should not be used for patients with unstable renal function and has not been validated in children and those over 70. Current interpretive data was last reviewed 2021. Blood 01/25/2023 6:40 PM CDT 01/25/2023 6:44 PM CDT Alice CHAVES LAB BLOOD ORDERABLES Carlee chapis Result [facility] [address] [facility] Department [place] [address] * Differential, auto (01/25/2023 6:40 PM CDT) Neutrophil abs 4.7 1.7 - 6.5 K/cumm [facility] Imm gran abs 0.0 0.0 - 0.1 K/cumm [facility] Lymphocyte abs 2.5 0.8 - 3.3 K/cumm [facility] Monocyte abs 0.4 0.2 - 0.8 K/cumm [facility] Eosinophil abs 0.1 0.0 - 0.5 K/cumm [facility] Basophil abs 0.0 0.0 - 0.1 K/cumm [facility] Neutrophil pct 60.4 % [facility] Comment: Interpretive Data Percent cell count reference ranges are not reported, since discordance with absolute values may lead to misinterpretation of CBC data. Current Interpretive Data was last revised on 2018. Imm gran pct 0.3 % [facility] Comment: Interpretive Data Percent cell count reference ranges are not reported, since discordance with absolute values may lead to misinterpretation of CBC data. Current Interpretive Data was last revised on 2018. Lymphocyte pct 31.9 % [facility] Comment: Interpretive Data Percent cell count reference ranges are not reported, since discordance with absolute values may lead to misinterpretation of CBC data. Current Interpretive Data was last revised on 2018. Monocyte pct 5.7 % [facility] Comment: Interpretive Data Percent cell count reference ranges are not reported, since discordance with absolute values may lead to misinterpretation of CBC data. Current Interpretive Data was last revised on 2018. Eosinophil pct 1.3 % [facility] Comment: Interpretive Data Percent cell count reference ranges are not reported, since discordance with absolute values may lead to misinterpretation of CBC data. Current Interpretive Data was last revised on 2018. Basophil pct 0.4 % [facility] Comment: Interpretive Data Percent cell count reference ranges are not reported, since discordance with absolute values may lead to misinterpretation of CBC data. Current Interpretive Data was last revised on 2018. Blood 01/25/2023 6:40 PM CDT 01/25/2023 6:44 PM CDT Alice CHAVES LAB BLOOD ORDERABLES Carlee l Result Performing Organization Address City/State/[facility] Co de Phone Number [facility] [address] [facility] Department [place] [address] * (ABNORMAL) hCG, blood, quantitative (01/25/2023 6:40 PM CDT) hCG, quant 8,088.0(H ) 0.0 - 5.0 IUnits/L [facility] Comment: Interpretive Data Non- Female premenopausal: < or = 5.0 IUnits/L Men: < 5.0 IUnits/L Weeks of Gestation ? Reference Interval ?? 3 to 6 ? 5.8-31,795 IUnits/L ?? 7 to 10 ? 3,697-186,977 IUnits/L ??12 to 15 ?27,832- 70,791 IUnits/L ??16 to 18 ? 9,040- 58,179 IUnits/L The Sara hCG Beta Quant assay procedure was used. Results from different manufacturers or methods may not be comparable. Serial testing should be performed using the same method. Current Interpretive Data was last revised on 2022. Blood 01/25/2023 6:40 PM CDT 01/25/2023 6:44 PM CDT Alice CHAVES LAB BLOOD ORDERABLES Edit ed Result - Final Performing Organization Address City/[facility] Co de Phone Number [address] [address] * CBC with auto differential (01/25/2023 6:40 PM CDT) [facility] WBC 7.7 3.8 - 9.9 K/cumm [facility] Hgb 13.2 11.9 - 15.5 g/dL [facility] Hct 38.0 35.6 - 45.5 % [facility] Plt 297 150 - 400 K/cumm [facility] MPV 9.6 9.1 - 12.3 fL [facility] RBC 4.29 3.90 - 5.20 M/cumm [facility] MCV 88.6 81.3 - 96.4 fL [facility] MCH 30.8 27.1 - 33.3 pg [facility] MCHC 34.7 32.3 - 35.7 g/dL [facility] RDW CV 12.6 11.1 - 14.9 % [facility] RDW SD 40.9 35.7 - 48.1 fL [facility] NRBC abs 0.00 0.00 - 0.01 K/cumm [facility] Blood 01/25/2023 6:40 PM CDT 01/25/2023 6:44 PM CDT Alice CHAVES LAB BLOOD ORDERABLES Carlee l Result Performing Organization Address [facility] Co de Phone Number [address] [place] [address] * (ABNORMAL) Comprehensive metabolic panel (01/25/2023 6:40 PM CDT) [facility] Sodium 135 135 - 145 mmol/L [facility] Potassium, pl 3.5 3.3 - 4.9 mmol/L [facility] Chloride 101 97 - 110 mmol/L [facility] CO2 26 22 - 32 mmol/L [facility] Anion gap 8 2 - 15 mmol/L [facility] BUN 5(L) 8 - 25 mg/dL [facility] Creatinine 0.60 0.60 - 1.10 mg/dL [facility] Glucose 96 70 - 199 mg/dL [facility] Comment: Interpretive Data Fasting glucose >/= 126 mg/dl is diagnostic for diabetes. ?? Fasting is defined as no caloric intake for at least 8 hours. Fasting glucose between 100 mg/dl to 125 mg/dl is diagnostic of prediabetes. In a patient with classic symptoms of hyperglycemia or hyperglycemic crisis, a random glucose >/= 200 mg/dl is diagnostic for diabetes. In the absence of unequivocal hyperglycemia, results should be confirmed by repeat testing. The classification and Diagnosis of Diabetes Diabetes Care 2021; 46: S19-S40. Current interpretive data was last revised 2022. Calcium 9.1 8.5 - 10.3 mg/dL [facility] Bilirubin, total 0.6 0.1 - 1.2 mg/dL [facility] Protein, pl 6.8 6.5 - 8.5 g/dL [facility] Albumin 4.6 3.5 - 5.0 g/dL [facility] Alk phos 32(L) 40 - 130 Units/L [facility] ALT 7 7 - 45 Units/L [facility] AST 14 10 - 45 Units/L [facility] Blood 01/25/2023 6:40 PM CDT 01/25/2023 6:44 PM CDT Alice CHAVES LAB BLOOD ORDERABLES Carlee l Result [facility] [address] [facility] Department [place] [address] * POCT hCG, urine (01/25/2023 6:37 PM CDT) Pathologist [facility] HCG, ur, POC Positive Lot Number [id number] QC Backgroud Clear Acceptable QC Control Line Acceptable Urine 01/25/2023 6:37 PM CDT Alice CHAVES POINT OF CARE TEST ORDERA BLES Final Result * (ABNORMAL) Urinalysis, microscopic only (01/25/2023 6:35 PM CDT) Pathologist [facility] WBC, ur 0-5 0 - 5 /HPF [facility] RBC, ur 0-2 0 - 2 /HPF [facility] Epithelial cells, squamous, ur 1-5 0 - 5 /HPF [facility] Bacteria, ur Trace(A) [facility] Mucous, ur Present(A) [facility] Culture Reflex Comment Reflex conditions for urine culture (WBC >10) not met. [facility] Urine 01/25/2023 6:35 PM CDT 01/25/2023 6:37 PM CDT us Alice CHAVES LAB URINE ORDERABLES Carlee nation Result [facility] [address] [facility] Department [place] [address] * (ABNORMAL) Urinalysis reflex to microscopic and culture Urine (01/25/2023 6:35 PM CDT) Color, ur Yellow Yellow [facility] Clarity, ur Cloudy(A) Clear [facility] Specific gravity, ur 1.020 1.003 - 1.030 [facility] pH, urine 5.0 [facility] Protein, ur ql Negative Negative [facility] Glucose, ur ql Negative Negative [facility] Ketones, ur Negative Negative [facility] Bilirubin, ur Negative Negative [facility] Blood, ur 1+(A) Negative [facility] Urobilinogen, ur <2.0 <2.0 mg/dL [facility] Nitrite, ur Negative Negative [facility] Leukocyte esterase, ur Negative Negative [facility] UA reflex comment Reflex to microscopic UA will be performed. [facility] Urine 01/25/2023 6:35 PM CDT 01/25/2023 6:37 PM CDT Narrative [facility] - 01/25/2023 6:45 PM CDT ?? Urine pH is affected by diet, medications, systemic acid-base disturbances, and renal tubular function. ??pH may affect urinary stone formation. ??For example, urine pH below 6.0 may help reduce the tendency for calcium phosphate stones and pH greater than 6.0 may reduce the tendency for uric acid stone formation. Source: [place] [employer]. Last revised 10-24-2017 us Alice CHAVES LAB MICROBIOLOGY - GENERA L ORDERABLES Final Result [facility] [address] [facility] Department [place] [address] documented in this encounter Visit Diagnoses Diagnosis Right lower quadrant abdominal pain- Primary Threatened miscarriage Threatened , unspecified as to episode of care documented in this encounter Administered Medications Inactive Administered Medications - up to 3 most recent administrations Medication Order MAR Action Action Date Dose Rate Site sodium chloride 0.9% bolus 1,000 mL 1,000 mL, intravenous, Once, On Sat01/25/23 at 1838, For 1 dose New Bag 01/25/2023 6:41 PM CDT 1,000 mL documented in this encounter Active and Recently Administered Medications Times are shown in CDT. Scheduled Medication Order 01/24/2023 01/25/2023 01/26/2023 sodium chloride 0.9% bolus 1,000 mL (COMPLETED) 1,000 mL, intravenous, Once, On Sat01/25/23 at 1838, For 1 dose 1841 (New Bag - Provider: Luis Angel Lowry RN)1916 (Stopped - Provider: Jayla Lowry RN) documented in this encounter Orders Medications Ordered That Jose Alberto ht Not Have Been Administered Count Last Ordered Date First Ordered Date sodium chloride 0.9% bolus 1,000 mL 1 01/25 documented in this encounter Care Teams [employer] Glazer Relationship Specialty Start Date End Date Unknown, Notinfile PCP - General 01/25/23 documented as of this encounter
--- OUTSIDE RECORDS SUMMARY | 2024-09-30 11:31 | XMS_ITS | Encounter Summary ---
Author Organization [facility] Address [address] [place] [address] [place] [address] Care Team Providers Care Structural Layout Worker Name Role Phone Jian Benitez MD Primary Care Provider [phone] Reason for Visit * Reason Comments Congestion Sore Throat Nausea Headache Fatigue Cough Encounter Details Date Type Department Care Team (Late st Contact Info) Description 07/12/2019 11:20 AM CDT Office Visit [facility] AT [address] [address] Provider, [place] [facility] Nasopharyngitis (Primary Dx) Social History Tobacco [...] Instructions * Patient Instructions* Wendie Griggsdi Gianfranco, PULLMAN CONDUCTOR-SALESPERSON WIGS - 07/12/2019 11:46 AM CDT Images from [...] refuse treatment. The above information is an manager paid only. It is not intended as medical advice for individual conditions or treatments. Talk to your doctor, nurse or pharmacist before following any medical regimen to see if it is safe and effective for you. ?? Copyright COH 2019 Information is for End User's use only and may not be sold, redistributed or otherwise used for commercial purposes. All illustrations and images included in CareNotes?? are the copyrighted property of [employer]. or [employer] Patient Education Acute Cough WHAT YOU NEED [...] refuse treatment. The above information is an manager paid only. It is not intended as medical advice for individual conditions or treatments. Talk to your doctor, nurse or pharmacist before following any medical regimen to see if it is safe and effective for you. ?? Copyright [employer]H 2019 Information is for End User's use only and may not be sold, redistributed or otherwise used for commercial purposes. All illustrations and images included in CareNotes?? are the copyrighted property of [employer]. or [employer] documented in this encounter Progress Notes * [...] 07/12/19 encounter (Office Visit) with Provider, [place] [facility] Medication Sig ??? benzonatate (TESSALON) 200 MG [...] file Gets together: Not on file Attends oriental orthodox service: Not on file Active member of [...] Strep A Internal Control Present Lot # [id number] Expiration Date 10/13/2020 INFLUENZA A+B - POINT [...] Strep A Internal Control Present Lot # [id number] Expiration Date 10/13/2020 Throat ENTIRE THROAT (SURFACE REGION OF NECK) / Unknown 07/12/2019 Christine Griggs PULLMAN CONDUCTOR-SALESPERSON WIGS LAB - POINT OF CARE ORDERABLES documented in this encounter Visit Diagnoses Diagnosis Nasopharyngitis- Primary Acute nasopharyngitis (common cold) documented in this encounter Care Teams Structural Layout Worker Relationship Specialty Start Date End Date Jian Benitez MD [address] [place] [address] PCP - General Pediatrics 08/03/14 03/26/24 documented as of this encounter
--- OUTSIDE RECORDS SUMMARY | 2024-09-30 11:31 | XMS_ITS | Encounter Summary ---
Author Organization [facility] Address [address] [place] [address] Care Team Providers Care Bungy Jump Master Name Role Phone Jian Benitez MD Primary Care Provider [phone] Encounter Details Date Type Department Care Team (Latest Contact Info) Description 05/22/2010 3:18 PM CDT - 05/22/2010 11:59 PM CDT Hospital Encounter [facility] Pediatrics - Radiology [address] [place] [address] Discharge Disposition: Home or Self Care Social [...] idiopathic documented in this encounter Care Teams Bungy Jump Master Relationship Specialty Start Date End Date Jian Benitez MD [address] [place] [address] PCP - General 05/22/10 12/28/10 documented as of this encounter
--- OUTSIDE RECORDS SUMMARY | 2024-09-30 11:31 | XMS_ITS | Encounter Summary ---
Author Organization [facility] Address [address] [facility] [place] [address] Care Team Providers Care Mine Car Dispatcher Name Role Phone Jian Benitez MD Primary Care Provider [phone] Reason for Visit * Reason Comments Injury Ankle right ankle pain Encounter Details Date Type Department Care Team (Late st Contact Info) Description 09/24/2014 12:49 PM ELECTRIC GAS APPLIANCES DEMONSTRATOR - 09/24/2014 11:59 PM ELECTRIC GAS APPLIANCES DEMONSTRATOR Hospital Encounter [facility] Pediatrics - Orthopedics [address] [facility] [place] [place] [address] Patel Graf MD [address] [facility] [place] [address] Discharge Disposition: Home or Self Care Social History Tobacco Use Types Packs/Day Years Used Date Smoking Tobacco: Never Assessed Sex and Gender Information Value Date Recorded Sex Assigned at Not on file Gender Identity Not on file Sexual Orientation Not on file documented as of this encounter Discharge Instructions * Patient Instructions* Patel Graf MD - 09/24/2014 1:51 PM ELECTRIC GAS APPLIANCES DEMONSTRATOR Images from the original note were not included. [facility] Department of Orthopaedic Surgery Adult and Pediatric [...] if something about your condition significantly changes. [facility] Orthopaedic office contact information: [facility] [address] [place] [address]. [address] [facility] 2nd Floor, [address] [facility] [address], [place] [address] [facility] or [address] [place] [address] [facility] [address] [place] [address] [address] [address] Please contact Edinson Funez (clinical nurse specialist) at or email: [email or web address] if you have any further questions or concerns. TRIC GAS APPLIANCES DEMONSTRATOR documented in this encounter Medications at Time of Discharge Medication Sig Dispensed Refills Start Date End Date ibuprofen (MOTRIN) 200 MG tablet Take 200 mg by mouth every 6 hours as needed. 05/01/2019 documented as of this encounter Progress Notes * Patel Graf MD - 09/24/2014 2:00 PM CST Images from the original note were not included. Patel Graf MD ORTHOPAEDIC SPORTS MEDICINE [address] [place] [address] Dept: [phone] Jian Benitez ; Today we had the pleasure of seeing Corinna Thacker in [facility] Pediatric [facility] at [facility] for evaluation of her right ankle injury. Corinna Thacker is a 14 y.o. female who was kicked in the right ankle during a soccer game about 2 months ago. She was seen at [facility] where XRays were performed and eventually referredto Dr. Rico who then recommended an MRI and referred her to Sports Clinic. She has diffuse ankle pain that is worse when she has been active. She has stayed out of PE class but has been working withher graduate assistant athletic trainer on stretching exercises. The symptoms are [...] She had XRays that were performed at [facility] which were unavailable for review today. Impression: [...] be reached at and by email at [email or web address]. My personal email is [email or web address]. Sincerely, Patel Graf MD TRIC GAS APPLIANCES DEMONSTRATOR documented in this encounter Plan of Treatment Not on file documented as of this encounter Visit Diagnoses Diagnosis Pain in joint, ankle and foot, right- Primary documented in this encounter Care Teams Mine Car Dispatcher Relationship Specialty Start Date End Date Jian Benitez MD [address] [place] [address] PCP - General Pediatrics 08/03/14 03/26/24 documented as of this encounter
--- OUTSIDE RECORDS SUMMARY | 2024-09-30 11:31 | XMS_ITS | Encounter Summary ---
Author Organization [facility] Address [address] [facility] [place] [address] Care Team Providers Care Manager Nuclear Name Role Phone Jian Benitez MD Primary Care Provider Reason for Visit * Reason Onset Date Comments Stress Test 01/03/2016 Encounter Details Date Type Department Care Team (Late st Contact Info) Description 01/03/2016 Telephone [facility] at [place] [address] [place] [address] Karla Gay RN Stress Test Social History [...] filedocumented in this encounter Care Teams Manager Nuclear Relationship Specialty Start Date End Date Rana, Jian Z, MD [address] [place] [place] [address] PCP - General Pediatrics 08/03/14 03/26/24 documented as of this encounter
--- OUTSIDE RECORDS SUMMARY | 2024-09-30 11:31 | XMS_ITS | Encounter Summary ---
Author Organization [facility] Address [address] [facility] [place] [address] Care Team Providers Care Construction Sales Manager Name Role Phone Jian Benitez MD Primary Care Provider [phone] Reason for Visit * Reason Comments Bradycardia irregular hr, recent chest pressure with running Encounter Details Date Type Department Care Team (Latest Contact Info) Description 12/15/2015 8:30 AM ORE PUNCHER - 12/15/2015 11:59 PM ORE PUNCHER Hospital Encounter [facility] Pediatrics - Cardiology [address] [place] [address] Alex Rendon MD [address] [place] [address] Discharge Disposition: Home or Self Care Social [...] Comments Blood Pressure 104/80 12/15/2015 9:06 AM ORE PUNCHER Pulse 92 12/15/2015 9:06 AM ORE PUNCHER Temperature - - Respiratory Rate 16 12/15/2015 9:06 AM ORE PUNCHER Oxygen Saturation - - Inhaled Oxygen Concentration - - Weight 62 kg (136 lb 11 oz) 12/15/2015 9:[address] Height 170.5 cm (5' 7.13 ) 12/15/2015 9:06 AM CS T Body Mass Index 21.33 12/15/2015 9:06 AM ORE PUNCHER Body Mass Index Percentile 51.42% 12/15/2015 9:0 6 AM ORE PUNCHER Growth Chart: [facility] (Girls, 2- 20 Years) documented in this encounter Discharge Instructions * Patient Instructions* Annabel George RN - 12/15/2015 11:25 AM ORE PUNCHER Follow up pending Stress test results. Nurse will call to schedule stress test. PUNCHER documented in this encounter Medications at Time [...] EPIC and scheduled with cardiology office staff. PUNCHER documented in this encounter Consult Notes * Alex Rendon MD - 04/02/2016 3:24 PM CDT Images from the original note were not included. Pediatric Cardiology Clinic Note Date of Consultation:12/15/2015 Physician or Service requesting consult: Jian Benitez MD Dear Dr. Benitez, I had the pleasure of evaluating Marylou at the [facility] for bradycardia and chest pain [...] History: Patient lives with biological parents in [place], [place]. She is in the 12th grade. [...] questions or concerns. Alex Rendon MD Clinical Marketing Strategy Analyst Division of Pediatric Cardiology Department of Pediatrics [facility] 04/02/2016 Her EKG rhythm strip was reviewed. [...] the pleasure of evaluating Marylou at the [facility] for bradycardia and chest pain [...] History: Patient lives with biological parents in [place], [place]. She is in the 12th grade. [...] with sinus arrhythmia. One PVC was noted [id number] seconds of acquisition. Echo 12/15/2015: ??1. Normal [...] questions or concerns. Alex Rendon MD Clinical Marketing Strategy Analyst Division of Pediatric Cardiology Department of Pediatrics [facility] PUNCHER documented in this encounter Plan of Treatment Not on file documented as of this encounter Procedures Procedure Name Priority Date/Time Associated Diagnosis Comments CARDIAC EKG ORDER 12/26/2015 8:1 4 PM CDT CARDIAC RHYTHM STRIP ORDER 12/26/2015 7:15 PM CDT ECHO CONSULT - PEDIATRIC Routine 12/15/2015 10:24 AM ORE PUNCHER Bradycardia EKG 15-LEAD Routine 12/15/2015 9:52 AM ORE PUNCHER Bradycardia documented in this encounter Results * CARDIAC EKG ORDER (12/26/2015 8:14 PM CDT) Narrative 12/26/2015 8:14 PM CDT Ordered by an unspecified provider. Scanned Document CARDIAC SERVICES ORD ERABLES * CARDIAC RHYTHM STRIP ORDER (12/26/2015 7:15 PM CDT) Narrative 12/26/2015 7:15 PM CDT Ordered by an unspecified provider. Scanned Document CARDIAC SERVICES ORD ERABLES * ECHO CONSULT - PEDIATRIC (12/15/2015 10:24 AM ORE PUNCHER) 12/15/2015 10:2 4 AM ORE PUNCHER Narrative Procedure Note Reading, No - 12/15/2015 [place] [address] Fax Congenital Transthoracic Report Pat.Name: MARYLOU THACKER Sue Pat.ID: [id number] .Date: 12/15/2015 Exam Time: 10:24:00 AM Study Type:Congenital TTE Height: 171cm Weight: 62kg BSA: 1.73 m2 Age: 2 2000,15Y Sex: FEMALE BP: 104/80 Sonogrphr: Montrell Forte RDCS Pat. Stat.:Outpatient ICD - 9: 786.50 CPT - 4: 91534 Reason for Study:Chest pain History / Clinical:Chest pain Procedures:2D Non-congenital, Doppler Complete, Color Flow Visit ID: [id number] SUMMARY: Impression: 1. Normal coronary arteries. 2. [...] Rendon MD Alex Rendon MD ECHO ORDERABLES [facility] CARDIAC SERVICES [facility] [place] [address] * EKG 15-LEAD (12/15/2015 9:52 AM ORE PUNCHER) Ventricular Rate 73 BPM CG MUSE Atrial Rate 73 BPM CG MUSE P-R Interval 138 ms CG MUSE QRS Duration ms 70 ms CG MUSE Q-T Interval ms 412 ms CG MUSE QTC Calculation (Bezet) 453 ms CG MUSE Calculated P [place] 48 degrees CG MUSE Calculated R [place] 35 degrees CG MUSE Calculated T [place] 26 degrees CG MUSE Interpretation EKG Normal sinus rhythm with sinus arrhythmia No previous ECGs available Confirmed by MD Justice, Alex ([id number]) on 12/15/2015 10:00:40 AM CG MUSE 12/15/2015 9:52 AM ORE PUNCHER 12/15/2015 10:00 AM ORE PUNCHER Alex Rendon MD ECG ORDERABLES CG MUSE documented in this encounter Visit Diagnoses Diagnosis Bradycardia- Primary Other specified cardiac dysrhythmias documented in this encounter Care Teams Construction Sales Manager Relationship Specialty Start Date End Date Jian Benitez MD [address] [place] [address] PCP - General Pediatrics 08/03/14 03/26/24 documented as of this encounter
--- OUTSIDE RECORDS SUMMARY | 2024-09-30 11:31 | XMS_ITS | Encounter Summary ---
Author Organization [facility] Address [address] [place] [address] [place] [address] Care Team Providers Care Electronics Production Supervisor Name Role Phone Jian Benitez MD Primary Care Provider [phone] Reason for Visit * Reason Comments Eye Problem Drainage Nose Sinusitis Encounter Details Date Type Department Care Team (Late st Contact Info) Description 05/01/2019 3:00 PM CDT Office Visit [facility] AT [address] [phone] Provider, [facility] [place] Acute maxillary sinusitis, recurrence not specified (Primary [...] Primary documented in this encounter Care Teams Electronics Production Supervisor Relationship Specialty Start Date End Date Jian Benitez [place] [address] [place] [phone] PCP - General Pediatrics 08/03/14 03/26/24 documented as of this encounter
--- OUTSIDE RECORDS SUMMARY | 2024-09-30 11:31 | XMS_ITS | Patient Health Summary ---
Author Organization [facility] Address [address] [place] [address] Care Team Providers Care Natural Resource Technician Name Role Phone Unavailable Primary Care Provider Unavailabl e Note from [facility],non-owned Affiliates and Associated Physician Practices is amultiple site organization consisting of ambulatory clinics and hospital sitesin [place], [place], [place] and [place]. This disclosure is being madepursuant to the Care Everywhere program and may not contain all information available regarding this patient. Last updated 18.[facility] Allergies * Sertraline(Urticaria) -Medium Criticality Medications * [...] Unknown 07/12/2019 11:54 AM CDT Christine Griggs TERMINAL WORKER-TRANSFER AGENT LAB - POINT OF CARE ORDERABLES * STREP A SCREEN - POINT OF CARE (AMB) STL (07/12/2019) Only the most recent of2 resultswithin the time period is included. Strep A Rapid POCT Negative Negative Strep A Internal Control Present Lot # [id number] Expiration Date 10/13/2020 Throat ENTIRE THROAT (SURFACE REGION OF NECK) / Unknown 07/12/2019 Christine Griggs TERMINAL WORKER-TRANSFER AGENT LAB - POINT OF CARE ORDERABLES * CULTURE RESPIRATORY UPPER (11/13/2018 8:06 PM PANTRY GOODS MAKER) Upper Respiratory Culture Final report [facility] INSURANCE BILL Result 1 [facility] INSURANCE BILL Comment:Routine respiratory brooke Microbiology ENTIRE THROAT (SURFACE REGION OF NECK) / Unknown 11/13/2018 8:06 PM PANTRY GOODS MAKER 11/14/2018 Narrative Resulting Agency Comment [facility] [address] ??[facility] [id number] Xuan Bill TERMINAL WORKER-TRANSFER AGENT LAB - MICROB IOLOGY ORDERABLES [facility] INSURANCE BILL [address] [place] [address] * MONONUCLEOSIS SCREEN - POINT OF CARE (AMB) STL (11/13/2018 8:05 PM PANTRY GOODS MAKER) Mononucleosis Screen POCT neg NEGATIVE Whitman Test Internal Control positive Whitman Test Lot# [id number] Whitman Test Exp Date 04/12/2020 Blood BLOOD SPECIMEN / Unknown 11/13/2018 8:05 PM PANTRY GOODS MAKER Xuan Bill TERMINAL WORKER-TRANSFER AGENT LAB - POINT OF CARE ORDERABLES * CARDIAC EKG ORDER (12/26/2015 8:14 PM CDT) Narrative 12/26/2015 8:14 PM CDT Ordered by an unspecified provider. Scanned Document CARDIAC SERVICES ORD ERABLES * CARDIAC RHYTHM STRIP ORDER (12/26/2015 7:15 PM CDT) Narrative 12/26/2015 7:15 PM CDT Ordered by an unspecified provider. Scanned Document CARDIAC SERVICES ORD ERABLES * ECHO CONSULT - PEDIATRIC (12/15/2015 10:24 AM PANTRY GOODS MAKER) 12/15/2015 10:2 4 AM PANTRY GOODS MAKER Narrative Procedure Note Reading, No - 12/15/[address] [place] [phone] Fax Congenital Transthoracic Report Pat.Name: MARYLOU THACKER Sue Schumacher.ID: [id number] .Date: 12/15/2015 Exam Time: 10:24:00 AM Study Type:Congenital TTE Height: 171cm Weight: 62kg BSA: 1.73 m2 Age: 4 2000,15Y Sex: FEMALE BP: 104/80 Sonogrphr: Montrell Forte RDCS Pat. Stat.:Outpatient ICD - 9: 786.50 CPT - 4: 72240 Reason for Study:Chest pain History / Clinical:Chest pain Procedures:2D Non-congenital, Doppler Complete, Color Flow Visit ID: [id number] SUMMARY: Impression: 1. Normal coronary arteries. 2. [...] Rendon MD Alex Rendon MD ECHO ORDERABLES [facility] [address] [place] [address] * EKG 15-LEAD (12/15/2015 9:52 AM PANTRY GOODS MAKER) Ventricular Rate 73 BPM CG MUSE Atrial Rate 73 BPM CG MUSE P-R Interval 138 ms CG MUSE QRS Duration ms 70 ms CG MUSE Q-T Interval ms 412 ms CG MUSE QTC Calculation (Bezet) 453 ms CG MUSE Calculated P [place] 48 degrees CG MUSE Calculated R [place] 35 degrees CG MUSE Calculated T [place] 26 degrees CG MUSE Interpretation EKG Normal sinus rhythm with sinus arrhythmia No previous ECGs available Confirmed by MD Rendon Wilson ([id number]) on 12/15/2015 10:00:40 AM CG MUSE 12/15/2015 9:52 AM PANTRY GOODS MAKER 12/15/2015 10:00 AM PANTRY GOODS MAKER Alex Rendon MD ECG ORDERABLES CG MUSE * MRI LOWER EXT ANY JOINT NON CONTRAST RIGHT (09/24/2014 10:08 AM PANTRY GOODS MAKER) Anatomical Region Laterality Modality Lower Extremity Magnetic Resonan ce 09/24/2014 3:25 PM PANTRY GOODS MAKER Impressions 09/24/2014 3:57 PM PANTRY GOODS MAKER 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 Narrative 09/24/2014 3:57 PM PANTRY GOODS MAKER Exam: MRI ANKLE WITHOUT CONTRAST. Date: 09/24/2014 [...] 1:00 PM CDT) Mononucleosis Screen Negative Negative [facility] BLOOD SPECIMEN / Unknown 12/29/2010 1:00 PM CDT 12/29/2010 1:19 PM CDT Uriah Chapman DO LAB - CHEMISTRY DUSTIN BOO [facility] [address] [place] [address] * CBC W AUTO DIFFERENTIAL (12/29/2010 1:00 PM CDT) WBC 7.81 4.5 - 14.5 K/cumm [facility] RBC 4.56 4.00 - 5.20 mill/cumm [facility] Hemoglobin 13.5 11.5 - 15.5 gm/dl [facility] Hematocrit 39.6 35.0 - 45.0 % [facility] MCV 86.8 77.0 - 95.0 cu microns [facility] MCH 29.6 25.0 - 33.0 uug [facility] MCHC 34.1 31.0 - 37.0 % [facility] RDW 12.5 % [facility] MPV 9.8 fl [facility] Platelet Count 295 100 - 400 K/cumm [facility] Granulocytes % 61.4 24 - 66 % [facility] Lymphocytes % 24.3 22 - 61 % [facility] Monocytes % 6.8 3 - 15 % [facility] Eosinophils % 7.0 0 - 10 % [facility] Basophils % 0.5 0 - 1 % [facility] Comment Manual Diff Automated Diff Performed [facility] BLOOD SPECIMEN / Unknown 12/29/2010 1:00 PM CDT 12/29/2010 1:19 PM CDT Uriah Chapman DO LAB - HEMATOLOGY ORD ERABLES Performing Organization Address City/State/[facility] Co de Phone Number [facility] [address] [place] [address] * (ABNORMAL) COMPREHENSIVE METABOLIC PANEL (12/29/2010 1:00 PM CDT) Pathologist [facility] Sodium 140 137 - 145 mmol/L [facility] Potassium 4.1 3.5 - 5.1 mmol/L [facility] Chloride 104 98 - 107 mmol/L [facility] CO2 28.0(H) 18 - 27 mmol/L [facility] Glucose 84 70 - 106 mg/dl [facility] BUN 11.1 7 - 18 mg/dl [facility] Calcium 9.1 8.8 - 10.6 mg/dl [facility] Bilirubin Total 0.6 0.6 - 1.4 mg/dl [facility] Protein Total 6.7 6.3 - 8.6 gm/dl [facility] Albumin 4.2 3.7 - 5.6 gm/dl [facility] ALT 12 10 - 30 Units/L [facility] AST 22 10 - 30 Units/L [facility] Alkaline Phosphatase 101(L) 105 - 420 Units/L [facility] Creatinine 0.56 0.31 - 0.88 mg/dl [facility] BLOOD SPECIMEN / Unknown 12/29/2010 1:00 PM CDT 12/29/2010 1:19 PM CDT Uriah Chapman DO LAB - CHEMISTRY DUSTIN BOO Performing Organization Address City/State/[facility] Co de Phone Number [facility] [address] [place] [address] * XR SCOLIOSIS ERECT (05/22/2010 3:28 PM [...]
--- OUTSIDE RECORDS SUMMARY | 2024-09-30 11:31 | XMS_ITS | Encounter Summary ---
Author Organization [facility] Address [address] [place] [address] Care Team Providers Care Underwater Hunter Trapper Name Role Phone Bee Sher MD Primary Care Provider [phone] Reason for Visit * Reason Comments Vision [...] 12/29/2010 2:58 PM CDT Emergency ER at [address] [address] Shine Valero MD [address] [place] [phone] Viral syndrome Discharge Disposition: Home or Self [...] as cough, pain, or diarrhea. Only take [id number] or prescription medicines for pain, discomfort, or [...] Document Re-Released: 03/18/2009 ExitCare?? Patient Information ??2009 [employer]. * Discharge Instructions* Document, Scanned - 01/05/2011 [...] PM CDT 12/29/2010 12:35 PM Corinna Thacker [id number] [facility] EM[facility] History Chief Complaint Patient presents [...] PM CDT 12/29/2010 12:34 PM Corinna Thacker [id number] [facility] History Chief Complaint Patient presents [...] CDT) Sodium 140 137 - 145 mmol/L [facility] Potassium 4.1 3.5 - 5.1 mmol/L [facility] Chloride 104 98 - 107 mmol/L [facility] CO2 28.0(H) 18 - 27 mmol/L [facility] Glucose 84 70 - 106 mg/dl [facility] BUN 11.1 7 - 18 mg/dl [facility] Calcium 9.1 8.8 - 10.6 mg/dl [facility] Bilirubin Total 0.6 0.6 - 1.4 mg/dl [facility] Protein Total 6.7 6.3 - 8.6 gm/dl [facility] Albumin 4.2 3.7 - 5.6 gm/dl [facility] ALT 12 10 - 30 Units/L [facility] AST 22 10 - 30 Units/L [facility] Alkaline Phosphatase 101(L) 105 - 420 Units/L [facility] Creatinine 0.56 0.31 - 0.88 mg/dl [facility] BLOOD SPECIMEN / Unknown 12/29/2010 1:00 PM CDT 12/29/2010 1:19 PM CDT Uriah Chapman DO LAB - CHEMISTRY DUSTIN BOO Performing Organization Address City/[facility] Co de Phone Number [facility] [address] [place] [phone] * MONONUCLEOSIS SCREEN (12/29/2010 1:00 PM CDT) Pathologist [facility] Mononucleosis Screen Negative Negative [facility] BLOOD SPECIMEN / Unknown 12/29/2010 1:00 PM CDT 12/29/2010 1:19 PM CDT Uriah Chapman DO LAB - CHEMISTRY DUSTIN BOO Performing Organization Address [facility] de Phone Number [facility] [address] [place] [phone] * CBC W AUTO DIFFERENTIAL (12/29/2010 1:00 PM CDT) [facility] WBC 7.81 4.5 - 14.5 K/cumm [facility] RBC 4.56 4.00 - 5.20 mill/cumm [facility] Hemoglobin 13.5 11.5 - 15.5 gm/dl [facility] Hematocrit 39.6 35.0 - 45.0 % [facility] MCV 86.8 77.0 - 95.0 cu microns [facility] MCH 29.6 25.0 - 33.0 uug [facility] MCHC 34.1 31.0 - 37.0 % [facility] RDW 12.5 % [facility] MPV 9.8 fl [facility] Platelet Count 295 100 - 400 K/cumm [facility] Granulocytes % 61.4 24 - 66 % [facility] Lymphocytes % 24.3 22 - 61 % [facility] Monocytes % 6.8 3 - 15 % [facility] Eosinophils % 7.0 0 - 10 % [facility] Basophils % 0.5 0 - 1 % [facility] Comment Manual Diff Automated Diff Performed [facility] BLOOD SPECIMEN / Unknown 12/29/2010 1:00 PM CDT 12/29/2010 1:19 PM CDT Uriah Chapman DO LAB - HEMATOLOGY ORD ERABLES [facility] [address] [facility] [place] [address] documented in this encounter Visit Diagnoses Diagnosis [...] RN) documented in this encounter Care Teams Underwater Hunter Trapper Relationship Specialty Start Date End Date Bee Sher MD [address] [place] [address] PCP - General 12/29/10 08/02/14 documented as of this encounter
--- OUTSIDE RECORDS SUMMARY | 2024-09-30 11:31 | XMS_ITS | Encounter Summary ---
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 Procedures MRI LOWER EXT ANY JOINT NON CONTRAST RIGHT Annabel Rico MD [address] [place] [address] Referral ID Status Reason Start Date Expiration Date Visits Re quested Visits Authorized [id number] Closed 08/24/2014 02/20/2015 1 1 AL GIVING MANAGER Reason for Visit * Radiology Services - Closed Specialty Diagnoses / Procedures Referred By Carrie robb Referred To Contact Diagnoses Osteochondritis dessicans Procedures MRI LOWER EXT ANY JOINT NON CONTRAST RIGHT Annabel Rico MD [address] [place] [address] Referral ID Status Reason Start Date Expiration Date Visits Re quested Visits Authorized [id number] Closed 08/24/2014 02/20/2015 1 1 Encounter Details Date Type Department Care Team (Latest Contact Info) Description 09/24/2014 9:00 AM ANNUAL GIVING MANAGER - 09/24/2014 12:48 PM ANNUAL GIVING MANAGER Hospital Encounter [facility] - [address] [address] Annabel Rico MD Discharge Disposition: Home or [...] NON CONTRAST RIGHT Routine 09/24/2014 10:08 AM ANNUAL GIVING MANAGER Osteochondritis dessicans documented in this encounter Results * MRI LOWER EXT ANY JOINT NON CONTRAST RIGHT (09/24/2014 10:08 AM ANNUAL GIVING MANAGER) Anatomical Region Laterality Modality Lower Extremity Magnetic Resonan ce 09/24/2014 3:25 PM ANNUAL GIVING MANAGER Impressions 09/24/2014 3:57 PM ANNUAL GIVING MANAGER 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 Narrative 09/24/2014 3:57 PM ANNUAL GIVING MANAGER Exam: MRI ANKLE WITHOUT CONTRAST. Date: 09/24/2014 [...] dissecans documented in this encounter Care Teams Non Destructive Evaluation Specialist Relationship Specialty Start Date End Date Jian Benitez MD [address] [place] [address] [place] [address] PCP - General Pediatrics 10/21/14 6/13/24 documented as of this encounter
--- OUTSIDE RECORDS SUMMARY | 2024-09-30 11:31 | XMS_ITS | Encounter Summary ---
Author Organization [facility] Address [address] [place] [address] [place] [address] Care Team Providers Care Carpentry Foreman Name Role Phone Jian Benitez MD Primary Care Provider [phone] Reason for Visit * Reason Comments Fatigue Sore Throat Cough GENERALIZED BODY ACHES Pain Neck Headache Encounter Details Date Type Department Care Team (Late st Contact Info) Description 11/13/2018 7:00 PM MUSEUM TOUR GUIDE Office Visit [facility] [address] [phone] Provider, [facility] Acute suppurative otitis media of left ear [...] Comments Blood Pressure 100/60 11/13/2018 7:33 PM MUSEUM TOUR GUIDE Pulse 61 11/13/2018 7:33 PM MUSEUM TOUR GUIDE Temperature 36.9 ??C (98.5 ??F) 11/13/2018 7:33 PM CS T Respiratory Rate 16 11/13/2018 7:33 PM MUSEUM TOUR GUIDE Oxygen Saturation - - Inhaled Oxygen Concentration - - Weight 63.5 kg (140 lb) 11/13/2018 7:33 PM MUSEUM TOUR GUIDE Height 172.7 cm (5' 8 ) 11/13/2018 7:33 PM MUSEUM TOUR GUIDE Body Mass Index 21.29 11/13/2018 7:33 PM MUSEUM TOUR GUIDE documented in this encounter Patient Instructions * Patient Instructions* Xuan Bill, NURSE LEADER-APPRENTICE PAINTER NECKTIES - 11/13/2018 8:04 PM MUSEUM TOUR GUIDE Images from the original note were not included. Ear Infection PHYS THER: An ear infection is also called otitis [...] ask them during your visits. ?? Copyright [employer] 2018 Information is for End User's use only and may not be sold, redistributed or otherwise used for commercial purposes. All illustrations and images included in CareNotes?? are the copyrighted property of [employer] or [employer] The above information is an hearing aid dispenser only. It is not intended as medical advice for individual conditions or treatments. Talk to your doctor, nurse or pharmacist before following any medical regimen to see if it is safe and effective for you. Mononucleosis PHYS THER: Mononucleosis (mono) is an infection caused by a virus. Harris is spread through saliva. Common symptoms include [...] ask them during your visits. ?? Copyright [employer] 2018 Information is for End User's use only and may not be sold, redistributed or otherwise used for commercial purposes. All illustrations and images included in CareNotes?? are the copyrighted property of [employer] or [employer] The above information is an hearing aid dispenser only. It is not intended as medical advice for individual conditions or treatments. Talk to your doctor, nurse or pharmacist before following any medical regimen to see if it is safe and effective for you. UM TOUR GUIDE documented in this encounter Progress Notes * [...] Strep A Internal Control Present Lot # [id number] Expiration Date 02/11/2020 INFLUENZA A+B - POINT OF CARE (AMB) Collection Time: 11/13/18 8:05 PM Result Value Ref Range Influenza A Antigen Rapid Negative Negative Influenza B Antigen Rapid Negative Negative Influenza Internal Control positive NEGATIVE - POSITIVE Influenza Lot Number [id number] Influenza Expiration Date 06/27/2020 MONONUCLEOSIS SCREEN - POINT OF CARE (AMB) STL Collection Time: 11/13/18 8:05 PM Result Value Ref Range Mononucleosis Screen POCT neg NEGATIVE Harris Test Internal Control positive Harris Test Lot# [id number] Harris Test Exp Date 04/12/2020 UM TOUR GUIDE documented in this encounter Plan of Treatment Not on file documented as of this encounter Procedures Procedure Name Priority Date/Time Associated Diagnosis Comments CULTURE RESPIRATORY UPPER Routine 11/13/2018 8:06 PM MUSEUM TOUR GUIDE Acute suppurative otitis media of left ear without spontaneous rupture of tympanic membrane, recurrence not specified STREP A SCREEN - POINT OF CARE (AMB) STL Routine 11/13/2018 8:05 PM MUSEUM TOUR GUIDE Acute suppurative otitis media of left ear without spontaneous rupture of tympanic membrane, recurrence not specified MONONUCLEOSIS SCREEN - POINT OF CARE (AMB) STL Routine 11/13/2018 8:05 PM MUSEUM TOUR GUIDE Acute suppurative otitis media of left ear without spontaneous rupture of tympanic membrane, recurrence not specified INFLUENZA A+B - POINT OF CARE (AMB) Routine 11/13/2018 8:05 PM MUSEUM TOUR GUIDE Acute suppurative otitis media of left ear without spontaneous rupture of tympanic membrane, recurrence not specified documented in this encounter Results * CULTURE RESPIRATORY UPPER (11/13/2018 8:06 PM MUSEUM TOUR GUIDE) Upper Respiratory Culture Final report [facility] INSURANCE BILL Result 1 [facility] INSURANCE BILL Comment:Routine respiratory brooke Microbiology ENTIRE THROAT (SURFACE REGION OF NECK) / Unknown 11/13/2018 8:06 PM MUSEUM TOUR GUIDE 11/14/2018 Narrative Resulting Agency Comment [facility] [place] [address] ??[place] [id number] Xuan Trevino Fly NURSE LEADER-APPRENTICE PAINTER NECKTIES LAB - MICROB IOLOGY ORDERABLES [facility] INSURANCE BILL [address] [place] [address] * MONONUCLEOSIS SCREEN - POINT OF CARE (AMB) STL (11/13/2018 8:05 PM MUSEUM TOUR GUIDE) Mononucleosis Screen POCT neg NEGATIVE Harris Test Internal Control positive Harris Test Lot# [id number] Harris Test Exp Date 04/12/2020 Blood BLOOD SPECIMEN / Unknown 11/13/2018 8:05 PM MUSEUM TOUR GUIDE Xuan Trevino Fly NURSE LEADER-APPRENTICE PAINTER NECKTIES LAB - POINT OF CARE ORDERABLES * INFLUENZA A+B - POINT OF CARE (AMB) (11/13/2018 8:05 PM MUSEUM TOUR GUIDE) Influenza A Antigen Rapid Negative Negative Influenza B Antigen Rapid Negative Negative Influenza Internal Control positive NEGATIVE - POSITIVE Influenza Lot Number [id number] Influenza Expiration Date 06/27/2020 Other NASOPHARYNGEAL SWAB / Unknown 11/13/2018 8:05 PM MUSEUM TOUR GUIDE Xuan Trevino Fly NURSE LEADER-APPRENTICE PAINTER NECKTIES LAB - POINT OF CARE ORDERABLES * STREP A SCREEN - POINT OF CARE (AMB) STL (11/13/2018 8:05 PM MUSEUM TOUR GUIDE) Strep A Rapid POCT Negative Negative Strep A Internal Control Present Lot # [id number] Expiration Date 02/11/2020 Throat ENTIRE THROAT (SURFACE REGION OF NECK) / Unknown 11/13/2018 8:05 PM MUSEUM TOUR GUIDE Xuan Belinda Fly NURSE LEADER-APPRENTICE PAINTER NECKTIES LAB - POINT OF CARE ORDERABLES documented in this encounter Visit Diagnoses Diagnosis Acute suppurative otitis media of left ear without spontaneous rupture of tympanic membrane, recurrence not specified- Primary Viral syndrome Unspecified viral infection, in conditions classified elsewhere and of unspecified site documented in this encounter Care Teams Carpentry Foreman Relationship Specialty Start Date End Date Jian Benitez MD [address] [place] [phone] PCP - General Pediatrics 08/03/14 03/26/24 documented as of this encounter
--- OUTSIDE RECORDS SUMMARY | 2024-09-30 11:31 | XMS_ITS | Encounter Summary ---
Author Organization [facility] Address [facility] [place] [address] Care Team Providers Care Vacuum Worker Name Role Phone Jian Benitez MD Primary Care Provider [phone] Reason for Visit * Reason Comments Scoliosis Encounter Details Date Type Department Care Team (Latest Contact Info) Description 05/22/2010 3:00 PM CDT - 05/22/2010 3:17 PM CDT Hospital Encounter [facility] Pediatrics - Orthopedics [address] [place] [phone] Darius Mercer MD [address] [place] [address] [address] [place] [address] Discharge Disposition: Home or Self [...] on filedocumented in this encounter Care Teams Vacuum Worker Relationship Specialty Start Date End Date Jian Benitez MD [address] [place] [phone] PCP - General 05/22/10 12/28/10 documented as of this encounter
--- OUTSIDE RECORDS SUMMARY | 2024-09-30 11:31 | XMS_ITS | Encounter Summary ---
Author Organization [facility] Address [address] [place] [address] Care Team Providers Care Powerhouse Laborer Name Role Phone Bee Sher MD Primary Care Provider [phone] Reason for Visit * Reason Comments Pain Abdominal Encounter Details Date Type Department Care Team (Late st Contact Info) Description 05/09/2014 10:45 PM CDT - 05/10/2014 1:52 PM CDT Emergency ER at [address] [address] Discharge Disposition: ED Dismiss - Never Arrived [...] on filedocumented in this encounter Care Teams Powerhouse Laborer Relationship Specialty Start Date End Date Bee [place] [place] [phone] PCP - General 12/29/10 08/02/14 documented as of this encounter
--- OUTSIDE RECORDS SUMMARY | 2024-09-30 11:31 | XMS_ITS | Encounter Summary ---
Author Organization [facility] Address [address] [place] [address] [place] [address] Care Team Providers Care Sales And Marketing Coordinator Name Role Phone Jian Benitez MD Primary Care Provider [phone] Reason for Visit * Reason Onset Date Comments Follow-up 07/14/2019 Encounter Details Date Type Department Care Team (Late st Contact Info) Description 07/14/2019 Telephone [facility] [address] [phone] Christine Griggs, [facility] [address] [place] [address] Follow-up Social History Tobacco Use [...] on filedocumented in this encounter Care Teams Sales And Marketing Coordinator Relationship Specialty Start Date End Date Jian Benitez MD [address] [place] [address] PCP - General Pediatrics 08/03/14 03/26/24 documented as of this encounter
--- OUTSIDE RECORDS SUMMARY | 2024-09-30 11:31 | XMS_ITS | Encounter Summary ---
Author Organization [facility] Address [address] [place] [address] [place] [address] Care Team Providers Care Design Analyst Name Role Phone Jian Benitez MD Primary Care Provider [phone] Reason for Visit * Reason Onset Date Comments Follow-up 11/14/2018 Encounter Details Date Type Department Care Team (Late st Contact Info) Description 11/14/2018 Telephone [facility] [employer] [facility] [address] [place] [address] Xuan Bill, CATERING DIRECTOR-GROUND CREW CHIEF [address] [place] [address] Follow-up Social History Tobacco Use Types Packs/Day [...] on filedocumented in this encounter Care Teams Design Analyst Relationship Specialty Start Date End Date Jian Benitez MD [address] [place] [address] PCP - General Pediatrics 08/03/14 03/26/24 documented as of this encounter
--- OUTSIDE RECORDS SUMMARY | 2024-09-30 11:31 | XMS_ITS | Encounter Summary ---
Author Organization [facility] Address [address] [facility] [facility] [place] [address] Care Team Providers Care Finance Professor Name Role Phone Jian Benitez MD Primary Care Provider Reason for Referral * Radiology Services - Closed Specialty Diagnoses / Procedures Referred By Carrie t Referred To Contact Diagnoses Osteochondritis dessicans Procedures MRI LOWER EXT ANY JOINT NON CONTRAST RIGHT Annabel Rico MD [address] [place] [address] Referral ID Status Reason Start Date Expiration Date Visits Re quested Visits Authorized [id number] Closed 08/24/2014 02/20/2015 1 1 ORIZATION COORDINATOR Reason for Visit * Reason Comments Pain Ankle right ankle Encounter Details Date Type Department Care Team (Latest Contact Info) Description 08/24/2014 1:29 PM AUTHORIZATION COORDINATOR - 08/24/2014 11:59 PM AUTHORIZATION COORDINATOR Hospital Encounter [facility] [address] [facility] [place], [place] [phone] Annabel Rico MD Discharge Disposition: Home or Self Care Social History Tobacco Use Types Packs/Day Years Used Date Smoking Tobacco: Never Assessed Sex and Gender Information Value Date Recorded Sex Assigned at Not on file Gender Identity Not on file Sexual Orientation Not on file documented as of this encounter Discharge Instructions * Patient Instructions* Chantel Abdalla - 08/24/2014 2:08 PM AUTHORIZATION COORDINATOR Encounter Diagnoses Name Primary? Osteochondritis dessicans Yes Return appointment: Sports Medicine at [facility] after MRI Call [phone], option 1, for return if your child has new symptoms or problems, or if you have concerns. Call [phone] for questions. Physicians orders: MRI right ankle Medications prescribed: none Activity Restrictions: No sports and restricted physical education class of upper body activities and lifting until further notice School/Work Excuse: Patient had an appointment 08/24/2014 ORIZATION COORDINATOR documented in this encounter Medications at Time [...] in the interim with questions or concerns. ORIZATION COORDINATOR * Chantel Abdalla - 08/24/2014 1:33 PM CST Pt here for right ankle injury. Pt was playing soccer and was kicked in the ankle by another player. Pt was seen at [facility] and had xrays done. There was something abnormal on the xray that they were referred here for. This happened about 3-4 weeks ago. 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 Narrative 09/24/2014 3:57 PM AUTHORIZATION COORDINATOR Exam: MRI ANKLE WITHOUT CONTRAST. Date: 09/24/2014 [...] dissecans documented in this encounter Care Teams Finance Professor Relationship Specialty Start Date End Date Jian Benitez MD [address] [place] [place] [address] PCP - General Pediatrics 08/03/14 03/26/24 documented as of this encounter
--- OUTSIDE RECORDS SUMMARY | 2024-09-30 11:31 | XMS_ITS | Referral Summary ---
Author Organization [facility] Address [address] [place] [address] Care Team Providers Care Rn Homecare Name Role Phone Unavailable Primary Care Provider Unavailabl e Source Comments [facility],non-owned Affiliates and Associated Physician Practices is amultiple site organization consisting of ambulatory clinics and hospital sitesin [place], [place], [place] and [place]. This disclosure is being madepursuant to the Care Everywhere program and may not contain all information available regarding this patient. Last updated 18.[facility] Allergies Active Allergy Reactions Criticality Noted Date [...]
--- OUTSIDE RECORDS SUMMARY | 2024-09-30 11:31 | XMS_ITS | Encounter Summary ---
Author Organization [facility] Address [address] [facility] [place] [address] Care Team Providers Care Window Draper Name Role Phone Jian Benitez MD Primary Care Provider [phone] Reason for Visit * Reason Onset Date Comments Scheduling 02/10/2016 Encounter Details Date Type Department Care Team (Late st Contact Info) Description 02/10/2016 Telephone [facility] [place] [id number] [place] [address] Annabel George RN Scheduling Social History Tobacco [...] filedocumented in this encounter Care Teams Window Draper Relationship Specialty Start Date End Date Jian Benitez MD [address] [place] [address] PCP - General Pediatrics 08/03/14 03/26/24 documented as of this encounter
--- OUTSIDE RECORDS SUMMARY | 2024-09-30 11:31 | XMS_ITS | Clinical Summary ---
Author Organization [facility] [employer] Address [address] [place] [address] Care Team Providers Care County Director Welfare Name Role Phone Unavailable Primary Care Provider Unavailabl e Source Comments [facility] [employer],non-owned Affiliates and Associated Physician Practices is amultiple site organization consisting of ambulatory clinics and hospital sitesin [place], [place], [place] and [place]. This disclosure is being madepursuant to the Care Everywhere program and may not contain all information available regarding this patient. Last updated 18.[facility] [employer] Allergies Active Allergy Reactions Criticality Noted Date [...]
--- OUTSIDE RECORDS SUMMARY | 2024-09-30 11:31 | XMS_ITS | Encounter Summary ---
Author Organization [facility] Address [facility] [facility] [place] [address] Care Team Providers Care Airport Utility Worker Name Role Phone Jian Benitez MD Primary Care Provider [phone] Reason for Visit * Reason Onset Date Comments Follow-up 05/03/2019 Encounter Details Date Type Department Care Team (Late st Contact Info) Description 05/03/2019 Telephone [facility] [address] [address] Provider, [facility] Follow-up Social History Tobacco Use Types Packs/Day [...] Message left advising patient to call service [facility] [phone] if they have any questions or concerns. Steff Alcantar 05/03/2019 10:40 AM documented in this encounter Plan of Treatment Not on file documented as of this encounter Visit Diagnoses Not on filedocumented in this encounter Care Teams Airport Utility Worker Relationship Specialty Start Date End Date Jian Benitez MD [address] [place] [address] PCP - General Pediatrics 08/03/14 03/26/24 documented as of this encounter
--- OUTSIDE RECORDS SUMMARY | 2024-09-30 11:32 | XMS_ITS | Encounter Summary ---
Author Organization [facility] Address [facility] [facility] [place] [address] [place] [address] Care Team Providers Care Auto Polisher Name Role Phone Arden Cannon Primary Care [...] Depression Total Score: 10 021 1:10 PM R D INTERN documented as of this encounter Care Teams Auto Polisher Relationship Specialty Start Date End Date Arden Cannon DO [address] [place] [address] PCP - General FAMILY PRACTICE 01/12/19 documented as of this encounter
--- OUTSIDE RECORDS SUMMARY | 2024-09-30 11:32 | XMS_ITS | Encounter Summary ---
Author Organization [facility] Address [facility] [place] [address] [place] [address] Care Team Providers Care Strategic Planner Name Role Phone Arden Cannon DO Primary Care Provider + Encounter Details Date Type Department Care Team (Latest Contact Info) Description 12/06/2022 - 12/06/2022 11:59 PM DESKTOP SPECIALIST Hospital Encounter [facility] [address] [address] Arden Cannon DO [address] [place] [address] Discharge Disposition: Home or Self [...] Coronavirus/COVID-19? No / Unsure 12/06/2022 9:59 AM DESKTOP SPECIALIST documented as of this encounter Medications at [...] Rule Out 12/06/2022 12/06/2022 12/06/2022 10:47 AM DESKTOP SPECIALIST Assessment Noted Time PHQ-9 Depression Total Score: 10 021 1:10 PM DESKTOP SPECIALIST documented as of this encounter Care Teams Strategic Planner Relationship Specialty Start Date End Date Arden Cannon DO [address] [place] [address] PCP - General FAMILY PRACTICE 01/12/19 documented as of this encounter
--- OUTSIDE RECORDS SUMMARY | 2024-09-30 11:32 | XMS_ITS | Encounter Summary ---
Author Organization [facility] Address [facility] [place] [address] [place] [address] Care Team Providers Care Band Shover Name Role Phone Arden Cannon DO Primary [...] Depression Total Score: 10 021 1:10 PM GEAR MACHINE OPERATOR GENERAL documented as of this encounter Care Teams Band Shover Relationship Specialty Start Date End Date Arden Cannon DO [address] [place] [address] PCP - General FAMILY PRACTICE 01/12/19 documented as of this encounter
--- OUTSIDE RECORDS SUMMARY | 2024-09-30 11:32 | XMS_ITS | Encounter Summary ---
Author Organization [facility] Address [facility] [place] [address] [place] [address] Care Team Providers Care Education Nurse Name Role Phone Arden Cannon DO Primary [...] Depression Total Score: 10 021 1:10 PM NATURAL SCIENCE CURATOR documented as of this encounter Care Teams Education Nurse Relationship Specialty Start Date End Date Arden Cannon DO [address] [place] [address] PCP - General FAMILY PRACTICE 01/12/19 documented as of this encounter
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
--- OUTSIDE RECORDS SUMMARY | 2024-09-30 11:32 | XMS_ITS | Encounter Summary ---
Author Organization [facility] Address [facility] [place] [address] [place] [address] Care Team Providers Care Software Validation Technician Name Role Phone Arden Cannon Primary Care [...] Depression Total Score: 10 021 1:10 PM TRIMMER LOADER documented as of this encounter Care Teams Software Validation Technician Relationship Specialty Start Date End Date Arden Cannon DO [address] [place] [address] PCP - General FAMILY PRACTICE 01/12/19 documented as of this encounter
--- OUTSIDE RECORDS SUMMARY | 2024-09-30 11:32 | XMS_ITS | Encounter Summary ---
Author Organization [facility] Address Critical access hospital6 [facility] [place] [address] [place] [address] Care Team Providers Care Ceramics Instructor Name Role Phone Dennise Goodson DO Primary Care Provider + Reason for Visit * Reason Onset Date Comments Refill Request 07/11/2023 Encounter Details Date Type Department Care Team (Late st Contact Info) Description 07/11/2023 Telephone [facility] Medical Group Family & Internal Medicine [facility] [address] [place] [phone] Dennise Goodson DO [address] [place], [place] [phone] Refill Request Social History Tobacco Use Types [...] like this sent to the following pharmacy: [facility]/pharmacy #[id number] [place] [phone] The next office visit: Next visit with DENNISE GOODSON in FAMILY PRACTICE is on: No match found The last office visit: Last visit with DENNISE GOODSON in FAMILY PRACTICE was on: 03/05/2023 in [facility] Additional Information: documented in this encounter Plan of Treatment Not on file documented as of this encounter Visit Diagnoses Not on filedocumented in this encounter Additional Health Concerns Assessment Noted Time PHQ-9 Depression Total Score: 10 021 1:10 PM PRESSURE SEALER AND TESTER documented as of this encounter Care Teams Ceramics Instructor Relationship Specialty Start Date End Date Dennise Goodson DO [address] [place] [address] PCP - General FAMILY PRACTICE 01/12/19 documented as of this encounter
--- OUTSIDE RECORDS SUMMARY | 2024-09-30 11:32 | XMS_ITS | Encounter Summary ---
Author Organization [facility] Address [facility] [place] [address] [place] [address] Care Team Providers Care Choral Teacher Name Role Phone Dennise Goodson DO Primary Care Provider + Reason for Visit * Reason Onset Date Comments Refill Request 08/21/2023 Encounter Details Date Type Department Care Team (Late st Contact Info) Description 08/21/2023 Telephone [facility] Medical Group Family & Internal Medicine [facility] [address] [place] [phone] Dennise Goodson DO [address] [place], [place] [phone] Refill Request Social History Tobacco Use Types [...] in FAMILY PRACTICE was on: 03/05/2023 in [facility] No future appointments. Will call back to [...] times daily as needed., Disp: , Rfl: H WORKER documented in this encounter Plan of Treatment Not on file documented as of this encounter Visit Diagnoses Diagnosis ADHD (attention deficit hyperactivity disorder), combined type Attention deficit disorder with hyperactivity documented in this encounter Additional Health Concerns Assessment Noted Time PHQ-9 Depression Total Score: 10 021 1:10 PM PITCH WORKER documented as of this encounter Care Teams Choral Teacher Relationship Specialty Start Date End Date Dennise Goodson DO [address] [place] [address] PCP - General FAMILY PRACTICE 01/12/19 documented as of this encounter
--- OUTSIDE RECORDS SUMMARY | 2024-09-30 11:32 | XMS_ITS | Encounter Summary ---
Author Organization [facility] Address Critical access hospital6 [facility] [place] [address] [place] [address] Care Team Providers Care Pallet Stone Positioner Name Role Phone Arden Cannon Primary Care [...] Coronavirus/COVID-19? No / Unsure 12/06/2022 9:59 AM COMMISSION ASSOCIATE documented as of this encounter Plan of Treatment Not on file documented as of this encounter Visit Diagnoses Not on filedocumented in this encounter Additional Health Concerns Infection Onset Date Last Indicated Resolved Time COVID-19 Rule Out 12/06/2022 12/06/2022 12/06/2022 10:47 AM COMMISSION ASSOCIATE Assessment Noted Time PHQ-9 Depression Total Score: 10 021 1:10 PM COMMISSION ASSOCIATE documented as of this encounter Care Teams Pallet Stone Positioner Relationship Specialty Start Date End Date Arden Cannon DO [address] [place] [address] PCP - General FAMILY PRACTICE 01/12/19 documented as of this encounter
--- OUTSIDE RECORDS SUMMARY | 2024-09-30 11:32 | XMS_ITS | Encounter Summary ---
Author Organization [facility] Address [facility] [facility] [place] [address] [place] [address] Care Team Providers Care Solar Applications Development Engineer Name Role Phone Arden Goodson DO Primary Care Provider + Reason for Visit * Reason Onset Date Comments Medication Request 09/23/2023 Encounter Details Date Type Department Care Team (Late st Contact Info) Description 09/23/2023 Telephone [facility] Medical Group Family & Internal Medicine [address] [address] Arden Goodson DO [address] [place] [phone] Medication Request Social History Tobacco Use Types [...] - 09/23/2023 12:39 PM CST Sent MARILYN. TAL ATTACHER * Cecilia Payne - 09/23/2023 8:29 AM CST Refill request received from Patient Medication: lisdexamfetamine (VYVANSE) 50 MG capsule Pt states Pharmacy only receives 1 shipment of medication a month was wondering if she could go back to name brand. Pharmacy: [address] Last visit with ARDEN GOODSON in FAMILY PRACTICE was on: 03/05/[address] [facility] No future appointments. TAL ATTACHER documented in this encounter Plan of Treatment Not on file documented as of this encounter Visit Diagnoses Diagnosis ADHD (attention deficit hyperactivity disorder), combined type Attention deficit disorder with hyperactivity documented in this encounter Additional Health Concerns Assessment Noted Time PHQ-9 Depression Total Score: 10 021 1:10 PM CRYSTAL ATTACHER documented as of this encounter Care Teams Solar Applications Development Engineer Relationship Specialty Start Date End Date Arden Goodson DO [address] [place] [phone] PCP - General FAMILY PRACTICE 01/12/19 documented as of this encounter
--- OUTSIDE RECORDS SUMMARY | 2024-09-30 11:32 | XMS_ITS | Encounter Summary ---
Author Organization [facility] Address [facility] [place] [address] [place] [address] Care Team Providers Care Glass Setter Name Role Phone Arden Cannon DO Primary Care Provider + Reason for Visit * Reason Onset Date Comments Record Request 12/06/2022 Encounter Details Date Type Department Care Team (Late st Contact Info) Description 12/06/2022 Telephone [facility] Medical Group Family & Internal Medicine [address] [address] Arden Cannon DO [address] [place] [address] [phone] Record Request Social History Tobacco Use Types [...] Coronavirus/COVID-19? No / Unsure 12/06/2022 9:59 AM MOLECULAR BIOLOGY DIRECTOR documented as of this encounter Progress Notes * Cece Benson MA - 12/06/2022 2:24 PM CST I have called [facility] for lab results. I have been informed there are no records available and the archive records were checked CULAR BIOLOGY DIRECTOR documented in this encounter Plan of Treatment Not on file documented as of this encounter Visit Diagnoses Not on filedocumented in this encounter Additional Health Concerns Infection Onset Date Last Indicated Resolved Time COVID-19 Rule Out 12/06/2022 12/06/2022 12/06/2022 10:47 AM MOLECULAR BIOLOGY DIRECTOR Assessment Noted Time PHQ-9 Depression Total Score: 10 021 1:10 PM MOLECULAR BIOLOGY DIRECTOR documented as of this encounter Care Teams Glass Setter Relationship Specialty Start Date End Date Arden Cannon DO [address] [place] [address] PCP - General FAMILY PRACTICE 01/12/19 documented as of this encounter
--- OUTSIDE RECORDS SUMMARY | 2024-09-30 11:32 | XMS_ITS | Encounter Summary ---
Author Organization [facility] Address [facility] [place] [address] [place] [address] Care Team Providers Care Second Hand Name Role Phone Arden Cannon DO [...] Depression Total Score: 10 021 1:10 PM MAIL CLERK BILLS documented as of this encounter Care Teams Second Hand Relationship Specialty Start Date End Date Arden Cannon DO [address] [place] [address] PCP - General FAMILY PRACTICE 01/12/19 documented as of this encounter
--- OUTSIDE RECORDS SUMMARY | 2024-09-30 11:32 | XMS_ITS | Encounter Summary ---
Author Organization [facility] Address [facility]6 [facility] [place] [address] [place] [address] Care Team Providers Care Professor Of Communication Name Role Phone Dennise Goodson DO Primary Care Provider + Encounter Details Date Type Department Care Team (Latest Contact Info) Description 03/05/2023 12:15 PM CDT - 03/05/2023 11:59 PM CDT Hospital Encounter [facility] [place] [address] Dennise Goodson DO [address] [place] [address] Discharge Disposition: Home or Self Care (Routine [...] Depression Total Score: 10 021 1:10 PM INTERVENTIONAL PHYSICIAN documented as of this encounter Care Teams Professor Of Communication Relationship Specialty Start Date End Date Dennise Goodson DO [address] [place] [address] PCP - General FAMILY PRACTICE 01/12/19 documented as of this encounter
--- OUTSIDE RECORDS SUMMARY | 2024-09-30 11:32 | XMS_ITS | Encounter Summary ---
Author Organization [facility] Address [facility]6 [place] [address] [place] [address] Care Team Providers Care Mercerizer Machine Operator Name Role Phone Arden Cannon DO Primary Care Provider + Reason for Visit * Reason Onset Date Comments Record Request 12/25/2022 Encounter Details Date Type Department Care Team (Late st Contact Info) Description 12/25/2022 Telephone [facility] Medical Group Family & Internal Medicine [address] [phone] Arden Cannon DO [address] [place] [address] [phone] Record Request Social History Tobacco Use Types [...] Coronavirus/COVID-19? No / Unsure 12/06/2022 9:59 AM HEAD OF ETHICS AND COMPLIANCE documented as of this encounter Progress Notes [...] Depression Total Score: 10 021 1:10 PM HEAD OF ETHICS AND COMPLIANCE documented as of this encounter Care Teams Mercerizer Machine Operator Relationship Specialty Start Date End Date Arden Cannon DO [address] [place] [address] PCP - General FAMILY PRACTICE 01/12/19 documented as of this encounter
--- OUTSIDE RECORDS SUMMARY | 2024-09-30 11:32 | XMS_ITS | Encounter Summary ---
Author Organization [facility] Address [facility]6 [facility] [place] [address] [place] [address] Care Team Providers Care Eyelet Machine Operator Name Role Phone Arden Cannon DO Primary Care Provider + Reason for Visit * Reason Onset Date Comments Lab Order 12/13/2023 Encounter Details Date Type Department Care Team (Late st Contact Info) Description 12/13/2023 Telephone [facility] Medical Group Family & Internal Medicine [address] [phone] Arden Cannon DO [address] [place] [address] [phone] Lab Order Social History Tobacco Use Types [...] so results can be addressed with PCP. R INSPECTOR documented in this encounter Plan of Treatment [...] Depression Total Score: 10 021 1:10 PM CHAIR INSPECTOR documented as of this encounter Care Teams Eyelet Machine Operator Relationship Specialty Start Date End Date Arden Cannon DO [address] [place] [phone] PCP - General FAMILY PRACTICE 01/12/19 documented as of this encounter
--- OUTSIDE RECORDS SUMMARY | 2024-09-30 11:32 | XMS_ITS | Clinical Summary ---
Author Organization [facility] Address [facility]6 [place] [address] [place] [address] Care Team Providers Care Collision Center Manager Name Role Phone Arden Cannon Romy ROBERTSON [...] Comments Blood Pressure 116/72 12/13/2023 2:37 PM MAITRE D' Pulse 84 12/13/2023 2:37 PM MAITRE D' Temperature 37.1 ??C (98.8 ??F) 12/13/2023 2:37 PM CS T Respiratory Rate 16 12/13/2023 2:37 PM MAITRE D' Oxygen Saturation 99% 12/13/2023 2:37 PM MAITRE D' Inhaled Oxygen Concentration - - Weight 50.5 kg (111 lb 6.4 oz) 12/13/2023 2:37 P M MAITRE D' Height 170.2 cm (5' 7 ) 12/13/2023 2:37 PM MAITRE D' Body Mass Index 17.45 12/13/2023 2:37 PM MAITRE D' Plan of Treatment Health Maintenance Due Date [...] [employer] Care Teams Collision Center Manager Relationship Specialty Start Date End Date Arden Cannon DO [address] [place] [phone] PCP - General FAMILY PRACTICE 01/12/19
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
--- OUTSIDE RECORDS SUMMARY | 2024-09-30 11:32 | XMS_ITS | Encounter Summary ---
Author Organization [facility] Address [facility]6 [place] [address] [place] [address] Care Team Providers Care Hot Baller Name Role Phone Arden Cannon DO Primary Care Provider + Reason for Visit * Reason Onset Date Comments Refill Request 08/01/2022 Encounter Details Date Type Department Care Team (Late st Contact Info) Description 08/01/2022 Telephone [facility] Medical Group Family & Internal Medicine [facility] [address] [place] [address] [phone] Arden Cannon DO [address] [place], [place] [phone] Refill Request Social History Tobacco Use Types [...] sure that her Vyvanse is sent to [facility] in [facility]. documented in this encounter Plan of Treatment Not on file documented as of this encounter Visit Diagnoses Diagnosis ADHD (attention deficit hyperactivity disorder), combined type Attention deficit disorder with hyperactivity documented in this encounter Additional Health Concerns Assessment Noted Time PHQ-9 Depression Total Score: 10 021 1:10 PM DIRECTOR MUSEUM OR ZOO documented as of this encounter Care Teams Hot Baller Relationship Specialty Start Date End Date Arden Cannon DO [address] [place] [address] PCP - General FAMILY PRACTICE 01/12/19 documented as of this encounter
--- OUTSIDE RECORDS SUMMARY | 2024-09-30 11:32 | XMS_ITS | Encounter Summary ---
Author Organization [facility] Address [facility]6 [facility] [place] [address] [place] [address] Care Team Providers Care Carrier Blower Name Role Phone Arden Cannon DO Primary Care Provider + Reason for Visit * Reason Onset Date Comments Information 01/27/2024 Encounter Details Date Type Department Care Team (Late st Contact Info) Description 01/27/2024 Telephone [facility] Medical Group Family & Internal Medicine - [address] [phone] Arden Cannon DO [address] [place] [address] [phone] Information Social History Tobacco Use Types Packs/Day [...] to establish care. Please fax letter to [facility] fax * Arden Cannon DO - 01/27/2024 12:49 PM CDT What kind of surgery? How far along is the ? Does pt have an OB? What kind of anesthesia, if any, is needed? * Cecilia Payne - 01/27/2024 11:05 AM CDT PT is needing emergency dental work but recently found out she is . Pt uses [facility]: [phone] Pt needing clearance for dental surgery due to being . Pt has apt 7Am 01/28/24 Ptstates can peanut picker anything she needs. documented in this encounter Plan of Treatment Not on file documented as of this encounter Visit Diagnoses Not on filedocumented in this encounter Additional Health Concerns Assessment Noted Time PHQ-9 Depression Total Score: 10 021 1:10 PM SR. CONSULTANT documented as of this encounter Care Teams Carrier Blower Relationship Specialty Start Date End Date Arden Cannon DO [address] [place] [phone] PCP - General FAMILY PRACTICE 01/12/19 documented as of this encounter
--- OUTSIDE RECORDS SUMMARY | 2024-09-30 11:32 | XMS_ITS | Encounter Summary ---
Author Organization [facility] Address [facility] [place] [place] [address] [place] [address] Care Team Providers Care Maintenance Leader Name Role Phone Arden Cannon Primary Care [...] Depression Total Score: 10 021 1:10 PM LEAD TELLER documented as of this encounter Care Teams Maintenance Leader Relationship Specialty Start Date End Date Arden Cannon DO [address] [place] [phone] PCP - General FAMILY PRACTICE 01/12/19 documented as of this encounter
--- OUTSIDE RECORDS SUMMARY | 2024-09-30 11:32 | XMS_ITS | Encounter Summary ---
Author Organization [facility] Address [facility]6 [facility] [place] [address] [place] [address] Care Team Providers Care Corpsman Name Role Phone Arden Cannon DO Primary Care Provider + Reason for Visit * Reason Onset Date Comments Results 03/08/2023 Encounter Details Date Type Department Care Team (Late st Contact Info) Description 03/08/2023 Telephone [facility] Medical Group Family & Internal Medicine - [address] [phone] Arden Cannon DO [address] [place] [address] [phone] Results Social History Tobacco Use Types Packs/Day [...] Depression Total Score: 10 021 1:10 PM SLINGER SEQUINS documented as of this encounter Care Teams Corpsman Relationship Specialty Start Date End Date Arden Cannon DO [address] [place] [phone] PCP - General FAMILY PRACTICE 01/12/19 documented as of this encounter
--- OUTSIDE RECORDS SUMMARY | 2024-09-30 11:32 | XMS_ITS | Encounter Summary ---
Author Organization [facility] Address [facility]6 [facility] [address] [place] [address] Care Team Providers Care Patient Information Coordinator Name Role Phone Arden Cannon Primary Care [...] Depression Total Score: 10 021 1:10 PM DISPATCH MANAGER documented as of this encounter Care Teams Patient Information Coordinator Relationship Specialty Start Date End Date Arden Cannon DO [address] [place] [address] PCP - General FAMILY PRACTICE 01/12/19 documented as of this encounter
--- OUTSIDE RECORDS SUMMARY | 2024-09-30 11:32 | XMS_ITS | Encounter Summary ---
Author Organization [facility] Address [facility]6 [place] [address] [place] [address] Care Team Providers Care Lithograph Press Operator Name Role Phone Arden Cannon DO Primary Care Provider + Reason for Visit * Reason Onset Date Comments Refill Request 08/26/2023 Encounter Details Date Type Department Care Team (Late st Contact Info) Description 08/26/2023 Telephone [facility] Medical Group Family & Internal Medicine [facility] [address] [place] [phone] Arden Cannon DO [address] [place], [place] [phone] Refill Request Social History Tobacco Use Types [...] CST Patient needs vyvanse rx sent to [facility] in [place] . Pended for approval ON BUYER documented in this encounter Plan of Treatment Not on file documented as of this encounter Visit Diagnoses Diagnosis ADHD (attention deficit hyperactivity disorder), combined type Attention deficit disorder with hyperactivity documented in this encounter Additional Health Concerns Assessment Noted Time PHQ-9 Depression Total Score: 10 021 1:10 PM COTTON BUYER documented as of this encounter Care Teams Lithograph Press Operator Relationship Specialty Start Date End Date Arden Cannon DO [address] [place] [address] PCP - General FAMILY PRACTICE 01/12/19 documented as of this encounter
--- OUTSIDE RECORDS SUMMARY | 2024-09-30 11:32 | XMS_ITS | Encounter Summary ---
Author Organization [facility] Address [facility]6 [place] [address] [place] [address] Care Team Providers Care Board Design Engineer Name Role Phone Arden Cannon Primary Care [...] Depression Total Score: 10 021 1:10 PM PROFESSOR OF MUSICOLOGY documented as of this encounter Care Teams Board Design Engineer Relationship Specialty Start Date End Date Arden Cannon DO [address] [place] [address] PCP - General FAMILY PRACTICE 01/12/19 documented as of this encounter
--- OUTSIDE RECORDS SUMMARY | 2024-09-30 11:32 | XMS_ITS | Encounter Summary ---
Author Organization [facility] Address [facility]6 [facility] [place] [address] [place] [address] Care Team Providers Care Residential Builder Name Role Phone Dennise Goodson DO Primary Care Provider + Reason for Visit * Reason Onset Date Comments Refill Request 04/02/2023 Encounter Details Date Type Department Care Team (Late st Contact Info) Description 04/02/2023 Telephone [facility] Medical Group Family & Internal Medicine [facility] [address] [place] [phone] Dennise Goodson DO [address] [place], [place] [phone] Refill Request Social History Tobacco Use Types [...] received from Pharmacy Last visit with DENNISE OGODSON in FAMILY PRACTICE was on: 03/05/2023 in [facility] No future appointments. [facility]/pharmacy #[id number] [place], [place] - [address] [place] [address] Current Outpatient Medications: cyclobenzaprine (FLEXERIL) 5 MG [...] 8:20 AM CDT Refill request for Vyvanse [facility] documented in this encounter Plan of Treatment Not on file documented as of this encounter Visit Diagnoses Diagnosis ADHD (attention deficit hyperactivity disorder), combined type Attention deficit disorder with hyperactivity documented in this encounter Additional Health Concerns Assessment Noted Time PHQ-9 Depression Total Score: 10 021 1:10 PM SUPERINTENDENT PIER documented as of this encounter Care Teams Residential Builder Relationship Specialty Start Date End Date Dennise Goodson DO [address] [place] [phone] PCP - General FAMILY PRACTICE 01/12/19 documented as of this encounter
--- OUTSIDE RECORDS SUMMARY | 2024-09-30 11:32 | XMS_ITS | Encounter Summary ---
Author Organization [facility] Address [facility]6 [facility] [place] [address] [place] [address] Care Team Providers Care Hypo Splasher Name Role Phone Dennise Goodson DO Primary Care Provider + Reason for Visit * Reason Onset Date Comments Refill Request 06/29/2022 Encounter Details Date Type Department Care Team (Late st Contact Info) Description 06/29/2022 Telephone [facility] Medical Group Family & Internal Medicine [address] [phone] Dennise Goodson DO [address] [place], [place] [phone] Refill Request Social History Tobacco Use Types [...] in FAMILY PRACTICE was on: 01/18/2022 in [facility] No future appointments. [facility]/pharmacy #[id number] - [place], [place] - [address] [facility] [address] [place] [address] Current Outpatient Medications: ??? azithromycin (ZITHROMAX) 250 [...] Total Score: 10 021 1:10 PM ONCOLOGY RESEARCH RN documented as of this encounter Care Teams Hypo Splasher Relationship Specialty Start Date End Date Dennise Goodson DO [address] [place] [phone] PCP - General FAMILY PRACTICE 01/12/19 documented as of this encounter
--- OUTSIDE RECORDS SUMMARY | 2024-09-30 11:32 | XMS_ITS | Encounter Summary ---
Author Organization [facility] Address [facility]6 [facility] [place], [place] [address] [place] [address] Care Team Providers Care Marketing Operations Manager Name Role Phone Dennise Goodson DO Primary Care Provider + Reason for Visit * Reason Onset Date Comments Refill Request 02/04/2024 Encounter Details Date Type Department Care Team (Late st Contact Info) Description 02/04/2024 MyChart Message Enc [facility] Medical Group Family & Internal Medicine [facility] [address] [place] [phone] Dennise Goodson DO [address] [place], [place] [phone] Vyvanse Question Social History Tobacco Use Types [...] FAMILY PRACTICE was on: 03/05/2023 in [facility] No future appointments. [facility] [address] [address] [facility] [address] [address] Current Outpatient Medications: amoxicillin (AMOXIL) 500 MG [...] Depression Total Score: 10 021 1:10 PM OPERATIONS PROFESSIONAL documented as of this encounter Care Teams Marketing Operations Manager Relationship Specialty Start Date End Date Dennise Goodson DO [address] [place] [phone] PCP - General FAMILY PRACTICE 01/12/19 documented as of this encounter
--- OUTSIDE RECORDS SUMMARY | 2024-09-30 11:32 | XMS_ITS | Encounter Summary ---
Author Organization [facility] Address [address] [facility] [address] [place] [address] Care Team Providers Care Dye Reel Operator Name Role Phone Arden Cannon DO Primary Care Provider + Reason for Visit * Reason Comments Attention Deficit Hyperactivity Disorder Encounter Details Date Type Department Care Team (Latest Contact Info) Description 07/19/2023 12:00 PM CDT Telemedicine [facility] Medical Group Family & Internal Medicine - [address] [phone] Arden Cannon DO [address] [place] [address] Attention Deficit Hyperactivity Disorder Social History Tobacco [...] aware that the same confidentiality and information clerk brokerage practices apply. The patient joined the video [...] Total Score: 10 11/07/ 021 1:10 PM MEDICAL LABORATORY ASSISTANT documented as of this encounter Care Teams Dye Reel Operator Relationship Specialty Start Date End Date Arden Cannon DO [address] [place] [address] PCP - General FAMILY PRACTICE 01/12/19 documented as of this encounter
--- OUTSIDE RECORDS SUMMARY | 2024-09-30 11:32 | XMS_ITS | Encounter Summary ---
Author Organization [facility] Address [facility]6 [facility] [place] [address] [place] [address] Care Team Providers Care Sider Name Role Phone Dennise Goodson DO Primary Care Provider + Reason for Visit * Reason Onset Date Comments Medication Request 06/07/2023 Encounter Details Date Type Department Care Team (Late st Contact Info) Description 06/07/2023 Telephone [facility] Medical Group Family & Internal Medicine [address] [phone] Dennise Goodson DO [address] [place] [address] [phone] Medication Request Social History Tobacco Use Types [...] Medication: lisdexamfetamine (VYVANSE) 50 MG capsule Pharmacy: [address] Last visit with DENNISE GOODSON in FAMILY PRACTICE was on: 03/05/2023 in [facility] No future appointments. documented in this encounter Plan of Treatment Not on file documented as of this encounter Visit Diagnoses Not on filedocumented in this encounter Additional Health Concerns Assessment Noted Time PHQ-9 Depression Total Score: 10 021 1:10 PM DEVELOPMENT MANAGER documented as of this encounter Care Teams Sider Relationship Specialty Start Date End Date Dennise Goodson DO [address] [place] [address] PCP - General FAMILY PRACTICE 01/12/19 documented as of this encounter
--- OUTSIDE RECORDS SUMMARY | 2024-09-30 11:32 | XMS_ITS | Encounter Summary ---
Author Organization [facility] Address [facility]6 [facility] [place] [address] [place] [address] Care Team Providers Care Marzipan Molder Name Role Phone Arden Cannon DO Primary [...] Depression Total Score: 10 021 1:10 PM DANCING TEACHER documented as of this encounter Care Teams Marzipan Molder Relationship Specialty Start Date End Date Arden Cannon DO [address] [place] [address] PCP - General FAMILY PRACTICE 01/12/19 documented as of this encounter
--- OUTSIDE RECORDS SUMMARY | 2024-09-30 11:32 | XMS_ITS | Encounter Summary ---
Author Organization [facility] Address [facility] [place] [address] [place] [address] Care Team Providers Care Environmental Research Scientist Name Role Phone Arden Cannon DO Primary Care Provider + Reason for Visit * Reason Comments Attention Deficit Hyperactivity Disorder Patient presents for follow up. URI Sx for 2 weeks. No f ever, postnasal drip, sore throat, bilateral ear pain, productive cough (green) Encounter Details Date Type Department Care Team (Latest Contact Info) Description 12/06/2022 10:00 AM WET TRIMMER Office Visit [facility] Medical Group Family & Internal Medicine - [place] [address] [place] [address] Arden Cannon DO [address] [place] [address] Attention Deficit Hyperactivity Disorder (Patient presents for [...] Coronavirus/COVID-19? No / Unsure 12/06/2022 9:59 AM WET TRIMMER documented as of this encounter Last Filed Vital Signs Vital Sign Reading Time Taken Comments Blood Pressure 100/64 12/06/2022 10:15 AM WET TRIMMER Pulse 91 12/06/2022 10:15 AM WET TRIMMER Temperature 37 ??C (98.6 ??F) 12/06/2022 10:15 AM WET TRIMMER Respiratory Rate 16 12/06/2022 10:15 AM WET TRIMMER Oxygen Saturation 98% 12/06/2022 10:15 AM WET TRIMMER Inhaled Oxygen Concentration - - Weight 53.6 kg (118 lb 3.2 oz) 12/06/2022 10:15 AM WET TRIMMER Height 170.2 cm (5' 7 ) 12/06/2022 10:15 AM WET TRIMMER Body Mass Index 18.51 12/06/2022 10:15 AM WET TRIMMER documented in this encounter Progress Notes * [...] is stable today and has followed with MANAGER [facility] for this. Review of Systems Constitutional: Negative [...] if needed. Pt v/u. Arden Cannon DO TRIMMER documented in this encounter Plan of Treatment Not on file documented as of this encounter Procedures Procedure Name Priority Date/Time Associated Diagnosis Comments CULTURE STREP A Routine 12/06/2022 10:44 AM WET TRIMMER Sore throat Acute cough CORONAVIRUS (COVID 19) PCR Routine 12/06/2022 10:44 AM WET TRIMMER Sore throat Acute cough MG/PCCL UDS W CONF Routine 12/06/2022 10 :09 AM WET TRIMMER Encounter for long-term (current) use of medications CORONAVIRUS (COVID-19) INFLUENZA A & B ANTIGEN IA PANEL Routine 12/06/2022 Sore throat Acute cough RAPID STREP A Routine 12/06/2022 Sore throat Acute cough documented in this encounter Results * CULTURE STREP A (MG/SJS/SMD Only) (12/06/2022 10:44 AM WET TRIMMER) THROAT CULTURE STREP A ONLY Negative for Group A Streptococci Negative for Group A Streptococci 12/07/2022 5:17 PM WET TRIMMER -SWAPNA SIDHU STRUCTURE OF ANTERIOR PORTION OF NECK / Unknown 12/06/2022 10:44 AM WET TRIMMER Arden Cannon DO MICROBIOLOGY - GENERAL O RDERABLES Final Result [facility] [address] [facility] [place] [address], * CORONAVIRUS (COVID 19) PCR (12/06/2022 10:44 AM WET TRIMMER) SPEC DESCRIPTION NASAL 12/06/19 10:44 AM [facility] CORONAVIRUS SARS COV 2 PCR (RESP) NEGATIVE NEGATIVE 12/07/2022 2:18 PM [facility] Comment: THE SARS-CoV-2 TEST HAS BEEN AUTHORIZED BY THE FDA UNDER AN EUA FOR USE BY AUTHORIZED LABORATORIES. PERFORMED BY NUCLEIC ACID AMPLIFICATION PCR FIRST TEST NO 12/06/2022 10:44 AM [facility] EMPLOYED IN HEALTHCARE NO 12/06/2022 10:44 AM [facility] SYMPTOMATIC DEFINED BY CDC YES 12/06/2022 10:44 AM [facility] DATE OF SYMPTOM ONSET [id number] 12/06/2022 10:44 AM [facility] HOSPITALIZATION STATUS NO 12/06/2022 10:44 AM [facility] PATIENT IN ICU NO 12/06/2022 10:44 AM [facility] RESIDENT OF [facility] NO 12/06/2022 10:44 AM [facility] NOT 12/06/2022 10:44 AM WET TRIMMER [facility] NASOPHARYNGEAL SWAB / Unknown 12/06/2022 10:44 AM WET TRIMMER Arden Cannon DO MICROBIOLOGY - GENERAL O RDERABLES Final Result [facility] [address] [place] [address], * (ABNORMAL) MG/PCCL UDS W CONF (12/06/2022 10:09 AM WET TRIMMER) RESULT SUMMARY [facility] Comment: ?Prescribed ?Prescribed ?Not Prescribed ?Consistent ?Inconsistent ?Inconsistent ?Vyvanse(TM) ? Marijuana Metabolite PRESCRIBED DRUG 1 (U) Vyvanse(TM) [facility] FENTANYL SCREEN (U) NEGATIVE <0.5 ng/mL [facility] [...] > or = 20.0 mg/dL [facility] [place] pH PM (U) 6.2 4.5 - 9.0 [facility] [place] OXIDANT NEGATIVE <200 mcg/mL [facility] [place] Note [facility] Comment: This drug testing is for medical [...] analytical performance characteristics have been determined by [employer]. It has not been cleared or approved by the FDA. This assay has been validated pursuant to the CLIA regulations and is used for clinical purposes. medMATCH(R) enables providers to identify if drug use is consistent or inconsistent with a corresponding prescribed medication(s) list. Healthcare Providers needing Interpretation assistance, please contact us at [phone] ( ) M-F, 8am to 10pm EST URINE SPECIMEN / Unknown 12/06/2022 10:09 AM WET TRIMMER 12/07/2022 3:54 AM WET TRIMMER Narrative Resulting Agency Comment Performing Organization Information: ?Site ID: [id number] ?Name: [facility] ?Address: [address] [place] [address] ?Director: Serafin Hays ?Site ID: [id number] ?Name: [facility] ?Address: [address] [facility] [place] [address] ?Director: Radha Raya MD us Arden Cannon DO URINE ORDERABLES Final R esult [facility] [address] [facility] [place] [place] [address], [facility] [place] [address] [place] [address] * RAPID STREP A (12/06/2022) RAPID STREP TEST NEGATIVE NEGATIVE [facility] Internal Control: VALID VALID [facility] STRUCTURE OF ANTERIOR PORTION OF NECK / Unknown 12/06/2022 us Arden Cannon DO MICROBIOLOGY - GENERAL O RDERABLES Final Result Performing Organization Address City/[facility]/ZIP Co de Phone Number [facility] [address] [place] [address], * CORONAVIRUS (COVID-19) INFLUENZA A & B ANTIGEN IA PANEL (12/06/2022) CORONAVIRUS ANTIGEN IA NEGATIVE NEGATIVE [facility] INFLUENZA A NEGATIVE NEGATIVE [facility] INFLUENZA B NEGATIVE NEGATIVE [facility] Internal Control: VALID VALID [facility] NASAL STRUCTURE / Unknown 12/06/2022 us Arden Cannon DO MICROBIOLOGY - GENERAL O RDERABLES Final Result [facility] [address] [place] [address], documented in this encounter Visit Diagnoses Diagnosis [...] Rule Out 12/06/2022 12/06/2022 12/06/2022 10:47 AM WET TRIMMER Assessment Noted Time PHQ-9 Depression Total Score: 10 021 1:10 PM WET TRIMMER documented as of this encounter Care Teams Environmental Research Scientist Relationship Specialty Start Date End Date Arden Cannon DO [address] [place] [address] PCP - General FAMILY PRACTICE 01/12/19 documented as of this encounter
--- OUTSIDE RECORDS SUMMARY | 2024-09-30 11:32 | XMS_ITS | Encounter Summary ---
Author Organization [facility] Address [facility] [place] [address] [place] [address] Care Team Providers Care Wooden Frame Builder Name Role Phone Arden Cannon Romy ROBERTSON Primary Care Provider + Reason for Visit * Reason Comments Attention Deficit Hyperactivity Disorder Encounter Details Date Type Department Care Team (Latest Contact Info) Description 12/13/2023 2:20 PM METAL SHAPING MACHINE OPERATOR Office Visit [facility] Medical Group Family & Internal Medicine - [place] [address] [place] [address] Elvira Reynaga APNP [address] [place], [place] [phone] Attention Deficit Hyperactivity Disorder Social History Tobacco [...] Comments Blood Pressure 116/72 12/13/2023 2:37 PM METAL SHAPING MACHINE OPERATOR Pulse 84 12/13/2023 2:37 PM METAL SHAPING MACHINE OPERATOR Temperature 37.1 ??C (98.8 ??F) 12/13/2023 2:37 PM CS T Respiratory Rate 16 12/13/2023 2:37 PM METAL SHAPING MACHINE OPERATOR Oxygen Saturation 99% 12/13/2023 2:37 PM METAL SHAPING MACHINE OPERATOR Inhaled Oxygen Concentration - - Weight 50.5 kg (111 lb 6.4 oz) 12/13/2023 2:37 P M METAL SHAPING MACHINE OPERATOR Height 170.2 cm (5' 7 ) 12/13/2023 2:37 PM METAL SHAPING MACHINE OPERATOR Body Mass Index 17.45 12/13/2023 2:37 PM METAL SHAPING MACHINE OPERATOR documented in this encounter Progress Notes * SIGIFREDO Rueda - 12/13/2023 2:20 PM CST Images from the original note were not included. [facility] FAMILY AND INTERNAL MEDICINE OFFICE VISIT Reason [...] not an admission. PCP: SIGIFREDO Rueda 12/13/2023 L SHAPING MACHINE OPERATOR documented in this encounter Plan of Treatment Not on file documented as of this encounter Visit Diagnoses Diagnosis ADHD (attention deficit hyperactivity disorder), combined type Attention deficit disorder with hyperactivity documented in this encounter Additional Health Concerns Assessment Noted Time PHQ-9 Depression Total Score: 10 021 1:10 PM METAL SHAPING MACHINE OPERATOR documented as of this encounter Care Teams Wooden Frame Builder Relationship Specialty Start Date End Date Arden Cannon DO [address] [place] [address] PCP - General FAMILY PRACTICE 01/12/19 documented as of this encounter
--- OUTSIDE RECORDS SUMMARY | 2024-09-30 11:32 | XMS_ITS | Encounter Summary ---
Author Organization [facility] Address [facility] [facility] [place] [address] [place] [address] Care Team Providers Care Olive Picker Name Role Phone Arden Cannon DO Primary Care Provider + Reason for Visit * Reason Onset Date Comments Refill Request 11/02/2022 Encounter Details Date Type Department Care Team (Late st Contact Info) Description 11/02/2022 Telephone [facility] Medical Group Family & Internal Medicine [facility] [address] [place] [phone] Arden Cannon DO [address] [place], [place] [phone] Refill Request Social History Tobacco Use Types [...] OV is 11/29/22. Okay to fill? LL-11/02/22 OUT WAITER * Elinor Page - 11/02/2022 8:42 AM CST [facility] [place] She scheduled an appt for 11/29. OUT WAITER documented in this encounter Plan of Treatment Not on file documented as of this encounter Visit Diagnoses Diagnosis ADHD (attention deficit hyperactivity disorder), combined type Attention deficit disorder with hyperactivity documented in this encounter Additional Health Concerns Assessment Noted Time PHQ-9 Depression Total Score: 10 021 1:10 PM TAKE OUT WAITER documented as of this encounter Care Teams Olive Picker Relationship Specialty Start Date End Date Arden Cannon DO [address] [place] [address] PCP - General FAMILY PRACTICE 01/12/19 documented as of this encounter
--- OUTSIDE RECORDS SUMMARY | 2024-09-30 11:32 | XMS_ITS | Encounter Summary ---
Author Organization [facility] Address [facility] [address] [place] [address] Care Team Providers Care Geospatial Technician Name Role Phone Arden Cannon DO Primary Care Provider + Reason for Visit * Reason Onset Date Comments Question 04/15/2023 Encounter Details Date Type Department Care Team (Late st Contact Info) Description 04/15/2023 Telephone [facility] Medical Group Family & Internal Medicine - [address] [phone] Arden Cannon DO [address] [place] [phone] Question Social History Tobacco Use Types Packs/Day [...] healing wounds please call patient back at [phone] documented in this encounter Plan of Treatment Not on file documented as of this encounter Visit Diagnoses Not on filedocumented in this encounter Additional Health Concerns Assessment Noted Time PHQ-9 Depression Total Score: 10 021 1:10 PM PERSONAL LINES ADVISOR documented as of this encounter Care Teams Geospatial Technician Relationship Specialty Start Date End Date Arden Cannon DO [address] [place], [place] [phone] PCP - General FAMILY PRACTICE 01/12/19 documented as of this encounter
--- OUTSIDE RECORDS SUMMARY | 2024-09-30 11:32 | XMS_ITS | Encounter Summary ---
Author Organization [facility] Address [facility] [place] [address] [place] [address] Care Team Providers Care Tool Checker Name Role Phone Dennise Goodson DO Primary Care Provider + Reason for Visit * Reason Onset Date Comments Refill Request 09/27/2022 Encounter Details Date Type Department Care Team (Late st Contact Info) Description 09/27/2022 Telephone [facility] Medical Group Family & Internal Medicine [address] [phone] Dennise Goodson DO [address] [place], [place] [phone] Refill Request Social History Tobacco Use Types [...] in October sometime, November at the latest. [employer] * Gayle Avila MA - 09/27/2022 8:49 AM CST Refill request received from Pharmacy Last visit with DENNISE GOODSON in FAMILY PRACTICE was on: 01/18/2022 in [facility] No future appointments. [facility]/pharmacy [address] [place] [address] Current Outpatient Medications: ??? azithromycin (ZITHROMAX) 250 [...] three days, Disp: 18 tablet, Rfl: 0 [employer] documented in this encounter Plan of Treatment Not on file documented as of this encounter Visit Diagnoses Diagnosis ADHD (attention deficit hyperactivity disorder), combined type Attention deficit disorder with hyperactivity documented in this encounter Additional Health Concerns Assessment Noted Time PHQ-9 Depression Total Score: 10 021 1:10 PM SUPERVISOR PLASTICS documented as of this encounter Care Teams Tool Checker Relationship Specialty Start Date End Date Dennise Goodson DO [address] [place] [address] PCP - General FAMILY PRACTICE 01/12/19 documented as of this encounter
--- OUTSIDE RECORDS SUMMARY | 2024-09-30 11:33 | XMS_ITS | Encounter Summary ---
Author Organization [facility] Address [facility] [place] [place] [address] [place] [address] Care Team Providers Care Planning Division Superintendent Name Role Phone Arden Cannon DO Primary Care Provider + Reason for Visit * Reason Onset Date Comments Letter 08/08/2020 Encounter Details Date Type Department Care Team (Late st Contact Info) Description 08/08/[address] [facility] Medical Group Family & Internal Medicine - [address] [phone] Arden Cannon DO [address] [place] [phone] Letter Social History Tobacco Use Types Packs/Day [...] to work. She would like to come pick up operator the letter. documented in this encounter Plan of Treatment Not on file documented as of this encounter Visit Diagnoses Not on filedocumented in this encounter Additional Health Concerns Infection Onset Date Last Indicated Resolved Time COVID-19 Rule Out 07/21/2020 07/21/2020 09/19/2020 12:35 AM SIGHTSEEING GUIDE Assessment Noted Time PHQ-9 Depression Total Score: 3 06/03/20 20 9:40 AM CDT documented as of this encounter Care Teams Planning Division Superintendent Relationship Specialty Start Date End Date Arden Cannon DO [address] [place] [address] PCP - General FAMILY PRACTICE 01/12/19 documented as of this encounter
--- OUTSIDE RECORDS SUMMARY | 2024-09-30 11:33 | XMS_ITS | Encounter Summary ---
Author Organization [facility] Address [facility] [place] [address] [place] [address] Care Team Providers Care Head Of History Name Role Phone Arden Cannon DO Primary Care Provider + Reason for Visit * Reason Onset Date Comments Lab Results 01/14/2019 Encounter Details Date Type Department Care Team (Late st Contact Info) Description 01/14/2019 Telephone [facility] Medical Group Family & Internal Medicine - [address] [phone] Arden Cannon DO [address] [place] [address] Lab Results Social History Tobacco Use Types [...] on filedocumented in this encounter Care Teams Head Of History Relationship Specialty Start Date End Date Arden Cannon DO [address] [place] [address] PCP - General FAMILY PRACTICE 01/12/19 documented as of this encounter
--- OUTSIDE RECORDS SUMMARY | 2024-09-30 11:33 | XMS_ITS | Encounter Summary ---
Author Organization [facility] Address [facility] [place] [address] [place] [address] Care Team Providers Care Mutual Fund Sales Agent Name Role Phone Arden Cannon Romy ROBERTSON Primary Care Provider + Encounter Details Date Type Department Care Team (Late st Contact Info) Description 09/09/2019 Orders Only [facility] Medical Group Family & Internal Medicine - [address] [phone] Ann Monterroso MA Social History Tobacco Use [...] on filedocumented in this encounter Care Teams Mutual Fund Sales Agent Relationship Specialty Start Date End Date Arden Cannon DO [address] [place] [phone] PCP - General FAMILY PRACTICE 01/12/19 documented as of this encounter
--- OUTSIDE RECORDS SUMMARY | 2024-09-30 11:33 | XMS_ITS | Encounter Summary ---
Author Organization [facility] Address [address] [facility] [place] [address] [place] [address] Care Team Providers Care Virtual Recruiter Name Role Phone Arden Cannon DO Primary Care Provider + Reason for Referral * (Routine) - Closed Specialty Diagnoses / Procedures Referred By Carrie robb Referred To Contact Procedures LACERATION REPAIR Prasanna Chris PA-C [address] [place] [address] Phone: tel: fax: Referral ID Status Reason Start Date Expiration Date Visits Re quested Visits Authorized [id number] Closed 01/15/2020 02/13/2021 1 1 Reason for Visit * Reason Comments Laceration Encounter Details Date Type Department Care Team (Late st Contact Info) Description 01/15/2020 5:57 PM CDT - 01/15/2020 7:30 PM CDT Emergency [facility] [place] [address] Prasanna Chris PA-C [address] [place] [address] Laceration Discharge Disposition: Home or Self Care [...] me if you have any additional questions. ([phone]; Prasanna Chris PA-C) Our practice is committed [...] * Laceration Repair With Stitches Discharge Instructions (Israeli) documented in this encounter Medications at Time of Discharge lisdexamfetamine 50 MG capsuleIndications: ADHD (attention deficit hyperactivity disorder), combined type Take 1 capsule (50 mg total) by mouth every morning. 30 capsule 12/29/2019 0 documented as of this encounter ED Notes * Prasanna Chris PA-C - 01/15/2020 6:58 PM CDTAssociated Order(s): Lac Repair [facility] [place] HISTORICAL INFORMATION Primary Care Doctor: Arden Cannon, DO Patient information was obtained primarily from the patient, nursing notes. History/Exam limitations: None Provider at Bedside Date/Time Event User Comments 01/15/20 655 Provider at Bedside Assessing Patient PRASANNA CHRIS CHIEF COMPLAINT Laceration Chief Complaint Patient presents with ??? Laceration HPI Corinna Thacker is a 19-year-old female, right hand dominant, presents for laceration to left 4thdigit from opening food can. TDAP up to date. 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 Denies sensory chagnes. Current medications: reviewed PAST MEDICAL HISTORY \ Past Medical History: Diagnosis Date ??? Anxiety ??? Depression SURGICAL HISTORY Past Surgical History: Procedure Laterality Date ??? ADENOIDECTOMY ??? TONSILLECTOMY CURRENT MEDICATIONS Current Facility-Administered Medications: ??? ukrvbzug-smbuxucfvy-lslculeab (NEOSPORIN) ointment, , Topical, 4x Daily, Prasanna [...] HAND LT 3V Final Result by User, [id number] (01/15 1836) Examination: Left hand 3 views [...] on file Disposition: Discharge Follow up planning: [facility] Emergency Room [facility] [address] Go in 1 week For suture removal JANICE MARTINEZ PA-C 01/15/201904 Prasanna Chris PA-C 01/15/201904 Cosigned [...] cabinet override Given 01/15/2020 6:23 PM CDT aqynbzwu-ckjlgrbrza-gqaqqjmdk (NEOSPORIN) ointment Topical, 4 times daily, First dose on Sat01/15/20 at 2100, Until Discontinued Given 01/15/2020 7:10 PM CDT documented in this encounter Active and Recently Administered Medications Times are shown in CDT. Scheduled Medication Order 01/13/2020 01/14/2020 01/15/2020 tbrwkoqm-qadkbltvgm-pccwdrauq (NEOSPORIN) ointment Topical, 4 times daily, First [...] RN) documented in this encounter Care Teams Virtual Recruiter Relationship Specialty Start Date End Date Arden Cannon DO [address] [place] [phone] PCP - General FAMILY PRACTICE 01/12/19 documented as of this encounter
--- OUTSIDE RECORDS SUMMARY | 2024-09-30 11:33 | XMS_ITS | Encounter Summary ---
Author Organization [facility] Address [facility] [place] [address] [place] [address] Care Team Providers Care Data Center Engineer Name Role Phone Arden Cannon Primary [...] Depression Total Score: 10 021 1:10 PM RUG DRY ROOM ATTENDANT documented as of this encounter Care Teams Data Center Engineer Relationship Specialty Start Date End Date Arden Cannon DO [address] [place] [phone] PCP - General FAMILY PRACTICE 01/12/19 documented as of this encounter
--- OUTSIDE RECORDS SUMMARY | 2024-09-30 11:33 | XMS_ITS | Encounter Summary ---
Author Organization [facility] Address [facility]6 [facility] [address] [place] [address] Care Team Providers Care Government Relations Manager Name Role Phone Dennise Goodson DO Primary Care Provider + Reason for Visit * Reason Onset Date Comments Refill Request 04/20/2022 Encounter Details Date Type Department Care Team (Late st Contact Info) Description 04/20/2022 Telephone [facility] Medical Group Family & Internal Medicine [address] [phone] Dennise Goodson DO [address] [place], [place] [phone] Refill Request Social History Tobacco Use Types [...] in FAMILY PRACTICE was on: 01/18/2022 in [facility] Future Appointments Date Time Provider Department Center 05/04/2022 8:40 AM Dennise Goodson DO FMMRVL [id number] [place] - [address] [facility] [address] [facility] [address] [place] [address] Current Outpatient Medications: ??? lisdexamfetamine 50 MG [...] Total Score: 10 021 1:10 PM COMMERCIAL PILOT documented as of this encounter Care Teams Government Relations Manager Relationship Specialty Start Date End Date Dennise Goodson DO [address] [place] [address] PCP - General FAMILY PRACTICE 01/12/19 documented as of this encounter
--- OUTSIDE RECORDS SUMMARY | 2024-09-30 11:33 | XMS_ITS | Encounter Summary ---
Author Organization [facility] Address [facility] [place] [address] [place] [address] Care Team Providers Care Technical Assoc Name Role Phone Arden Cannon DO Primary Care Provider + Reason for Visit * Reason Comments Follow Up ADHD Congestion Sore Throat x2 weeks Encounter Details Date Type Department Care Team (Late st Contact Info) Description 09/16/2019 1:00 PM MASTER AUTOMOTIVE GLASS TECHNICIAN Office Visit [facility] Medical Group Family & Internal Medicine - [place] [address] [place] [phone] Arden Cannon DO [address] [place], [place] [phone] Follow Up (ADHD); Congestion; Sore Throat (x2 [...] Comments Blood Pressure 122/70 09/16/2019 1:07 PM MASTER AUTOMOTIVE GLASS TECHNICIAN Pulse 103 09/16/2019 1:07 PM MASTER AUTOMOTIVE GLASS TECHNICIAN Temperature 36.6 ??C (97.8 ??F) 09/16/2019 1:07 PM CS T Respiratory Rate 16 09/16/2019 1:07 PM MASTER AUTOMOTIVE GLASS TECHNICIAN Oxygen Saturation 98% 09/16/2019 1:07 PM MASTER AUTOMOTIVE GLASS TECHNICIAN Inhaled Oxygen Concentration - - Weight 56.9 kg (125 lb 6 oz) 09/16/2019 1:07 PM MASTER AUTOMOTIVE GLASS TECHNICIAN Height 170.2 cm (5' 7 ) 09/16/2019 1:07 PM MASTER AUTOMOTIVE GLASS TECHNICIAN Body Mass Index 19.64 09/16/2019 1:07 PM MASTER AUTOMOTIVE GLASS TECHNICIAN documented in this encounter Progress Notes * [...] file Gets together: Not on file Attends adventist service: Not on file Active member of [...] if needed. Pt v/u. Arden Cannon DO ER AUTOMOTIVE GLASS TECHNICIAN documented in this encounter Plan of Treatment Not on file documented as of this encounter Visit Diagnoses Diagnosis Acute non-recurrent maxillary sinusitis- Primary ADHD (attention deficit hyperactivity disorder), combined type Attention deficit disorder with hyperactivity documented in this encounter Care Teams Technical Assoc Relationship Specialty Start Date End Date Arden Cannon DO [address] [place] [address] PCP - General FAMILY PRACTICE 01/12/19 documented as of this encounter
--- OUTSIDE RECORDS SUMMARY | 2024-09-30 11:33 | XMS_ITS | Encounter Summary ---
Author Organization [facility] Address [facility] [place] [address] [place] [address] Care Team Providers Care Mop Maker Name Role Phone Arden Cannon DO Primary Care Provider + Reason for Visit * Reason Comments Establish Care Difficulty with cons itration Allergies Encounter Details Date Type Department Care Team (Late st Contact Info) Description 01/12/2019 1:20 PM CDT Office Visit [facility] Medical Group Family & Internal Medicine - [place] [address] [place] [phone] Arden Cannon DO [address] [place] [address] Establish Care (Difficulty with consitration ); Allergies [...] file Gets together: Not on file Attends buddhism service: Not on file Active member of [...] month. Can treat seasonal allergies with Zyrtec suiq-rew-lwvqiat. Follow-up as needed for this as well. Arden Cannon DO documented in this encounter Plan of Treatment Not on file documented as of this encounter Visit Diagnoses Diagnosis ADHD (attention deficit hyperactivity disorder), combined type- Primary Attention deficit disorder with hyperactivity Seasonal allergies Allergic rhinitis, cause unspecified documented in this encounter Care Teams Mop Maker Relationship Specialty Start Date End Date Arden Cannon DO [address] [place] [address] PCP - General FAMILY PRACTICE 01/12/19 documented as of this encounter
--- OUTSIDE RECORDS SUMMARY | 2024-09-30 11:33 | XMS_ITS | Encounter Summary ---
Author Organization [facility] Address [facility] [place] [address] [place] [address] Care Team Providers Care Wire Twisting Machine Operator Name Role Phone Dennise Goodson DO Primary Care Provider + Reason for Visit * Reason Onset Date Comments Refill Request 09/30/2019 Encounter Details Date Type Department Care Team (Late st Contact Info) Description 09/30/2019 Telephone [facility] Medical Group Family & Internal Medicine [address] [phone] Dennise Goodson DO [address] [place] [address] [phone] Refill Request Social History Tobacco Use Types [...] in FAMILY PRACTICE was on: 09/16/2019 in [facility] No future appointments. [facility]/pharmacy #[id number] [place], [place] - [address] [facility] [address] [facility] [address] No current outpatient medications on file. APPLICATION DEVELOPER documented in this encounter Plan of Treatment Not on file documented as of this encounter Visit Diagnoses Diagnosis ADHD (attention deficit hyperactivity disorder), combined type- Primary Attention deficit disorder with hyperactivity documented in this encounter Care Teams Wire Twisting Machine Operator Relationship Specialty Start Date End Date Dennise Goodson DO [address] [place] [address] PCP - General FAMILY PRACTICE 01/12/19 documented as of this encounter
--- OUTSIDE RECORDS SUMMARY | 2024-09-30 11:33 | XMS_ITS | Encounter Summary ---
Author Organization [facility] Address [facility] [place] [address] [place] [address] Care Team Providers Care Veterans Service Representative Name Role Phone Arden Cannon DO Primary Care Provider + Reason for Visit * Reason Onset Date Comments Refill Request 12/29/2019 UTI 12/29/2019 Encounter Details Date Type Department Care Team (Late st Contact Info) Description 12/29/2019 Telephone [facility] Medical Group Family & Internal Medicine [facility] [address] [place] [phone] Arden Cannon DO [address] [place] [address] Refill Request; UTI Social History Tobacco Use [...] hyperactivity documented in this encounter Care Teams Veterans Service Representative Relationship Specialty Start Date End Date Arden Cannon DO [address] [place] [address] PCP - General FAMILY PRACTICE 01/12/19 documented as of this encounter
--- OUTSIDE RECORDS SUMMARY | 2024-09-30 11:33 | XMS_ITS | Encounter Summary ---
Author Organization [facility] [place] [facility] Address [address] [facility] [place] [address] [place] [address] Care Team Providers Care Field Service Coordinator Name Role Phone Arden Cannon DO Primary Care Provider + Reason for Visit * Reason Comments Cough Symptoms started 2 w eeks ago. Patient states she has taken multiple covid tests which were all negative. Sore Throat Sinus Pain Sinus pressure, johana estion, runny nose Encounter Details Date Type Department Care Team (Late st Contact Info) Description 05/21/2022 12:00 PM CDT Telemedicine [facility] Medical Group Family & Internal Medicine - [place] [address] [place] [phone] Arden Cannon DO [address] [place] [address] Cough (Symptoms started 2 weeks ago. Patient [...] aware that the same confidentiality and information systems administrator practices apply. The patient joined the video [...] (Generic) 06/17/2009 ??? Tdap (Historical Only-select from [employer]) 09/19/2020 ??? Varicella Vaccine 02/15/1999, 06/17/2009 [...] Depression Total Score: 10 021 1:10 PM TURF KEEPER documented as of this encounter Care Teams Field Service Coordinator Relationship Specialty Start Date End Date Arden Cannon DO [address] [place] [address] PCP - General FAMILY PRACTICE 01/12/19 documented as of this encounter
--- OUTSIDE RECORDS SUMMARY | 2024-09-30 11:33 | XMS_ITS | Encounter Summary ---
Author Organization [facility] Address [facility] [place] [address] [place] [address] Care Team Providers Care Occupational Therapy Teacher Name Role Phone Dennise Goodson DO Primary Care Provider + Reason for Visit * Reason Onset Date Comments Refill Request 07/09/2019 Encounter Details Date Type Department Care Team (Late st Contact Info) Description 07/09/2019 Telephone [facility] Family & Internal Medicine [address] [phone] Dennise Goodson DO [address] [place] [address] [phone] Refill Request Social History Tobacco Use Types [...] in FAMILY PRACTICE was on: 04/13/2019 in [facility] No future appointments. [facility]/pharmacy #[id number] [place], [place] - [address] [facility] [address] [facility] [address] No current outpatient medications on file. documented in this encounter Plan of Treatment Not on file documented as of this encounter Visit Diagnoses Diagnosis ADHD (attention deficit hyperactivity disorder), combined type- Primary Attention deficit disorder with hyperactivity documented in this encounter Care Teams Occupational Therapy Teacher Relationship Specialty Start Date End Date Dennise Goodson DO [address] [place] [address] PCP - General FAMILY PRACTICE 01/12/19 documented as of this encounter
--- OUTSIDE RECORDS SUMMARY | 2024-09-30 11:33 | XMS_ITS | Encounter Summary ---
Author Organization [facility] Address [facility] [address] [place] [address] Care Team Providers Care Nursing Tech Name Role Phone Arden Cannon Primary Care [...] Depression Total Score: 10 021 1:10 PM ICT TRAINER documented as of this encounter Care Teams Nursing Tech Relationship Specialty Start Date End Date Arden Cannon DO [address] [place] [address] PCP - General FAMILY PRACTICE 01/12/19 documented as of this encounter
--- OUTSIDE RECORDS SUMMARY | 2024-09-30 11:33 | XMS_ITS | Encounter Summary ---
Author Organization [facility] Address [facility] [place] [address] [place] [address] Care Team Providers Care Tumbler Machine Operator Name Role Phone Arden Cannon Primary Care [...] documented as of this encounter Care Teams Tumbler Machine Operator Relationship Specialty Start Date End Date Arden Cannon DO [address] [place] [address] PCP - General FAMILY PRACTICE 01/12/19 documented as of this encounter
--- OUTSIDE RECORDS SUMMARY | 2024-09-30 11:33 | XMS_ITS | Encounter Summary ---
Author Organization [facility] Address [facility] [place] [address] [place] [address] Care Team Providers Care Water Meter Reader Name Role Phone Arden Cannon DO Primary Care Provider + Reason for Visit * Reason Onset Date Comments Refill Request 03/25/2019 Encounter Details Date Type Department Care Team (Late st Contact Info) Description 03/25/2019 Telephone [facility] Medical Group Family & Internal Medicine [address] [phone] Arden Cannon DO [address] [place] [address] Refill Request Social History Tobacco Use Types [...] hyperactivity documented in this encounter Care Teams Water Meter Reader Relationship Specialty Start Date End Date Arden Cannon DO [address] [place] [address] PCP - General FAMILY PRACTICE 01/12/19 documented as of this encounter
--- OUTSIDE RECORDS SUMMARY | 2024-09-30 11:33 | XMS_ITS | Encounter Summary ---
Author Organization [facility] Address [address] [facility] [place] [address] [place] [address] Care Team Providers Care Vascular Sonographer Name Role Phone Arden Cannon DO Primary Care Provider + Reason for Visit * Reason Comments Attention Deficit Hyperactivity Disorder follow up Encounter Details Date Type Department Care Team (Latest Contact Info) Description 06/03/2020 9:20 AM CDT Office Visit [facility] Medical Group Family & Internal Medicine - [place] [address] [place] [phone] Arden Cannon DO [facility] [place] [address] Attention Deficit Hyperactivity Disorder (follow up ) [...] file Gets together: Not on file Attends zoroastrianism service: Not on file Active member of [...] analytical performance characteristics have been determined by [employer]. It has not been cleared or approved [...] interpreting these drug results, please contact a [employer] Toxicology Specialist: [phone] ( ), M-F, 8am-6pm EST. 06/03/2020 9:28 AM CDT 06/04/2020 3:08 AM CDT Narrative Resulting Agency Comment Performing Organization Information: ?Site ID: ?Name: [facility] ?Address: [address] [place] [id number] ?Director: Serafin Hays M.D. us Arden Cannon DO LABORATORY Final Re sult [facility] [address] [place] [address] documented in this encounter Visit Diagnoses Diagnosis Generalized anxiety disorder- Primary ADHD (attention deficit hyperactivity disorder), combined type Attention deficit disorder with hyperactivity Encounter for long-term (current) use of other medications documented in this encounter Additional Health Concerns Assessment Noted Time PHQ-9 Depression Total Score: 3 06/03/20 20 9:40 AM CDT documented as of this encounter Care Teams Vascular Sonographer Relationship Specialty Start Date End Date Arden Cannon DO [address] [place] [address] PCP - General FAMILY PRACTICE 01/12/19 documented as of this encounter
--- OUTSIDE RECORDS SUMMARY | 2024-09-30 11:33 | XMS_ITS | Encounter Summary ---
Author Organization [facility] Address [facility] [place] [address] [place] [address] Care Team Providers Care Filenet P8 Developer Name Role Phone Arden Cannon DO Primary Care Provider + Reason for Visit * Reason Comments Anxiety follow up . Encounter Details Date Type Department Care Team (Late st Contact Info) Description 09/19/2020 8:40 AM FIRE CONTROL MECHANIC Office Visit [facility] Family & Internal Medicine - [address] [phone] Arden Cannon DO [address] [place] [address] Anxiety (follow up . ) Social History [...] COVID-19? No / Unsure 09/19/2020 8:44 AM FIRE CONTROL MECHANIC documented as of this encounter Last Filed Vital Signs Vital Sign Reading Time Taken Comments Blood Pressure 98/60 09/19/2020 8:52 AM FIRE CONTROL MECHANIC Pulse 80 09/19/2020 8:52 AM FIRE CONTROL MECHANIC Temperature 36.6 ??C (97.9 ??F) 09/19/2020 8:52 AM CS T Respiratory Rate 16 09/19/2020 8:52 AM FIRE CONTROL MECHANIC Oxygen Saturation 98% 09/19/2020 8:52 AM FIRE CONTROL MECHANIC Inhaled Oxygen Concentration - - Weight 64.8 kg (142 lb 14.4 oz) 09/19/2020 8:52 AM FIRE CONTROL MECHANIC Height 170.2 cm (5' 7 ) 09/19/2020 8:52 AM FIRE CONTROL MECHANIC Body Mass Index 22.38 09/19/2020 8:52 AM FIRE CONTROL MECHANIC documented in this encounter Progress Notes * [...] type Need for immunization against influenza - [32275] FLU VACC QUAD 6 MONTHS+ 0.5 ML (SINGLE DOSE SYRINGE FLUZONE, FLUARIX, FLULAVAL OR SINGLE DOSE VIAL FLUZONE) Need for nbgnsqfemq-tzakhnt-rowrazmrb (Tdap) vaccine - [44791] Adacel (Tdap) Discussion/Summary: Start Wellbutrin and stop Cymbalta; noted to pt that side effect could occur again. She would like to try it though. Consider alternative medication if not improving or side effects recur. Continue Vyvanse as prescribed. Will have patient follow-up in 1.5-3 months for reassessment. Will give immunizations as per above. Patient verbalized understanding. Arden Cannon DO CONTROL MECHANIC documented in this encounter Plan of Treatment Not on file documented as of this encounter Visit Diagnoses Diagnosis Generalized anxiety disorder- Primary ADHD (attention deficit hyperactivity disorder), combined type Attention deficit disorder with hyperactivity Need for immunization against influenza Need for prophylactic vaccination and inoculation against influenza Need for enrdxnbcqs-ykwuivo-wpxjavspg (Tdap) vaccine Need for prophylactic vaccination with combined jbqwpgohcj-exehanl-nyhpnriep (DTP) vaccine documented in this encounter Additional Health Concerns Assessment Noted Time PHQ-9 Depression Total Score: 3 06/03/20 20 9:40 AM CDT documented as of this encounter Care Teams Filenet P8 Developer Relationship Specialty Start Date End Date Arden Cannon DO [address] [place] [address] PCP - General FAMILY PRACTICE 01/12/19 documented as of this encounter
--- OUTSIDE RECORDS SUMMARY | 2024-09-30 11:33 | XMS_ITS | Encounter Summary ---
Author Organization [facility] Address [address] [facility] [place] [address] [place] [address] Care Team Providers Care Stripe Marker Name Role Phone Arden Cannon DO Primary Care Provider + Encounter Details Date Type Department Care Team (Late st Contact Info) Description 01/12/2019 Orders Only [facility] Medical Group Family & Internal Medicine - [place] [address] [place] [phone] Arden Cannon DO [address] [place], [place] [phone] Social History Tobacco Use Types Packs/Day Years [...] > or = 20.0 mg/dL [facility] pH PM (U) 7.59 4.5 - 9.0 [facility] [place] OXIDANT NEGATIVE <200 mcg/mL [facility] [place] AMPHETAMINES PM NEGATIVE <500 ng/mL [facility] AMPHETAMINES PM MEDMATCH (U) INCONSISTENT [facility] [place] BARBITURATES PM (U) NEGATIVE <300 ng/mL [facility] [place] BARBITURATES PM MM (U) CONSISTENT [facility] BENZODIAZEPINES PM (U) NEGATIVE <100 ng/mL [...] [place] METHADONE PM MEDMATCH CONSISTENT [facility] OPIATES PM (U) NEGATIVE <100 ng/mL [facility] [place] OPIATES PM MEDMATCH (U) CONSISTENT [facility] OXYCODONE PM (U) NEGATIVE <100 ng/mL [facility] OXYCODONE PM MEDMATCH CONSISTENT [facility] Comment: [facility] Comment:See Note 2 PRESCRIBED DRUG 1 (U) Vyvanse(TM) [facility] ALCOHOL METABOLITES (U) NEGATIVE <500 ng/mL [facility] [place] ALCOHOL METABOLITES (U) CONSISTENT [facility] Comment: [facility] Comment:See Note 2 PRESCRIBED DRUG 1 (U) Vyvanse(TM) [facility] MORPHINE (U) NEGATIVE <10 ng/mL [facility] MORPHINE PM MEDMATCH CONSISTENT [facility] Comment: [facility] Comment: See Note 2 Note 1 This test was developed and its analytical performance characteristics have been determined by [employer]. It has not been cleared or approved [...] interpreting these drug results, please contact a [employer] Toxicology Specialist: [phone] ( ), M-F, 8am-6pm EST. 01/12/2019 2:01 PM CDT 01/13/2019 2:54 AM CDT Narrative [facility] - 01/14/2019 8:38 AM CDT FASTING: NO Resulting Agency Comment Performing Organization Information: ?Site ID: AP ?Name: [facility] ?Address: [address] [place] [address], Floor [address] [place] [address] ?Director: Tello Forbes Ph.D. us Arden Cannon DO LABORATORY Final Re sult [facility] [phone], documented in this encounter Visit Diagnoses Not on filedocumented in this encounter Care Teams Stripe Marker Relationship Specialty Start Date End Date Arden Cannon DO [address] [place] [address] PCP - General FAMILY PRACTICE 01/12/19 documented as of this encounter
--- OUTSIDE RECORDS SUMMARY | 2024-09-30 11:33 | XMS_ITS | Encounter Summary ---
Author Organization [facility] Address [facility]6 [facility] [place] [address] [place] [address] Care Team Providers Care Mainspring Reverse Winder Name Role Phone Arden Cannon Primary Care [...] on filedocumented in this encounter Care Teams Mainspring Reverse Winder Relationship Specialty Start Date End Date Arden Cannon DO [address] [place] [address] PCP - General FAMILY PRACTICE 01/12/19 documented as of this encounter
--- OUTSIDE RECORDS SUMMARY | 2024-09-30 11:33 | XMS_ITS | Encounter Summary ---
Author Organization [facility] Address [facility]. [place], [place] [address] [place] [address] Care Team Providers Care Object Oriented Developer Name Role Phone Arden Cannon DO Primary Care Provider + Reason for Referral * Consultation (Routine) - Closed Specialty Diagnoses / Procedures Referred By Carrie robb Referred To Contact CARDIOLOGY / Cardiology Diagnoses Palpitations Arden Cannon DO [address] [place] [address] Phone: tel: fax: [facility] [address] [address] Phone: tel: fax: Referral ID Status Reason Start Date Expiration Date V isits Requested Visits Authorized [id number] Closed Specialty Services 01/18/2022 02/19/2023 100 100 Reason for Visit * Reason Comments Attention Deficit Hyperactivity Disorder follow up Encounter Details Date Type Department Care Team (Latest Contact Info) Description 01/18/2022 11:20 AM CDT Office Visit [facility] Medical Group Family & Internal Medicine [address] [phone] Arden Cannon DO [address] [place] [phone] Attention Deficit Hyperactivity Disorder (follow up ) [...] Palpitations - Ambulatory referral to Cardiology, Adult ([facility] [place]) Drug therapy - DRUG MONITORING, PANEL 7, [...] r Schedule Ambulatory referral to Cardiology, Adult ([facility] [place]) Referral Routine Palpitations Ordered: 01/18/2022 documented as [...] METABOLITES (U) NEGATIVE <500 ng/mL [facility] AMPHETAMINES PM NEGATIVE <500 ng/mL [facility] BARBITURATES PM (U) NEGATIVE <300 ng/mL [facility] BENZODIAZEPINES PM (U) NEGATIVE <100 ng/mL [facility] COCAINE METABOLITE PM (U) NEGATIVE <150 ng/mL [facility] MORPHINE (U) NEGATIVE <10 ng/mL [facility] MARIJUANA METABOLITE PM (U) POSITIVE(A) <20 ng/mL [facility] MARIJUANA METABOLITE PM CONF (U) 97(H) <5 ng/mL [facility] MARIJUANA COMMENTS [facility] Comment:See Marijuana Notes, LDT Notes METHADONE PM (U) NEGATIVE <100 ng/mL [facility] OPIATES PM (U) NEGATIVE <100 ng/mL [facility] OXYCODONE PM (U) NEGATIVE <100 ng/mL [facility] CREATININE RANDOM URINE 18.1(L) > or = 20.0 mg/dL [facility] SPECIFIC GRAVITY PM (U) 1.008 > or = 1.003 [facility] pH PM (U) 7.0 4.5 - 9.0 [facility] OXIDANT NEGATIVE <200 mcg/mL [facility] Note [facility] Comment: This drug testing is for medical [...] analytical performance characteristics have been determined by [facility]. It has not been cleared or approved by the FDA. This assay has been validated pursuant to the CLIA regulations and is used for clinical purposes. Healthcare Providers needing Interpretation assistance, please contact us at [phone] ( ) M-F, 8am to 10pm EST 01/18/2022 11:4 2 AM CDT 01/22/2022 10:38 PM CDT Arden Cannon DO LABORATORY Final Re sult [facility] [address] [place] [address] Little [facility] [address] [place] [address] * TEST URINE (01/18/2022) URINE HCG TEST NEGATIVE NEGATIVE [facility] Internal Control: VALID VALID [facility] URINE SPECIMEN FROM [facility] / Unknown 01/18/2022 Arden Cannon DO URINE ORDERABLES Final R esult Performing Organization Address City/[facility]/ZIP Co de Phone Number [facility] [address] [place] [address], [place] documented in this encounter Visit Diagnoses [...] Depression Total Score: 10 021 1:10 PM RN STAFF documented as of this encounter Care Teams Object Oriented Developer Relationship Specialty Start Date End Date Arden Cannon DO [address] [place] [address] PCP - General FAMILY PRACTICE 01/12/19 documented as of this encounter
--- OUTSIDE RECORDS SUMMARY | 2024-09-30 11:33 | XMS_ITS | Encounter Summary ---
Author Organization [facility] Address Critical access hospital6 [facility] [place] [address] [place] [address] Care Team Providers Care Carrier Loader Name Role Phone Arden Cannon DO Primary Care Provider + Reason for Visit * Reason Comments Fatigue for a couple of year s after infection or stress Encounter Details Date Type Department Care Team (Late st Contact Info) Description 11/07/2020 1:00 PM ETHICAL HACKER Office Visit [facility] Medical Group Family & Internal Medicine - [place] [address] [place] [phone] Arden Cannon DO [address] [place] [address] Fatigue (for a couple of years after [...] COVID-19? No / Unsure 11/07/2020 12:59 PM ETHICAL HACKER documented as of this encounter Last Filed Vital Signs Vital Sign Reading Time Taken Comments Blood Pressure 102/68 11/07/2020 1:09 PM ETHICAL HACKER Pulse 70 11/07/2020 1:09 PM ETHICAL HACKER Temperature 36.7 ??C (98 ??F) 11/07/2020 1:09 PM ETHICAL HACKER Respiratory Rate 16 11/07/2020 1:09 PM ETHICAL HACKER Oxygen Saturation 98% 11/07/2020 1:09 PM ETHICAL HACKER Inhaled Oxygen Concentration - - Weight 61.7 kg (136 lb 1.6 oz) 11/07/2020 1:09 P M ETHICAL HACKER Height 170.2 cm (5' 7 ) 11/07/2020 1:09 PM ETHICAL HACKER Body Mass Index 21.32 11/07/2020 1:09 PM ETHICAL HACKER documented in this encounter Progress Notes * [...] file Gets together: Not on file Attends rastafari service: Not on file Active member of [...] testing. Patient verbalized understanding. Arden Cannon DO CAL HACKER documented in this encounter Plan of Treatment [...] Depression Total Score: 10 021 1:10 PM ETHICAL HACKER documented as of this encounter Care Teams Carrier Loader Relationship Specialty Start Date End Date Arden Cannon DO [address] [place] [address] PCP - General FAMILY PRACTICE 01/12/19 documented as of this encounter
--- OUTSIDE RECORDS SUMMARY | 2024-09-30 11:33 | XMS_ITS | Encounter Summary ---
Author Organization [facility] Address [facility] [place] [address] [place] [address] Care Team Providers Care Director Field Services Name Role Phone Arden Cannon Primary Care [...] on filedocumented in this encounter Care Teams Director Field Services Relationship Specialty Start Date End Date Arden Cannon DO [address] [place] [address] PCP - General FAMILY PRACTICE 01/12/19 documented as of this encounter
--- OUTSIDE RECORDS SUMMARY | 2024-09-30 11:33 | XMS_ITS | Encounter Summary ---
Author Organization [facility] Address [facility] [place] [address] [place] [address] Care Team Providers Care Precast Concrete Ironworker Name Role Phone Arden Cannon DO Primary Care Provider + Reason for Visit * Reason Onset Date Comments UTI 07/16/2019 Encounter Details Date Type Department Care Team (Late st Contact Info) Description 07/16/2019 Telephone [facility] Medical Group Family & Internal Medicine - [address] [phone] Arden Cannon DO [address] [place] [address] UTI Social History Tobacco Use Types Packs/Day [...] Please advise Allergic to zoloft marcela cv Cb#[phone] documented in this encounter Plan of Treatment Not on file documented as of this encounter Visit Diagnoses Diagnosis UTI (urinary tract infection)- Primary Urinary tract infection, site not specified documented in this encounter Care Teams Precast Concrete Ironworker Relationship Specialty Start Date End Date Arden Cannon DO [address] [place] [address] PCP - General FAMILY PRACTICE 01/12/19 documented as of this encounter
--- OUTSIDE RECORDS SUMMARY | 2024-09-30 11:33 | XMS_ITS | Encounter Summary ---
Author Organization [facility] Address Replaced by [facility] [place] [address] [place] [address] Care Team Providers Care Boiler Tenders Supervisor Name Role Phone Arden Cannon DO Primary Care Provider + Reason for Visit * Reason Comments Follow Up Encounter Details Date Type Department Care Team (Late st Contact Info) Description 04/13/2019 8:00 AM CDT Office Visit [facility] Medical Group Family & Internal Medicine - [address] [phone] Arden Cannon DO [address] [place] [address] Follow Up Social History Tobacco Use Types [...] file Gets together: Not on file Attends yazidi service: Not on file Active member of [...] hyperactivity documented in this encounter Care Teams Boiler Tenders Supervisor Relationship Specialty Start Date End Date Arden Cannon DO [address] [place] [address] PCP - General FAMILY PRACTICE 01/12/19 documented as of this encounter
--- OUTSIDE RECORDS SUMMARY | 2024-09-30 11:33 | XMS_ITS | Encounter Summary ---
Author Organization [facility] Address [facility] [place] [address] [place] [address] Care Team Providers Care Patient Relations Coordinator Name Role Phone Arden Cannon Primary [...] COVID-19? No / Unsure 09/19/2020 8:44 AM HORSE RACE TIMER documented as of this encounter Plan of Treatment Not on file documented as of this encounter Visit Diagnoses Not on filedocumented in this encounter Additional Health Concerns Infection Onset Date Last Indicated Resolved Time COVID-19 Rule Out 07/21/2020 07/21/2020 09/19/2020 12:35 AM HORSE RACE TIMER Assessment Noted Time PHQ-9 Depression Total Score: 3 06/03/20 20 9:40 AM CDT documented as of this encounter Care Teams Patient Relations Coordinator Relationship Specialty Start Date End Date Arden Cannon DO [address] [place] [address] PCP - General FAMILY PRACTICE 01/12/19 documented as of this encounter
--- OUTSIDE RECORDS SUMMARY | 2024-09-30 11:33 | XMS_ITS | Encounter Summary ---
Author Organization [facility] Address [facility] [place] [address] [place] [address] Care Team Providers Care Field Human Resources Manager Name Role Phone Arden Cannon DO [...] on filedocumented in this encounter Care Teams Field Human Resources Manager Relationship Specialty Start Date End Date Arden Cannon DO [address] [place] [address] PCP - General FAMILY PRACTICE 01/12/19 documented as of this encounter
--- OUTSIDE RECORDS SUMMARY | 2024-09-30 11:33 | XMS_ITS | Encounter Summary ---
Author Organization [facility] Address [facility]6 [facility] [address] [place] [address] Care Team Providers Care Repairer Controller Tester Name Role Phone Arden Cannon DO Primary Care Provider + Reason for Visit * Reason Onset Date Comments Refill Request 05/27/2019 Encounter Details Date Type Department Care Team (Late st Contact Info) Description 05/27/2019 Telephone [facility] Medical Group Family & Internal Medicine [address] [phone] Arden Cannon DO [address] [place] [phone] Refill Request Social History Tobacco Use Types [...] hyperactivity documented in this encounter Care Teams Repairer Controller Tester Relationship Specialty Start Date End Date Arden Cannon DO [address] [place] [address] PCP - General FAMILY PRACTICE 01/12/19 documented as of this encounter
--- OUTSIDE RECORDS SUMMARY | 2024-09-30 11:33 | XMS_ITS | Encounter Summary ---
Author Organization [facility] Address [facility]6 [facility] [place] [address] [place] [address] Care Team Providers Care Scientific Recruiter Name Role Phone Arden Cannon Romy ROBERTSON Primary Care Provider + Reason for Visit * Reason Comments Outside Record (SCAN) [facility] DRUG MONITORING REPORT Encounter Details Date Type Department Care Team ([facility] Contact Info) Description 01/14/2019 Scan HEALTH INFO [...] on filedocumented in this encounter Care Teams Scientific Recruiter Relationship Specialty Start Date End Date Arden Cannon DO [address] [place] [address] PCP - General FAMILY PRACTICE 01/12/19 documented as of this encounter
--- OUTSIDE RECORDS SUMMARY | 2024-09-30 11:33 | XMS_ITS | Encounter Summary ---
Author Organization [facility] Address [facility]6 [facility] [place] [address] [place] [address] Care Team Providers Care Hotel Concierge Name Role Phone Arden Cannon Primary Care Provider + Reason for Visit * Reason Comments Consent Doc (SCAN)* [facility] - CONTROLLED SUBSTANCE AGREEMENT (CSA) Report (SCAN) ADULT SELF-REPORT [facility] Encounter Details Date Type Department Care Team (Late st Contact Info) Description 01/12/2019 Scan HEALTH INFO [facility] Scanned, Documents Consent Doc (SCAN)* ([facility] - CONTROLLED SUBSTANCE AGREEMENT [...] on filedocumented in this encounter Care Teams Hotel Concierge Relationship Specialty Start Date End Date Arden Cannon DO [address] [place] [address] PCP - General FAMILY PRACTICE 01/12/19 documented as of this encounter
--- OUTSIDE RECORDS SUMMARY | 2024-09-30 11:33 | XMS_ITS | Encounter Summary ---
Author Organization [facility] Address [facility]6 [facility] [place] [address] [place] [address] Care Team Providers Care Locomotive Observer Name Role Phone Arden Cannon Romy ROBERTSON [...] on filedocumented in this encounter Care Teams Locomotive Observer Relationship Specialty Start Date End Date Arden Cannon DO [address] [place] [address] PCP - General FAMILY PRACTICE 01/12/19 documented as of this encounter
--- OUTSIDE RECORDS SUMMARY | 2024-09-30 11:33 | XMS_ITS | Encounter Summary ---
Author Organization [facility] Address [address] [facility] [place] [address] [place] [address] Care Team Providers Care Perfume Maker Name Role Phone Arden Cannon DO Primary Care Provider + Reason for Visit * Reason Comments Attention Deficit Hyperactivity Disorder Anxiety Encounter Details Date Type Department Care Team (Latest Contact Info) Description 02/24/2020 1:00 PM CDT Telemedicine [facility] Medical Group Family & Internal Medicine - [address] [phone] Arden Cannon DO [address] [place] [address] Attention Deficit Hyperactivity Disorder; Anxiety Social History [...] patient aware that the same confidentiality and chief information officer practices apply. The patient joined the video [...] file Gets together: Not on file Attends sikh service: Not on file Active member of [...] disorder documented in this encounter Care Teams Perfume Maker Relationship Specialty Start Date End Date Arden Cannon DO [address] [place] [address] PCP - General FAMILY PRACTICE 01/12/19 documented as of this encounter
--- OUTSIDE RECORDS SUMMARY | 2024-09-30 11:33 | XMS_ITS | Encounter Summary ---
Author Organization [facility] Address [facility] [place] [address] [place] [address] Care Team Providers Care Shot Grinder Operator Name Role Phone Arden Cannon DO Primary Care Provider + Reason for Visit * Reason Comments Follow Up medication Encounter Details Date Type Department Care Team (Late st Contact Info) Description 02/23/2019 8:20 AM CDT Office Visit [facility] Medical Group Family & Internal Medicine - [address] [phone] Arden Cannon DO [address] [place] [address] Follow Up (medication ) Social History Tobacco [...] file Gets together: Not on file Attends jain service: Not on file Active member of [...] significantly with anxiety. Will be gone in [place] until later March; can give temporary refill if needed. Otherwise, f/u in approximately 1 month. Pt v/u. Arden Cannon DO documented in this encounter Plan of Treatment Not on file documented as of this encounter Visit Diagnoses Diagnosis ADHD (attention deficit hyperactivity disorder), combined type- Primary Attention deficit disorder with hyperactivity documented in this encounter Care Teams Shot Grinder Operator Relationship Specialty Start Date End Date Arden Cannon DO [address] [place] [address] PCP - General FAMILY PRACTICE 01/12/19 documented as of this encounter
--- OUTSIDE RECORDS SUMMARY | 2024-09-30 11:33 | XMS_ITS | Encounter Summary ---
Author Organization [facility] Address [facility]6 [facility] [place] [address] [place] [address] Care Team Providers Care Air Valve Mechanic Name Role Phone Arden Cannon DO Primary Care Provider + Reason for Visit * Reason Onset Date Comments COVID-19 07/21/2020 Encounter Details Date Type Department Care Team (Late st Contact Info) Description 07/21/[address] [facility] Medical Group Family & Internal Medicine [address] [phone] [place] [address] [place] [address] [phone] COVID-19 Social History Tobacco Use Types Packs/Day [...] as of this encounter Progress Notes * Jannie Wasserman MA - 07/21/2020 4:58 PM CDTAddended [...] Rule Out 07/21/2020 07/21/2020 09/19/2020 12:35 AM UNDERCOLLAR BASTER Assessment Noted Time PHQ-9 Depression Total Score: 3 06/03/20 20 9:40 AM CDT documented as of this encounter Care Teams Air Valve Mechanic Relationship Specialty Start Date End Date Arden Cannon DO [address] [place] [address] PCP - General FAMILY PRACTICE 01/12/19 documented as of this encounter
--- OUTSIDE RECORDS SUMMARY | 2024-09-30 11:33 | XMS_ITS | Encounter Summary ---
Author Organization [facility] Address [facility] [place] [address] [place] [address] Care Team Providers Care Server Cashier Name Role Phone Arden Cannon Primary Care [...] COVID-19? No / Unsure 11/07/2020 12:59 PM MANAGER TRADING documented as of this encounter Plan of Treatment Not on file documented as of this encounter Visit Diagnoses Not on filedocumented in this encounter Additional Health Concerns Assessment Noted Time PHQ-9 Depression Total Score: 10 021 1:10 PM MANAGER TRADING documented as of this encounter Care Teams Server Cashier Relationship Specialty Start Date End Date Arden Cannon DO [address] [place] [address] PCP - General FAMILY PRACTICE 01/12/19 documented as of this encounter
--- OUTSIDE RECORDS SUMMARY | 2024-09-30 11:33 | XMS_ITS | Encounter Summary ---
Author Organization [facility] Address [facility]6 [facility] [place] [address] [place] [address] Care Team Providers Care Environmental Service Aide Name Role Phone Arden Cannon DO Primary Care Provider + Reason for Visit * Reason Comments Medication Follow up Encounter Details Date Type Department Care Team (Late st Contact Info) Description 05/25/2021 2:00 PM CDT Telemedicine [facility] Medical Group Family & Internal Medicine - [address] [phone] Arden Cannon DO [address] [place] [address] Medication (Follow up ) Social History Tobacco [...] patient aware that the same confidentiality and ux information architect practices apply. The patient joined the video [...] Gatherings with Friends and Family: ??? Attends Mu-Ism Services: ??? Active Member of Clubs or [...] Depression Total Score: 10 021 1:10 PM OPEN PIT QUARRY SUPERVISOR documented as of this encounter Care Teams Environmental Service Aide Relationship Specialty Start Date End Date Arden Cannon DO [address] [place] [address] PCP - General FAMILY PRACTICE 01/12/19 documented as of this encounter
--- OUTSIDE RECORDS SUMMARY | 2024-09-30 11:33 | XMS_ITS | Encounter Summary ---
Author Organization [facility] Address Critical access hospital6 [facility] [place] [address] [place] [address] Care Team Providers Care Talent Acquisition Operations Manager Name Role Phone Dennise Goodson DO Primary Care Provider + Reason for Visit * Reason Onset Date Comments Refill Request 02/22/2020 Encounter Details Date Type Department Care Team (Late st Contact Info) Description 02/22/2020 Telephone [facility] Medical Group Family & Internal Medicine - [address] [phone] Dennise Goodson DO [address] [place] [address] [phone] Refill Request Social History Tobacco Use Types [...] as of this encounter Progress Notes * Benrarda Archuleta - 02/23/2020 3:44 PM CDT Patient [...] in FAMILY PRACTICE was on: 09/16/2019 in [facility] No future appointments. [facility]/pharmacy [address] [place] [id number] Current Outpatient Medications: ??? lisdexamfetamine 50 MG capsule, Take 1 capsule (50 mg total) by mouth every morning., Disp: 30 capsule, Rfl: 0 documented in this encounter Plan of Treatment Not on file documented as of this encounter Visit Diagnoses Diagnosis ADHD (attention deficit hyperactivity disorder), combined type Attention deficit disorder with hyperactivity documented in this encounter Care Teams Talent Acquisition Operations Manager Relationship Specialty Start Date End Date Dennise Goodson DO [address] [place] [address] PCP - General FAMILY PRACTICE 01/12/19 documented as of this encounter
--- OUTSIDE RECORDS SUMMARY | 2024-09-30 11:34 | XMS_ITS | Encounter Summary ---
Author Organization [facility] Address [facility] [facility] [place] [address] [place] [address] Care Team Providers Care Rn Er Name Role Phone None, Provider Primary Care Provider Unavaila ble Reason for Visit * Reason Comments Toxidrome ACCIDENTAL Encounter Details Date Type Department Care Team (Late st Contact Info) Description 08/14/2018 2:50 AM CDT - 08/14/2018 4:01 AM CDT Emergency [facility] [place] [address] Wyatt Fonseca MD Toxidrome (ACCIDENTAL) Discharge Disposition: [...] peas, cucumbers, zucchini, egplant, pumpkin Leafy greens Cuming, tomato, prune, apicot, grapefruit juice Certain dairy [...] through Care Everywhere. * HIGH POTASSIUM DIET (LITHUANIAN) documented in this encounter ED Notes * [...] and 10 in the evening. The patient's [facility] dorm noticed that the patient was [...] of 08/14/18 ECG [address] [facility] Test Date: 2018-08-14 Pat Name: MARYLOU THACKER Department: 41 Room: [address] Gender: Female It Teacher: [facility] : 2000 Requested By: WYATT FONSECA Order Number: [id number] Reading MD: Measurements Intervals [place] Rate: 72 P: 44 CT: 128 QRS: [...] well below the toxic dose per the [place] poison center. Will check of the patient's [...] 2:53 AM CDT PT TO ER FROM [facility] VIA EMS WITH CREATIVE COORDINATOR ACCIDENTAL OVERDOSE FROM [place]. PT IS ON HER PERIOD, THIS MORNING PT TOOK 2 PILLS AROUND [phone] YESTERDAY MORNING AND THEN LATER PT'S CRAMPS [...] NEGATIVE Internal Control performed as Expected? SHANTEILD Comment:[id number] EXP 07/13 us Wyatt Fonseca MD POINT OF CARE TEST ORDERABLES Fi nal Result * ECG 12 lead (08/14/2018 3:06 AM CDT) 08/14/2018 3:06 AM CDT Narrative [facility] - 08/14/2018 3:48 PM CDT ?[place] [address] [place] ? Test Date: ?2018-08-14 Pat Name: ? MARYLOU THACKER ?Department: ?? 41 ? Room: ? [id number] Gender: ? F ?It Teacher: ?? [facility] : ?2000 ? Requested By: WYATT MARIAN Order Number: [id number] ? Reading MD: ?? Aleksandar Bailey ? Measurements Intervals ?[place] ? Rate: ? 72 ? P: ?44 [...] Procedure Note Aleksandar Bailey MD - 08/14/2018 [place] [place] [place] Test Date: 2018-08-14 Pat Name: MARYLOU THACKER Department: 41 Room: [address] Gender: F It Teacher: [facility] : 2000 Requested By: WYATT FONSECA Order Number: [id number] Reading MD: Aleksandar Bailey Measurements Intervals [place] Rate: 72 P: 44 CT: 128 QRS: 8 QRSD: 78 T: -1 QT: 390 QTc: 429 Interpretive Statements SINUS RHYTHM WITH OCCASIONAL SUPRAVENTRICULAR PREMATURE COMPLEXES No previous ECG available for comparison Preliminary EKG interpretation by ED Physician No ischemic changes Wyatt Fonseca M.D. CRITICAL ALERT ISSUED ON 08-14-2018 3:09:00 us Wyatt Fonseca MD ECG ORDERABLES Final Result Performing Organization Address City/[facility]/ZIP Co de Phone Number [facility] * EKG Reading (08/14/2018 3:05 AM [...] - 20.0 MG/DL 08/14/2018 3:41 AM CDT [facility] Comment: THERAPEUTIC: ?2.8-20.0 Toxic Level: ?>=30 08/14/2018 3:05 AM CDT us Wyatt Fonseca MD LABORATORY Final Result Performing Organization Address [facility] Co de Phone Number [facility] [address] [place] [address], * (ABNORMAL) ACETAMINOPHEN (08/14/2018 3:05 AM CDT) [facility] ACETAMINOPHEN S/P/B <2.0(L) 10.0 - 30.0 MCG/ML 08/14/2018 3:46 AM CDT [facility] Comment: ?THERAPEUTIC: 10-30 ?TOXIC: >200 08/14/2018 3:05 AM CDT Wyatt Fonseca MD LABORATORY Final Result Performing Organization Address City/State/[facility] Co de Phone Number [facility] [address] [place] [address], * (ABNORMAL) COMPREHENSIVE METABOLIC PANEL (08/14/2018 3:05 AM CDT) [facility] GLUCOSE 96 70 - 99 MG/DL 08/14/2018 3:46 AM CDT [facility] BUN 7 7 - 18 MG/DL 08/14/2018 3:46 AM CDT [facility] CREATININE S/P/B 0.76 0.55 - 1.02 MG/DL 08/14/2018 3:46 AM CDT [facility] SODIUM S/P/B 141 136 - 145 MMOL/L 08/14/2018 3:46 AM CDT [facility] POTASSIUM S/P/B 3.4(L) 3.5 - 5.1 MMOL/L 08/14/2018 3:46 AM CDT [facility] CHLORIDE S/P/B 109(H) 100 - 108 MMOL/L 08/14/2018 3:46 AM CDT [facility] CO2 22.5 21 - 32 MMOL/L 08/14/2018 3:46 AM T [facility] CALCIUM S/P/B 8.9 8.5 - 10.1 MG/DL 08/14/2018 3:46 AM [facility] BILIRUBIN TOTAL S/P/B 0.7 0.2 - 1.2 MG/DL 08/14/2018 3:46 AM T [facility] TOTAL PROTEIN S/P/B 7.4 6.4 - 8.2 G/DL 08/14/2018 3:46 AM [facility] ALBUMIN S/P/B 4.3 3.4 - 5.0 G/DL 08/14/2018 3:46 AM [facility] AST 16 15 - 37 U/L 08/14/2018 3:46 AM [facility] ALT 19 14 - 55 U/L 08/14/2018 3:46 AM [facility] ALKALINE PHOSPHATASE S/P/B 41(L) 50 - 136 U/L 08/14/2018 3:46 AM T [facility] ANION GAP 12.9 8 - 20 MMOL/L 08/14/2018 3:46 AM [facility] BUN CREATININE RATIO 9.3 6 - 26 08/14/2018 3:46 AM [facility] A/G RATIO 1.4 1.0 - 2.0 RATIO 08/14/2018 3:46 AM [facility] EGFR NON-AFR. AMER. >90 >90 ML/MIN/1.7 3 M2 08/14/2018 3:46 AM [facility] EGFR AFR. AMER. >90 >90 ML/MIN/1.7 3 M2 08/14/2018 3:46 AM [facility] Comment: NOTE: eGFR is not calculated for patients <18 years of age. This is an estimated GFR (CKD EPI) and should not be used for calculating drug doses. 08/14/2018 3:05 AM CDT Wyatt Fonseca MD LABORATORY Final Result [facility] [address] [place] [address], * (ABNORMAL) CBC W/DIFF AUTOMATED (08/14/2018 3:05 AM CDT) WBC 10.5 4.5 - 13.0 x10'3/uL 08/14/2018 3:23 AM CDT [facility] RBC 4.62 4.20 - 5.40 x10'6/uL 08/14/2018 3:23 AM CDT [facility] HGB 13.7 12.0 - 16.0 G/DL 08/14/2018 3:23 AM CDT [facility] HCT 40.7 38.0 - 48.0 % 08/14/2018 3:23 AM CDT [facility] MCV 88.1 80.0 - 94.0 FL 08/14/2018 3:23 AM CDT [facility] MCH 29.7 27.0 - 31.0 PG 08/14/2018 3:23 AM CDT [facility] MCHC 33.7 32.0 - 36.0 G/DL 08/14/2018 3:23 AM CDT [facility] RDW 12.3 11.5 - 14.5 % 08/14/2018 3:23 AM CDT [facility] PLT 367 130 - 400 x10'3/uL 08/14/2018 3:23 AM CDT [facility] MPV 10.0 9.3 - 12.2 FL 08/14/2018 3:23 AM T [facility] DIFFERENTIAL TYPE AUTOMATED DIFFERENTIAL 08/14/2018 3:23 AM CDT [facility] NEUTROPHILS % 65.5 % 08/14/2018 3:23 AM T [facility] LYMPHOCYTES % 26.0 % 08/14/2018 3:23 AM T [facility] MONOCYTES % 7.4 % 08/14/2018 3:23 AM T [facility] EOSINOPHILS 0.4 % 08/14/2018 3:23 AM T [facility] BASOPHILS 0.3 % 08/14/2018 3:23 AM T [facility] IMMATURE GRANS % 0.4(H) 0 % 08/14/20 18 3:23 AM T [facility] ABS. NEUTROPHILS TOTAL 6.86 1.80 - 8.00 x10'3/uL 08/14/2018 3:23 AM T [facility] ABS. LYMPHOCYTES 2.72 1.20 - 5.20 x10'3/uL 08/14/2018 3:23 AM [facility] ABS. MONOCYTES 0.77 0.24 - 0.86 x10'3/uL 08/14/2018 3:23 AM T [facility] ABS. EOSINOPHILS 0.04 0.04 - 0.36 x10'3/uL 08/14/2018 3:23 AM T [facility] ABS. BASOPHILS 0.03 0.01 - 0.08 x10'3/uL 08/14/2018 3:23 AM [facility] ABS. IMMATURE GRANULOCYTES 0.04(H) 0.00 - 0.03 x10'3/uL 08/14/2018 3:23 AM [facility] 08/14/2018 3:05 AM CDT Wyatt Fonseca MD LABORATORY Final Result [facility] [address] [place] [address], [place] [phone] documented in this encounter Visit Diagnoses Diagnosis [...] RN) documented in this encounter Care Teams Rn Er Relationship Specialty Start Date End Date None, Provider, PCP - General 08/14/18 01/11/19 documented as of this encounter
--- OUTSIDE RECORDS SUMMARY | 2024-09-30 11:39 | XMS_ITS | Clinical Summary ---
Author Organization [facility] Address [address] [place] [address] Care Team Providers Care Drum Builder Name Role Phone Unknown, Notinfile Primary Care [...] age to complete this topic Care Teams Drum Builder Relationship Specialty Start Date End Date Unknown, Notinfile PCP - General 01/25/23
--- OUTSIDE RECORDS SUMMARY | 2024-09-30 11:40 | XMS_ITS | Referral Summary ---
Author Organization [facility] Address [address] [place] [address] Care Team Providers Care Project Management Professional Name Role Phone Unknown, Raman Primary Care [...] of Treatment Not on file Care Teams Project Management Professional Relationship Specialty Start Date End Date UnknownRaman PCP - General 01/25/23
--- OUTSIDE RECORDS SUMMARY | 2024-09-30 11:40 | XMS_ITS | Encounter Summary ---
Author Organization [facility] Healthcare Address [address] [place] [address] Care Team Providers Care [employer] Packages Sealer Name Role Phone Unknown, Notinfile Primary Care Provider Unavail able Reason for Visit * Reason Comments Abdominal Pain Encounter Details Date Type Department Care Team (Late st Contact Info) Description 01/25/2023 10:27 PM CDT - 01/26/2023 1:46 AM CDT Emergency [address] [address] Right lower quadrant abdominal pain (Primary Dx); [...] Care Everywhere. * Threatened Miscarriage (AfterCare(R) Instructions(ER/ED)) (Ukrainian) * Acute Abdominal Pain ([employer]) (Ukrainian) documented in this encounter Discharge Disposition Disposition [...] tendency for uric acid stone formation. Source: [place] Data.Last revised 10-24-2017 COMPREHENSIVE METABOLIC PANEL - Abnormal [...] by Deonte Lawler M.D. T: Report ID: [id number] Reading Location: [id number] ED COURSE/MEDICAL DECISION MAKING Differential diagnosis included [...] INSTRUCTED TO FOLLOW UP Elvira Davies MD [address] [place] [address] In 2 days for re-evaluation and further treatment DISCHARGE MEDICATIONS Your medication list as of January 26, 2023 1:30 AM You have not been prescribed any medications. This examination was transcribed using the [employer] voice recognition system without human java development team lead. In an effort to expedite patient care, this report has not been adjusted for typographical, grammatical, and syntax by a trained health care / medical job titles. Alice Quesada PA 01/26/23 0512 Cosigned by [...] D: ??01/26/2023 12:36 AM T: Report ID: [id number] Reading Location: ??[id number] Procedure Note Gilberto Donovan MD - 01/26/2023 [...] Gilberto Donovan M.D. RW T: Report ID: [id number] Reading Location: [id number] us Alice CHAVES IMG US PROCEDURES Final [...] ORDER RENETTA Final Result Performing Organization Address [facility] Co de Phone Number [address] [address] * ABO/Rh (01/25/2023 9:11 PM CDT) ABO/Rh A Positive [facility] Blood 01/25/2023 9:11 PM CDT 01/25/2023 9:16 PM CDT Narrative [facility] - 01/25/2023 10:28 PM CDT Has the patient had Daratumumab or Isatuximab in the past 6 months?->Unknown Alice [facility]ES LAB BLOOD BANK TEST ORDER RENETTA Final Result Performing Organization Address [facility] de Phone Number [address] [address] * US Ob Transvaginal (01/25/2023 8:27 PM [...] D: ??01/25/2023 10:03 PM T: Report ID: [id number] Reading Location: ??[id number] Procedure Note Deonte Lawler Jr., MD - [...] by Deonte Lawler M.D. T: Report ID: [id number] Reading Location: [place] [address] us Alice CHAVES IMG OB US PROCEDURES [...] CHAVES LAB BLOOD ORDERABLES Carlee chapis Result [facility] [address] [facility] Department [place] [address] * Differential, auto (01/25/2023 6:40 PM CDT) Neutrophil abs 4.7 1.7 - 6.5 K/cumm [facility] Imm gran abs 0.0 0.0 - 0.1 K/cumm [facility] Lymphocyte abs 2.5 0.8 - 3.3 K/cumm [facility] Monocyte abs 0.4 0.2 - 0.8 K/cumm [facility] Eosinophil abs 0.1 0.0 - 0.5 K/cumm [facility] Basophil abs 0.0 0.0 - 0.1 K/cumm [facility] Neutrophil pct 60.4 % [facility] Comment: Interpretive Data Percent cell count reference ranges are not reported, since discordance with absolute values may lead to misinterpretation of CBC data. Current Interpretive Data was last revised on 2018. Imm gran pct 0.3 % [facility] Comment: Interpretive Data Percent cell count reference ranges are not reported, since discordance with absolute values may lead to misinterpretation of CBC data. Current Interpretive Data was last revised on 2018. Lymphocyte pct 31.9 % [facility] Comment: Interpretive Data Percent cell count reference ranges are not reported, since discordance with absolute values may lead to misinterpretation of CBC data. Current Interpretive Data was last revised on 2018. Monocyte pct 5.7 % [facility] Comment: Interpretive Data Percent cell count reference ranges are not reported, since discordance with absolute values may lead to misinterpretation of CBC data. Current Interpretive Data was last revised on 2018. Eosinophil pct 1.3 % [facility] Comment: Interpretive Data Percent cell count reference [...] ORDERABLES Carlee l Result Performing Organization Address City/State/[facility] Co de Phone Number [place] [address] [facility] Department [place] [address] * (ABNORMAL) hCG, blood, quantitative [...] ed Result - Final Performing Organization Address City/[facility] Co de Phone Number [address] [address] * CBC with auto differential (01/25/2023 6:40 PM CDT) [facility] WBC 7.7 3.8 - 9.9 K/cumm [facility] Hgb 13.2 11.9 - 15.5 g/dL [facility] Hct 38.0 35.6 - 45.5 % [facility] Plt 297 150 - 400 K/cumm [facility] MPV 9.6 9.1 - 12.3 fL [facility] RBC 4.29 3.90 - 5.20 M/cumm [facility] MCV 88.6 81.3 - 96.4 fL [facility] MCH 30.8 27.1 - 33.3 pg [facility] MCHC 34.7 32.3 - 35.7 g/dL [facility] RDW CV 12.6 11.1 - 14.9 % [facility] RDW SD 40.9 35.7 - 48.1 fL [facility] NRBC abs 0.00 0.00 - 0.01 K/cumm [facility] Blood 01/25/2023 6:40 PM CDT 01/25/2023 6:44 PM CDT Alice [facility]ES LAB BLOOD ORDERABLES Carlee l Result Performing Organization Address [facility] Co de Phone Number [address] [place] [address] * (ABNORMAL) Comprehensive metabolic panel (01/25/2023 6:40 PM CDT) [facility] Sodium 135 135 - 145 mmol/L [facility] Potassium, pl 3.5 3.3 - 4.9 mmol/L [facility] Chloride 101 97 - 110 mmol/L [facility] CO2 26 22 - 32 mmol/L [facility] Anion gap 8 2 - 15 mmol/L [facility] BUN 5(L) 8 - 25 mg/dL [facility] Creatinine 0.60 0.60 - 1.10 mg/dL [facility] Glucose 96 70 - 199 mg/dL [facility] Comment: Interpretive Data Fasting glucose >/= 126 [...] 2022. Calcium 9.1 8.5 - 10.3 mg/dL [facility] Bilirubin, total 0.6 0.1 - 1.2 mg/dL [facility] Protein, pl 6.8 6.5 - 8.5 g/dL [facility] Albumin 4.6 3.5 - 5.0 g/dL [facility] Alk phos 32(L) 40 - 130 Units/L [facility] ALT 7 7 - 45 Units/L [facility] AST 14 10 - 45 Units/L [facility] Blood 01/25/2023 6:40 PM CDT 01/25/2023 6:44 PM CDT Alice CHAVES LAB BLOOD ORDERABLES Carlee l Result [facility] [address] [facility] Department [place] [address] * POCT hCG, urine (01/25/2023 6:37 PM CDT) Pathologist [facility] HCG, ur, POC Positive Lot Number [id number] QC Backgroud Clear Acceptable QC Control Line Acceptable Urine 01/25/2023 6:37 PM CDT Alice CHAVES POINT OF CARE TEST ORDERA BLES Final Result * (ABNORMAL) Urinalysis, microscopic only (01/25/2023 6:35 PM CDT) Pathologist [facility] WBC, ur 0-5 0 - 5 /HPF [facility] RBC, ur 0-2 0 - 2 /HPF [facility] Epithelial cells, squamous, ur 1-5 0 - 5 /HPF [facility] Bacteria, ur Trace(A) [facility] Mucous, ur Present(A) [facility] Culture Reflex Comment Reflex conditions for urine culture (WBC >10) not met. [facility] Urine 01/25/2023 6:35 PM CDT 01/25/2023 6:37 PM CDT us Alice CHAVES LAB URINE ORDERABLES Carlee nation Result [facility] [address] [facility] Department [place] [address] * (ABNORMAL) Urinalysis reflex to microscopic and culture Urine (01/25/2023 6:35 PM CDT) Color, ur Yellow Yellow [facility] Clarity, ur Cloudy(A) Clear [facility] Specific gravity, ur 1.020 1.003 - 1.030 [facility] pH, urine 5.0 [facility] Protein, ur ql Negative Negative [facility] Glucose, ur ql Negative Negative [facility] Ketones, ur Negative Negative [facility] Bilirubin, ur Negative Negative [facility] Blood, ur 1+(A) Negative [facility] Urobilinogen, ur <2.0 <2.0 mg/dL [facility] Nitrite, ur Negative Negative [facility] Leukocyte esterase, ur Negative Negative [facility] UA reflex comment Reflex to microscopic UA will be performed. [facility] Urine 01/25/2023 6:35 PM CDT 01/25/2023 6:37 PM CDT Narrative [facility] - 01/25/2023 6:45 PM CDT ?? Urine pH is affected by diet, medications, systemic acid-base disturbances, and renal tubular function. ??pH may affect urinary stone formation. ??For example, urine pH below 6.0 may help reduce the tendency for calcium phosphate stones and pH greater than 6.0 may reduce the tendency for uric acid stone formation. Source: [place] Data. Last revised 10-24-2017 us Alice CHAVES LAB MICROBIOLOGY - GENERA L ORDERABLES Final Result [place] [address] [facility] Department [place] [address] documented in this encounter Visit [...] 01/25 documented in this encounter Care Teams [employer] Pack[employer] Sealer Relationship Specialty Start Date End Date Unknown, Notinfile PCP - General 01/25/23 documented as of this encounter
== END 2024-09-26 14:09 | disposition home or self-care (01) ==
PROVIDERS: Emergency Provider Emergency Medicine; PCP Student in an Organized Health Care Education/Training Program
DX: R22.41 Localized swelling, mass and lump, right lower limb (principal); Z87.891 Personal history of nicotine dependence
CPT/HCPCS: 93971; 99284